=== PATIENT | female | born 1995 | race Two or more races ===

== ENCOUNTER 2024-04-16 03:16 | Emergency (ER) | payer OTHER, SELFPAY ==
[2024-04-16 03:20] VITALS: BP 138/87; PULSE 72; O2SAT 98; BMI 37.9
[2024-04-16 03:32] VITALS: TEMP 36.9
--- NOTE | 2024-04-16 03:42 | XR_ITS ---
The [address] [address] Patient Name: HARSHAD ALICEA MRN: [id number] date: 1995 Sex: F Assigned Patient Location: ER Current Patient Location: Accession/Order Number: [id number] Exam Date: 04/16/2024 03:52 Report Date: 04/16/2024 04:13 At the request of: STEWART MARKER Procedure: XR toe LT min 2V PROCEDURE: XR toe RT min 2V, XR toe LT min 2V HISTORY: great toe infection r/o OM COMPARISON: None. FINDINGS: BONES:No fracture, acute abnormality, or significant arthropathy. SOFT TISSUES:No visible soft tissue swelling. EFFUSION:None visible. OTHER: Negative. XR/XR toe LT min 2V IMPRESSION: 1. No acute bone abnormality, significant degenerative changes, or findings to suggest osteomyelitis. 2. No appreciable soft tissue abnormality. Electronically authenticated by: JUNE KURTZ Date: 04/16/2024 04:13
--- NOTE | 2024-04-16 03:42 | XR_ITS ---
The [address] [address] Patient Name: HARSHAD ALICEA MRN: [id number] date: 1995 Sex: F Assigned Patient Location: ER Current Patient Location: Accession/Order Number: [id number] Exam Date: 04/16/2024 03:52 Report Date: 04/16/2024 04:13 At the request of: STEWART MARKER Procedure: XR toe RT min 2V PROCEDURE: XR toe RT min 2V, XR toe LT min 2V HISTORY: great toe infection r/o OM COMPARISON: None. FINDINGS: BONES:No fracture, acute abnormality, or significant arthropathy. SOFT TISSUES:No visible soft tissue swelling. EFFUSION:None visible. OTHER: Negative. XR/XR toe RT min 2V IMPRESSION: 1. No acute bone abnormality, significant degenerative changes, or findings to suggest osteomyelitis. 2. No appreciable soft tissue abnormality. Electronically authenticated by: JUNE KURTZ Date: 04/16/2024 04:13
--- NOTE | 2024-04-16 03:46 | ED.LOWEXI1 ---
HPI HPI - Extremity Injury (Lower) General Chief Complaint: Extremity Injury, Lower Stated Complaint: FOOT PAIN Time Seen by Provider: 04/16/24 03:29 Source: patient Mode of arrival: walk-in Limitations: no limitations History of Present Illness HPI Narrative: This 28-year-old female presents for evaluation of bilateral great toe pain and toenail disorder. The patient states she recently moved here from [place] to live with her sister. 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 The first night she was wearing the steel toed boots they were too tight in her feet and both of her toenails on her great toes became injured. She states the nail started lifting up and she has pain in the toes. She changed the foot where she was wearing and was seen at [facility] emergency department where she was prescribed antibiotics. She has been soaking her feet in warm Epsom salt water and has a follow-up appointment with podiatry next week. She states that they gave her Augmentin to take but she is having increasing pain in the toes and drainage from the right great toe that is foul-smelling. She states she is concerned because she is prediabetic. She has not had a fever. There is no lymphangitic streaking. She denies the possibility of . She is also concerned because she states she feels like blisters are forming on the medial aspects of the great toes. She also does appear to have some degree of fungal infection between her toes. Related Data Home Medications ?Medication ?Instructions ?Recorded ?Confirmed levothyroxine 88 mcg tablet 88 mcg PO DAILY 04/16/24 04/16/24 (Euthyrox) metformin 500 mg tablet 500 mg PO BID 04/16/24 04/16/24 Allergies Allergy/AdvReac Type Severity Reaction Status Date / Time No Known Drug Allergies Allergy Verified 04/16/24 03:26 Opioid HPI Opioid Management Most Recent Pain and Opioid Data: No Data to Display Review of Systems ROS Status of ROS 10 or more systems reviewed and unremarkable except as noted in history and below Exam Narrative Exam Narrative: Vital signs and Nursing Notes reviewed: Patient is afebrile with a normal pulse, blood pressure is mildly elevated at 138/87, she is not hypoxic with pulse ox of 98% on room air General: Awake, alert, oriented, no acute distress, lying comfortably on the stretcher, tearful at times HEENT: Normocephalic atraumatic, mucous membranes are moist and pink, eyes are clear, normal conjunctiva, vision is grossly intact Neck: Supple, no meningeal signs, no anterior or posterior cervical lymphadenopathy Chest: Lungs are clear to auscultation with good air entry, there is no wheezing rhonchi or rales appreciated no accessory muscle use, patient is speaking in complete sentences-no chest wall tenderness to palpation CVS: Regular rate and rhythm S1-S2, no murmurs rubs or gallops, pulses are brisk and equal bilaterally ABD: Soft, nondistended, nontender, no rebound guarding or rigidity, bowel sounds are normal, no pulsatile masses appreciated Extremities: The toenails on both great toes are trimmed back but are mildly avulsed and not closely approximated to the nail, there is no drainage appreciated or foul smell appreciated. They are mildly tender to palpation. There is no lymphangitic streaking. There is some small white broken blistering area that appears to be a tinea infection. Skin: Normal in appearance without rash,pallor, petechiae or purpura Neuro: No focal deficits Constitutional Vital Signs, click to edit/add: Last Vital Signs Temp 98.5 F 04/16/24 03:32 Pulse 72 04/16/24 03:20 Resp 16 04/16/24 03:20 BP 138/87 04/16/24 03:20 Pulse Ox 98 04/16/24 03:20 O2 Del Method Room Air 04/16/24 03:20 Course Vital Signs Vital signs: Vital Signs Pulse Rate 72 04/16/24 03:20 Respiratory Rate 16 04/16/24 03:20 Blood Pressure 138/87 04/16/24 03:20 Pulse Oximetry 98 04/16/24 03:20 Oxygen Delivery Method Room Air 04/16/24 03:20 Temperature 98.5 F 04/16/24 03:32 Pulse Rate 72 04/16/24 03:20 Respiratory Rate 16 04/16/24 03:20 Blood Pressure 138/87 04/16/24 03:20 Pulse Oximetry 98 04/16/24 03:20 Oxygen Delivery Method Room Air 04/16/24 03:20 MDM - Extremity Injury (Lower) MDM Narrative Medical decision making narrative: This 28-year-old female who is prediabetic presents for evaluation of bilateral great toe pain and concern for infection. The patient's toenails are lifting up after they were injured while she was wearing steel toed boots after starting a new job recently. She was seen at [facility] and prescribed Augmentin which she has been taking. She has also been soaking her feet. She has a follow-up appointment with podiatry next week. She was concerned because she feels that she is developing blisters on the medial aspect of her great toes which I do not appreciate but there is some degree of tinea infection between the remaining toes. She states there is drainage coming out of the right great toe that is foul-smelling. She was unable to express any drainage while in the emergency department and I was unable to express any drainage as well. There is no lymphangitic streaks or other notable abnormality. Her Accu-Chek was 114. X-rays of both toes were ordered to rule out any soft tissue infection or osteomyelitis. X-rays are normal. She will be discharged home with a prescription for antifungal spray for her feet and ibuprofen for pain. Discharge Plan Discharge Stand Alone Forms: Portal Instructions Chief Complaint: Extremity Injury, Lower Clinical Impression: Infection of toenail, Tinea pedis Patient Disposition: Home, Self-Care Time of Disposition Decision: 04:06 Condition: Good Prescriptions / Home Meds: No Action levothyroxine [Euthyrox] 88 mcg tablet 88 mcg PO DAILY metformin 500 mg tablet 500 mg PO BID Print Language: Iranian Instructions: Skin Yeast Infection (ED), Nail Avulsion (ED) Additional Instructions: Continue taking her antibiotics and soaking her feet in Epsom salt. Return to the emergency department for fever, worsening redness, red streaks up your feet or legs or any concerns. Follow-up closely with the guest experience specialist you are scheduled to see next week. Referrals: Physician,Non-Staff, MD [Primary Care Provider] - 1 week
[2024-04-16 03:50] LABS: Glucometer 114 mg/dL (74-106)
[2024-04-16] MEDS: IBUPROFEN 600 MG TABLET PO (04:16)
[2024-04-16 04:20] VITALS: BP 130/84; PULSE 74; O2SAT 99
== END 2024-04-16 04:20 | disposition home or self-care (01) ==
PROVIDERS: Emergency Provider Emergency Medicine
DX: B35.3 Tinea pedis (principal); L03.032 Cellulitis of left toe; L03.031 Cellulitis of right toe
CPT/HCPCS: 36415; 73660; 99284

== ENCOUNTER 2024-05-30 17:37 | Emergency (ER) | payer SELFPAY ==
[2024-05-30 17:41] VITALS: BP 133/89; PULSE 87; TEMP 36.7; O2SAT 97; BMI 37.9
--- OUTSIDE RECORDS SUMMARY | 2024-05-30 17:44 | XMS_ITS | CCD ---
Author Organization [facility] Care Team Providers Care Audit Reviewer Name Role Phone NONE, XXXX Primary Care Physician Unavailab Jensen Rodriguez Attending Unavailable Kenia Galan Primary Care Physician Medications Current Medications Medication Drug Class(es) Dates Sig (Normalized) Sig (Original) cephalexin 500 mg oral capsule (1 source) Cephalosporin Antibacterial Start: 04-05-2024 End: 04-12-2024 take 1 capsule by mouth every six hours Keflex 500 mg Cap 500 mg = 1 cap(s), Oral, q6hr, X 7 day(s), # 28 cap(s), Refills(s) 0, Pharmacy: [id number], 164, cm, 04/05/24 19:17:00 EDT, Height/Length Dosing, 103, kg, 04/05/24 19:17:00 EDT, Weight Dosing Start Date: 04/05/24 Stop Date: 04/12/24 Status: Ordered doxycycline hyclate 100 mg oral capsule (1 source) Tetracycline-class Drug Start: 04-15-2024 take 1 capsule by mouth twice daily doxycycline hyclate 100 mg Cap 100 mg = 1 cap(s), Oral, BID, # 20 cap(s), Refills(s) 0, Pharmacy: [id number], 164, cm, 04/15/24 6:28:00 EDT, Height/Length Dosing, 103, kg, 04/15/24 6:28:00 EDT, Weight Dosing Start Date: 04/15/24 Status: Ordered levothyroxine (2 sources) l-Thyroxine Start: 04-05-2024 levothyroxine Daily, Refills(s) 0 Start Date: 04/05/24 Status: Ordered metFORMIN (2 sources) Biguanide Start: 04-05-2024 metformin Oral, Refills(s) 0 Start Date: 04/05/24 Status: Ordered Problems Problem Classification Problem Date Documented Da te Episodic/Chronic Diabetes mellitus without complication (2 sources) Diabetes mellitus 04-05-2024 Chronic Skin and subcutaneous tissue infections (2 sources) Cellulitis of toe; Translations: [Cellulitis of unspecified toe] Onset: 04-05-2024 Episodic Thyroid disorders (2 sources) Disorder of thyroid gland 04-05-2024 Episodic Results Test Name Value Interpretation Reference Range Facil ity ED Clinical Summaryon 2023 ED Clinical Summary ED Clinical Summary [place] [id number] ED Clinical Summary Person Information Name: HARSHAD ALICEA [facility] Age: 28 Years : 1995 Sex: Female Language: Citizen Of [place] PCP: NONE, XXXX Marital Status: Single Phone: Visit Id: Visit Reason: Toe pain-swelling; Toe injury - Minor; BOTH TOE POSS INFECTION Speciality: Acuity: 3 Enc Type: Emergency Med Service: Emergency Arrival: 04/05/2024 19:08:18 Discharge: 04/05/2024 19:40:12 LOS: 000 00:32 Checkin: 04/05/2024 19:08:18 Checkout: 04/05/2024 19:40:12 Dispo Type: Home (Routine DC) EVENTS: Event Name Event Status Request Date/Time Start Date/Time Complete Date/Time Arrive Complete 04/05/2024 19:08:18 04/05/2024 19:08:18 04/05/2024 19:08:18 Document Home Meds Request 04/05/2024 19:08:18 Triage Complete 04/05/2024 19:08:18 04/05/2024 19:17:43 04/05/2024 19:17:43 Registration Complete 04/05/2024 19:16:14 04/05/2024 19:16:14 04/05/2024 19:16:14 Reg Complete Request 04/05/2024 19:16:14 Reg Bed Request Complete 04/05/2024 19:16:14 04/05/2024 19:16:14 04/05/2024 19:16:14 Bed Assign Complete 04/05/2024 19:19:19 04/05/2024 19:19:19 04/05/2024 19:19:19 Dr Exam Complete 04/05/2024 19:19:19 04/05/2024 19:22:48 04/05/2024 19:22:48 RN Exam Complete 04/05/2024 19:19:19 04/05/2024 19:39:28 04/05/2024 19:39:28 Registration Start 04/05/2024 19:22:48 04/05/2024 19:29:30 Meds Admin Complete 04/05/2024 19:32:01 04/05/2024 19:37:19 Discharge Complete 04/05/2024 19:33:11 04/05/2024 19:43:13 04/05/2024 19:43:13 Transfer Complete 04/05/2024 19:43:13 04/05/2024 19:43:13 04/05/2024 19:43:13 ADDRESS: [address] [place] [address] [address] [place] [id number] PHYS DOC NOTES: MEDICAL INFORMATION: Prescriptions Given: New Medications [id number], [address] [facility] [place] [phone], [phone] cephalexin (Keflex 500 mg Cap) 1 Capsules By Mouth every 6 hours for 7 Days. Refills: 0. Medications to Continue with No Changes Other Medications levothyroxine every day. metformin By Mouth. PATIENT EDUCATION INFORMATION: Instructions: Cellulitis, Adult Follow up: With: Address: When: Kenia Gal[place] [address] Business (1) In 3 days 04/08/2024 DIAGNOSIS: Cellulitis of great toe Normal [facility] ED Note-Physicianon 04-05-20 ED Note-Physician ED Note-Physician Basic Information Time Seen: Jensen Lua DO 04/05/2024 19:22 Chief Complaint states has drainage from under both great toes. tender to touch. no fever. History of Present Illness HPI: Patient is a 28-year-old female who is previous healthy presents the ED for pain and swelling of bilateral big toes. Patient states that she wears steel toed boots at work and they have been a little tight and they have been rubbing and she has noticed redness and swelling as well as a small amount of drainage. She denies any fever or chills. She is otherwise feeling well. ROS: Pertinent review of systems conducted and is negative except as noted above. Physical exam: General: nontoxic appearing and in no distress HEENT: Mucous membranes moist Neuro: awake and alert Neck: supple, trachea midline Card: Heart regular rate and rhythm no murmur Resp: Lungs clear to auscultation no wheeze or rhonchi Lower extremities: There is soft tissue swelling and erythema with warmth of the left great toe and to a lesser extent the right great toe. No active drainage. Dorsalis pedis pulses 2+. Physical Exam Vitals & Measurements T: 36.7 ?C(Oral) HR: 78(Peripheral) RR: 16 BP: 130/77 SpO2: 98% HT: 164 cm WT: 103 kg BMI: 38.3 Medical Decision Making MEDICAL DECISION MAKING Number and Complexity of Problems Differential Diagnosis: [] [facility] Data External documents reviewed: N/A My EKG interpretation: Noted in chart if applicable My CT interpretation: N/A My X-ray interpretation: Noted in chart if applicable My Ultrasound interpretation: N/A Decision rules/scores evaluated: N/A Discussed with: N/A Treatment and Disposition ED Course: Patient is well-appearing in no distress. She is afebrile here in the ED. She has swelling and redness of bilateral toes left greater than right. She states that there was some drainage from the left 1 but not the right 1. I am concerned from early cellulitis from the rubbing of her toes against her boots. We discussed the plan of starting her on oral Keflex and she will try to wear looser fitting boots as well as thicker socks and will follow closely with her primary care physician on an outpatient basis. Shared decision making: As above Code status: N/A Assessment/Plan Cellulitis of great toe (L03.039: Cellulitis of unspecified toe) Orders: cephalexin, 500 mg = 1 cap(s), Cap, Oral, Once, Stop date 04/05/24 19:31:00 EDT, STAT, Start date 04/05/24 19:31:00 EDT, 04/05/24 19:31:00 EDT cephalexin, 500 mg = 1 cap(s), Oral, q6hr, X 7 day(s), # 28 cap(s), Refills(s) 0, Pharmacy: [id number], 164, cm, 04/05/24 19:17:00 EDT, Height/Length Dosing, 103, kg, 04/05/24 19:17:00 EDT, Weight Dosing Disposition Plan Discharge Prescription List Prescriptions Keflex 500 mg Cap, 500 mg= 1 cap(s), Oral, q6hr Follow-up With When Contact Information Kenia Galan In 3 days 04/08/2024 EDT [address] [facility] [place] [address]- Business (1) Additional Instructions: Patient Education Cellulitis, Adult Problem List/Past Medical History Ongoing No qualifying data Historical No qualifying data Medications Inpatient Keflex 500 mg Cap, 500 mg= 1 cap(s), Oral, Once Home Keflex 500 mg Cap, 500 mg= 1 cap(s), Oral, q6hr Allergies No Known Allergies Lab Results No qualifying data available. Diagnostic Results No qualifying data available. Normal [facility] Comment on above: Result Comment: Elec tronically Signed By: Jensen Lua DO\.br\Date and Time Signed: 04/05/24 19:34 EDT ED Patient Summaryon 024 ED Patient Summary ED Patient Summary [address] [address] Patient Discharge Instructions Person Information Name: HARSHAD ALICEA Age: 28 Years Arrival Date: 04/05/2024 19:08:18 Discharge Diagnosis: Cellulitis of great toe Primary Care Physician: NONE, XXXX Provider Information Primary Provider: Jensen Lua DO [employer] Weigher:None The exam and treatment you received in the Emergency Department were for an urgent problem and are not intended as complete care. It is important that you follow up with a doctor, nurse practitioner, or physician?s collections assistant for ongoing care. If your symptoms become worse or you do not improve as expected and you are unable to reach your usual health care provider, you should return to the Emergency Department. We are available 24 hours a day. HARSHAD ALICEA has been given the following list of patient education materials, prescriptions and follow-up instructions: Follow-up Instructions: With: Address: When: [place] [place] [address] [place] (1) In 3 days 04/08/2024 In the event that this physician does not participate in your insurance network, please consult with your insurance company to find a nearby participating provider. Patient Education Materials: Cellulitis, Adult A MESSAGE TO ALL PATIENTS REGARDING OPIOIDS PRESCRIPTION OPIOIDS: WHAT YOU NEED TO KNOW Prescription opioids can be used to help relieve xkrixtsv-hh-tlptaa pain and are often prescribed following a surgery or injury, or for certain health conditions. These medications can be an important part of the treatment but also come with serious risks. It is important to work with your healthcare provider to make sure you are getting the safest, most effective care. WHAT ARE THE RISKS AND SIDE EFFECTS OF OPIOID USE? Prescription opioids carry serious risks of addiction and overdose, especially with prolonged use. An opioid overdose, often marked by slowed breathing, can cause sudden . The use of prescription opioids can have a number of side effects as well, even when taken as directed: ? Tolerance?meaning you might need to take more of the medication for the same pain relief ? Physical dependence?meaning you have symptoms of withdrawal when a medication is stopped ? Increased sensitivity to pain ? Constipation ? Nausea, vomiting, and dry mouth ? Sleepiness and dizziness ? Confusion ? Depression ? Low levels of testosterone that can result in lower sex drive, energy, and strength ? Itching and sweating RISKS ARE GREATER WITH: ? History of drug misuse, substance use disorder, or overdose ? Mental health conditions (such as depression or anxiety) ? Sleep apnea ? Older age (65 years and older) ? Avoid alcohol while taking prescription opioids. Also, unless specifically advised by your health care provider, medications to avoid include: ? Benzodiazepines (such as Xanax or Valium) ? Muscle relaxants (such as Soma or Flexeril) ? Hypnotics (such as Ambien or Lunesta) ? Other prescription opioids KNOW YOUR OPTIONS Talk to your health care provider about ways to manage your pain that don?t involve prescription opioids. Some of these options may actually work better and have fewer risks and side effects. Options may include: ? Pain relievers such as acetaminophen, ibuprofen, and naproxen ? Some medication that are also used for depression or seizures ? Physical therapy and exercise ? Cognitive behavioral therapy, a psychological, goal-directed approach, in which patients learn how to modify physical, behavioral, and emotional triggers of pain and stress. IF YOU ARE PRESCRIBED OPIOIDS FOR PAIN: ? Never take opioids in greater amounts or more often than prescribed. ? Follow up with your primary health care provider. o Work together to create a plan on how to manage your pain. o Talk about ways to help manage your pain that don?t involve prescription opioids. o Talk about any and all concerns and side effects. ? Help prevent misuse and abuse o Never sell or share prescription opioids. o Never use another person?s prescription opioids. ? Store prescription opioids in a secure place and out of reach of others (this may include visitors, children, friends, and family). ? Safely dispose of unused prescription opioids: Find your community drug take-back program or your pharmacy mail-back program, or flush them down the toilet, following guidance from the Food and Drug Administration (www.fda.gov/Drugs/Res ourcesForYou). ? Visit www.cdc.gov/drugoverdo se to learn about the risks of opioids abuse and overdose. ? If you believe you may be struggling with addiction, tell your health care advocate and ask for guidance or call [facility]?S National Helpline at 6-286-624-CXYG. v Source: [place] Departme (more content not included)... Normal [facility] Vital Signs Date Time Vital Sign Value Performing Clinician Paula boyer 04-15-2024 06:26-0400 Body temperature 97.7 [degF] Ej Vizcarra [facility] 04-15-2024 06:26-0400 Diastolic blood pressure 80 mm[Hg] Ej Vizcarra [facility] 04-15-2024 06:26-0400 Heart rate 80 /min Ej Vizcarra [facility] 04-15-2024 06:26-0400 Respiratory rate 16 /min Ej Vizcarra [facility] 04-15-2024 06:26-0400 SaO2% (BldA) [Mass fraction] 99 % Ej Vizcarra [facility] 04-15-2024 06:26-0400 Systolic blood pressure 132 mm[Hg] Ej Vizcarra [facility] 04-05-2024 19:13-0400 Body temperature 98.06 [degF] Jensen Lua [facility] 04-05-2024 19:13-0400 Diastolic blood pressure 77 mm[Hg] Jensen Lua [facility] 04-05-2024 19:13-0400 Heart rate 78 /min Jensen Lua [facility] 04-05-2024 19:13-0400 Respiratory rate 16 /min Jensen Lua [facility] 04-05-2024 19:13-0400 SaO2% (BldA) [Mass fraction] 98 % Jensen Chanell [facility] 04-05-2024 19:13-0400 Systolic blood pressure 130 mm[Hg] Jensen Lua [facility] Encounters Encounter Date Encounter Type Care Provider Facility Start: 04-15-2024 End: 04-15-2024 Emergency department patient visit Ej Vizcarra [facility] Start: 04-05-2024 End: 04-05-2024 Emergency department patient visit Jensen Lua [facility] Payers Date Payer Category Payer Private Health Insurance [id number] 1995 Unknown [id number] Social History Date Type Detail Facility Tobacco smoking status No Smoking Status Entered [facility] Sex Assigned At Female [facility] Functional Status Date Assessment Result Facility 04-15-2024 Functional Status N/A [facility] 04-05-2024 Functional Status N/A [facility] Evaluation + Plan note 04-15-2024 Note Date & Type Note Facility 04-15-2024 Evaluation + Plan note Extrac sindy from: Title:ED Note Author:Benji Mcneil, Koko Stover te:04/15/24 1. Cellulitis of great toe, right (L03.031: Cellulitis of right toe) Orders: doxycycline, 100 mg = 1 cap(s), Oral, BID, # 20 cap(s), Refills(s) 0, Pharmacy: [id number], 164, cm, 04/15/24 6:28:00 EDT, Height/Length Dosing, 103, kg, 04/15/24 6:28:00 EDT, Weight Dosing [facility] Hospital Discharge instructions 04-15-2024 Note Date & Type Note Facility 04-15-2024 Hospital Discharg e instructions Patient Education 04/15/2024 06:52:47 Cellulitis, Adult Cellulitis, Adult Cellulitis is a skin infection. The infected area is usually warm, red, swollen, and tender. This condition occurs most often in the arms and lower legs. The infection can travel to the muscles, blood, and underlying tissue and become serious. It is very important to get treated for this condition. What are the causes? Cellulitis is caused by bacteria. The bacteria enter through a break in the skin, such as a cut, burn, insect bite, open sore, or crack. What increases the risk? This condition is more likely to occur in people who: Have a weak body defense system (immune system). Have open wounds on the skin, such as cuts, lee, bites, and scrapes. Bacteria can enter the body through these open wounds. Are older than 60 years of age. Have diabetes. Have a type of long-lasting (chronic) liver disease (cirrhosis) or kidney disease. Are obese. Have a skin condition such as: ?Itchy rash (eczema). ?Slow movement of blood in the veins (venous stasis). ?Fluid buildup below the skin (edema). Have had radiation therapy. Use IV drugs. What are the signs or symptoms? Symptoms of this condition include: Redness, streaking, or spotting on the skin. Swollen area of the skin. Tenderness or pain when an area of the skin is touched. Warm skin. A fever. Chills. Blisters. How is this diagnosed? This condition is diagnosed based on a medical history and physical exam. You may also have tests, including: Blood tests. Imaging tests. How is this treated? Treatment for this condition may include: Medicines, such as antibiotic medicines or medicines to treat allergies (antihistamines). Supportive care, such as rest and application of cold or warm cloths (compresses) to the skin. Hospital care, if the condition is severe. The infection usually starts to get better within 1 2 days of treatment. Follow these instructions at home: Medicines Take lyuo-dhq-dmehqeo and prescription medicines only as told by your health care provider. If you were prescribed an antibiotic medicine, take it as told by your health care provider. Do not stop taking the antibiotic even if you start to feel better. General instructions Drink enough fluid to keep your urine pale yellow. Do not touch or rub the infected area. Raise (elevate) the infected area above the level of your heart while you are sitting or lying down. Apply warm or cold compresses to the affected area as told by your health care provider. Keep all follow-up visits as told by your health care provider. This is important. These visits let your health care provider make sure a more serious infection is not developing. Contact a health care provider if: You have a fever. Your symptoms do not begin to improve within 1 2 days of starting treatment. Your bone or joint underneath the infected area becomes painful after the skin has healed. Your infection returns in the same area or another area. You notice a swollen bump in the infected area. You develop new symptoms. You have a general ill feeling (malaise) with muscle aches and pains. Get help right away if: Your symptoms get worse. You feel very sleepy. You develop vomiting or diarrhea that persists. You notice red streaks coming from the infected area. Your red area gets larger or turns dark in color. These symptoms may represent a serious problem that is an emergency. Do not wait to see if the symptoms will go away. Get medical help right away. Call your local emergency services (911 in the [place] Do not drive yourself to the hospital. Summary Cellulitis is a skin infection. This condition occurs most often in the arms and lower legs. Treatment for this condition may include medicines, such as antibiotic medicines or antihistamines. Take xtbi-gzt-wdcdakd and prescription medicines only as told by your health care provider. If you were prescribed an antibiotic medicine, do not stop taking the antibiotic even if you start to feel better. Contact a health care provider if your symptoms do not begin to improve within 1 2 days of starting treatment or your symptoms get worse. Keep all follow-up visits as told by your health care provider. This is important. These visits let your health care provider make sure that a more serious infection is not developing. This information is not intended to replace advice given to you by your health care provider. Make sure you discuss any questions you have with your health care provider. Document Revised: 06/19/2022 Document Reviewed: 06/20/2022 [employer] Patient Education 2022 [place]. Follow Up Care 04/15/2024 06:24:12 With:Tino Garcia Address: [facility] [address] [place] [address]- 0 Business (1) When:04/18/2024 06:46:37 Comments:Return to the emergency room if your pain/redness gets worse, red streaks going up your foot, fever or any new symptoms With:Kenia Galan Address: [place] [address]- Business (1) When:Within 3 Day(s) [facility] Discharge instructions 04-05-2024 Note Date & Type Note Facility 04-05-2024 Hospital Discharg e instructions Patient Education 04/05/2024 19:43:14 Cellulitis, Adult Cellulitis, Adult Cellulitis is a skin infection. The infected area is usually warm, red, swollen, and tender. This condition occurs most often in the arms and lower legs. The infection can travel to the muscles, blood, and underlying tissue and become serious. It is very important to get treated for this condition. What are the causes? Cellulitis is caused by bacteria. The bacteria enter through a break in the skin, such as a cut, burn, insect bite, open sore, or crack. What increases the risk? This condition is more likely to occur in people who: Have a weak body defense system (immune system). Have open wounds on the skin, such as cuts, lee, bites, and scrapes. Bacteria can enter the body through these open wounds. Are older than 60 years of age. Have diabetes. Have a type of long-lasting (chronic) liver disease (cirrhosis) or kidney disease. Are obese. Have a skin condition such as: ?Itchy rash (eczema). ?Slow movement of blood in the veins (venous stasis). ?Fluid buildup below the skin (edema). Have had radiation therapy. Use IV drugs. What are the signs or symptoms? Symptoms of this condition include: Redness, streaking, or spotting on the skin. Swollen area of the skin. Tenderness or pain when an area of the skin is touched. Warm skin. A fever. Chills. Blisters. How is this diagnosed? This condition is diagnosed based on a medical history and physical exam. You may also have tests, including: Blood tests. Imaging tests. How is this treated? Treatment for this condition may include: Medicines, such as antibiotic medicines or medicines to treat allergies (antihistamines). Supportive care, such as rest and application of cold or warm cloths (compresses) to the skin. Hospital care, if the condition is severe. The infection usually starts to get better within 1 2 days of treatment. Follow these instructions at home: Medicines Take qegi-txq-rrlvqwo and prescription medicines only as told by your health care provider. If you were prescribed an antibiotic medicine, take it as told by your health care provider. Do not stop taking the antibiotic even if you start to feel better. General instructions Drink enough fluid to keep your urine pale yellow. Do not touch or rub the infected area. Raise (elevate) the infected area above the level of your heart while you are sitting or lying down. Apply warm or cold compresses to the affected area as told by your health care provider. Keep all follow-up visits as told by your health care provider. This is important. These visits let your health care provider make sure a more serious infection is not developing. Contact a health care provider if: You have a fever. Your symptoms do not begin to improve within 1 2 days of starting treatment. Your bone or joint underneath the infected area becomes painful after the skin has healed. Your infection returns in the same area or another area. You notice a swollen bump in the infected area. You develop new symptoms. You have a general ill feeling (malaise) with muscle aches and pains. Get help right away if: Your symptoms get worse. You feel very sleepy. You develop vomiting or diarrhea that persists. You notice red streaks coming from the infected area. Your red area gets larger or turns dark in color. These symptoms may represent a serious problem that is an emergency. Do not wait to see if the symptoms will go away. Get medical help right away. Call your local emergency services (911 in the [place] Do not drive yourself to the hospital. Summary Cellulitis is a skin infection. This condition occurs most often in the arms and lower legs. Treatment for this condition may include medicines, such as antibiotic medicines or antihistamines. Take vfsc-owj-icinksf and prescription medicines only as told by your health care provider. If you were prescribed an antibiotic medicine, do not stop taking the antibiotic even if you start to feel better. Contact a health care provider if your symptoms do not begin to improve within 1 2 days of starting treatment or your symptoms get worse. Keep all follow-up visits as told by your health care provider. This is important. These visits let your health care provider make sure that a more serious infection is not developing. This information is not intended to replace advice given to you by your health care provider. Make sure you discuss any questions you have with your health care provider. Document Revised: 06/19/2022 Document Reviewed: 06/20/2022 [employer] Patient Education 2022 [employer]. Follow Up Care 04/05/2024 19:12:30 With:Kenia Galan Address: [address] [place] [address]- Business (1) When:04/08/2024 19:33:09 [facility] Clinical Note 04-05-2024 Note Date & Type Note Facility 04-05-2024 Note ED Patient Education Note Infectious Disease Cellulitis, Adult Cellulitis is a skin infection. The infected area is usually warm, red, swollen, and tender. This condition occurs most often in the arms and lower legs. The infection can travel to the muscles, blood, and underlying tissue and become serious. It is very important to get treated for this condition. What are the causes? Cellulitis is caused by bacteria. The bacteria enter through a break in the skin, such as a cut, burn, insect bite, open sore, or crack. What increases the risk? This condition is more likely to occur in people who: ? Have a weak body defense system (immune system). ? Have open wounds on the skin, such as cuts, lee, bites, and scrapes. Bacteria can enter the body through these open wounds. ? Are older than 60 years of age. ? Have diabetes. ? Have a type of long-lasting (chronic) liver disease (cirrhosis) or kidney disease. ? Are obese. ? Have a skin condition such as: ? Itchy rash (eczema). ? Slow movement of blood in the veins (venous stasis). ? Fluid buildup below the skin (edema). ? Have had radiation therapy. ? Use IV drugs. What are the signs or symptoms? Symptoms of this condition include: ? Redness, streaking, or spotting on the skin. ? Swollen area of the skin. ? Tenderness or pain when an area of the skin is touched. ? Warm skin. ? A fever. ? Chills. ? Blisters. How is this diagnosed? This condition is diagnosed based on a medical history and physical exam. You may also have tests, including: ? Blood tests. ? Imaging tests. How is this treated? Treatment for this condition may include: ? Medicines, such as antibiotic medicines or medicines to treat allergies (antihistamines). ? Supportive care, such as rest and application of cold or warm cloths (compresses) to the skin. ? Hospital care, if the condition is severe. The infection usually starts to get better within 1?2 days of treatment. Follow these instructions at home: Medicines ? Take [id number]-cfdyrim and prescription medicines only as told by your health care provider. ? If you were prescribed an antibiotic medicine, take it as told by your health care provider. Do not stop taking the antibiotic even if you start to feel better. General instructions ? Drink enough fluid to keep your urine pale yellow. ? Do not touch or rub the infected area. ? Raise (elevate) the infected area above the level of your heart while you are sitting or lying down. ? Apply warm or cold compresses to the affected area as told by your health care provider. ? Keep all follow-up visits as told by your health care provider. This is important. These visits let your health care provider make sure a more serious infection is not developing. Contact a health care provider if: ? You have a fever. ? Your symptoms do not begin to improve within 1?2 days of starting treatment. ? Your bone or joint underneath the infected area becomes painful after the skin has healed. ? Your infection returns in the same area or another area. ? You notice a swollen bump in the infected area. ? You develop new symptoms. ? You have a general ill feeling (malaise) with muscle aches and pains. Get help right away if: ? Your symptoms get worse. ? You feel very sleepy. ? You develop vomiting or diarrhea that persists. ? You notice red streaks coming from the infected area. ? Your red area gets larger or turns dark in color. These symptoms may represent a serious problem that is an emergency. Do not wait to see if the symptoms will go away. Get medical help right away. Call your local emergency services (911 in the [place] Do not drive yourself to the hospital. Summary ? Cellulitis is a skin infection. This condition occurs most often in the arms and lower legs. ? Treatment for this condition may include medicines, such as antibiotic medicines or antihistamines. ? Take zpis-xyf-cumxicc and prescription medicines only as told by your health care provider. If you were prescribed an antibiotic medicine, do not stop taking the antibiotic even if you start to feel better. ? Contact a health care provider if your symptoms do not begin to improve within 1?2 days of starting treatment or your symptoms get worse. ? Keep all follow-up visits as told by your health care provider. This is important. These visits let your health care provider make sure that a more serious infection is not developing. This information is not intended to replace advice given to you by your health care provider. Make sure you discuss any questions you have with your health care provider. Document Revised: 06/19/2022 Document Reviewed: 06/20/2022 Elsevier Patient Education ? 2022 [employer]. [facility] Evaluation + Plan note 04-05-2024 Note Date & Type Note Facility 04-05-2024 Evaluation + Plan note Extrac sindy from: Title:ED Note Author:Jensen Lua DO Date :04/05/24 Cellulitis of great toe (L03 .039: Cellulitis of unspecified toe) Orders: cephalexin, 500 mg = 1 cap(s), Cap, Oral, Once, Stop date 04/05/24 19:31:00 EDT, STAT, Start date 04/05/24 19:31:00 EDT, 04/05/24 19:31:00 EDT cephalexin, 500 mg = 1 cap(s), Oral, q6hr, X 7 day(s), # 28 cap(s), Refills(s) 0, Pharmacy: [facility]/pharmacy #[id number], 164, cm, 04/05/24 19:17:00 EDT, Height/Length Dosing, 103, kg, 04/05/24 19:17:00 EDT, Weight Dosing [facility] Hospital course Narrative Note Date & Type Note Facility Hospital course Narrative No data available for this section [facility] Progress note Note Date & Type Note Facility Progress note No data available for this section [facility] Summary Purpose Family History No Family History Records Found Advance Directives No Advanced Directives Records Found Additional Source Comments INFORMATION SOURCE (unrecogn ized section and content) DATE CREATED AUTHOR 04/09/2024 [facility] Patient Care team informatio n (unrecognized section and content) Personnel Name: Kenia Galan MD Address: Address: [address] [place], [place] [address] FOR RECORDS PERTAINING TO PATIENTS WHO ARE OR HAVE BEEN ENROLLED IN A CHEMICAL DEPENDENCY/SUBSTANCEABUSE PROGRAM, SOME INFORMATION MAY BE OMITTED. This clinical summary was aggregated from multiple sources. Caution should be exercised in using it in the provision of clinical care. This summary normalizes information from multiple sources, and as a consequence, information in this document may materially change the coding, format and clinical context of patient data. In addition, data may be omitted in some cases. CLINICAL DECISIONS SHOULD BE BASED ON THE PRIMARY CLINICAL RECORDS. [employer] provides no warranty or guarantee of the accuracy or completeness of information in this document.
--- NOTE | 2024-05-30 18:07 | ED.EXTPRO1 ---
HPI - Extremity Problem General Chief complaint: Extremity Problem, Nontraumatic Stated complaint: Upper Extremity Numbness x5 days Time Seen by Provider: 05/30/24 17:38 Source: patient Mode of arrival: walk-in Limitations: no limitations History of Present Illness HPI Narrative: Patient is a 28-year-old female presents to the ER for with concerns of numbness and tingling in her left hand. Patient notes symptoms on and off for the past few months worsening in the past 5 days involving her thumb index finger middle finger and half of her ring finger. She denies any injury, she is currently working new employment and transferred here from [place]. She denies any fall or trauma but has been doing repetition. Patient notes previously with that shaking her hand and doing different things it would go away but now symptoms are becoming more persistent. She denies any neck pain or fever. Patient takes metformin for diabetes borderline and levothyroxine. Patient does not believe she is but is sexually active. She appears in no distress but concerned about returning to work this evening. Patient is right-hand dominant MD Complaint: Reports extremity pain Location: Reports left Relieving factors: Reports nothing Exacerbating factors: Reports exertion and palpation Context: Denies recent travel Related Data Home Medications ?Medication ?Instructions ?Recorded ?Confirmed levothyroxine 88 mcg tablet 88 mcg PO DAILY 04/16/24 05/30/24 (Euthyrox) metformin 500 mg tablet 500 mg PO BID 04/16/24 05/30/24 Previous Rx's ?Medication ?Instructions ?Recorded prednisone 20 mg tablet 40 mg (2 x 20 mg) PO ONCE 5 days 05/30/24 #10 tabs Allergies Allergy/AdvReac Type Severity Reaction Status Date / Time No Known Drug Allergies Allergy Verified 05/30/24 17:41 Review of Systems ROS Constitutional Denies: fever or chills Eyes Denies: change in vision Ears, nose, mouth, and throat Denies: throat pain Cardiovascular Denies: chest pain or palpitations Respiratory Denies: shortness of breath or cough Gastrointestinal Denies: abdominal pain or nausea Genitourinary Denies: painful urination or urinary frequency Musculoskeletal Reports: extremity pain; Denies: back pain, neck pain or extremity swelling Integumentary/Breast Denies: rash, itching or redness Neurological Reports: numbness in extremities (left hand); Denies: headache Psychiatric Denies: anxiety Allergic/Immunologic Denies: hives or throat swelling PFSH PFSH Social History Little interest or pleasure in doing things: not at all Feeling down, depressed, or hopeless: not at all Exam Narrative Exam Narrative: Nurse's notes and vital signs reviewed. Patient is not hypoxic. General: The patient appears well and in no apparent distress. Patient is resting comfortably on cart. Skin: Warm, dry, no pallor noted. Head: Normocephalic, atraumatic Eye: Normal conjunctiva Respiratory: Patient is in no distress Musculoskeletal: The left wrist shows no obvious deformity. Matthew's test demonstrates radial and ulnar blood flow present. There was no swelling noted. Positive Tinel's, positive Phalen's. Negative Tinel's at the elbow. The patient had full range of motion despite pain The patient had tenderness noted to the volar wrist, sensitive to Tinel's. No pain to the dorsal wrist or hand. Numbness/tingling and burning sensation noted to fingertips. The patient had no tenderness in the anatomical snuff box. The patient had no pain with axial loading of the thumb. Pulses are intact at brachial and radial 2+. There was no deficit at the elbow or shoulder. The patient has normal capillary refill to all distal digits. The patient has no evidence of cyanosis or mottling. The patient is able to flex and extend all digits without difficulty. Neurological: A&O x4, normal sensory, normal motor, 2 point discrimination present to 5 mm but slightly blunted. Sensation difference between thumb and little finger. Right Hand is unremarkable Psychiatric: Cooperative Constitutional Vital Signs, click to edit/add: Last Vital Signs Temp 98.1 F 05/30/24 17:41 Pulse 87 05/30/24 17:41 Resp 18 05/30/24 17:41 BP 133/89 05/30/24 17:41 Pulse Ox 97 05/30/24 17:41 O2 Del Method Room Air 05/30/24 17:41 Course Vital Signs Vital signs: Vital Signs Temperature 98.1 F 05/30/24 17:41 Pulse Rate 87 05/30/24 17:41 Respiratory Rate 18 05/30/24 17:41 Blood Pressure 133/89 05/30/24 17:41 Pulse Oximetry 97 05/30/24 17:41 Oxygen Delivery Method Room Air 05/30/24 17:41 Temperature 98.1 F 05/30/24 17:41 Pulse Rate 87 05/30/24 17:41 Respiratory Rate 18 05/30/24 17:41 Blood Pressure 133/89 05/30/24 17:41 Pulse Oximetry 97 05/30/24 17:41 Oxygen Delivery Method Room Air 05/30/24 17:41 MDM - Extremity (Nontraumatic) MDM Narrative Medical decision making narrative: History and clinical exam strongly concerning for carpal tunnel syndrome. This was discussed at bedside given symptoms previously coming and going and now becoming more persistent. The test was checked and is negative. Patient still needs to establish PCP locally. She reports having metformin and still has some levothyroxine but is unsure if she is taking 100 mcg or 88 mcg for refill purposes and pharmacy is currently closed. Patient will be placed on a short course of prednisone in addition to night splinting with brace dispensed here. We discussed activity modifications, follow-up to PCP and possible orthopedics to discuss further testing. Patient thankful and had no further concerns or questions. The patient is to followup with primary care physician in next 2-3 days or to return to the emergency department should any of the signs or symptoms worsen or new symptoms develop. Patient had questions answered. The patient agrees with the following Diagnosis and Treatment plan and the patient will be discharged home. Lab Data Attestation: I reviewed the patient's lab results. Discharge Plan Discharge Chief Complaint: Extremity Problem, Nontraumatic Clinical Impression: Hand pain, left, Left hand paresthesia, Acute carpal tunnel syndrome of left wrist Patient Disposition: Home, Self-Care Time of Disposition Decision: 18:13 Condition: Good Prescriptions / Home Meds: New prednisone 20 mg tablet 40 mg PO ONCE 5 Days Qty: 10 0RF No Action levothyroxine [Euthyrox] 88 mcg tablet 88 mcg PO DAILY metformin 500 mg tablet 500 mg PO BID Print Language: Romanian Instructions: Carpal Tunnel Syndrome (DC) Additional Instructions: PCP and NEW PT referral paper work sent home Referrals: Physician,Non-Staff, [Primary Care Provider] - 1 week Kenan Gonzáles MD [Physician] - As soon as possible Procedures ED Procedure Instructions Procedures Procedures: Placed in a cock up wrist splint, neurovascular intact status post application. Patient verbalized plan that she will wear this for night splinting
[2024-05-30 18:10] LABS: HCG Qualitative Urine* NEGATIVE (NEGATIVE); Internal Control Within Normal Limits
[2024-05-30] MEDS: PREDNISONE 20 MG TABLET 40 MG PO (18:14)
[2024-05-30] MEDS: KETOROLAC TROMETHAMINE 60 MG/2 ML VIAL IM (18:14)
== END 2024-05-30 18:21 | disposition home or self-care (01) ==
PROVIDERS: Personal Emergency Response Attendant; Emergency Provider Emergency Medicine
DX: G56.02 Carpal tunnel syndrome, left upper limb (principal); M79.642 Pain in left hand; R20.2 Paresthesia of skin; R73.03 Prediabetes; Z79.84 Long term (current) use of oral hypoglycemic drugs; Z79.890 Hormone replacement therapy
CPT/HCPCS: 84703; 96372; 99284; J1885; J7512

== ENCOUNTER 2024-09-02 16:54 | Emergency (ER) | payer SELFPAY ==
[2024-09-02 16:58] VITALS: BP 138/93; PULSE 121; TEMP 36.7; O2SAT 97; BMI 37.4
--- OUTSIDE RECORDS SUMMARY | 2024-09-02 17:07 | XMS_ITS | CCD ---
Author Organization [facility] Care Team Providers Care Wood Crew Supervisor Name Role Phone NONE, XXXX Primary Care Physician Unavailab Jensen Rodriguez Attending Unavailable Kenia Galan Primary Care Physician Varun Disla Attending Unavailable Medications Current Medications Medication Drug Class(es) Dates Sig (Normalized) Sig (Original) brompheniramine maleate 0.4 mg/ml / dextromethorphan hydrobromide 2 mg/ml / pseudoephedrine hydrochloride 6 mg/ml oral solution (1 source) alpha-Adrenergic Agonist, Uncompetitive G-thabiv-W-asparta te Receptor Antagonist, Sigma-1 Agonist Start: 06-17-2024 take 5 mL by mouth four times daily Bromfed DM oral syrup 5 mL, Oral, QID for cold symptoms, 200 mL, Refill(s) 0, [id number], 164, cm, 06/17/24 5:51:00 EDT, Height/Length Dosing, 105.5, kg, 06/17/24 5:51:00 EDT, Weight Dosing Start Date: 06/17/24 Status: Ordered cephalexin 500 mg oral capsule (1 source) Cephalosporin Antibacterial Start: 04-05-2024 End: 04-12-2024 take 1 capsule by mouth every six hours Keflex 500 mg Cap 500 mg = 1 cap(s), Oral, q6hr, X 7 day(s), # 28 cap(s), Refills(s) 0, Pharmacy: [id number], 164, cm, 04/05/24 19:17:00 EDT, Height/Length Dosing, 103, kg, 04/05/24 19:17:00 EDT, Weight Dosing Start Date: 04/05/24 Stop Date: 04/12/24 Status: Ordered doxycycline hyclate 100 mg oral capsule (2 sources) Tetracycline-class Drug Start: 04-15-2024 take 1 capsule by mouth twice daily doxycycline hyclate 100 mg Cap 100 mg = 1 cap(s), Oral, BID, # 20 cap(s), Refills(s) 0, Pharmacy: [id number], 164, cm, 04/15/24 6:28:00 EDT, Height/Length Dosing, 103, kg, 04/15/24 6:28:00 EDT, Weight Dosing Start Date: 04/15/24 Status: Ordered levothyroxine (3 sources) l-Thyroxine Start: 04-05-2024 levothyroxine Daily, Refills(s) 0 Start Date: 04/05/24 Status: Ordered metFORMIN (3 sources) Biguanide Start: 04-05-2024 metformin Oral, Refills(s) 0 Start Date: 04/05/24 Status: Ordered Zofran ODT 4 mg Tab-Dis (1 source) Start: 06-17-2024 take 1 tablet by mouth every eight hours as needed for nausea Zofran ODT 4 mg Tab-Dis 4 mg = 1 tab(s), Oral, q8hr, PRN Nausea/Vomiting, # 12 tab(s), Refills(s) 0, [id number] 164, cm, 06/17/24 5:51:00 EDT, Height/Length Dosing, 105.5, kg, 06/17/24 5:51:00 EDT, Weight Dosing Start Date: 06/17/24 Status: Ordered Problems Active Problems Problem Classification Problem Date Documented Da te Episodic/Chronic Diabetes mellitus without complication (3 sources) Diabetes mellitus 04-05-2024 Chronic Other upper respiratory infections (1 source) Acute upper respiratory infection; Translations: [Acute upper respiratory infection, unspecified] Onset: 06-17-2024 Episodic Skin and subcutaneous tissue infections (2 sources) Cellulitis of toe; Translations: [Cellulitis of unspecified toe] Onset: 04-05-2024 Episodic Thyroid disorders (3 sources) Disorder of thyroid gland 04-05-2024 Episodic Past or Other Problems Problem Classification Problem Date Documented Da te Episodic/Chronic Viral infection (1 source) Disease caused by 2019-nCoV; Translations: [COVID-19] Onset: 06-17-2024 Results Test Name Value Interpretation Reference Range Facil ity ED Clinical Summaryon 2023 ED Clinical Summary ED Clinical Summary [address] [address] ED Clinical Summary Person Information Name: HARSHAD ALICEA [place] Age: 28 Years : 1995 Sex: Female Language: Argentine PCP: Kenia Galan MD Marital Status: Single Phone: Visit Id: Visit Reason: Chills; Body aches; Shortness of breath; SOB, FEVER, THROAT PAIN, CONGESTION Speciality: Acuity: 3 Enc Type: Emergency Med Service: Emergency Arrival: 06/17/2024 05:46:03 Discharge: 06/17/2024 07:29:16 LOS: 000 01:43 Checkin: 06/17/2024 05:46:03 Checkout: 06/17/2024 07:29:16 Dispo Type: Home (Routine DC) EVENTS: Event Name Event Status Request Date/Time Start Date/Time Complete Date/Time Arrive Complete 06/17/2024 05:46:03 06/17/2024 05:46:03 06/17/2024 05:46:03 Document Home Meds Request 06/17/2024 05:46:03 Triage Complete 06/17/2024 05:46:03 06/17/2024 05:51:58 06/17/2024 05:51:58 EKG Complete 06/17/2024 05:48:34 06/17/2024 05:53:07 Bed Assign Complete 06/17/2024 05:52:09 06/17/2024 05:52:09 06/17/2024 05:52:09 Dr Exam Complete 06/17/2024 05:52:09 06/17/2024 06:50:27 06/17/2024 06:50:27 RN Exam Complete 06/17/2024 05:52:09 06/17/2024 06:17:34 06/17/2024 06:17:34 Registration Complete 06/17/2024 05:54:26 06/17/2024 05:54:26 06/17/2024 05:54:26 Reg Complete Request 06/17/2024 05:54:26 Reg Bed Request Complete 06/17/2024 05:54:26 06/17/2024 05:54:26 06/17/2024 05:54:26 Meds Admin Complete 06/17/2024 06:05:23 06/17/2024 06:15:37 Pending Labs Complete 06/17/2024 06:05:42 06/17/2024 06:38:56 Lab Complete 06/17/2024 06:05:42 06/17/2024 06:38:56 Registration Request 06/17/2024 06:50:27 Discharge Complete 06/17/2024 07:04:39 06/17/2024 07:29:21 06/17/2024 07:29:21 Meds Admin Complete 06/17/2024 07:06:34 06/17/2024 07:17:54 Transfer Complete 06/17/2024 07:29:21 06/17/2024 07:29:21 06/17/2024 07:29:21 ADDRESS: [address] [place] [address] [address] [place] [phone] PHYS DOC NOTES: MEDICAL INFORMATION: Prescriptions Given: New Medications [id number], [address] [place] [phone], [phone] brompheniramine/dextro methorphan/PSE (Bromfed DM oral syrup) 5 Milliliter By Mouth 4 times a day as needed for cold symptoms. Refills: 0. ondansetron (Zofran ODT 4 mg Tab-Dis) 1 Tablets By Mouth every 8 hours as needed Nausea/Vomiting. Refills: 0. Medications to Continue with No Changes Other Medications doxycycline (doxycycline hyclate 100 mg Cap) 1 Capsules By Mouth 2 times a day. Refills: 0. levothyroxine every day. metformin By Mouth. PATIENT EDUCATION INFORMATION: Instructions: COVID-19; Upper Respiratory Infection, Adult Follow up: With: Address: When: Kenia Galan [place] [address] Business (1) In 3 days 06/20/2024 Comments: Call the office of your primary care doctor to arrange for follow-up within the above-stated timeframe. Follow-up with your primary care doctor about this ED visit. You should review your labs, imaging, and diagnoses from this ED visit with your primary care physician. There are occasionally non-emergent findings that require additional follow-up after your ED visit. If you were prescribed medications you should discuss possible side-effects and drug interactions with your pharmacist. Call 911 or go to the nearest Emergency Department if you develop any new or worsening symptoms. Seek immediate medical attention if you develop: worsening shortness of breath, difficulty breathing, chest pain, nausea, vomiting, weakness, numbness, tingling, excessive sweating, loss of motion in your arms or legs, or any new or worsening symptoms. DIAGNOSIS: Acute COVID-19; Acute upper respiratory infection [facility] ED Note-Physicianon 06-17-20 ED Note-Physician ED Note-Physician Basic Information Time Seen: Ej Vizcarra DO 06/17/2024 06:50 Chief Complaint pt arrives for covid exposure. states fever chills, sob body aches History of Present Illness 28-year-old female to the emergency department with chief complaint of upper respiratory infection. Patient reports she has had fever, chills, body aches, nasal congestion, cough that started yesterday. Patient reports everyone in her house has COVID. She was concerned she had COVID and needed a work note. Otherwise at baseline health. She denies any major medical issues. Review of Systems A 10 point review of systems is negative except as noted above. Medical and Surgical History: Reviewed and noted Social history: Lives at home Tobacco: Denies Physical Exam Vitals & Measurements T: 36.8 ?C(Oral) HR: 68(Peripheral) RR: 16 BP: 124/78 SpO2: 99% HT: 164 cm WT: 105.5 kg BMI: 39.23 VITALS: I have reviewed the triage vital signs. GENERAL: Well developed, well appearing adult in no acute distress. NEURO: Alert and oriented. Moves all extremities. Face is symmetric and expressive. EYES: PERRL. No scleral icterus or conjunctival injection. No discharge. HENT: Normocephalic, atraumatic. Hearing is grossly intact. Nasal congestion. Mucous membranes moist. NECK: No JVD. Patient moves neck without restriction. CARDIO: Rhythm regular. Normal rate. No murmur, rub, or gallop. Pulses equal bilaterally in the upper and lower extremity. No lower extremity edema. PULM: Lungs clear to auscultation in all tao. No wheezes, rales, or rhonchi. No conversational dyspnea. No splinting, stridor, or accessory muscle use. Dry cough on exam. GI/: Abdomen is soft and non-tender. Normoactive bowel sounds. EXTREMITIES: Symmetric muscle bulk. No joint swelling. No clubbing, cyanosis, or deformity. SKIN: Warm and dry. Normal turgor. No rash or lesions appreciated. PSYCH: Mood, affect, and interaction is appropriate to the setting. Medical Decision Making Well-appearing 28-year-old female to the emergency department chief complaint of cough, nasal congestion, malaise after COVID exposure this week. Vital stable, the patient is afebrile. Her COVID testing is negative however she is early in course of illness. EKG is unremarkable. She is well-appearing in no respiratory distress. Discussed expected clinical course of COVID. Possible false negative given early testing. She will isolate. Symptomatic medications. Return precautions were discussed. All questions were answered. Patient was discharged home. Assessment/Plan Acute COVID-19 (U07.1: COVID-19) Acute upper respiratory infection (J06.9: Acute upper respiratory infection, unspecified) Orders: brompheniramine/dextro methorphan/PSE, 5 mL, Oral, QID for cold symptoms, 200 mL, Refill(s) 0, [id number], 164, cm, 06/17/24 5:51:00 EDT, Height/Length Dosing, 105.5, kg, 06/17/24 5:51:00 EDT, Weight Dosing dexamethasone, 10 mg = 1 mL, Injection, Oral, Once, Stop date 06/17/24 7:06:00 EDT, STAT, Start date 06/17/24 7:06:00 EDT, [facility]- max dose 12 mg, 06/17/24 7:06:00 EDT ondansetron, 4 mg = 1 tab(s), Oral, q8hr, PRN Nausea/Vomiting, # 12 tab(s), Refills(s) 0, Pharmacy: [id number], 164, cm, 06/17/24 5:51:00 EDT, Height/Length Dosing, 105.5, kg, 06/17/24 5:51:00 EDT, Weight Dosing Medications Administered Given dexamethasone 10 mg/mL Inj 1 mL, 10 mg, Oral [id number] [F], 1000 mL, IV Zofran 4 mg/2 mL Injection, 4 mg, IV Push Disposition Plan Patient Discharge Condition Stable Home Discharge Prescription List Prescriptions Bromfed DM oral syrup, 5 mL, Oral, QID, PRN Zofran ODT 4 mg Tab-Dis, 4 mg= 1 tab(s), Oral, q8hr, PRN Follow-up With When Contact Information Kenia Galan In 3 days 06/20/2024 EDT [address] [facility] [place] [address]- Business (1) Additional Instructions: Call the office of your primary care doctor to arrange for follow-up within the above-stated timeframe. Follow-up with your primary care doctor about this ED visit. You should review your labs, imaging, and diagnoses from this ED visit with your primary care physician. There are occasionally non-emergent findings that require additional follow-up after your ED visit. If you were prescribed medications you should discuss possible side-effects and drug interactions with your pharmacist. Call 911 or go to the nearest Emergency Department if you develop any new or worsening symptoms. Seek immediate medical attention if you develop: worsening shortness of breath, difficulty breathing, chest pain, nausea, vomiting, weakness, numbness, tingling, excessive sweating, loss of motion in your arms or legs, or any new or worsening symptoms. Patient Education COVID-19 Upper Respiratory Infection, Adult Problem List/Past Medical History Ongoing No qualifying data Historical Diabetes mellitus Thyroid disease Medications Inpatient No active inpatient medications Home Bromfed DM oral (more content not included)... [facility] Comment on above: Result Comment: Elec tronically Signed By: Ej Vizcarra DO\.br\Date and Time Signed: 06/17/24 07:50 EDT ED Patient Summaryon 024 ED Patient Summary ED Patient Summary [address] [address] Patient Discharge Instructions Person Information Name: HARSHAD ALICEA Age: 28 Years Arrival Date: 06/17/2024 05:46:03 Discharge Diagnosis: Acute COVID-19; Acute upper respiratory infection Primary Care Physician: Kenia Galan MD Provider Information Primary Provider: Ej Vizcarra DO [employer] Internship:None The exam and treatment you received in the Emergency Department were for an urgent problem and are not intended as complete care. It is important that you follow up with a doctor, nurse practitioner, or physician?s speech pathologist assistant for ongoing care. If your symptoms become worse or you do not improve as expected and you are unable to reach your usual health care provider, you should return to the Emergency Department. We are available 24 hours a day. HARSHAD ALICEA Collin has been given the following list of patient education materials, prescriptions and follow-up instructions: Follow-up Instructions: With: Address: When: Kenia Galan [address] [place] [address] [facility] (1) In 3 days 06/20/2024 Comments: Call the office of your primary care doctor to arrange for follow-up within the above-stated timeframe. Follow-up with your primary care doctor about this ED visit. You should review your labs, imaging, and diagnoses from this ED visit with your primary care physician. There are occasionally non-emergent findings that require additional follow-up after your ED visit. If you were prescribed medications you should discuss possible side-effects and drug interactions with your pharmacist. Call 911 or go to the nearest Emergency Department if you develop any new or worsening symptoms. Seek immediate medical attention if you develop: worsening shortness of breath, difficulty breathing, chest pain, nausea, vomiting, weakness, numbness, tingling, excessive sweating, loss of motion in your arms or legs, or any new or worsening symptoms. In the event that this physician does not participate in your insurance network, please consult with your insurance company to find a nearby participating provider. Patient Education Materials: COVID-19; Upper Respiratory Infection, Adult A MESSAGE TO ALL PATIENTS REGARDING OPIOIDS PRESCRIPTION OPIOIDS: WHAT YOU NEED TO KNOW Prescription opioids can be used to help relieve vpohdjfb-qu-hewkov pain and are often prescribed following a [...] pain. o Talk about ways to help man (more content not included)... [facility] MICRO OTHER TESTSOrdered By: Xochilt Parish on 06-17-2024 Rapid COV Int NEG Ctl Pass (06/17/24 6:09 AM) Normal [facility] Man Sero Rapid COV Int POS Ctl Pass (06/17/24 6:09 AM) Normal [facility] Man Sero SARS-CoV+SARS-CoV-2 (COVID-19) Ag IA.rapid Ql (Resp) Not Detected 1 (06/17/24 6:09 AM) Normal Not Detected [facility] Man Sero Comment on above: Interpretive Data: Chandana li [employer] Veritor System for Rapid Detection of SARS-CoV-2 is a chromatographic digital immunoassay intended for the direct and qualitative detection of SARS-CoV-2 nucleocapsid antigens in nasal swabs from individuals who are suspected of COVID-19 by their healthcare provider within the first five days of the onset of symptoms. Negative results should be treated as presumptive, do not rule out SARS-CoV-2 infection and should not be used as the sole basis for treatment or patient management decisions, including infection control decisions. Negative results should be considered in the context of a patient s recent exposures, history and the presence of clinical signs and symptoms consistent with COVID-19, and confirmed with a molecular assay, if necessary, for patient management. For in vitro diagnostic use. In the [place], only for use under an Emergency Use Authorization. In the [place], this test has not been FDA cleared or approved; this test has been authorized by FDA under an EUA for use by authorized laboratories; use by laboratories certified under the CLIA, 42 U.S.C. 263a, that meet requirements to perform moderate, high, or waived complexity tests and at the Point of Care (POC), i.e., in patient care settings operating under a CLIA Certificate of Waiver, Certificate of Compliance, or Certificate of Accreditation. This test has been authorized only for the detection of proteins from SARS-CoV-2, not for any other viruses or pathogens; and, in the [place], this test is only authorized for the duration of the declaration that circumstances exist justifying the authorization of emergency use of in vitro diagnostics for detection and/or diagnosis of the virus that causes COVID-19 under Section 564(b)(1) of the Act, 21 U.S.C. 360bbb-3(b)(1), unless the authorization is terminated or revoked sooner. Rapid COVID Antigen ([facility])on 06-17-2024 Rapid COV Int NEG Ctl Pass [facility] Comment on above: Performed By: #### 2 [id number] #### [facility] [address] [place] [address] Rapid COV Int POS Ctl Pass [facility] Comment on above: Performed By: #### 2 [id number] #### [facility] [address] [place] [address] SARS-CoV+SARS-CoV-2 (COVID-19) Ag IA.rapid Ql (Resp) Not detected Normal Not Detected [facility] Comment on above: Result Comment: The [employer]? System for Rapid Detection of SARS-CoV-2 is a chromatographic digital immunoassay intended for the direct and qualitative detection of SARS-CoV-2 nucleocapsid antigens in nasal swabs from individuals who are suspected of COVID-19 by their healthcare provider within the first five days of the onset of symptoms. Negative results should be treated as presumptive, do not rule out SARS-CoV-2 infection and should not be used as the sole basis for treatment or patient management decisions, including infection control decisions. Negative results should be considered in the context of a patient?s recent exposures, history and the presence of clinical signs and symptoms consistent with COVID-19, and confirmed with a molecular assay, if necessary, for patient management. For in vitro diagnostic use. In the [place], only for use under an Emergency Use Authorization. In the [place], this test has not been FDA cleared or approved; this test has been authorized by FDA under an EUA for use by authorized laboratories; use by laboratories certified under the CLIA, 42 U.S.C. ?263a, that meet requirements to perform moderate, high, or waived complexity tests and at the Point of Care (POC), i.e., in patient care settings operating under a CLIA Certificate of Waiver, Certificate of Compliance, or Certificate of Accreditation. This test has been authorized only for the detection of proteins from SARS-CoV-2, not for any other viruses or pathogens; and, in the [place], this test is only authorized for the duration of the declaration that circumstances exist justifying the authorization of emergency use of in vitro diagnostics for detection and/or diagnosis of the virus that causes COVID-19 under Section 564(b)(1) of the Act, 21 U.S.C. ? 360bbb-3(b)(1), unless the authorization is terminated or revoked sooner. Performed By: #### 2 [id number] #### [facility] [address] [place] [id number] ED Clinical Summaryon 2023 ED Clinical Summary ED Clinical Summary [address] [address] ED Clinical Summary Person Information Name: HARSHAD ALICEA [place] Age: 28 Years : 1995 Sex: Female Language: Argentine PCP: NONE, XXXX Marital Status: Single Phone: [...] 04/05/2024 19:43:13 04/05/2024 19:43:13 04/05/2024 19:43:13 ADDRESS: [address] [place] [address] [address] [place] [phone] PHYS DOC NOTES: MEDICAL INFORMATION: Prescriptions Given: New Medications [id number], [address] [facility] [place] [id number], [phone] cephalexin (Keflex 500 mg Cap) 1 Capsules By Mouth every 6 hours for 7 Days. Refills: 0. Medications to Continue with No Changes Other Medications levothyroxine every day. metformin By Mouth. PATIENT EDUCATION INFORMATION: Instructions: Cellulitis, Adult Follow up: With: Address: When: Kenia Adama [address] [place] [address] Business (1) In 3 days 04/08/2024 DIAGNOSIS: Cellulitis of great toe [facility] ED Note-Physicianon 04-05-20 ED Note-Physician ED [...] and Complexity of Problems Differential Diagnosis: [] [facility] Data External documents reviewed: N/A My [...] day(s), # 28 cap(s), Refills(s) 0, Pharmacy: [id number], 164, cm, 04/05/24 19:17:00 EDT, Height/Length Dosing, 103, kg, 04/05/24 19:17:00 EDT, Weight Dosing Disposition Plan Discharge Prescription List Prescriptions Keflex 500 mg Cap, 500 mg= 1 cap(s), Oral, q6hr Follow-up With When Contact Information Kenia Galan In 3 days 04/08/[address] [place] [address]- Business (1) Additional Instructions: Patient Education Cellulitis, Adult Problem List/Past Medical History Ongoing No qualifying data Historical No qualifying data Medications Inpatient Keflex 500 mg Cap, 500 mg= 1 cap(s), Oral, Once Home Keflex 500 mg Cap, 500 mg= 1 cap(s), Oral, q6hr Allergies No Known Allergies Lab Results No qualifying data available. Diagnostic Results No qualifying data available. [facility] Comment on above: Result Comment: Elec tronically Signed By: Jensen Lua DO\.br\Date and Time Signed: 04/05/24 19:34 EDT ED Patient Summaryon 024 ED Patient Summary ED Patient Summary [address] [address] Patient Discharge Instructions Person Information Name: HARSHAD ALICEA Age: 28 Years Arrival Date: 04/05/2024 19:08:18 Discharge Diagnosis: Cellulitis of great toe Primary Care Physician: NONE, XXXX Provider Information Primary Provider: Jensen Lua DO [employer] Internship:None The exam and treatment you received in the Emergency Department were for an urgent problem and are not intended as complete care. It is important that you follow up with a doctor, nurse practitioner, or physician?s speech pathologist assistant for ongoing care. If your symptoms [...] Follow-up Instructions: With: Address: When: Kenia Galan [address] [place] [address] Business (1) In 3 days 04/08/2024 In the event that this physician does not participate in your insurance network, please consult with your insurance company to find a nearby participating provider. Patient Education Materials: Cellulitis, Adult A MESSAGE TO ALL PATIENTS REGARDING OPIOIDS PRESCRIPTION OPIOIDS: WHAT YOU NEED TO KNOW Prescription opioids can be used to help relieve hneqmxay-hr-ozgblg pain and are often prescribed following a [...] be struggling with addiction, tell your health healthcare science specialist and ask for guidance or call [facility] National Helpline at 8-268-567-ANDD. [employer] Source: [place] Departme (more content not included)... [facility] Vital Signs Date Time Vital Sign Value Performing Clinician Paula boyer 06-17-2024 07:00-0400 Diastolic blood pressure 78 mm[Hg] Varun Disla [facility] 06-17-2024 07:00-0400 Heart rate 68 /min Varun Disla [facility] 06-17-2024 07:00-0400 Mean blood pressure 93 mm[Hg] Varun Disla [facility] 06-17-2024 07:00-0400 Respiratory rate 16 /min Varun Disla [facility] 06-17-2024 07:00-0400 Systolic blood pressure 124 mm[Hg] Varun Disla [facility] 06-17-2024 05:50-0400 Body temperature 98.24 [degF] Varun Disla [facility] 06-17-2024 05:50-0400 Diastolic blood pressure 84 mm[Hg] Varun Disla [facility] 06-17-2024 05:50-0400 Heart rate 85 /min Varun Disla [facility] 06-17-2024 05:50-0400 Respiratory rate 17 /min Varun Disla [facility] 06-17-2024 05:50-0400 SaO2% (BldA) [Mass fraction] 99 % Varun Disla [facility] 06-17-2024 05:50-0400 Systolic blood pressure 139 mm[Hg] Varun Disla [facility] 04-15-2024 06:26-0400 Body temperature 97.7 [degF] Ej Zackery [facility] 04-15-2024 06:26-0400 Diastolic blood pressure 80 mm[Hg] Ej Zackery [facility] 04-15-2024 06:26-0400 Heart rate 80 /min Ej Zackery [facility] 04-15-2024 06:26-0400 Respiratory rate 16 /min Ej Vizcarra [facility] 04-15-2024 06:26-0400 SaO2% (BldA) [Mass fraction] 99 % Ej Zackery [facility] 04-15-2024 06:26-0400 Systolic blood pressure 132 mm[Hg] Ej Zackery [facility] 04-05-2024 19:13-0400 Body temperature 98.06 [degF] Jensen Chanell [facility] 04-05-2024 19:13-0400 Diastolic blood pressure 77 mm[Hg] Jensen Lua [facility] 04-05-2024 19:13-0400 Heart rate 78 /min Jensen Lua [facility] 04-05-2024 19:13-0400 Respiratory rate 16 /min Jensen Lua [facility] 04-05-2024 19:13-0400 SaO2% (BldA) [Mass fraction] 98 % Jensen Lua [facility] 04-05-2024 19:13-0400 Systolic blood pressure 130 mm[Hg] Jensen Lua [facility] Encounters Encounter Date Encounter Type Care Provider Facility Start: 06-17-2024 End: 06-17-2024 Emergency department patient visit Varun Disla [facility] Start: 04-15-2024 End: 04-15-2024 Emergency department patient visit Ej Vizcarra [facility] Start: 04-05-2024 End: 04-05-2024 Emergency department patient visit Jensen Lua [facility] Payers Date Payer Category Payer Self-pay 2024 Private Health Insurance [id number] 1996 Unknown [id number] 1996 Unknown [id number] Social History Date Type Detail Facility Tobacco smoking status No Smoking Status Entered [facility] Sex Assigned At Female [facility] Functional Status Date Assessment Result Facility 06-17-2024 Functional Status N/A [facility] 04-15-2024 Functional Status N/A [facility] 04-05-2024 Functional Status N/A [facility] Evaluation + Plan note 06-17-2024 Note Date & Type Note Facility 06-17-2024 Evaluation + Plan note Extrac sindy from: Title:ED Note Author:Ej Vizcarra DO Date: Acute COVID-19 (U07.1: COVID -19) Acute upper respiratory infection (J06.9: Acute upper respiratory infection, unspecified) Orders: brompheniramine/dextromethorphan/PSE, 5 mL, Oral, QID for cold symptoms, 200 mL, Refill(s) 0, [id number], 164, cm, 06/17/24 5:51:00 EDT, Height/Length Dosing, 105.5, kg, 06/17/24 5:51:00 EDT, Weight Dosing dexamethasone, 10 mg = 1 mL, Injection, Oral, Once, Stop date 06/17/24 7:06:00 EDT, STAT, Start date 06/17/24 7:06:00 EDT, [facility]- max dose 12 mg, 06/17/24 7:06:00 EDT ondansetron, 4 mg = 1 tab(s), Oral, q8hr, PRN Nausea/Vomiting, # 12 tab(s), Refills(s) 0, Pharmacy: [id number], 164, cm, 06/17/24 5:51:00 EDT, Height/Length Dosing, 105.5, kg, 06/17/24 5:51:00 EDT, Weight Dosing [facility] Hospital Discharge instructions 06-17-2024 Note Date & Type Note Facility 06-17-2024 Hospital Discharg e instructions Patient Education 06/17/2024 07:05:59 COVID-19 COVID-19 COVID-19 is an infection caused by a virus called SARS-CoV-2. This type of virus is called a coronavirus. People with COVID-19 may: Have little to no symptoms. Have mild to moderate symptoms that affect their lungs and breathing. Get very sick. What are the causes? COVID-19 is caused by a virus. This virus may be in the air as droplets or on surfaces. It can spread from an infected person when they cough, sneeze, speak, sing, or breathe. You may become infected if: You breathe in the infected droplets in the air. You touch an object that has the virus on it. What increases the risk? You are at risk of getting COVID-19 if you have been around someone with the infection. You may be more likely to get very sick if: You are 65 years old or older. You have certain medical conditions, such as: ?Heart disease. ?Diabetes. ?Chronic respiratory disease. ?Cancer. ?. You are immunocompromised. This means your body cannot fight infections easily. You have a disability or trouble moving, meaning you're immobile. What are the signs or symptoms? People may have different symptoms from COVID-19. The symptoms can also be mild to severe. They often show up in 5 6 days after being infected. But they can take up to 14 days to appear. Common symptoms are: Cough. Feeling tired. New loss of taste or smell. Fever. Less common symptoms are: Sore throat. Headache. Body or muscle aches. Diarrhea. A skin rash or odd-colored fingers or toes. Red or irritated eyes. Sometimes, COVID-19 does not cause symptoms. How is this diagnosed? COVID-19 can be diagnosed with tests done in the lab or at home. Fluid from your nose, mouth, or lungs will be used to check for the virus. How is this treated? Treatment for COVID-19 depends on how sick you are. Mild symptoms can be treated at home with rest, fluids, and qeex-ozu-bsaybik medicines. Severe symptoms may be treated in a hospital intensive care unit (ICU). If you have symptoms and are at risk of getting very sick, you may be given a medicine that fights viruses. This medicine is called an antiviral. How is this prevented? To protect yourself from COVID-19: 1.Know your risk factors. 2.Get vaccinated. 3.If your body cannot fight infections easily, talk to your provider about treatment to help prevent COVID-19. 4.Stay at least 1 meter away from others. 5.Wear a well-fitted mask when: You can't stay at a distance from people. You're in a place with poor air flow. 6.Try to be in open spaces with good air flow when in public. 7.Wash your hands often or use an alcohol-based hand automotive internet sales consultant. 8.Cover your nose and mouth when coughing and sneezing. If you think you have COVID-19 or have been around someone who has it, stay home and be by yourself for 5 10 days. Where to find more information Centers for Disease Control and Prevention (CDC): cdc.gov World Health Organization (WHO): who.int Get help right away if: You have trouble breathing or get short of breath. You have pain or pressure in your chest. You cannot speak or move any part of your body. You are confused. Your symptoms get worse. These symptoms may be an emergency. Get help right away. Call 911. Do not wait to see if the symptoms will go away. Do not drive yourself to the hospital. This information is not intended to replace advice given to you by your health care provider. Make sure you discuss any questions you have with your health care provider. Document Revised: 09/16/2023 Document Reviewed: 05/23/2023 [employer] Patient Education 2023 [employer]. 06/17/2024 07:05:59 Upper Respiratory Infection, Adult Upper Respiratory Infection, Adult An upper respiratory infection (URI) is a common viral infection of the nose, throat, and upper air passages that lead to the lungs. The most common type of URI is the common cold. URIs usually get better on their own, without medical treatment. What are the causes? A URI is caused by a virus. You may catch a virus by: Breathing in droplets from an infected person's cough or sneeze. Touching something that has been exposed to the virus (is contaminated) and then touching your mouth, nose, or eyes. What increases the risk? You are more likely to get a URI if: You are very young or very old. You have close contact with others, such as at work, school, or a health care facility. You smoke. You have long-term (chronic) heart or lung disease. You have a weakened disease-fighting system (immune system). You have nasal allergies or asthma. You are experiencing a lot of stress. You have poor nutrition. What are the signs or symptoms? A URI usually involves some of the following symptoms: Runny or stuffy (congested) nose. Cough. Sneezing. Sore throat. Headache. Fatigue. Fever. Loss of appetite. Pain in your forehead, behind your eyes, and over your cheekbones (sinus pain). Muscle aches. Redness or irritation of the eyes. Pressure in the ears or face. How is this diagnosed? This condition may be diagnosed based on your medical history and symptoms, and a physical exam. Your health care provider may use a swab to take a mucus sample from your nose (nasal swab). This sample can be tested to determine what virus is causing the illness. How is this treated? URIs usually get better on their own within 7 10 days. Medicines cannot cure URIs, but your health care provider may recommend certain medicines to help relieve symptoms, such as: Zpbr-ghg-oudxwza cold medicines. Cough suppressants. Coughing is a type of defense against infection that helps to clear the respiratory system, so take these medicines only as recommended by your health care provider. Fever-reducing medicines. Follow these instructions at home: Activity Rest as needed. If you have a fever, stay home from work or school until your fever is gone or until your health care provider says your URI cannot spread to other people (is no longer contagious). Your health care provider may have you wear a face mask to prevent your infection from spreading. Relieving symptoms Gargle with a mixture of salt and water 3 4 times a day or as needed. To make salt water, completely dissolve 1 tsp (3 6 g) of salt in 1 cup (237 mL) of warm water. Use a cool-mist humidifier to add moisture to the air. This can help you breathe more easily. Eating and drinking Drink enough fluid to keep your urine pale yellow. Eat soups and other clear broths. General instructions Take uamr-tsm-enbbpmr and prescription medicines only as told by your health care provider. These include cold medicines, fever reducers, and cough suppressants. Do not use any products that contain nicotine or tobacco. These products include cigarettes, chewing tobacco, and vaping devices, such as e-cigarettes. If you need help quitting, ask your health care provider. Stay away from secondhand smoke. Stay up to date on all immunizations, including the yearly (annual) flu vaccine. Keep all follow-up visits. This is important. How to prevent the spread of infection to others URIs can be contagious. To prevent the infection from spreading: Wash your hands with soap and water for at least 20 seconds. If soap and water are not available, use hand automotive internet sales consultant. Avoid touching your mouth, face, eyes, or nose. Cough or sneeze into a tissue or your sleeve or elbow instead of into your hand or into the air. Contact a health care provider if: You are getting worse instead of better. You have a fever or chills. Your mucus is brown or red. You have yellow or brown discharge coming from your nose. You have pain in your face, especially when you bend forward. You have swollen neck glands. You have pain while swallowing. You have white areas in the back of your throat. Get help right away if: You have shortness of breath that gets worse. You have severe or persistent: ?Headache. ?Ear pain. ?Sinus pain. ?Chest pain. You have chronic lung disease along with any of the following: ?Making high-pitched whistling sounds when you breathe, most often when you breathe out (wheezing). ?Prolonged cough (more than 14 days). ?Coughing up blood. ?A change in your usual mucus. You have a stiff neck. You have changes in your: ?Vision. ?Hearing. ?Thinking. ?Mood. These symptoms may be an emergency. Get help right away. Call 911. Do not wait to see if the symptoms will go away. Do not drive yourself to the hospital. Summary An upper respiratory infection (URI) is a common infection of the nose, throat, and upper air passages that lead to the lungs. A URI is caused by a virus. URIs usually get better on their own within 7 10 days. Medicines cannot cure URIs, but your health care provider may recommend certain medicines to help relieve symptoms. This information is not intended to replace advice given to you by your health care provider. Make sure you discuss any questions you have with your health care provider. Document Revised: 04/10/2022 Document Reviewed: 04/10/2022 [employer] Patient Education 2023 [email or web address]. Follow Up Care 06/17/2024 05:46:58 With:Kenia Galan Address: [address] [place] [address]- Business (1) When:06/20/2024 07:05:00 Comments:Call the office of your primary care doctor to arrange for follow-up within the above-stated timeframe. Follow-up with your primary care doctor about this ED visit. You should review your labs, imaging, and diagnoses from this ED visit with your primary care physician. There are occasionally non-emergent findings that require additional follow-up after your ED visit. If you were prescribed medications you should discuss possible side-effects and drug interactions with your pharmacist. Call 911 or go to the nearest Emergency Department if you develop any new or worsening symptoms. Seek immediate medical attention if you develop: worsening shortness of breath, difficulty breathing, chest pain, nausea, vomiting, weakness, numbness, tingling, excessive sweating, loss of motion in your arms or legs, or any new or worsening symptoms. [facility] Clinical Note 06-17-2024 Note Date & Type Note Facility 06-17-2024 Note ED Patient Education Note Infectious Disease COVID-19 COVID-19 is an infection caused by a virus called SARS-CoV-2. This type of virus is called a coronavirus. People with COVID-19 may: ? Have little to no symptoms. ? Have mild to moderate symptoms that affect their lungs and breathing. ? Get very sick. What are the causes? COVID-19 is caused by a virus. This virus may be in the air as droplets or on surfaces. It can spread from an infected person when they cough, sneeze, speak, sing, or breathe. You may become infected if: ? You breathe in the infected droplets in the air. ? You touch an object that has the virus on it. What increases the risk? You are at risk of getting COVID-19 if you have been around someone with the infection. You may be more likely to get very sick if: ? You are 65 years old or older. ? You have certain medical conditions, such as: ? Heart disease. ? Diabetes. ? Chronic respiratory disease. ? Cancer. ? . ? You are immunocompromised. This means your body cannot fight infections easily. ? You have a disability or trouble moving, meaning you're immobile. What are the signs or symptoms? People may have different symptoms from COVID-19. The symptoms can also be mild to severe. They often show up in 5?6 days after being infected. But they can take up to 14 days to appear. Common symptoms are: ? Cough. ? Feeling tired. ? New loss of taste or smell. ? Fever. Less common symptoms are: ? Sore throat. ? Headache. ? Body or muscle aches. ? Diarrhea. ? A skin rash or odd-colored fingers or toes. ? Red or irritated eyes. Sometimes, COVID-19 does not cause symptoms. How is this diagnosed? COVID-19 can be diagnosed with tests done in the lab or at home. Fluid from your nose, mouth, or lungs will be used to check for the virus. How is this treated? Treatment for COVID-19 depends on how sick you are. ? Mild symptoms can be treated at home with rest, fluids, and zjil-jle-xqrggab medicines. ? Severe symptoms may be treated in a hospital intensive care unit (ICU). If you have symptoms and are at risk of getting very sick, you may be given a medicine that fights viruses. This medicine is called an antiviral. How is this prevented? To protect yourself from COVID-19: 1. Know your risk factors. 2. Get vaccinated. 3. If your body cannot fight infections easily, talk to your provider about treatment to help prevent COVID-19. 4. Stay at least 1 meter away from others. 5. Wear a well-fitted mask when: ? You can't stay at a distance from people. ? You're in a place with poor air flow. 6. Try to be in open spaces with good air flow when in public. 7. Wash your hands often or use an alcohol-based hand automotive internet sales consultant. 8. Cover your nose and mouth when coughing and sneezing. If you think you have COVID-19 or have been around someone who has it, stay home and be by yourself for 5?10 days. Where to find more information ? Centers for Disease Control and Prevention (CDC): cdc.gov ? World Health Organization (WHO): who.int Get help right away if: ? You have trouble breathing or get short of breath. ? You have pain or pressure in your chest. ? You cannot speak or move any part of your body. ? You are confused. ? Your symptoms get worse. These symptoms may be an emergency. Get help right away. Call 911. ? Do not wait to see if the symptoms will go away. ? Do not drive yourself to the hospital. This information is not intended to replace advice given to you by your health care provider. Make sure you discuss any questions you have with your health care provider. Document Revised: 09/16/2023 Document Reviewed: 05/23/2023 [employer] Patient Education ? 2023 [employer]. Upper Respiratory Infection, Adult An upper respiratory infection (URI) is a common viral infection of the nose, throat, and upper air passages that lead to the lungs. The most common type of URI is the common cold. URIs usually get better on their own, without medical treatment. What are the causes? A URI is caused by a virus. You may catch a virus by: ? Breathing in droplets from an infected person's cough or sneeze. ? Touching something that has been exposed to the virus (is contaminated) and then touching your mouth, nose, or eyes. What increases the risk? You are more likely to get a URI if: ? You are very young or very old. ? You have close contact with others, such as at work, school, or a health care facility. ? You smoke. ? You have long-term (chronic) heart or lung disease. ? You have a weakened disease-fighting system (immune system). ? You have nasal allergies or asthma. ? You are experiencing a lot of stress. ? You have poor nutrition. What are the signs or symptoms? A URI usually involves some of the following symptoms: ? Runny or stuffy (congested) nose. ? Cough. ? Sneezing. ? Sore throat. ? Headache. ? Fatigue. ? Fever. (more content not included)... [facility] Evaluation + Plan note 04-15-2024 Note Date & Type Note Facility 04-15-2024 Evaluation + Plan note Extrac sindy from: Title:ED Note Author:Koko Leblanc M.D. te:04/15/24 1. Cellulitis of great toe, right (L03.031: Cellulitis of right toe) Orders: doxycycline, 100 mg = 1 cap(s), Oral, BID, # 20 cap(s), Refills(s) 0, [facility]: [id number], 164, cm, 04/15/24 6:28:00 EDT, Height/Length Dosing, 103, kg, 04/15/24 6:28:00 EDT, Weight Dosing [facility] Hospital Discharge instructions 04-15-2024 Note Date & [...] Follow these instructions at home: Medicines Take mvdy-jts-ujzlkuq and prescription medicines only as told by [...] such as antibiotic medicines or antihistamines. Take yavq-apc-uvdbsjg and prescription medicines only as told by [...] provider. Document Revised: 06/19/2022 Document Reviewed: 06/20/2022 [employer] Patient Education 2022 [email or web address]. Follow Up Care 04/15/2024 06:24:12 With:Tnio Garcia Address: [facility] [address] [place] [place] [address] 0 Business (1) When:04/18/2024 06:46:37 Comments:Return to the emergency room if your pain/redness gets worse, red streaks going up your foot, fever or any new symptoms With:Kenia Galan Address: [address] [place] [address]- Business (1) When:Within 3 Day(s) [facility] Hospital Discharge instructions 04-05-2024 Note Date & [...] Follow these instructions at home: Medicines Take amqh-jor-gfmujhe and prescription medicines only as told by [...] such as antibiotic medicines or antihistamines. Take gaba-eet-dgkxoch and prescription medicines only as told by [...] provider. Document Revised: 06/19/2022 Document Reviewed: 06/20/2022 [employer] Patient Education 2022 [employer] Follow Up Care 04/05/2024 19:12:30 With:Kenia Galan Address: [address] [place] [address]- Business (1) When:04/08/2024 19:33:09 [facility] Clinical Note 04-05-2024 Note Date & Type [...] these instructions at home: Medicines ? Take kvtj-fhe-ntlhqzn and prescription medicines only as told by [...] as antibiotic medicines or antihistamines. ? Take ijvu-kog-sufxsoe and prescription medicines only as told by [...] provider. Document Revised: 06/19/2022 Document Reviewed: 06/20/2022 [employer] Patient Education ? 2022 [email or web address]. [facility] Evaluation + Plan note 04-05-2024 Note [...] day(s), # 28 cap(s), Refills(s) 0, [facility]acy: [id number], 164, cm, 04/05/24 19:17:00 EDT, Height/Length Dosing, 103, kg, 04/05/24 19:17:00 EDT, Weight Dosing [facility] Hospital course Narrative Note Date & Type Note Facility Hospital course Narrative No data available for this section [facility] Progress note Note Date & Type Note Facility Progress note No data available for this section [facility] Summary Purpose Family History No Family History Records Found Advance Directives No Advanced Directives Records FoundNo Advanced Directives Records Found Additional Source Comments INFORMATION SOURCE (unrecogn ized section and content) DATE CREATED AUTHOR 04/09/2024 [facility] DATE CREATED AUTHOR AUTHOR'S ORGANIZ ATION 06/22/2024 [facility] Patient Care team informatio n (unrecognized section and content) Personnel Name: Adama MYERS, Kenia Polanco Address: Address: [address] [place] [address] [place], [place] [address] FOR RECORDS PERTAINING TO PATIENTS [...] BE BASED ON THE PRIMARY CLINICAL RECORDS. [facility]. provides no warranty or guarantee of the accuracy or completeness of information in this document.
[2024-09-02 17:08] LABS: Glucometer 158 mg/dL (74-106)
[2024-09-02 17:40] LABS: Basophils Absolute Auto 0.1 10^3/uL (0.0-0.1); Basophils Percent Auto 0.7 % (0.2-2.0); Eosinophils Absolute Auto 0.2 10^3/uL (0.0-0.7); Eosinophils Percent Auto 2.4 % (0.9-7.0); Hematocrit 40.9 % (36.0-48.0); Hemoglobin 13.3 g/dL (12.0-16.0); Immature Granulocytes Abs Auto 0.03 10^3/uL (0.00-0.03); Immature Granulocytes Pct Auto 0.3 % (0.0-0.5); Lymphocytes Absolute Auto 2.2 10^3/uL (1.2-3.8); Lymphocytes Percent Auto 24.6 % (20.5-60.0); Mean Corpuscular HGB Conc 32.5 g/dL (29.9-35.2); Mean Corpuscular Hemoglobin 27.9 pg (26.7-34.0); Mean Corpuscular Volume 85.7 fL (81.0-99.0); Mean Platelet Volume 12.1 fL (9.5-13.5); Monocytes Absolute Auto 0.6 10^3/uL (0.3-0.8); Neutrophils Absolute Auto 5.8 10^3/uL (1.4-6.5); Platelet Count 263 10^3/uL (150-450); Red Blood Count 4.77 10^6/uL (4.20-5.40); Red Cell Distribution Width 13.2 % (11.0-15.0); White Blood Count 8.9 10^3/uL (4.0-11.0)
--- NOTE | 2024-09-02 17:45 | ED.NAVMDI1 ---
HPI - Nausea/Vomiting/Diarrhea General Chief complaint: Nausea/Vomiting/Diarrhea Stated complaint: DIARRHEA, LIGHTEDHEADED Time Seen by Provider: 09/02/24 17:02 Source: patient Mode of arrival: walk-in Limitations: no limitations History of Present Illness HPI Narrative: 29-year-old female presents to the emergency department complaint of not feeling well over the past 2 days. Notes she started with diarrhea, multiple episodes, has progressed to nausea, vomiting, lower abdominal discomfort described as a cramping. States she has had headache, feeling weak, lightheaded over time course as well. Has had history of GI problems in the past. Denies any known fever, chills, exposures. Quality:?As above Severity:?Moderate Timing:?As above, constant Context: Normal setting and activity? Modifying factors:?None Associated symptoms: As above Related Data Home Medications ?Medication ?Instructions ?Recorded ?Confirmed metformin 500 mg tablet 500 mg PO BID 04/16/24 09/02/24 Previous Rx's ?Medication ?Instructions ?Recorded famotidine 20 mg tablet (Pepcid) 20 mg PO BID #20 tabs 09/02/24 hyoscyamine sulfate 0.125 mg 0.125 mg PO Q8H PRN spasms #10 tabs 09/02/24 tablet (Levsin) ondansetron 4 mg disintegrating 4 mg PO Q8H PRN nausea and 09/02/24 tablet vomiting #10 tabs Allergies Allergy/AdvReac Type Severity Reaction Status Date / Time No Known Drug Allergies Allergy Verified 09/02/24 17:02 Review of Systems ROS Narrative CONST: Denies any fever, chills RESP: Denies any shortness of breath CV: Denies any chest pain GI: +abd pain.? + nausea, vomiting, diarrhea. : Denies any flank pain, dysuria MS: Denies any back pain, myalgias SKIN: Denies any color change, rash NEURO: Denies numbness, weakness PSYCHIATRIC: Denies confusion, agitation PFSH PFSH Social History Little interest or pleasure in doing things: not at all Feeling down, depressed, or hopeless: not at all Exam Narrative Exam Narrative: Vital signs reviewed Nurses notes noted CONST: Nontoxic, well appearing, well nourished, in no distress.? No diaphoresis.?? HENT: normocephalic, atraumatic, moist mucous membrane, no abnormalities of the nose noted, hearing normal EYES: normal appearing conjunctiva, no apparent discharge bilat NECK: normal appearance CV: normal rate, regular rhythm, no murmur RESP: normal effort, speaking in complete sentences. Lung sounds clear and equal bilat.? No wheezes, rales, rhonchi GI: normal bowel sounds, soft, no distension, + diffuse tenderness without focal findings. No rebound or guarding. : no CVA tenderness MS: no edema, tenderness SKIN: no pallor NEURO: A&Ox 3, no focal findings PSYCH: normal mood, affect Constitutional Vital Signs, click to edit/add: Last Vital Signs Temp 98.1 F 09/02/24 16:58 Pulse 121 H 09/02/24 16:58 Resp 18 09/02/24 16:58 BP 138/93 H 09/02/24 16:58 Pulse Ox 97 09/02/24 16:58 O2 Del Method Room Air 09/02/24 16:58 Course Reevaluation(s) Reevaluation #1: On reevaluation, patient states she is feeling better. She tolerated p.o. liquids. She states she feels comfortable with going home. Discussed with patient results, plan, and disposition. She is agreeable with plan. Time: 20:12 Vital Signs Vital signs: Vital Signs Temperature 98.1 F 09/02/24 16:58 Pulse Rate 121 H 09/02/24 16:58 Respiratory Rate 18 09/02/24 16:58 Blood Pressure 138/93 H 09/02/24 16:58 Pulse Oximetry 97 09/02/24 16:58 Oxygen Delivery Method Room Air 09/02/24 16:58 Temperature 98.1 F 09/02/24 16:58 Pulse Rate 121 H 09/02/24 16:58 Respiratory Rate 18 09/02/24 16:58 Blood Pressure 138/93 H 09/02/24 16:58 Pulse Oximetry 97 09/02/24 16:58 Oxygen Delivery Method Room Air 09/02/24 16:58 MDM - Nausea/Vomiting/Diarrhea MDM Narrative Medical decision making narrative: This is a pleasant 29-year-old female presented to the emergency department with complaint of nausea, vomiting, and diarrhea over the past couple days. She has also had some lower abdominal discomfort, cramping. Denies any known fevers. On arrival she was a little tachycardic in the 121. Afebrile, vitals otherwise stable. On exam, nontoxic, well-appearing patient in no distress. Heart regular rate and rhythm. Lung sounds clear and equal bilaterally. Abdomen is soft with generalized abdominal tenderness without focal findings, rebound, or guarding. IV access established, blood work drawn. She was given 1 L normal saline, Pepcid, Levsin, and Zofran. Labs reveal no leukocytosis, anemia, thrombocytopenia, electrolyte imbalance, renal impairment. Glucose 160. Bicarb 28. test negative. LFTs were a little elevated with AST of 66 and ALT of 131. Nonspecific. Bilirubin 0.4, alk phosphatase 105. No appreciable right upper quadrant tenderness. Urinalysis unremarkable. Patient improved with treatment during ED course. Abdominal pain diminished. She tolerated p.o. fluids. Favor nonspecific nausea, vomiting, and diarrhea. Nonspecific generalized abdominal discomfort DKA less likely based on laboratory values Acute abdomen less likely based on history, physical exam. History and Record Review Additional records reviewed: No prior records Additional Tests and Interventions IV fluids: Hydration Diagnostic testing considered but not performed: CT abdomen pelvis. Abdominal pain resolved with conservative therapy. No leukocytosis. Other symptoms improved as well. No focal findings on abdominal exam See ED course above Disposition ? The patient was discharged. Prescriptions sent to pharmacy: Levsin, Pepcid, Zofran Plan: Patient will be discharged to home. Condition at time of disposition: stable ? Advised to follow up with referral provider, name and number placed on discharge paperwork. Advised to return for any worsening and/or development of new, concerning signs or symptoms PLEASE NOTE: Portions of the medical record may have been produced using electronic slot machine repairer and may contain errors with respect to translation of words which may not have been identified prior to finalization of the chart. Medical Records Attestation: I reviewed the patient's medical records. Lab Data Attestation: I reviewed the patient's lab results. Labs: Lab Results 09/02/24 09/02/24 09/02/24 Range/Units 17:02 17:05 19:00 WBC 8.9 (4.0-11.0) 10^3/uL RBC 4.77 (4.20-5.40) 10^6/uL Hgb 13.3 (12.0-16.0) g/dL Hct 40.9 (36.0-48.0) % MCV 85.7 (81.0-99.0) fL MCH 27.9 (26.7-34.0) pg MCHC 32.5 (29.9-35.2) g/dL RDW 13.2 (11.0-15.0) % Plt Count 263 (150-450) 10^3/uL MPV 12.1 (9.5-13.5) fL Neut % (Auto) 65.0 (43.0-75.0) % Lymph % (Auto) 24.6 (20.5-60.0) % Centre % (Auto) 7.0 (1.7-12.0) % Eos % (Auto) 2.4 (0.9-7.0) % Baso % (Auto) 0.7 (0.2-2.0) % Neut # (Auto) 5.8 (1.4-6.5) 10^3/uL Lymph # (Auto) 2.2 (1.2-3.8) 10^3/uL Centre # (Auto) 0.6 (0.3-0.8) 10^3/uL Eos # (Auto) 0.2 (0.0-0.7) 10^3/uL Baso # (Auto) 0.1 (0.0-0.1) 10^3/uL Abs Immat Gran (auto) 0.03 (0.00-0.03) 10^3/uL Imm/Tot Granulo (auto) 0.3 (0.0-0.5) % Sodium 144 (136-145) mmol/L Potassium 3.7 (3.5-5.1) mmol/L Chloride 103 (98-107) mmol/L Carbon Dioxide 28.3 (21.0-32.0) mmol/L Anion Gap 16.4 BUN 13.0 (7.0-18.0) mg/dL Creatinine 1.12 H (0.55-1.02) mg/dL Est GFR ( Amer) >60 (>=60 mL/min/1.73m^2) Est GFR (Non-Af Amer) 58 L (>=60 mL/min/1.73m^2) BUN/Creatinine Ratio 11.6 Glucose 160 H (74-106) mg/dL Calcium 9.7 (8.5-10.1) mg/dL Magnesium 2.0 (1.8-2.4) mg/dL Total Bilirubin 0.4 (0.2-1.0) mg/dL AST 66 H (15-37) U/L ALT 131 H (14-59) U/L Alkaline Phosphatase 105 (46-116) U/L Total Protein 8.2 (6.4-8.2) g/dL Albumin 4.2 (3.4-5.0) g/dL Globulin 4.0 g/dL Albumin/Globulin Ratio 1.0 Lipase 34.0 (16.0-77.0) U/L Serum HCG, Qual Negative (NEGATIVE) Urine Color Yellow (YELLOW) Urine Clarity Clear (CLEAR) Urine pH 7.0 (5.0-9.0) Ur Specific [place] 1.020 (1.005-1.025) Urine Protein Negative (NEG/TRACE) mg/dL Urine Glucose (UA) Negative (NEGATIVE) mg/dL Urine Ketones Negative (NEGATIVE) mg/dL Urine Occult Blood Negative (NEGATIVE) Urine Nitrite Negative (NEGATIVE) Urine Bilirubin Negative (NEGATIVE) Urine Urobilinogen 0.2 (0.2-1.0) EU/dL Ur Leukocyte Esterase Negative (NEGATIVE) Urine RBC 0-2 (0-2) #/HPF Urine WBC 0-2 A (NONE SEEN) #/HPF Ur Squamous Epith Cells Many A (NONE/RARE) #/LPF Urine Crystals None seen (None Seen) #/HPF Urine Bacteria Trace A (NONE SEEN) #/HPF Urine Casts None seen (NONE SEEN) #/LPF Urine Mucus Moderate A (NONE SEEN) POC Glucose 158 H (74-106) mg/dL Discharge Plan Discharge Stand Alone Forms: Work/School Release Chief Complaint: Nausea/Vomiting/Diarrhea Clinical Impression: Nausea vomiting and diarrhea, Generalized abdominal pain Patient Disposition: Home, Self-Care Time of Disposition Decision: 20:09 Condition: Good Mode of Transportation: Private Vehicle Prescriptions / Home Meds: New hyoscyamine sulfate [Levsin] 0.125 mg tablet 0.125 mg PO Q8H PRN (Reason: spasms) Qty: 10 0RF ondansetron 4 mg tablet,disintegrating 4 mg PO Q8H PRN (Reason: nausea and vomiting) Qty: 10 0RF famotidine [Pepcid] 20 mg tablet 20 mg PO BID Qty: 20 0RF No Action metformin 500 mg tablet 500 mg PO BID Print Language: Montenegrin Instructions: Dehydration (ED), Clear Liquid Diet (ED), Acute Nausea and Vomiting (ED), Acute Diarrhea (ED), Abdominal Pain (ED) Referrals: Cleve Mayer MD [Physician] - 1 week
[2024-09-02 17:52] LABS: HCG Qualitative NEGATIVE (NEGATIVE); Internal Control Within Normal Limits
[2024-09-02] MEDS: FAMOTIDINE/PF 20 MG/2 ML VIAL IV (17:54)
[2024-09-02] MEDS: HYOSCYAMINE SULFATE 0.125 MG TAB.SUBL SL (17:54)
[2024-09-02] MEDS: ONDANSETRON PF 4 MG/2 ML VIAL IV (17:54)
[2024-09-02] MEDS: 0.9 % SODIUM CHLORIDE 1,000 ML 999 ML IV (17:54)
[2024-09-02 18:03] LABS: Alanine Aminotransferase 131 U/L (14-59); Albumin Level 4.2 g/dL (3.4-5.0); Alkaline Phosphatase 105 U/L (46-116); Anion Gap 16.4; Aspartate Amino Transferase 66 U/L (15-37); BUN Creatinine Ratio 11.6; Bilirubin Total 0.4 mg/dL (0.2-1.0); Calcium 9.7 mg/dL (8.5-10.1); Carbon Dioxide 28.3 mmol/L (21.0-32.0); Chloride 103 mmol/L (98-107); Estimated GFR (African America >60 (>=60 mL/min/1.73m^2); Estimated GFR (Non-African Ame 58 (>=60 mL/min/1.73m^2); Glucose 160 mg/dL (74-106); Potassium 3.7 mmol/L (3.5-5.1); Sodium 144 mmol/L (136-145); Total Protein 8.2 g/dL (6.4-8.2)
[2024-09-02] MEDS: KETOROLAC TROMETHAMINE 30 MG/ML VIAL 15 MG IVP (18:52)
[2024-09-02 19:17] LABS: Bilirubin Urine NEGATIVE (NEGATIVE); Blood Urine NEGATIVE (NEGATIVE); Clarity Urine CLEAR (CLEAR); Glucose Urine UA NEGATIVE (NEGATIVE); Ketones Urine NEGATIVE (NEGATIVE); Leukocyte Esterase Urine NEGATIVE (NEGATIVE); Nitrite Urine NEGATIVE (NEGATIVE); Protein Urine NEGATIVE (NEG/TRACE); Urobilinogen Urine 0.2 EU/dL (0.2-1.0)
[2024-09-02 19:18] LABS: Color Urine YELLOW (YELLOW)
[2024-09-02 19:27] LABS: Bacteria Urine TRACE #/HPF (NONE SEEN); Mucus Urine MODERATE (NONE SEEN); RBC Urine 0-2 #/HPF (0-2); Squamous Epithelial Cell Urine MANY #/LPF (NONE/RARE); WBC Urine 0-2 #/HPF (NONE SEEN)
[2024-09-02 19:28] LABS: Cast Seen? NONE SEEN #/LPF (NONE SEEN); Crystals Seen? None Seen #/HPF (None Seen)
== END 2024-09-02 20:28 | disposition home or self-care (01) ==
PROVIDERS: Physician Assistant; Emergency Provider Emergency Medicine
DX: R19.7 Diarrhea, unspecified (principal); R11.2 Nausea with vomiting, unspecified; R10.84 Generalized abdominal pain
CPT/HCPCS: 36415; 80053; 81001; 83690; 83735; 84703; 85025; 96361; 96374; 96375; 99285; J1885; J2405

== ENCOUNTER 2024-10-26 12:02 | Emergency (ER) | payer BC, SELFPAY ==
[2024-10-26 12:24] VITALS: BP 134/101; PULSE 95; TEMP 37.6; O2SAT 100; BMI 39.1
--- OUTSIDE RECORDS SUMMARY | 2024-10-26 12:25 | XMS_ITS | CCD ---
Author Organization [facility] Care Team Providers Care Communications Specialist Name Role Phone NONE, XXXX Primary Care Physician Unavailab Jensen Rodriguez Attending Unavailable Kenia Galan Primary Care Physician Varun Disla Attending Unavailable Medications Current Medications Medication Drug Class(es) Dates Sig (Normalized) Sig (Original) brompheniramine maleate 0.4 mg/ml / dextromethorphan hydrobromide 2 mg/ml / pseudoephedrine hydrochloride 6 mg/ml oral solution (1 source) alpha-Adrenergic Agonist, Uncompetitive Z-xleorc-H-asparta te Receptor Antagonist, Sigma-1 Agonist Start: 06-17-2024 [...] day(s), # 28 cap(s), Refills(s) 0, Pharmacy: [facility]/pharmacy #[id number], 164, cm, 04/05/24 19:17:00 EDT, Height/Length Dosing, 103, kg, 04/05/24 19:17:00 EDT, Weight Dosing Start Date: 04/05/24 Stop Date: 04/12/24 Status: Ordered doxycycline hyclate 100 mg oral capsule (2 sources) Tetracycline-class Drug Start: 04-15-2024 take 1 capsule by mouth twice daily doxycycline hyclate 100 mg Cap 100 mg = 1 cap(s), Oral, BID, # 20 cap(s), Refills(s) 0, Pharmacy: [facility]/pharmacy #[id number], 164, cm, 04/15/24 6:28:00 EDT, Height/Length [...] Nausea/Vomiting, # 12 tab(s), Refills(s) 0, [id number], cm, 06/17/24 5:51:00 EDT, Height/Length [...] 2023 ED Clinical Summary ED Clinical Summary [address] [address] ED Clinical Summary Person Information Name: HARSHAD ALICEA [place] Age: 28 Years : 1995 Sex: Female Language: Finnish PCP: Kenia Galan MD Marital Status: Single [...] 06/17/2024 07:29:21 06/17/2024 07:29:21 06/17/2024 07:29:21 ADDRESS: [address] [place] [address] [address] [place] [phone] PHYS DOC NOTES: MEDICAL INFORMATION: Prescriptions Given: New Medications [id number], [address] [place] [place] [id number], [phone] brompheniramine/dextro methorphan/PSE (Bromfed DM oral syrup) 5 [...] With: Address: When: Kenia Gal[place] [address] Business (1) In 3 days 06/20/2024 Comments: [...] Acute COVID-19; Acute upper respiratory infection Normal [facility] ED Note-Physicianon 06-17-20 ED Note-Physician ED Note-Physician [...] for cold symptoms, 200 mL, Refill(s) 0, [facility]/pharmacy #[id number], 164, cm, 06/17/24 5:51:00 EDT, Height/Length Dosing, 105.5, kg, 06/17/24 5:51:00 EDT, Weight Dosing dexamethasone, 10 mg = 1 mL, Injection, Oral, Once, Stop date 06/17/24 7:06:00 EDT, STAT, Start date 06/17/24 7:06:00 EDT, [facility]- max dose 12 mg, 06/17/24 7:06:00 EDT ondansetron, 4 mg = 1 tab(s), Oral, q8hr, PRN Nausea/Vomiting, # 12 tab(s), Refills(s) 0, Pharmacy: [facility]/pharmacy #[id number], 164, cm, 06/17/24 5:51:00 EDT, Height/Length Dosing, 105.5, kg, 06/17/24 5:51:00 EDT, Weight Dosing Medications Administered Given dexamethasone 10 mg/mL Inj 1 mL, 10 mg, Oral [id number] [F], 1000 mL, IV Zofran 4 mg/2 mL Injection, 4 mg, IV Push Disposition Plan Patient Discharge Condition Stable Home Discharge Prescription List Prescriptions Bromfed DM oral syrup, 5 mL, Oral, QID, PRN Zofran ODT 4 mg Tab-Dis, 4 mg= 1 tab(s), Oral, q8hr, PRN Follow-up With When Contact Information Kenia Galan In 3 days 06/20/2024 EDT [address] [facility] [place] [address] Business (1) Additional Instructions: Call the office [...] DM oral (more content not included)... Normal [facility] Comment on above: Result Comment: Elec tronically Signed By: Ej Vizcarra DO\.br\Date and Time Signed: 06/17/24 07:50 EDT ED Patient Summaryon 024 ED Patient Summary ED Patient Summary [address] [address] Patient Discharge Instructions Person Information Name: HARSHAD ALICEA Age: 28 Years Arrival Date: 06/17/2024 05:46:03 Discharge Diagnosis: Acute COVID-19; Acute upper respiratory infection Primary Care Physician: Kenia Galan MD Provider Information Primary Provider: jE Vizcarra DO Advanced Tracing Lathe Set Up Operator:None The exam and treatment you received in the Emergency Department were for an urgent problem and are not intended as complete care. It is important that you follow up with a doctor, nurse practitioner, or physician?s assistant credit manager for ongoing care. If your symptoms become [...] With: Address: When: Kenia Gal[place] [address] [facility] (1) In 3 days 06/20/2024 Comments: [...] opioids can be used to help relieve mdyccsea-uu-tlgvbr pain and are often prescribed following a [...] help man (more content not included)... Normal [facility] MICRO OTHER TESTSOrdered By: Xochilt Parish on 06-17-2024 Rapid COV Int NEG Ctl Pass (06/17/24 6:09 AM) Normal [facility] Man Sero Rapid COV Int POS Ctl Pass (06/17/24 6:09 AM) Normal [facility] Man Sero SARS-CoV+SARS-CoV-2 (COVID-19) Ag IA.rapid Ql (Resp) Not Detected 1 (06/17/24 6:09 AM) Normal Not Detected [facility] Man Sero Comment on above: Interpretive Data: Chandana li [employer] System for Rapid Detection of SARS-CoV-2 [...] terminated or revoked sooner. Rapid COVID Antigen ([facility])on 06-17-2024 Rapid COV Int NEG Ctl Pass Normal [facility] Comment on above: Performed By: #### 2 [id number] #### [facility] [address] [place] [address] Rapid COV Int POS Ctl Pass Normal [facility] Comment on above: Performed By: #### 2 [id number] #### [facility] [address] [place] [address] SARS-CoV+SARS-CoV-2 (COVID-19) Ag IA.rapid Ql (Resp) Not detected Normal Not Detected [facility] Comment on above: Result Comment: [employer] System for Rapid Detection of SARS-CoV-2 is [...] or revoked sooner. Performed By: #### 2 [id number] #### [facility] [address] [place] [id number] ED Clinical Summaryon 2023 ED Clinical Summary ED Clinical Summary [address] [address] ED Clinical Summary Person Information Name: HARSHAD ALICEA [place] Age: 28 Years : 1995 Sex: Female Language: Finnish PCP: NONE, XXXX Marital Status: Single Phone: [...] 04/05/2024 19:43:13 04/05/2024 19:43:13 04/05/2024 19:43:13 ADDRESS: [address] [place] [address] [address] [place] [phone] PHYS DOC NOTES: MEDICAL INFORMATION: Prescriptions Given: New Medications [id number], [address] [facility] [place] [id number], [phone] cephalexin (Keflex 500 mg Cap) 1 Capsules By Mouth every 6 hours for 7 Days. Refills: 0. Medications to Continue with No Changes Other Medications levothyroxine every day. metformin By Mouth. PATIENT EDUCATION INFORMATION: Instructions: Cellulitis, Adult Follow up: With: Address: When: Kenia Ad[place] [address] Business (1) In 3 days 04/08/2024 DIAGNOSIS: Cellulitis of great toe Normal [facility] ED Note-Physicianon 04-05-20 ED Note-Physician ED Note-Physician [...] Complexity of Problems Differential Diagnosis: [] [facility] Data External documents reviewed: N/A My [...] day(s), # 28 cap(s), Refills(s) 0, Pharmacy: [facility]/pharmacy #[id number], 164, cm, 04/05/24 19:17:00 EDT, Height/Length Dosing, 103, kg, 04/05/24 19:17:00 EDT, Weight Dosing Disposition Plan Discharge Prescription List Prescriptions Keflex 500 mg Cap, 500 mg= 1 cap(s), Oral, q6hr Follow-up With When Contact Information Kenia Galan In 3 days 04/08/[address] [place] [address]- Business (1) Additional Instructions: Patient Education Cellulitis, Adult Problem List/Past Medical History Ongoing No qualifying data Historical No qualifying data Medications Inpatient Keflex 500 mg Cap, 500 mg= 1 cap(s), Oral, Once Home Keflex 500 mg Cap, 500 mg= 1 cap(s), Oral, q6hr Allergies No Known Allergies Lab Results No qualifying data available. Diagnostic Results No qualifying data available. Normal [facility] Comment on above: Result Comment: Elec tronically Signed By: Jensen Lua DO\.br\Date and Time Signed: 04/05/24 19:34 EDT ED Patient Summaryon 024 ED Patient Summary ED Patient Summary [address] [address] Patient Discharge Instructions Person Information Name: HARSHAD ALICEA Age: 28 Years Arrival Date: 04/05/2024 19:08:18 Discharge Diagnosis: Cellulitis of great toe Primary Care Physician: NONE, XXXX Provider Information Primary Provider: Jensen Lua DO Advanced Tracing Lathe Set Up Operator:None The exam and treatment you received in the Emergency Department were for an urgent problem and are not intended as complete care. It is important that you follow up with a doctor, nurse practitioner, or physician?s assistant credit manager for ongoing care. If your symptoms become [...] Address: When: Kenia Galan [address] [place] [address] Business (1) In 3 days 04/08/2024 In the event that this physician does not participate in your insurance network, please consult with your insurance company to find a nearby participating provider. Patient Education Materials: Cellulitis, Adult A MESSAGE TO ALL PATIENTS REGARDING OPIOIDS PRESCRIPTION OPIOIDS: WHAT YOU NEED TO KNOW Prescription opioids can be used to help relieve pkvaeugi-zc-vpcwax pain and are often prescribed following a [...] be struggling with addiction, tell your health pet care technician and ask for guidance or call [facility] National Helpline at 7-598-234-JGSV. [employer] Source: [place] Departme (more content not included)... Normal [facility] Vital Signs Date Time Vital Sign Value Performing Clinician Paula boyer 06-17-2024 07:00-0400 Diastolic blood pressure 78 mm[Hg] Varun Disla [facility] 06-17-2024 07:00-0400 Heart rate 68 /min Varun Disla [facility] 06-17-2024 07:00-0400 Mean blood pressure 93 mm[Hg] Varun Disla [facility] 06-17-2024 07:00-0400 Respiratory rate 16 /min Varun Disla [facility] 06-17-2024 07:00-0400 Systolic blood pressure 124 mm[Hg] Varun Disla [facility] 06-17-2024 05:50-0400 Body temperature 98.24 [degF] Varun Disla [facility] 06-17-2024 05:50-0400 Diastolic blood pressure 84 mm[Hg] Varun Disla [facility] 06-17-2024 05:50-0400 Heart rate 85 /min Varun Disla [facility] 06-17-2024 05:50-0400 Respiratory rate 17 /min Varun Disla [facility] 06-17-2024 05:50-0400 SaO2% (BldA) [Mass fraction] 99 % Varun Disla [facility] 06-17-2024 05:50-0400 Systolic blood pressure 139 mm[Hg] Varun Disla [facility] 04-15-2024 06:26-0400 Body temperature 97.7 [degF] Ej Zackery [facility] 04-15-2024 06:26-0400 Diastolic blood pressure 80 mm[Hg] Ej Zackery [facility] 04-15-2024 06:26-0400 Heart rate 80 /min Ej Zackery [facility] 04-15-2024 06:26-0400 Respiratory rate 16 /min Ej Vizcarra [facility] 04-15-2024 06:26-0400 SaO2% (BldA) [Mass fraction] 99 % Ej Zackery [facility] 04-15-2024 06:26-0400 Systolic blood pressure 132 mm[Hg] Ej Zackery [facility] 04-05-2024 19:13-0400 Body temperature 98.06 [degF] Jensen Chanell [facility] 04-05-2024 19:13-0400 Diastolic blood pressure 77 mm[Hg] Jensen Lua [facility] 04-05-2024 19:13-0400 Heart rate 78 /min Jensen Lua [facility] 04-05-2024 19:13-0400 Respiratory rate 16 /min Jensen Lua [facility] 04-05-2024 19:13-0400 SaO2% (BldA) [Mass fraction] 98 % Jensen Lua [facility] 04-05-2024 19:13-0400 Systolic blood pressure 130 mm[Hg] Jensen Lua [facility] Encounters Encounter Date Encounter Type Care Provider Facility Start: 06-17-2024 End: 06-17-2024 Emergency department patient visit Varun Disla [facility] Start: 04-15-2024 End: 04-15-2024 Emergency department patient visit Ej Vizcarra [facility] Start: 04-05-2024 End: 04-05-2024 Emergency department patient visit Jensen Lua [facility] Payers Date Payer Category Payer Self-pay 2024 Private Health Insurance [id number] 1995 Unknown [id number] 1995 Unknown [id number] Social History Date Type Detail Facility Tobacco smoking status No Smoking Status Entered [facility] Sex Assigned At Female [facility] Functional Status Date Assessment Result Facility 06-17-2024 Functional Status N/A [facility] 04-15-2024 Functional Status N/A [facility] 04-05-2024 Functional Status N/A [facility] Evaluation + Plan note 06-17-2024 Note Date [...] EDT, STAT, Start date 06/17/24 7:06:00 EDT, [facility]- max dose 12 mg, 06/17/24 7:06:00 EDT ondansetron, 4 mg = 1 tab(s), Oral, q8hr, PRN Nausea/Vomiting, # 12 tab(s), Refills(s) 0, Pharmacy: [facility]/pharmacy #[id number], 164, cm, 06/17/24 5:51:00 EDT, Height/Length Dosing, 105.5, kg, 06/17/24 5:51:00 EDT, Weight Dosing [facility] Hospital Discharge instructions 06-17-2024 Note Date [...] treated at home with rest, fluids, and fhtp-oxf-pkbkuta medicines. Severe symptoms may be treated in [...] hands often or use an alcohol-based hand bulbs farmworker. 8.Cover your nose and mouth when coughing [...] provider. Document Revised: 09/16/2023 Document Reviewed: 05/23/2023 [employer] Patient Education 2023 [employer]. 06/17/2024 07:05:59 Upper Respiratory Infection, Adult Upper [...] medicines to help relieve symptoms, such as: Tbvp-ewo-hmwdiql cold medicines. Cough suppressants. Coughing is a [...] and other clear broths. General instructions Take eqbl-hba-acmzwwv and prescription medicines only as told by [...] and water are not available, use hand bulbs farmworker. Avoid touching your mouth, face, eyes, or [...] provider. Document Revised: 04/10/2022 Document Reviewed: 04/10/2022 [employer] Patient Education 2023 [employer]. Follow Up Care 06/17/2024 05:46:58 With:Kenia Galan Address: [address] [place] [address]- Business (1) When:06/20/2024 07:05:00 Comments:Call the office [...] legs, or any new or worsening symptoms. [facility] Clinical Note 06-17-2024 Note Date & [...] treated at home with rest, fluids, and gdqg-cbx-dfcfycm medicines. ? Severe symptoms may be treated [...] hands often or use an alcohol-based hand bulbs farmworker. 8. Cover your nose and mouth when [...] provider. Document Revised: 09/16/2023 Document Reviewed: 05/23/2023 [employer] Patient Education ? 2023 [employer]. Upper Respiratory Infection, Adult An upper respiratory [...] Fatigue. ? Fever. (more content not included)... [facility] Evaluation + Plan note 04-15-2024 Note Date [...] 103, kg, 04/15/24 6:28:00 EDT, Weight Dosing [facility] Hospital Discharge instructions 04-15-2024 Note Date [...] Follow these instructions at home: Medicines Take rcwp-rwg-giarzvd and prescription medicines only as told by [...] such as antibiotic medicines or antihistamines. Take nemv-jfw-cuxosgl and prescription medicines only as told by [...] provider. Document Revised: 06/19/2022 Document Reviewed: 06/20/2022 [employer] Patient Education 2022 [employer]. Follow Up Care 04/15/2024 06:24:12 With:Tino Garcia Address: [facility] Facility [address] [place] [address] Business (1) When:04/18/2024 06:46:37 Comments:Return to the emergency room if your pain/redness gets worse, red streaks going up your foot, fever or any new symptoms With:Kenia Galan Address: [place] [address]- Business (1) When:Within 3 Day(s) [facility] Hospital Discharge instructions 04-05-2024 Note Date [...] Follow these instructions at home: Medicines Take bpko-bmp-xbnqxlf and prescription medicines only as told by [...] such as antibiotic medicines or antihistamines. Take rjll-bbt-rxqxtfh and prescription medicines only as told by [...] provider. Document Revised: 06/19/2022 Document Reviewed: 06/20/2022 [employer] Patient Education 2022 Pets are family too Follow Up Care 04/05/2024 19:12:30 With:Kenia Galan Address: [address] [place] [address]- Business (1) When:04/08/2024 19:33:09 [facility] Clinical Note 04-05-2024 Note Date & [...] these instructions at home: Medicines ? Take txyd-sdw-gybgjuq and prescription medicines only as told by [...] as antibiotic medicines or antihistamines. ? Take mxvr-hrt-qmguzsm and prescription medicines only as told by [...] provider. Document Revised: 06/19/2022 Document Reviewed: 06/20/2022 [employer] Patient Education ? 2022 [employer]. [facility] Evaluation + Plan note 04-05-2024 Note Date [...] 103, kg, 04/05/24 19:17:00 EDT, Weight Dosing [facility] Hospital course Narrative Note Date & Type Note Facility Hospital course Narrative No data available for this section [facility] Progress note Note Date & Type Note Facility Progress note No data available for this section [facility] Summary Purpose Family History No Family History Records Found Advance Directives No Advanced Directives Records FoundNo Advanced Directives Records Found Additional Source Comments INFORMATION SOURCE (unrecogn ized section and content) DATE CREATED AUTHOR 04/09/2024 [facility] DATE CREATED AUTHOR AUTHOR'S ORGANIZ ATION 06/22/2024 [facility] Patient Care team informatio n (unrecognized section and content) Personnel Name: Adama MYERS, Kenia Polanco Address: Address: [address] [place] [address] [place], [place] [address] FOR RECORDS PERTAINING TO PATIENTS WHO [...] BE BASED ON THE PRIMARY CLINICAL RECORDS. [facility]. provides no warranty or guarantee of the accuracy or completeness of information in this document.
[2024-10-26 12:54] LABS: Influenza Virus A Antigen Negative; Influenza Virus B Antigen Negative; Internal Control Within Normal Limits; SARS-CoV-2 Ag NEGATIVE (NEGATIVE)
--- NOTE | 2024-10-26 13:16 | ED_ITS ---
HPI HPI - General Adult General Chief complaint: Upper Respiratory Infection Stated complaint: FEVER, ARM PAIN Time Seen by Provider: 10/26/24 13:12 Source: patient Mode of arrival: walk-in History of Present Illness HPI narrative: 29-year-old female presents for nausea and vomiting and she has been sick for few days. She has also had bodyaches and a slight cough. No hemoptysis. Related Data Home Medications ?Medication ?Instructions ?Recorded ?Confirmed metformin 500 mg tablet 500 mg PO BID 04/16/24 10/26/24 Previous Rx's ?Medication ?Instructions ?Recorded ondansetron 4 mg disintegrating 4 mg PO Q6H PRN nausea and 10/26/24 tablet vomiting #20 tabs Allergies Allergy/AdvReac Type Severity Reaction Status Date / Time No Known Drug Allergies Allergy Verified 09/02/24 17:02 Opioid HPI Opioid Management Most Recent Opioid Data: Last Pain Scale 8 05/30/24 18:14 05/30/24 Review of Systems ROS0 Narrative A ten point review of systems is negative except as noted above. PFSH PFSH Social History Little interest or pleasure in doing things: not at all Feeling down, depressed, or hopeless: not at all Exam Narrative Exam Narrative: Nurses note and vital signs reviewed and patient is not hypoxic. General: The patient appears well and in no apparent distress. Patient is resting comfortably on cart. Skin: Warm, dry, no pallor noted. There is no rash noted. Head: Normocephalic, atraumatic Eye: Normal conjunctiva, no drainage Ears, Nose, Mouth, and Throat: oral mucosa is moist. Nares patent. Cardiovascular: Regular Rate and Rhythm Respiratory: Patient is in no distress, no accessory muscle use, lungs are clear to auscultation, no wheezing, rales or rhonchi Back: non-tender GI: Soft and nontender Musculoskeletal: The patient has no evidence of calf tenderness, no pitting edema, symmetrical pulses noted bilaterally Neurological: A&O, normal speech Psychiatric: Cooperative Constitutional Vital Signs, click to edit/add: Last Vital Signs Temp 99.6 F 10/26/24 12:24 Pulse 95 H 10/26/24 12:24 Resp 18 10/26/24 12:24 BP 134/101 H 10/26/24 12:24 Pulse Ox 100 10/26/24 12:24 O2 Del Method Room Air 10/26/24 12:24 Course Vital Signs Vital signs: Vital Signs Temperature 99.6 F 10/26/24 12:24 Pulse Rate 95 H 10/26/24 12:24 Respiratory Rate 18 10/26/24 12:24 Blood Pressure 134/101 H 10/26/24 12:24 Pulse Oximetry 100 10/26/24 12:24 Oxygen Delivery Method Room Air 10/26/24 12:24 Temperature 99.6 F 10/26/24 12:24 Pulse Rate 95 H 10/26/24 12:24 Respiratory Rate 18 10/26/24 12:24 Blood Pressure 134/101 H 10/26/24 12:24 Pulse Oximetry 100 10/26/24 12:24 Oxygen Delivery Method Room Air 10/26/24 12:24 Medical Decision Making MDM Narrative Medical decision making narrative: COVID and flu swabs are negative and my clinical impression is that she has viral gastroenteritis. She is prescribed Zofran and was given a work note. Treatment diagnosis and follow-up were discussed with the patient. Lab Data Lab results reviewed: Yes I reviewed the patient's lab results Labs: Lab Results 10/26/24 Range/Units 12:29 Influenza Type A Ag Negative Influenza Type B Ag Negative SARS-CoV-2 Ag (CV2AG) Negative (NEGATIVE) Discharge Plan Discharge Chief Complaint: Upper Respiratory Infection Clinical Impression: Viral gastroenteritis Patient Disposition: Home, Self-Care Time of Disposition Decision: 13:16 Condition: Good Mode of Transportation: Private Vehicle Prescriptions / Home Meds: New ondansetron 4 mg tablet,disintegrating 4 mg PO Q6H PRN (Reason: nausea and vomiting) Qty: 20 0RF No Action metformin 500 mg tablet 500 mg PO BID Print Language: Tajik Instructions: Acute Nausea and Vomiting (ED) Referrals: Physician,Non-Staff, MD [Primary Care Provider] - 1 week
== END 2024-10-26 13:23 | disposition home or self-care (01) ==
PROVIDERS: Emergency Provider Emergency Medicine
DX: A08.4 Viral intestinal infection, unspecified (principal)
CPT/HCPCS: 87804; 87811; 99283

== ENCOUNTER 2025-05-08 07:03 | Emergency (ER) | payer BC, SELFPAY ==
[2025-05-08 07:08] VITALS: BP 114/82; PULSE 82; TEMP 36.8; O2SAT 97; BMI 36.1
--- OUTSIDE RECORDS SUMMARY | 2025-05-08 07:11 | XMS_ITS | CCD ---
Author Organization [facility] Care Team Providers Care Exhibitor Sales Name Role Phone NONE, XXXX Primary Care Physician Unavailab Jensen Rodriguez Attending Unavailable Kenia Galan Primary Care Physician Maco Aaron Attending Unavailable DO Kenzie Han Attending Unavailable Varun Disla Attending Unavailable Unavailable Primary Care Provider UnavailSnehal Pitt MD Primary Care Provider BUSHRA AMEZCUA Primary Care Physician TESSA AMEZCUA Admitting Unavailable TESSA AMEZCUA Attending Unavailable DO Kenzie Han Attending Unavailable BUSHRA AMEZCUA Attending Unavailable BUSHRA AMEZCUA Admitting Unavailable KEVYN GAYTAN Attending Unavailable KEVYN GAYTAN Attending Unavailable BUSHRA AMEZCUA Attending Unavailable BUSHRA AMEZCUA Attending Unavailable VIOLETTA RICE Attending Unavailable BUSHRA AMEZCUA Referring Unavailable BUSHRA AMEZCUA Attending Unavailable Allergies Allergy Classification Reported Allergen(s) Allergy Type Date of Onset Reaction(s) Facility (17 sources) Latex Propensity to adverse reactions 5 Rash [facility] Medications Current Medications Medication Drug Class(es) Dates Sig (Normalized) Sig (Original) Blood Glucose Monitoring Suppl (FreeStyle InsuLinx System) w/Device kit (9 sources) Start: 03-17-2025 Blood Glucose Monitoring Suppl (FreeStyle InsuLinx System) w/Device kit Indications: Type 2 diabetes mellitus without complication, without long-term current use of insulin (HCC) Test daily before all meals/snacks and once before bedtime. 1 kit 03/17/2025 Active brompheniramine maleate 0.4 mg/ml / dextromethorphan hydrobromide 2 mg/ml / pseudoephedrine hydrochloride 6 mg/ml oral solution (7 sources) alpha-Adrenergic Agonist, Uncompetitive A-pnggqe-S-aspartat e Receptor Antagonist, Sigma-1 Agonist Start: 06-17-2024 take 5 mL by mouth four times daily for cough and congestion Bromfed DM oral syrup 5 mL, Oral, QID for cough and congestion, 200 mL, Refill(s) 0, [facility]/pharmacy #[id number], 164, cm, 10/27/24 22:22:00 EST, Height/Length Dosing, 103.5, kg, 10/27/24 22:22:00 EST, Weight Dosing Start Date: 10/28/24 Status: Ordered Quantity: 200.0 Unit: mL Repeat number: 1 cephalexin 500 mg oral capsule (1 source) Cephalosporin Antibacterial Start: 04-05-2024 End: 04-12-2024 take 1 capsule by mouth every six hours Keflex 500 mg Cap 500 mg = 1 cap(s), Oral, q6hr, X 7 day(s), # 28 cap(s), Refills(s) 0, [id number], cm, 04/05/24 19:17:00 EDT, Height/Length Dosing, 103, kg, 04/05/24 19:17:00 EDT, Weight Dosing Start Date: 04/05/24 Stop Date: 04/12/24 Status: Ordered clotrimazole 10 mg/ml topical cream (14 sources) Azole Antifungal Start: 03-16-2025 End: 04-15-2025 clotrimazole (Lotrimin) 1 % cream Indications: Tinea pedis of both feet Apply topically in the morning and before bedtime. 85 g 1 03/16/2025 04/15/2025 Active doxycycline hyclate 100 mg oral capsule (5 sources) Tetracycline-class Drug Start: 04-15-2024 take 1 capsule by mouth twice daily doxycycline hyclate 100 mg Cap 100 mg = 1 cap(s), Oral, BID, # 20 cap(s), Refills(s) 0, Pharmacy: [facility]/pharmacy #[id number], 164, cm, 04/15/24 6:28:00 EDT, Height/Length Dosing, 103, kg, 04/15/24 6:28:00 EDT, Weight Dosing Start Date: 04/15/24 Status: Ordered Quantity: 20.0 Unit: cap(s) Repeat number: 1 fluocinonide 0.5 mg/ml topical solution (6 sources) Corticosteroid Start: 03-29-2025 fluocinonide (Lidex) 0.05 % external solution Indications: Other seborrheic dermatitis Apply topically to scalp every day as needed for scaling/itching 20 mL 11 03/29/2025 Active hydrocortisone 25 mg/ml topical cream (6 sources) Corticosteroid Start: 03-29-2025 hydrocortisone 2.5 % cream Indications: Other seborrheic dermatitis , Rash and other nonspecific skin eruption Apply thin layer to affected areas forehead, ears, and right thigh bid prn for flares 30 g 11 03/29/2025 Active isopropyl alcohol 0.7 ml/ml medicated pad (9 sources) Start: 03-17-2025 Alcohol Sheets (Alcoh-Wipe) sheet Indications: Type 2 diabetes mellitus without complication, without long-term current use of insulin (HCC) Test daily before all meals/snacks and once before bedtime. 1 each 03/17/2025 Active ketoconazole 20 mg/ml medicated shampoo (6 sources) Azole Antifungal Start: 03-29-2025 ketoconazole (NIZOral) 2 % shampoo Indications: Other seborrheic dermatitis Lather on scalp, leave on 5 min before rinsing, 2-3 times a week, 30 day supply 120 mL 11 03/29/2025 Active levothyroxine sodium 0.05 mg oral tablet (18 sources) l-Thyroxine Start: 03-16-2025 End: 04-15-2026 take 1 tablet by mouth once daily levothyroxine (Synthroid, Levoxyl) 50 MCG tablet Indications: Hypothyroidism, unspecified type Take 1 tablet (50 mcg) by mouth Daily 90 tablet 3 04/15/2025 04/15/2026 Active Start: 04-05-2024 levothyroxine Daily, Refills(s) 0 Start Date: 04/05/24 Status: Ordered Repeat number: 1 Start: 04-05-2024 levothyroxine Daily, Refills(s) 0 Start Date: 04/05/24 Status: Ordered medroxyPROGESTERone acetate 10 mg oral tablet (17 sources) Progestin Start: 01-26-2025 End: 03-18-2025 take 1 tablet by mouth once daily, then take 1 tablet by mouth once daily medroxyPROGESTERone (Provera) 10 MG tablet Indications: Abnormal uterine bleeding (AUB) Take 1 tablet (10 mg) by mouth Daily for 10 days Take 1 tablet by mouth daily for 10 days- have withdrawal bleed. 10 tablet 03/08/2025 Active metFORMIN (6 sources) Biguanide Start: 04-05-2024 metformin Oral, Refills(s) 0 Start Date: 04/05/24 Status: Ordered Repeat number: 1 Start: 04-05-2024 metformin Oral , Refills(s) 0 Start Date: 04/05/24 Status: Ordered naproxen 500 mg oral tablet (3 sources) Nonsteroidal Anti-inflammatory Drug Start: 10-28-2024 take 1 tablet by mouth twice daily as needed for pain Naprosyn 500 mg Tab 500 mg = 1 tab(s), Oral, BID, PRN for pain, # 20 tab(s), Refills(s) 0, Pharmacy: [facility]/pharmacy #[id number], 164, cm, 10/27/24 22:22:00 EST, Height/Length Dosing, 103.5, kg, 10/27/24 22:22:00 EST, Weight Dosing Start Date: 10/28/24 Status: Ordered Quantity: 20.0 Unit: tab(s) Repeat number: 1 nystatin 100 unt/mg topical powder (14 sources) Polyene Antifungal Start: 03-16-2025 End: 04-15-2025 nystatin (Mycostatin) [id number] UNIT/GM powder Indications: Yeast infection of the skin Apply topically in the morning and before bedtime. 60 g 1 03/16/2025 04/15/2025 Active 0.25 mg, 0.5 mg dose 1.5 ml semaglutide 1.34 mg/ml pen injector (11 sources) Start: 04-14-2025 End: 05-12-2025 inject 0.5 mg by subcutaneous injection every week semaglutide (Ozempic, 0.25 or 0.5 MG/DOSE,) 2 MG/1.5ML solution pen-injector Indications: Type 2 diabetes mellitus without complication, without long-term current use of insulin (HCC) Inject 0.5 mg under the skin 1 (one) time per week for 28 days 1.5 mL 04/14/2025 05/12/2025 Active Start: 03-17-2025 End: 04-14-2025 inject 0.25 mg by subcutaneous injection every week semaglutide (Ozempic, 0.25 or 0.5 MG/DOSE,) 2 MG/1.5ML solution pen-injector Indications: Type 2 diabetes mellitus without complication, without long-term current use of insulin (HCC) Inject 0.25 mg under the skin 1 (one) time per week for 28 days 1.5 mL 03/17/2025 04/14/2025 Discontinued (Reorder) sertraline 25 mg oral tablet (3 sources) Serotonin Reuptake Inhibitor Start: 04-14-2025 End: 05-14-2025 take 1 tablet by mouth once daily sertraline (Zoloft) 25 MG tablet Indications: Anxiety , Mild episode of recurrent major depressive disorder Take 1 tablet (25 mg) by mouth Daily 30 tablet 04/14/2025 05/14/2025 Active Zofran ODT 4 mg Tab-Dis (4 sources) Start: 06-17-2024 take 1 tablet by mouth every eight hours as needed for nausea Zofran ODT 4 mg Tab-Dis 4 mg = 1 tab(s), Oral, q8hr, PRN Nausea/Vomiting, # 12 tab(s), Refills(s) 0, Pharmacy: [facility]/pharmacy #[id number], 164, cm, 06/17/24 5:51:00 EDT, Height/Length Dosing, 105.5, kg, 06/17/24 5:51:00 EDT, Weight Dosing Start Date: 06/17/24 Status: Ordered Quantity: 12.0 Unit: tab(s) Repeat number: 1 Start: 06-17-2024 take 1 tablet by celia th every eight hours as needed for nausea Zofran ODT 4 mg Tab-Dis 4 mg = 1 tab(s), Oral, q8hr, PRN Nausea/Vomiting, # 12 tab(s), Refills(s) 0, Pharmacy: [facility]/pharmacy #[id number], 164, cm, 06/17/24 5:51:00 EDT, Height/Length Dosing, 105.5, kg, 06/17/24 5:51:00 EDT, Weight Dosing Start Date: 9/26/24 Status: Ordered Completed/Discontinued Medications Medication Drug Class(es) Dates Sig (Normalized) Sig (Original) Ozempic, 0.25 or 0.5 MG/DOSE, 2 MG/3ML solution pen-injector (5 sources) Start: 03-17-2025 End: 04-14-2025 inject 0.25 mg by subcutaneous injection every week Ozempic, 0.25 or 0.5 MG/DOSE, 2 MG/3ML solution pen-injector INJECT 0.25 MG UNDER THE SKIN 1 (ONE) TIME PER WEEK FOR 28 DAYS 03/17/2025 04/14/2025 Discontinued Start: 03-17-2025 inject 0.25 mg by [place] bcutaneous injection every week Ozempic, 0.25 or 0.5 MG/DOSE, 2 MG/3ML solution pen-injector INJECT 0.25 MG UNDER THE SKIN 1 (ONE) TIME PER WEEK FOR 28 DAYS 03/17/2025 Active Problems Active Problems Problem Classification Problem Date Documented Date Episodic/Chronic Administrative/social admission (2 sources) First encounter by subject; Translations: [Persons encountering health services in other specified circumstances] 03-16-2025 Episodic Anxiety disorders (2 sources) Anxiety; Translations: [Anxiety disorder, unspecified] 04-14-2025 Chronic Diabetes mellitus without complication (10 sources) Diabetes mellitus; Translations: [Type 2 diabetes mellitus] 04-05-2024 Chronic Diabetes mellitus without complication (2 sources) Increased glucose level; Translations: [Other abnormal glucose] 03-17-2025 Episodic Immunizations and screening for infectious disease (6 sources) Patient encounter status; Translations: [Encounter for screening for infections with a predominantly sexual mode of transmission] 01-26-2025 Episodic Influenza (1 source) Influenza; Translations: [Influenza due to other identified influenza virus with other respiratory manifestations] Onset: 10-28-2024 Episodic Miscellaneous mental health disorders (2 sources) Crying; Translations: [Other symptoms and signs involving emotional state] 04-14-2025 Episodic Mood disorders (2 sources) Recurrent major depressive episodes, mild ; Translations: [Major depressive disorder, recurrent, mild] 04-14-2025 Chronic Mycoses (4 sources) Candidiasis of skin; Translations: [Candidiasis of skin and nail] 03-16-2025 Episodic Other female genital disorders (2 sources) Abnormal uterine bleeding; Translations: [Abnormal uterine and vaginal bleeding, unspecified] 01-26-2025 Chronic Other inflammatory condition of skin (2 sources) 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 Chronic Other inflammatory condition of skin (2 sources) Pityriasis simplex; Translations: [Seborrhea capitis] 03-16-2025 Episodic Other inflammatory condition of skin (2 sources) Seborrheic dermatitis; Translations: [Other seborrheic dermatitis] 03-29-2025 Episodic Other skin disorders (2 sources) Eruption; Translations: [Rash and other nonspecific skin eruption] 03-29-2025 Episodic Other skin disorders (2 sources) Skin tag; Translations: [Other hypertrophic disorders of the skin] 03-29-2025 Episodic Other upper respiratory infections (1 source) Acute upper respiratory infection; Translations: [Acute upper respiratory infection, unspecified] Onset: 06-17-2024 Episodic Residual codes; unclassified (1 source) Unprotected sexual intercourse; Translations: [High risk heterosexual behavior] 01-26-2025 Episodic Residual codes; unclassified (2 sources) H/O: endocrine disorder; Translations: [Personal history of other specified conditions] 03-16-2025 Episodic Residual codes; unclassified (2 sources) Family history of diabetes mellitus in first degree relative; Translations: [Family history of diabetes mellitus] 03-17-2025 Episodic Residual codes; unclassified (2 sources) Other specified personal risk factors, not elsewhere classified; Translations: [Other specified personal history presenting hazards to health] 04-14-2025 Episodic Skin and subcutaneous tissue infections (2 sources) Cellulitis of toe; Translations: [Cellulitis of unspecified toe] Onset: 04-05-2024 Episodic Thyroid disorders (8 sources) Hypothyroidism; Translations: [Hypothyroidism, unspecified] 03-16-2025 Chronic Thyroid disorders (6 sources) Disorder of thyroid gland 04-05-2024 Episodic Past or Other Problems Problem Classification Problem Date Documented Da te Episodic/Chronic Mood disorders (3 sources) Mood disorders Onset: 04-14-2025 04-14-2025 Viral infection (1 source) Disease caused by 2019-nCoV; Translations: [COVID-19] Onset: 06-17-2024 Results Test Name Value Interpretation Reference Range Facility CHEMISTRYOrdered By: SYSTEM SYSTEM on 03-16-2025 Albumin [Mass/Vol] 4.5 g/dL Normal 3.3 - 5.0 gm/dL [facility] Albumin/Globulin [Mass ratio] 1.6 {ratio} Normal 1.1 - 2.2 [facility] ALP [Catalytic activity/Vol] 87 [iU]/d Normal 21 - 98 Int._Unit/L [facility] ALT No additional P-5'-P [Catalytic activity/Vol] 57 [iU]/d High 6 - 46 Int._Unit/L [facility] Anion gap [Moles/Vol] 9 mmol/L Normal 6 - 16 mEq/L R [facility] AST [Catalytic activity/Vol] 24 [iU]/d Normal 5 - 43 Int._Unit/L [facility] Bilirubin [Mass/Vol] 0.5 mg/dL Normal 0.0 - 1 .1 mg/dL [facility] Calcium [Mass/Vol] 9.3 mg/dL Normal 8.9 - 11. 1 mg/dL [facility] Chloride [Moles/Vol] 104 mmol/L Normal 101 - 1 11 mmol/L [facility] Cholesterol [Mass/Vol] 174 mg/dL Normal 120 - 200 mg/dL [facility] Cholesterol in HDL [Mass/Vol] 44 mg/dL Invalid Interpretation Code [facility] Comment on above: Result Comment: '>= 60 LOW RISK' '<= 40 HIGH RISK' Cholesterol in LDL [Mass/Vol] 119 mg/dL Normal <=129mg/dL [facility] Cholesterol in VLDL [Mass/Vol] 20 mg/dL Normal 7 - 40 mg/dL [facility] CO2 [Moles/Vol] 28 mmol/L Normal 21 - 31 mmol/L [facility] Creatinine [Mass/Vol] 0.7 mg/dL Normal 0.5 - 1.3 mg/dL [facility] Free T4 [Mass/Vol] 0.71 ng/dL Normal 0.58 - 1. 64 ng/dL [facility] GFR/1.73 sq M.predicted MDRD (S/P/Bld) [Vol rate/Area] 120 mL/min/1.73 m2 Normal >=59mL/min/1. 73 m2 [facility] Globulin (S) [Mass/Vol] 2.9 g/dL Normal 1.4 - 4.0 gm/dL [facility] Glucose [Mass/Vol] 181 mg/dL Normal 55 - 199 mg/dL [facility] Potassium [Moles/Vol] 4.2 mmol/L Normal 3.5 - 5.3 mmol/L [facility] Protein [Mass/Vol] 7.4 g/dL Normal 6.0 - 7.8 gm/dL [facility] Sodium [Moles/Vol] 137 mmol/L Normal 135 - 145 mmol/L [facility] Triglyceride [Mass/Vol] 101 mg/dL Normal <=149mg/dL [facility] TSH Qn 8.49 m[IU]/L High 0.34 - 5.60 mcIU/mL [facility] Urea nitrogen [Mass/Vol] 16 mg/dL Normal 5 - 21 mg/dL [facility] Urea nitrogen/Creatinine [Mass ratio] 23 mg/mg High 10 - 20 [facility] CMPon 03-16-2025 Albumin [Mass/Vol] 4.5 g/dL Normal 3.3-5.0 [facility] Comment on above: Performed By: #### 2 [id number] #### [facility] [address] [place] [address] Albumin/Globulin [Mass ratio] 1.6 {ratio} Normal 1.1-2.2 [facility] Comment on above: Performed By: #### 2 [id number] #### [facility] [address] [place] [address] Alk Phos 87 Int._Unit/L Normal 21-98 [facility] Comment on above: Performed By: #### 2 [id number] #### [facility] [address] [place] [address] ALT 57 Int._Unit/L High 6-46 [facility] Comment on above: Performed By: #### 2 [id number] #### [facility] [address] [place] [address] Anion gap [Moles/Vol] 9 mmol/L Normal 6-16 [facility] Comment on above: Performed By: #### 2 [id number] #### [facility] [address] [place] [address] AST 24 Int._Unit/L Normal 5-43 [facility] Comment on above: Performed By: #### 2 [id number] #### [facility] [address] [place] [address] Bili Total 0.5 mg/dL Normal 0.0-1.1 [facility] Comment on above: Performed By: #### 2 [id number] #### [facility] [address] [place] [address] BUN/Creat Ratio 23 No Units High 10-20 [facility] Comment on above: Performed By: #### 2 [id number] #### [facility] [address] [place] [address] Calcium [Mass/Vol] 9.3 mg/dL Normal 8.9-11.1 [facility] Comment on above: Performed By: #### 2 [id number] #### [facility] [address] [place] [address] Chloride [Moles/Vol] 104 mmol/L Normal 101-111 [facility] Comment on above: Performed By: #### 2 [id number] #### [facility] [address] [place] [address] CO2 [Moles/Vol] 28 mmol/L Normal 21-31 [facility] Comment on above: Performed By: #### 2 [id number] #### [facility] [address] [place] [address] Creatinine [Mass/Vol] 0.7 mg/dL Normal 0.5-1.3 [facility] Comment on above: Performed By: #### 2 [id number] #### [facility] [address] [place] [address] Globulin (S) [Mass/Vol] 2.9 g/dL Normal 1.4-4.0 [facility] Comment on above: Performed By: #### 2 [id number] #### [facility] [address] [place] [address] Glucose [Mass/Vol] 181 mg/dL Normal 55-199 [facility] Comment on above: Performed By: #### 2 [id number] #### [facility] [address] [place] [address] Potassium [Moles/Vol] 4.2 mmol/L Normal 3.5-5.3 [facility] Comment on above: Performed By: #### 2 [id number] #### [facility] [address] [place] [address] Protein [Mass/Vol] 7.4 g/dL Normal 6.0-7.8 [facility] Comment on above: Performed By: #### 2 [id number] #### [facility] [address] [place] [address] Sodium [Moles/Vol] 137 mmol/L Normal 135-145 [facility] Comment on above: Performed By: #### 2 [id number] #### [facility] [address] [place] [address] Urea nitrogen [Mass/Vol] 16 mg/dL Normal 5-21 [facility] Comment on above: Performed By: #### 2 [id number] #### [facility] [address] [place] [address] [facility] CMPon 03-16-2025 [facility] A/G RATIO 1.6 1.1 - 2.2 [facility] AGAP 9 [facility] ALBUMIN LVL 4.5 [facility] ALK PHOS 87 [facility] ALT 57 High [facility] AST 24 [facility] BILI TOTAL 0.5 mg/dL 0.0 - 1.1 mg/dL [facility] BUN/CREAT RATIO 23 High [facility] GLOBULIN 2.9 [facility] TOTAL PROTEIN 7.4 [facility] Interpretation and review of laboratory results Abnormal [facility] EGFRon 03-16-2025 GFR/1.73 sq M.predicted CKD-EPI (S/P/Bld) [Vol rate/Area] 120 - PINF [facility] LIPID PANELon [facility] TRIG 101 mg/dL NINF - 149 mg/dL [facility] VLDL 20 mg/dL 7 - 40 mg/dL [facility] Free T4on 03-16-2025 Free T4 [Mass/Vol] 0.71 ng/dL Normal 0.58-1.64 [facility] Comment on above: Performed By: #### 2 [id number] #### [facility] [address] [place] [address] Lipid Panelon 03-16-2025 Cholesterol [Mass/Vol] 174 mg/dL Normal 120-200 [facility] Comment on above: Performed By: #### 2 [id number] #### [facility] [address] [place] [address] Cholesterol in HDL [Mass/Vol] 44 mg/dL Invalid Interpretation Code [facility] Comment on above: '>= 60 LOW RISK' '<= 40 HIGH RISK' Result Comment: '>= 60 LOW RISK' '<= 40 HIGH RISK' Performed By: #### 2 [id number] #### [facility] [address] [place] [address] Cholesterol in LDL [Mass/Vol] 119 mg/dL Normal <=129 [facility] Comment on above: Performed By: #### 2 [id number] #### [facility] [address] [place] [address] Cholesterol in VLDL [Mass/Vol] 20 mg/dL Normal 7-40 [facility] Comment on above: Performed By: #### 2 [id number] #### [facility] [address] [place] [address] Triglyceride [Mass/Vol] 101 mg/dL Normal <=149 [facility] Comment on above: Performed By: #### 2 [id number] #### [facility] [address] [place] [address] No Panel Informationon 03-16 Original Ordering Provider: [facility] With T4fr Reflexon 03-16 TSH Qn 8.49 m[IU]/L High 0.34-5.60 [facility] Comment on above: Performed By: #### 1 [id number] #### [facility] [address] [place] [address] eGFRon 03-16-2025 eGFR 120 mL/min/1.73 m2 Normal >=59 [facility] Comment on above: Performed By: #### 1 [id number] #### [facility] [address] [place] [address] ED Clinical Summaryon 2024 ED Clinical Summary ED Clinical Summary [address] [address] ED Clinical Summary Person Information Name: LELIA SHAY [place] Age: 29 Years : 1995 Sex: Female Language: Armenian PCP: NONE, XXXX Marital Status: Single Visit Id: Visit Reason: Fever; Sinus Pain/Congestion; Body aches; HIGH FEVER Speciality: Acuity: 3 Enc Type: Emergency Med Service: Emergency Arrival: 10/27/2024 22:13:37 Discharge: 10/28/2024 01:23:36 LOS: 000 03:10 Checkin: 10/27/2024 22:13:37 Checkout: 10/28/2024 01:23:36 Dispo Type: Home (Routine DC) EVENTS: Event Name Event Status Request Date/Time Start Date/Time Complete Date/Time Arrive Complete 10/27/2024 22:13:37 10/27/2024 22:13:37 10/27/2024 22:13:37 Document Home Meds Request 10/27/2024 22:13:37 Triage Complete 10/27/2024 22:13:37 10/27/2024 22:22:56 10/27/2024 22:22:56 Pending Labs Complete 10/27/2024 22:23:20 10/27/2024 22:23:20 10/27/2024 23:09:00 Swab Complete 10/27/2024 22:23:20 10/27/2024 22:23:20 10/27/2024 23:09:00 Bed Assign Complete 10/27/2024 22:40:50 10/27/2024 22:40:50 10/27/2024 22:40:50 Dr Exam Complete 10/27/2024 22:40:50 10/27/2024 22:41:41 10/27/2024 22:41:41 RN Exam Complete 10/27/2024 22:40:50 10/28/2024 00:03:47 10/28/2024 00:03:47 Registration Complete 10/27/2024 22:41:41 10/27/2024 22:43:51 10/27/2024 22:43:51 Reg Complete Request 10/27/2024 22:43:51 Reg Bed Request Complete 10/27/2024 22:43:51 10/27/2024 22:43:51 10/27/2024 22:43:51 Meds Admin Complete 10/27/2024 23:15:55 10/28/2024 00:22:14 Discharge Complete 10/28/2024 00:32:39 10/28/2024 01:23:43 10/28/2024 01:23:43 Transfer Complete 10/28/2024 01:23:43 10/28/2024 01:23:43 10/28/2024 01:23:43 ADDRESS: [address] [place] [address] [address] [facility] [phone] PHYS DOC NOTES: MEDICAL INFORMATION: Prescriptions Given: New Medications [facility]/pharmacy #[id number], [address] [place], [place] [id number], [phone] naproxen (Naprosyn 500 mg Tab) 1 Tablets By Mouth 2 times a day as needed for pain. Refills: 0. Medications to Continue Taking That Have Changed [facility]/pharmacy #[id number], [address] [place], [place] [id number], [phone] START: brompheniramine/dex tromethorphan/PSE (Bromfed DM oral syrup) 5 Milliliter By Mouth 4 times a day as needed for cough and congestion. Refills: 0. Other Medications START: brompheniramine/dex tromethorphan/PSE (Bromfed DM oral syrup) 5 Milliliter By Mouth 4 times a day as needed for cold symptoms. Refills: 0. Medications to Continue with No Changes Other Medications doxycycline (doxycycline hyclate 100 mg Cap) 1 Capsules By Mouth 2 times a day. Refills: 0. levothyroxine every day. metformin By Mouth. ondansetron (Zofran ODT 4 mg Tab-Dis) 1 Tablets By Mouth every 8 hours as needed Nausea/Vomiting. Refills: 0. PATIENT EDUCATION INFORMATION: Instructions: Influenza, Adult, Dbfi-ri-Pofl Follow up: With: Address: When: [employer] [facility] [place] [address] Business (1) In 3 days 10/31/2024 Comments: You can use the naproxen every 12 hours as needed for fever use of Bromfed every 6 hours as needed for cough and congestion. Please follow-up with your primary care doctor for further evaluation management. Please return the ED for any new or worsening symptoms. With: Address: When: [facility]X [facility] , [place] In 3 days DIAGNOSIS: Influenza A Normal [facility] ED Note-Physicianon 10-28-19 ED Note-Physician ED Note-Physician Basic Information Time Seen: Kenzie Han DO 10/27/2024 22:41 Chief Complaint fever for the last three days. cough. runny nose. body aches. taking tylenol and motrin. History of Present Illness Patient is a 29-year-old female with past medical history of hypothyroidism, diet-controlled diabetes presenting to the ED for evaluation of cough, congestion, body aches in addition to headache. Patient states symptoms started 2 to 3 days ago has been having intermittent fevers. Has been taking ibuprofen, Tylenol at home for her symptoms. Patient states her headache is progressively worsening, described as diffuse in addition to diffuse body aches. No other sick contacts that she is aware of. [place] any shortness of breath, chest pain, dizziness or lightheadedness. Review of Systems A 10 point review of systems is negative except as noted above. Medical and Surgical History: Reviewed and noted Social history: Lives at home Tobacco: Denies Physical Exam Vitals & Measurements T: 38.5 ???C(Oral) HR: 128(Peripheral) RR: 20 BP: 121/84 SpO2: 97% HT: 164 cm WT: 103.5 kg BMI: 38.48 General: Well developed, non toxic appearing, no acute distress HEENT: Head atraumatic, Mucosa moist, hearing grossly normal no effusion behind the TMs bilaterally, mild pharyngeal erythema Neck: No JVD, tracheal deviation Cardiac: Tachycardic, regular rhythm, no murmurs, or gallops, 2+ radial pulses Respiratory: Lungs clear to auscultation B/L, normal respiratory effort Abdomen: Soft non tender, no rebound or guarding, no peritoneal signs Extremities: No edema noted in the LE B/L, no tenderness to palpation Neurologic: Alert and oriented, speech clear Skin: No rashes or lesions Psych: Appropriate mood and behavior Medical Decision Making MEDICAL DECISION MAKING Number and Complexity of Problems Differential Diagnosis: [] [facility] Data External documents reviewed: [] My EKG interpretation: [] My CT interpretation: [] My X-ray interpretation: [] My Ultrasound interpretation: [] Decision rules/scores evaluated: [] Discussed with: [] Treatment and Disposition ED Course: Patient is a 29-year-old female presenting to the ED for evaluation of cough, congestion, body aches, headache. Patient nontoxic in arrival, no acute distress. Is febrile on initial examination. Due to her complaints flu swab is obtained and is positive for influenza A. Patient is given Toradol, Tylenol in addition to Bromfed in the ED for treatment of her symptoms. Patient's vitals improved. Patient discharged home with prescription for naproxen, Bromfed. She is to follow-up with her primary care doctor for further evaluation management. She is to return to the ED for any new or worsening symptoms. Shared decision making: [] Code status: [] Assessment/Plan Influenza A (J10.1: Influenza due to other identified influenza virus with other respiratory manifestations) Orders: acetaminophen, 975 mg = 3 tab(s), Tab, Oral, Once PRN Pain, STAT, Start date 10/27/24 23:15:00 EST, 10/27/24 23:15:00 EST brompheniramine/dex tromethorphan/PSE, 5 mL, Syrup, Oral, Once, Stop date 10/27/24 23:15:00 EST, STAT, Start date 10/27/24 23:15:00 EST brompheniramine/dex tromethorphan/PSE, 5 mL, Oral, QID for cough and congestion, 200 mL, Refill(s) 0, [facility]/pharm[facility] #[id number], 164, cm, 10/27/24 22:22:00 EST, Height/Length Dosing, 103.5, kg, 10/27/24 22:22:00 EST, Weight Dosing ketorolac, 30 mg = 1 mL, Injection, IntraMuscular, Once, Stop date 10/27/24 23:15:00 EST, STAT, Start date 10/27/24 23:15:00 EST, 10/27/24 23:15:00 EST naproxen, 500 mg = 1 tab(s), Oral, BID, PRN for pain, # 20 tab(s), Refills(s) 0, Pharmacy: [facility]/pharmacy #[id number], 164, cm, 10/27/24 22:22:00 EST, Height/Length Dosing, 103.5, kg, 10/27/24 22:22:00 EST, Weight Dosing Influenza A&B Ag Medications Administered Given acetaminophen 325 mg Tab, 975 mg, Oral Bromfed DM oral syrup, 5 mL, Oral ketorolac 30 mg/mL Inj 1 mL, 30 mg, IntraMuscular Disposition Plan Discharge Prescription List Prescriptions Bromfed DM oral syrup, 5 mL, Oral, QID, PRN Naprosyn 500 mg Tab, 500 mg= 1 tab(s), Oral, BID, PRN Follow-up With When Contact Information [facility] In 3 days 10/31/[address] [place] [address] [place] [address]- [facility] (1) Additional Instructions: You can use the naproxen every 12 hours as needed for fever use of Bromfed every 6 hours as needed for cough and congestion. Please follow-up with your primary care doctor for further evaluation management. Please return the ED for any new or worsening symptoms. XXXX NONE In 3 days [place] Additional Instructions: Patient Education Influenza, Adult, Hseo-nc-Uxla Problem List/Past Medical History Ongoing No qualifying data Historical Diabetes mellitus Thyroid disease Medications Inpatient acetaminophen 325 mg Tab, 975 mg= 3 tab(s), Oral, Once, PRN Bromfed DM oral syrup, 5 mL, Oral, On (more content not included)... Normal [facility] Comment on above: Result Comment: Elec tronically Signed By: Kenzie Han DO\.óscar\Date and Time Signed: 10/28/24 00:51 EST ED Patient Summaryon 025 ED Patient Summary ED Patient Summary [address] [address] Patient Discharge Instructions Person Information Name: LELIA SHAY Age: 29 Years Arrival Date: 10/27/2024 22:13:37 Discharge Diagnosis: Influenza A Primary Care Physician: NONE, XXXX Provider Information Primary Provider: Kenzie Han DO Advanced Dry Room Operator:Alex The exam and treatment you received in the Emergency Department were for an urgent problem and are not intended as complete care. It is important that you follow up with a doctor, nurse practitioner, or physician???s client services assistant for ongoing care. If your symptoms become worse or you do not improve as expected and you are unable to reach your usual health care provider, you should return to the Emergency Department. We are available 24 hours a day. LELIA SHAY has been given the following list of patient education materials, prescriptions and follow-up instructions: Follow-up Instructions: With: Address: When: [facility] [address] [place] [address] [id number] Business (1) In 3 days 10/31/2024 Comments: You can use the naproxen every 12 hours as needed for fever use of Bromfed every 6 hours as needed for cough and congestion. Please follow-up with your primary care doctor for further evaluation management. Please return the ED for any new or worsening symptoms. With: Address: When: [facility]X [facility] , [place] In 3 days In the event that this physician does not participate in your insurance network, please consult with your insurance company to find a nearby participating provider. Patient Education Materials: Influenza, Adult, Ieyb-dx-Digq A MESSAGE TO ALL PATIENTS REGARDING OPIOIDS PRESCRIPTION OPIOIDS: WHAT YOU NEED TO KNOW Prescription opioids can be used to help relieve qxmxctwa-kn-tsrqus pain and are often prescribed following a [...] as well, even when taken as directed: ??? Tolerance???meaning you might need to take more of the medication for the same pain relief ??? Physical dependence???meanin g you have symptoms of withdrawal when a medication is stopped ??? Increased sensitivity to pain ??? Constipation ??? Nausea, vomiting, and dry mouth ??? Sleepiness and dizziness ??? Confusion ??? Depression ??? Low levels of testosterone that can result in lower sex drive, energy, and strength ??? Itching and sweating RISKS ARE GREATER WITH: ??? History of drug misuse, substance use disorder, or overdose ??? Mental health conditions (such as depression or anxiety) ??? Sleep apnea ??? Older age (65 years and older) ??? Avoid alcohol while taking prescription opioids. Also, unless specifically advised by your health care provider, medications to avoid include: ??? Benzodiazepines (such as Xanax or Valium) ??? Muscle relaxants (such as Soma or Flexeril) ??? Hypnotics (such as Ambien or Lunesta) ??? Other prescription opioids KNOW YOUR OPTIONS Talk to your health care provider about ways to manage your pain that don???t involve prescription opioids. Some of these options may actually work better and have fewer risks and side effects. Options may include: ??? Pain relievers such as acetaminophen, ibuprofen, and naproxen ??? Some medication that are also used for depression or seizures ??? Physical therapy and exercise ??? Cognitive behavioral therapy, a psychological, goal-directed approach, in which patients learn how to modify physical, behavioral, and emotional triggers of pain and stress. IF YOU ARE PRESCRIBED OPIOIDS FOR PAIN: ??? Never take opioids in greater amounts or more often than prescribed. ??? Follow up with your primary health care provider. o Work together to create a plan on how to manage your pain. o Talk about ways to help manage your pain that don???t involve prescription opioids. o Talk about any and all concerns and side effects. ??? Help prevent misuse and abuse o Never sell or share prescription opioids. o Never use another person???s prescription opioids. ??? Store prescription opioids in a secure place and out of reach of others (this may include visitors, children, friends, and family). ??? Safely dispose of unused prescription opioids: Find your community drug take-back program or your pharmacy mail-back program, or (more content not included)... Normal [facility] Influenza A&B Agon Influenzae A Ag Positive Abnormal Negative [facility] Comment on above: Performed By: #### 1 [id number] #### [facility] [address] [place] [address] Influenzae B Ag Negative Normal Negative [facility] Comment on above: Result Comment: Test sensitivity and specificity vary for age group, specimen type, antigen types, and prevalence of disease. Test results must be evaluated in conjunction with other clinical data available to the physician. Individuals who received nasally administered Influenza A vaccine may have positive test results up to 3 days after vaccination. Performed By: #### 1 [id number] #### [facility] [address] [place] [address] MICRO OTHER TESTSOrdered By: Vito Albarado on 10-27-2024 Influenzae A Ag Positive *ABN* (10/27/24 10:23 PM) Invalid Interpretation Code Negative [facility] Influenzae B Ag Negative 1 (10/27/24 10:23 PM) Normal Negative [facility] Comment on above: Interpretive Data: T est sensitivity and specificity vary for age group, specimen type, antigen types, and prevalence of disease. Test results must be evaluated in conjunction with other clinical data available to the physician. Individuals who received nasally administered Influenza A vaccine may have positive test results up to 3 days after vaccination. ED Clinical Summaryon 2023 ED Clinical Summary ED Clinical Summary [address] [address] ED Clinical Summary Person Information Name: LELIA SHAY [facility] Age: 28 Years : 1995 Sex: Female Language: Armenian PCP: Kenia Galan MD Marital Status: Single [...] 06/17/2024 07:29:21 06/17/2024 07:29:21 06/17/2024 07:29:21 ADDRESS: [address] [place] [address] [address] [place] [id number] PHYS DOC NOTES: MEDICAL INFORMATION: Prescriptions Given: New Medications [id number], [address] [facility] [place] [id number], [phone] brompheniramine/dex tromethorphan/PSE (Bromfed DM oral syrup) 5 Milliliter By [...] With: Address: When: Kenia [place] [address] Business (1) In 3 days 06/20/2024 Comments: [...] Acute COVID-19; Acute upper respiratory infection Normal [facility] ED Note-Physicianon 06-17-20 ED Note-Physician ED Note-Physician Basic Information Time Seen: Ej Vizcarra DOAnkita 06/17/2024 06:50 Chief Complaint pt arrives for [...] (J06.9: Acute upper respiratory infection, unspecified) Orders: brompheniramine/dex tromethorphan/PSE, 5 mL, Oral, QID for cold symptoms, 200 mL, Refill(s) 0, [facility]/pharmacy #[id number], 164, cm, 06/17/24 5:51:00 EDT, Height/Length Dosing, 105.5, kg, 06/17/24 5:51:00 EDT, Weight Dosing dexamethasone, 10 mg = 1 mL, Injection, Oral, Once, Stop date 06/17/24 7:06:00 EDT, STAT, Start date 06/17/24 7:06:00 EDT, [facility]- max dose 12 mg, 06/17/24 7:06:00 EDT ondansetron, 4 mg = 1 tab(s), Oral, q8hr, PRN Nausea/Vomiting, # 12 tab(s), Refills(s) 0, Pharmacy: [facility]/pharmacy #[id number], 164, cm, 06/17/24 5:51:00 EDT, Height/Length Dosing, 105.5, kg, 06/17/24 5:51:00 EDT, Weight Dosing Medications Administered Given dexamethasone 10 mg/mL Inj 1 mL, 10 mg, Oral [id number] [F], 1000 mL, IV Zofran 4 mg/2 mL Injection, 4 mg, IV Push Disposition Plan Patient Discharge Condition Stable Home Discharge Prescription List Prescriptions Bromfed DM oral syrup, 5 mL, Oral, QID, PRN Zofran ODT 4 mg Tab-Dis, 4 mg= 1 tab(s), Oral, q8hr, PRN Follow-up With When Contact Information Kenia Galan In 3 days 06/20/2024 EDT [address] [place] [address]- Business (1) Additional Instructions: Call the office [...] DM oral (more content not included)... Normal [facility] Comment on above: Result Comment: Elec tronically Signed By: Ej Vizcarra DO\.br\Date and Time Signed: 06/17/24 07:50 EDT ED Patient Summaryon 024 ED Patient Summary ED Patient Summary [address] [address] Patient Discharge Instructions Person Information Name: LELIA SHAY Age: 28 Years Arrival Date: 06/17/2024 05:46:03 Discharge Diagnosis: Acute COVID-19; Acute upper respiratory infection Primary Care Physician: Kenia Galan MD Provider Information Primary Provider: Ej Vizcarra DO Advanced Dry Room Operator:None The exam and treatment you received in the Emergency Department were for an urgent problem and are not intended as complete care. It is important that you follow up with a doctor, nurse practitioner, or physician?s client services assistant for ongoing care. If your symptoms become worse or you do not improve as expected and you are unable to reach your usual health care provider, you should return to the Emergency Department. We are available 24 hours a day. LELIA SHAY has been given the following list of patient education materials, prescriptions and follow-up instructions: Follow-up Instructions: With: Address: When: [place] [place] [address] [employer] ([place] In 3 days 06/20/2024 Comments: Call the [...] opioids can be used to help relieve mcvlakro-eg-yohdol pain and are often prescribed following a [...] help man (more content not included)... Normal [facility] MICRO OTHER TESTSOrdered By: Xochilt Parish on 06-17-2024 Rapid COV Int NEG Ctl Pass (06/17/24 6:09 AM) Normal [facility] Man Sero Rapid COV Int POS Ctl Pass (06/17/24 6:09 AM) Normal [facility] SARS-CoV+SARS-CoV-2 (COVID-19) Ag IA.rapid Ql (Resp) Not Detected 1 (06/17/24 6:09 AM) Normal Not Detected [facility] Comment on above: Interpretive Data: Chandana jefferson [employer] System for Rapid Detection of SARS-CoV-2 [...] other viruses or pathogens; and, in the [facility], this test is only authorized for the duration of the declaration that circumstances exist justifying the authorization of emergency use of in vitro diagnostics for detection and/or diagnosis of the virus that causes COVID-19 under Section 564(b)(1) of the Act, 21 U.S.C. 360bbb-3(b)(1), unless the authorization is terminated or revoked sooner. Rapid COVID Antigen ([facility])on 06-17-2024 Rapid COV Int NEG Ctl Pass Normal [facility] Comment on above: Performed By: #### 2 [id number] #### [facility] [address] [place] [address] Rapid COV Int POS Ctl Pass Normal [facility] Comment on above: Performed By: #### 2 [id number] #### [facility] [address] [place] [address] SARS-CoV+SARS-CoV-2 (COVID-19) Ag IA.rapid Ql (Resp) Not detected Normal Not Detected [facility] Comment on above: Result Comment: The [employer] System for Rapid Detection of SARS-CoV-2 is [...] or revoked sooner. Performed By: #### 2 [id number] #### [facility] [address] [place] [id number] ED Clinical Summaryon 2023 ED Clinical Summary ED Clinical Summary [address] [address] ED Clinical Summary Person Information Name: LELIA SHAY [place] Age: 28 Years : 1995 Sex: Female Language: Armenian PCP: NONE, XXXX Marital Status: Single Phone: [...] 04/05/2024 19:43:13 04/05/2024 19:43:13 04/05/2024 19:43:13 ADDRESS: [address] [place] [address] [address] [place] [id number] PHYS DOC NOTES: MEDICAL INFORMATION: Prescriptions Given: New Medications [id number], [address] [id number], [phone] cephalexin (Keflex 500 mg Cap) 1 Capsules By Mouth every 6 hours for 7 Days. Refills: 0. Medications to Continue with No Changes Other Medications levothyroxine every day. metformin By Mouth. PATIENT EDUCATION INFORMATION: Instructions: Cellulitis, Adult Follow up: With: Address: When: [place] [address] Business (1) In 3 days 04/08/2024 DIAGNOSIS: Cellulitis of great toe Normal [facility] ED Note-Physicianon 04-05-20 ED Note-Physician ED [...] and Complexity of Problems Differential Diagnosis: [] MDM Data External documents reviewed: N/A My EKG [...] day(s), # 28 cap(s), Refills(s) 0, Pharmacy: [facility]/pharmacy #[id number], 164, cm, 04/05/24 19:17:00 EDT, Height/Length Dosing, 103, kg, 04/05/24 19:17:00 EDT, Weight Dosing Disposition Plan Discharge Prescription List Prescriptions Keflex 500 mg Cap, 500 mg= 1 cap(s), Oral, q6hr Follow-up With When Contact Information Kenia Galan In 3 days 04/08/[address] [place] [address]- Business (1) Additional Instructions: Patient Education Cellulitis, Adult Problem List/Past Medical History Ongoing No qualifying data Historical No qualifying data Medications Inpatient Keflex 500 mg Cap, 500 mg= 1 cap(s), Oral, Once Home Keflex 500 mg Cap, 500 mg= 1 cap(s), Oral, q6hr Allergies No Known Allergies Lab Results No qualifying data available. Diagnostic Results No qualifying data available. Normal [facility] Comment on above: Result Comment: Elec tronically Signed By: Jensen Lua DO\.br\Date and Time Signed: 04/05/24 19:34 EDT ED Patient Summaryon 024 ED Patient Summary ED Patient Summary [address] [address] Patient Discharge Instructions Person Information Name: LELIA SHAY Age: 28 Years Arrival Date: 04/05/2024 19:08:18 Discharge Diagnosis: Cellulitis of great toe Primary Care Physician: NONE, XXXX Provider Information Primary Provider: Jensen Lua DO Advanced Dry Room Operator:None The exam and treatment you received in the Emergency Department were for an urgent problem and are not intended as complete care. It is important that you follow up with a doctor, nurse practitioner, or physician?s client services assistant for ongoing care. If your symptoms become worse or you do not improve as expected and you are unable to reach your usual health care provider, you should return to the Emergency Department. We are available 24 hours a day. LELIA SHAY has been given the following list of patient education materials, prescriptions and follow-up instructions: Follow-up Instructions: With: Address: When: Kenia [place] [address] [facility] (1) In 3 days 04/08/2024 In the event that this physician does not participate in your insurance network, please consult with your insurance company to find a nearby participating provider. Patient Education Materials: Cellulitis, Adult A MESSAGE TO ALL PATIENTS REGARDING OPIOIDS PRESCRIPTION OPIOIDS: WHAT YOU NEED TO KNOW Prescription opioids can be used to help relieve lmvtbhsv-hq-zqkdoj pain and are often prescribed following a [...] guidance from the Food and Drug Administration (www.fda.gov/Drugs/ ResourcesForYou). ? Visit www.cdc.gov/drugove rdose to learn about the risks of opioids abuse and overdose. ? If you believe you may be struggling with addiction, tell your health home health care social worker and ask for guidance or call [facility]?S National Helpline at 0-056-311-GWFM. h Source: [place] Departme (more content not included)... Normal [facility] Vital Signs Date Time Vital Sign Value Performing Clinician Facility 04-14-2025 15:37-0400 Body height 165.1 cm Bushra Aemzcua HEAD [employer]ER Work Phone: [facility] 04-14-2025 15:37-0400 Body mass index (BMI) [Ratio] 36.94 kg/m2 Bushra Amezcua [employer] Work Phone: [facility] 04-14-2025 15:37-0400 Body temperature 98.2 [degF] Bushra Amezcua [employer] Work Phone: [facility] 04-14-2025 15:37-0400 Body weight 100.7 kg Bushra Amezcua [employer] Work Phone: [facility] 04-14-2025 15:37-0400 Diastolic blood pressure 82 mm[Hg] Bushra Amezcua HEAD [employer]ER Work Phone: [facility] 04-14-2025 15:37-0400 Heart rate 100 /min Bushra Amezcua [employer]ER Work Phone: [facility] 04-14-2025 15:37-0400 SaO2% (BldA) [Mass fraction] 95 % Bushra Amezcua [employer] Work Phone: [facility] 04-14-2025 15:37-0400 Systolic blood pressure 132 mm[Hg] Bushra Amezcua HEAD [employer]ER Work Phone: [facility] 03-17-2025 08:44-0400 Body height 166.4 cm Bushra Amezcua HEAD [employer]ER Work Phone: [facility] 03-17-2025 08:44-0400 Body mass index (BMI) [Ratio] 37.27 kg/m2 Bushra Amezcua HEAD [employer]ER Work Phone: [facility] 03-17-2025 08:44-0400 Body temperature 98.6 [degF] Bushra Amezcua HEAD [employer]ER Work Phone: [facility] 03-17-2025 08:44-0400 Body weight 103.15 kg Bushra Amezcua HEAD [employer]ER Work Phone: [facility] 03-17-2025 08:44-0400 Diastolic blood pressure 76 mm[Hg] Bushra Amezcua HEAD [employer]ER Work Phone: [facility] 03-17-2025 08:44-0400 Heart rate 70 /min Bushra Amezcua HEAD [employer]ER Work Phone: [facility] 03-17-2025 08:44-0400 SaO2% (BldA) [Mass fraction] 98 % Bushra Amezcua HEAD [employer]ER Work Phone: [facility] 03-17-2025 08:44-0400 Systolic blood pressure 118 mm[Hg] Bushra Amezcua HEAD [employer]ER Work Phone: [facility] 03-16-2025 08:54-0400 Body height 166.4 cm Bushra Amezcua HEAD [employer]ER Work Phone: [facility] 03-16-2025 08:54-0400 Body mass index (BMI) [Ratio] 37.36 kg/m2 Bushra Amezcua HEAD [employer]ER Work Phone: [facility] 03-16-2025 08:54-0400 Body temperature 98.1 [degF] Bushra Amezcua HEAD [employer]ER Work Phone: [facility] 03-16-2025 08:54-0400 Body weight 103.42 kg Bushra Amezcua HEAD [employer]ER Work Phone: [facility] 03-16-2025 08:54-0400 Diastolic blood pressure 80 mm[Hg] Bushra Amezcua HEAD [employer]ER Work Phone: [facility] 03-16-2025 08:54-0400 Heart rate 75 /min Bushra Amezcua HEAD [employer]ER Work Phone: [facility] 03-16-2025 08:54-0400 SaO2% (BldA) [Mass fraction] 99 % Bushra Amezcua HEAD [employer] Work Phone: [facility] 03-16-2025 08:54-0400 Systolic blood pressure 122 mm[Hg] Bushra Amezcua HEAD [employer]ER Work Phone: [facility] 03-08-2025 09:01-0400 Body mass index (BMI) [Ratio] 37.77 kg/m2 Kevyn Gaytan DO Work Phone: [facility] 03-08-2025 09:01-0400 Body weight 102.97 kg Kevyn Gaytan DO Work Phone: [facility] 03-08-2025 09:01-0400 Diastolic blood pressure 84 mm[Hg] Kevyn Gaytan DO Work Phone: [facility] 03-08-2025 09:01-0400 Systolic blood pressure 128 mm[Hg] Kevyn Gaytan DO Work Phone: [facility] 01-26-2025 15:21-0400 Body height 165.1 cm Kevyn Gaytan DO Work Phone: [facility] 01-26-2025 15:21-0400 Body mass index (BMI) [Ratio] 37.11 kg/m2 Kevyn Gaytan DO Work Phone: [facility] 01-26-2025 15:21-0400 Body weight 101.15 kg Kevyn Gaytan DO Work Phone: [facility] 01-26-2025 15:21-0400 Diastolic blood pressure 82 mm[Hg] Kevyn Waldener DO Work Phone: [facility] 01-26-2025 15:21-0400 Systolic blood pressure 126 mm[Hg] Kevyn Gaytan DO Work Phone: [facility] 10-28-2024 01:16-0500 Blood Pressure Location Kenzie Han [facility] 10-28-2024 01:16-0500 Body temperature 101.12 [degF] Kaylinn Dokken [facility] 10-28-2024 01:16-0500 Diastolic blood pressure 62 mm[Hg] Kaylinn Dokken [facility] 10-28-2024 01:16-0500 Heart rate 91 /min Kaylinn Dokken [facility] 10-28-2024 01:16-0500 Mean blood pressure 81 mm[Hg] Kaylinn Dokken [facility] 10-28-2024 01:16-0500 Respiratory rate 16 /min Kaylinn Dokken [facility] 10-28-2024 01:16-0500 SaO2% (BldA) [Mass fraction] 96 % Kaylinn Dokken [facility] 10-28-2024 01:16-0500 Systolic blood pressure 119 mm[Hg] Kaylinn Dokken [facility] 10-28-2024 00:20-0500 Blood Pressure Location Kaylinn Dokken [facility] 10-28-2024 00:20-0500 Diastolic blood pressure 79 mm[Hg] Kaylinn Dokken [facility] 10-28-2024 00:20-0500 Heart rate 101 /min Kaylinn Dokken [facility] 10-28-2024 00:20-0500 Mean blood pressure 95 mm[Hg] Kaylinn Dokken [facility] 10-28-2024 00:20-0500 Respiratory rate 20 /min Kaylinn Dokken [facility] 10-28-2024 00:20-0500 SaO2% (BldA) [Mass fraction] 99 % Kaylinn Dokken [facility] 10-28-2024 00:20-0500 Systolic blood pressure 126 mm[Hg] Kaylinn Dokken [facility] 10-27-2024 22:19-0500 Body temperature 101.3 [degF] Kaylinn Dokken [facility] 10-27-2024 22:19-0500 Diastolic blood pressure 84 mm[Hg] Kaylinn Dokken [facility] 10-27-2024 22:19-0500 Heart rate 128 /min Kaylinn Dokken [facility] 10-27-2024 22:19-0500 Respiratory rate 20 /min Kaylinn Dokken [facility] 10-27-2024 22:19-0500 SaO2% (BldA) [Mass fraction] 97 % Kaylinn Dokken [facility] 10-27-2024 22:19-0500 Systolic blood pressure 121 mm[Hg] Kaylinn Dokken [facility] 06-17-2024 07:00-0400 Diastolic blood pressure 78 mm[Hg] Varun Naif [facility] 06-17-2024 07:00-0400 Heart rate 68 /min Varun Naif [facility] 06-17-2024 07:00-0400 Mean blood pressure 93 mm[Hg] Varun Naif [facility] 06-17-2024 07:00-0400 Respiratory rate 16 /min Varun Naif [facility] 06-17-2024 07:00-0400 Systolic blood pressure 124 mm[Hg] Varun Disla [facility] 06-17-2024 05:50-0400 Body temperature 98.24 [degF] Varun Naif [facility] 06-17-2024 05:50-0400 Diastolic blood pressure 84 mm[Hg] Varun Naif [facility] 06-17-2024 05:50-0400 Heart rate 85 /min Varun Disla [facility] 06-17-2024 05:50-0400 Respiratory rate 17 /min Varun Disla [facility] 06-17-2024 05:50-0400 SaO2% (BldA) [Mass fraction] 99 % Varun Disla [facility] 06-17-2024 05:50-0400 Systolic blood pressure 139 mm[Hg] Varun Disla [facility] 04-15-2024 06:26-0400 Body temperature 97.7 [degF] Ej Vizcarra [facility] 04-15-2024 06:26-0400 Diastolic blood pressure 80 mm[Hg] Ej Vizcarra [facility] 04-15-2024 06:26-0400 Heart rate 80 /min Ej Vizcarra [facility] 04-15-2024 06:26-0400 Respiratory rate 16 /min Ej Vizcarra [facility] 04-15-2024 06:26-0400 SaO2% (BldA) [Mass fraction] 99 % Ej Vizcarra [facility] 04-15-2024 06:26-0400 Systolic blood pressure 132 mm[Hg] Ej Vizcarra [facility] 04-05-2024 19:13-0400 Body temperature 98.06 [degF] Jensen Lua [facility] 04-05-2024 19:13-0400 Diastolic blood pressure 77 mm[Hg] Jensen Lua [facility] 04-05-2024 19:13-0400 Heart rate 78 /min Jensen Lua [facility] 04-05-2024 19:13-0400 Respiratory rate 16 /min Jensen Chanell [facility] 04-05-2024 19:13-0400 SaO2% (BldA) [Mass fraction] 98 % Jensen Lua [facility] 04-05-2024 19:13-0400 Systolic blood pressure 130 mm[Hg] Jensen Lua [facility] Encounters Encounter Date Encounter Type Care Provider Facility Start: 04-15-2025 End: 04-15-2025 Follow-up encounter Bushra Amezcua HEAD BAKER Work Phone: [facility] Comment on above: Hypothyroidism, unsp ecified type (Primary Dx) Start: 04-14-2025 End: 04-14-2025 ambulatory BUSHRA AMEZCUA Not Available Start: 04-14-2025 End: 04-14-2025 Office outpatient visit 25 minutes Bushra Amezcua HEAD BAKER Work Phone: [facility] Comment on above: Type 2 diabetes devorah itus without complication, without long- term current use of insulin (HCC) (Primary Dx); History of sexual behavior with high risk of exposure to communicable disease; Anxiety; Tearfulness; Mild episode of recurrent major depressive disorder ; Hypothyroidism, unspecified type Start: 04-14-2025 End: 04-14-2025 Bamboo flowsheet Bushra Amezcua HEAD BAKER Work Phone: [facility] Start: 04-14-2025 End: 04-14-2025 Bamboo flowsheet Bushra Amezcua HEAD BAKER Work Phone: [facility] Start: 03-29-2025 End: 03-29-2025 Bamboo flowsheet Violetta Cruz Felter ATOMIC FUEL ASSEMBLER-OFFICE AUDITOR Work Phone: [facility] Start: 03-29-2025 End: 03-29-2025 Bamboo flowsheet Violetta A Felter ATOMIC FUEL ASSEMBLER-OFFICE AUDITOR Work Phone: [facility] Start: 03-29-2025 End: 03-29-2025 Office outpatient new 30 minutes Violetta A Felter ATOMIC FUEL ASSEMBLER-OFFICE AUDITOR Work Phone: [facility] Comment on above: Other seborrheic simon matitis (Primary Dx); Rash and other nonspecific skin eruption; Skin tag Start: 03-29-2025 End: 03-29-2025 ambulatory VIOLETTA A FELTER Not Available Start: 03-17-2025 End: 03-17-2025 Bamboo flowsheet Bushra Amezcua HEAD BAKER Work Phone: [facility] Start: 03-17-2025 End: 03-17-2025 Bamboo flowsheet Bushra Amezcua HEAD BAKER Work Phone: [facility] Start: 03-17-2025 End: 03-17-2025 Office outpatient visit 25 minutes Bushra Amezcua HEAD BAKER Work Phone: [facility] Comment on above: Type 2 diabetes devorah itus without complication, without long- term current use of insulin (HCC) (Primary Dx); Hypothyroidism, unspecified type ; Elevated glucose; Family history of diabetes mellitus in father Start: 03-17-2025 End: 03-17-2025 ambulatory BUSHRA AMEZCUA Not Available Start: 03-16-2025 End: 03-16-2025 Bamboo flowsheet Bushra Amezcua HEAD BAKER Work Phone: [facility] Start: 03-16-2025 End: 03-16-2025 Bamboo flowsheet Bushra Amezcua HEAD BAKER Work Phone: [facility] Start: 03-16-2025 End: 03-16-2025 Clinisync Result Encounter Bushra Amezcua HEAD BAKER Work Phone: [facility] External Department Unsolicited Start: 03-16-2025 End: 03-16-2025 Follow-up encounter Bushra Amezcua HEAD BAKER Work Phone: [facility] Comment on above: Hypothyroidism, unsp ecified type (Primary Dx) Start: 03-16-2025 End: 03-16-2025 ambulatory OFFICE AUDITOR BUSHRA AMEZCUA Facility:[facility] Start: 03-16-2025 End: 03-16-2025 Patient encounter procedure BUSHRA AMEZCUA [facility] Start: 03-16-2025 End: 03-16-2025 Office outpatient new 45 minutes Bushra Amezcua HEAD BAKER Work Phone: [facility] Comment on above: Encounter to [facility] (Primary Dx); Hypothyroidism, unspecified type ; History of prediabetes; Screening for lipid disorders; Screening for heart disease; Yeast infection of the skin; Dandruff; Tinea pedis of both feet Start: 03-16-2025 End: 03-16-2025 ambulatory BUSHRA AMEZCUA Not Available Start: 03-08-2025 End: 03-08-2025 Office outpatient visit 15 minutes Kevyn Gaytan DO Work Phone: [facility] Comment on above: Abnormal uterine ble eding (AUB) (Primary Dx) Start: 03-08-2025 End: 03-08-2025 ambulatory KEVYN GAYTAN Not Available Start: 01-26-2025 End: 01-26-2025 Initial preventive medicine new pt age 18-39yrs Kevyn Gaytan DO Work Phone: [facility] Comment on above: Encounter for gyneco logical examination without abnormal finding (Primary Dx); Encounter for Papanicolaou smear of cervix; Screening for STDs (sexually transmitted diseases); Unprotected sex; Abnormal uterine bleeding (AUB) Start: 01-26-2025 End: 01-26-2025 Patient encounter status Kevyn Gaytan DO Work Phone: [facility] Healthcare Start: 01-26-2025 End: 01-26-2025 ambulatory KEVYN GAYTAN Not Available Start: 10-28-2024 End: 10-28-2024 ambulatory Maco Aaron Facility:[facility] Start: 10-28-2024 End: 10-28-2024 Patient encounter procedure Maco Falcon Galen SURFACE SUPPLY BREATHING APPARATUS-C [facility] Start: 10-27-2024 End: 10-28-2024 Emergency department patient visit Kenzie Cruz Eliaalan [facility] Start: 10-26-2024 ambulatory Maco Aaron Facility :[facility] Start: 06-17-2024 End: 06-17-2024 Emergency department patient visit Varun Naif [facility] Start: 04-15-2024 End: 04-15-2024 Emergency department patient visit Ej Vizcarra [facility] Start: 04-05-2024 End: 04-05-2024 Emergency department patient visit Jensen AudeliaAnkita Lua [facility] Procedures Date Procedure Procedure Detail Performing Clinician Start: 03-16-2025 [facility] CMP Bushra Amezcua HEAD BAKER Work Phone: Start: 03-16-2025 [facility] EGFR Bushra Amezcua HEAD BAKER Work Phone: Start: 03-16-2025 [facility] LIPID PANEL Sergei Gómez HEAD BAKER Work Phone: Plan of Treatment Date Care Activity Detail Author Start: 06-16-2025 Hemoglobin A1c measurement Diabetes: Hemoglobin A1C [facility] Start: 06-06-2025 End: 06-06-2025 Patient encounter procedure 06/06/2025 9:30 AM EDT Office Visit [facility] [address] [place] [phone] Kevyn Gaytan, DO [address] [place] [address] [facility] Start: 06-06-2025 End: 06-06-2025 Professional / ancillary services management 06/06/2025 8:30 AM EDT Ancillary Procedure [facility] [address] [place] [phone] [facility] Start: 05-23-2025 Influenza vaccination [facility] Start: 05-12-2025 End: 05-12-2025 Patient encounter procedure 05/12/2025 3:40 PM EDT Office Visit [facility] [address] [place] [address] Bushra Amezcua, HEAD BAKER [address] [place] [address] [facility] Start: 05-10-2025 End: 05-10-2025 Patient encounter procedure 05/10/2025 3:05 PM EDT Office Visit [facility] [address] [place] [phone] Violetta Rice, ATOMIC FUEL ASSEMBLER-OFFICE AUDITOR [address] [place] [address] [facility] Start: 04-14-2025 End: 04-14-2026 NuSwab Vaginitis Plus (VG+) NuSwab Vaginitis Plus (VG+) Microbiology Routine History of sexual behavior with high risk of exposure to communicable disease Expected: 04/14/2025 (Approximate), Expires: 04/14/2026 [facility] Work Phone: Comment on above: Expected: 04/14/2025 (Approximate), Expires: 04/14/2026 Start: 04-14-2025 End: 04-14-2025 Patient encounter procedure 04/14/2025 9:00 AM EDT Office Visit [facility] [address] [place] [address] Bushra Amezcua NP [address] [place] [address] [facility] Start: 03-29-2025 End: 03-29-2025 Patient encounter procedure [facility] Comment on above: Leda Start: 03-17-2025 End: 03-17-2025 Patient encounter procedure 03/17/2025 9:00 AM EDT Office Visit [facility] [address] [place] [address] Bushra Amezcua NP [address] [place] [address] Arrived [facility] Comment on above: Arrived Start: 03-16-2025 End: 03-16-2026 Comprehensive metabolic 2000 panel - Serum or Plasma Comprehensive metabolic panel Lab Routine Hypothyroidism, unspecified type History of prediabetes Encounter to establish care Screening for lipid disorders Screening for heart disease Expected: 03/16/2025 (Approximate), Expires: 03/16/2026 [facility] Comment on above: Expected: 03/16/2025 (Approximate), Expires: 03/16/2026 Start: 03-16-2025 End: 03-16-2026 Lipid 1996 panel - Serum or Plasma Lipid panel Lab Routine Hypothyroidism, unspecified type History of prediabetes Encounter to establish care Screening for lipid disorders Screening for heart disease Expected: 03/16/2025 (Approximate), Expires: [facility]16/[facility] Comment on above: Expected: 03/16/2025 (Approximate), Expires: 03/16/2026 Start: 03-16-2025 End: 03-16-2026 TSH REFLEX TO T4F TSH REFLEX TO T4F Lab Routine Hypothyroidism, unspecified type History of prediabetes Encounter to establish care Screening for lipid disorders Screening for heart disease Expected: 03/16/2025 (Approximate), Expires: 03/16/2026 [facility] Work Phone: Comment on above: Expected: 03/16/2025 (Approximate), Expires: 03/16/2026 Start: 03-16-2025 End: 03-16-2025 Patient encounter procedure 03/16/2025 9:00 AM EDT Office Visit [facility] [address] [place] [address] Bushra Amezcua, HEAD BAKER [address] [place] [address] Arrived [facility] Comment on above: Arrived Start: 03-08-2025 End: 03-08-2025 Patient encounter procedure 03/08/2025 9:30 AM EDT Office Visit [facility] [address] [place] [phone] Kevyn Gaytan, DO [address] [place] [address] [facility] Start: 2015 Urine screening for protein Diabetes: Urine Protein Screening [facility] Start: 2006 Glaucoma screening Diabetes: R etinopathy Screening [facility] IGP,CTNG,RFXAPTHPVAL L,, IGP,CTNG,RFXAPTHPVALL,1 03/09, Lab Routine Encounter for Papanicolaou smear of cervix Screening for STDs (sexually transmitted diseases) Ordered: 01/26/2025 [facility] Work Phone: Comment on above: Ordered: 01/26/2025 TSH REFLEX TO T4F TSH REFLEX TO T4F Lab Routine Hypothyroidism, unspecified type Ordered: 04/14/2025 [facility] Comment on above: Ordered: 04/14/2025 VAGINITIS (HTRX) VAGINITIS (HTRX ) Lab Routine Screening for STDs (sexually transmitted diseases) Unprotected sex Ordered: 01/26/2025 [facility] Comment on above: Ordered: 01/26/2025 Payers Date Payer Category Payer Private Health Insurance [id number] [address] [facility] Shield BCBS [id number] 2024 Unknown [id number] 2024 Self-pay 2024 Private Health Insurance [id number] 1996 Unknown [id number] 1996 Unknown [id number] 1996 Unknown [id number] [id number] 1996 Unknown [id number] [id number] 1996 Unknown [id number] [id number] 1996 Unknown [id number] [id number] 1996 Unknown [id number] [id number] 1996 Unknown [id number] [id number] 1996 Unknown [id number] [id number] 1996 Unknown [id number] [id number] 1996 Unknown [id number] [id number] 1996 Unknown [id number] Social History Date Type Detail Facility Tobacco smoking status [facility] Start: 01-26-2025 End: 04-14-2025 Sex Assigned At Female [facility] Start: 10-28-2024 Tobacco smoking status Never s moked tobacco (finding) [facility] Start: 01-26-2025 Tobacco smoking stat [facility] Occasional tobacco smoker [facility] History of tobacco use Cigarette Smoker [facility] Start: 01-26-2025 End: 03-29-2025 Tobacco use and exposure Smokeless tobacco non-user [facility] Start: 01-26-2025 End: 04-14-2025 Alcoholic beverage intake Ex-drinker (finding) [facility] Start: 01-26-2025 End: 04-14-2025 History of Social function [facility] How often to you hav e a drink containing alcohol? Monthly or less [facility] How many standard drinks containing alcohol do you have on a typical day? 1 or 2 [facility] How often do you hav e 6 or more drinks on 1 occasion? Never [facility] Start: 1996 Sex assigned at Not on file [facility] Start: 04-05-2024 Sex Female (finding) [facility] Start: 03-29-2025 Tobacco smoking stat [facility] Ex-smoker [facility] History of tobacco use Current smoker [facility] Medical Equipment Procedure Code Equipment Code Equipment Origin al Text Equipment Identifier Dates 1 each by In Vit ro route Daily as needed (blood sugar) [id number] Start: 03-17-2025 1 each Daily as needed (blood sugar) [id number] Start: 03-17-2025 Functional Status Date Assessment Result Facility 04-14-2025 Patient Health Quest ionnaire 2 item (PHQ-2) [Reported] [facility] 04-14-2025 PHQ-9 quick depressi on assessment panel [Reported.PHQ] [facility] 01-26-2025 Total score [AUDIT-C] 1 01/27/20 25 3:30 PM EDT Deepali Vizcarra MA [facility] 01-26-2025 Patient Health Quest ionnaire 2 item (PHQ-2) [Reported] [facility] 10-27-2024 Functional Status N/A [facility] 06-17-2024 Functional Status N/A [facility] 04-15-2024 Functional Status N/A [facility] 04-05-2024 Functional Status N/A [facility] Clinical Notes 04-05-2024 to 04-15-2025 Result Encounter Note - Bushra Amezcua NP - 04/15/2025 8:47 AM EDTResult Encounter Note - Bushra Amezcua NP - 04/15/2025 8:47 AM EDTDamatthew Amezcua NP - 04/14/2025 3:00 PM EDT Note Date & Type Note Facility 04-15-2025 Progress note Formatting of t his note might be different from the original. Thyroid is where it needs to be now. I will send in a refill of thyroid meds. [facility] 04-15-2025 Miscellaneous Notes Thyroid is where it needs to be now. I will send in a refill of thyroid meds. documented in this encounter [facility] 04-14-2025 History of Presen t illness Narrative Images from the original note were not included. Lelia Shay is a 29 y.o. female presents with chief complaint of Med Refill and Diabetes (Unable to provider specimen for microalbumin) HPI: History of Present Illness The patient presents for evaluation of anxiety, depression, and diabetes management. She has been able to obtain her Ozempic medication and has experienced a weight loss of 5 pounds. This is her first time using Ozempic, and she is currently transitioning to a higher dose after completing 4 weeks of the initial dose. She reports experiencing severe anxiety, which she believes is exacerbated by her tendency to overthink. She does not report any current suicidal ideation. She recalls an incident 4 years ago in [place] where her anxiety was so severe that she lost all feeling from the waist down for about an hour. Her anxiety has caused significant distress at work, leading to a hospital visit due to high anxiety levels. She has been employed at an [employer] for nearly a year. She also reports feelings of depression, often feeling down once a week. She struggles with falling asleep and, once asleep, finds it difficult to wake up. She feels tired and lacks energy daily. Her appetite fluctuates with the severity of her symptoms, sometimes overeating or not eating at all. In the past 2 weeks, she has not felt much hunger. She frequently feels bad about herself and perceives herself as a failure. She does not have trouble concentrating but admits to being very fidgety. She has not had recent thoughts of self-harm or suicide. She is requesting a vaginal swab to check for sexually transmitted diseases, even though she has no symptoms. She had chlamydia a couple of years ago. She is requesting a doctor's note for her latex allergy because she works around it and they try to force her to work around it. Occupations: Works at an [employer] Sleep: Trouble falling asleep and difficulty waking up MEDICATIONS: Current Outpatient Medications Medication Instructions Alcohol Sheets (Alcoh-Wipe) sheet Test daily before all meals/snacks and once before bedtime. Blood Glucose Monitoring Suppl (FreeStyle InsuLinx System) w/Device kit Test daily before all meals/snacks and once before bedtime. clotrimazole (Lotrimin) 1 % cream Topical, 2 times daily fluocinonide (Lidex) 0.05 % external solution Apply topically to scalp every day as needed for scaling/itching Glucose Blood (Blood Glucose Test Strips 333) strip 1 each, In Vitro, Daily PRN hydrocortisone 2.5 % cream Apply thin layer to affected areas forehead, ears, and right thigh bid prn for flares ketoconazole (NIZOral) 2 % shampoo Lather on scalp, leave on 5 min before rinsing, 2-3 times a week, 30 day supply Lancets misc 1 each, Does not apply, Daily PRN levothyroxine (SYNTHROID, LEVOXYL) 50 mcg, Oral, Daily medroxyPROGESTERone (PROVERA) 10 mg, Oral, Daily, Take 1 tablet by mouth daily for 10 days- have withdrawal bleed. nystatin (Mycostatin) [id number] UNIT/GM powder Topical, 2 times daily Ozempic (0.25 or 0.5 MG/DOSE) 0.25 mg, Subcutaneous, Weekly Ozempic, 0.25 or 0.5 MG/DOSE, 2 MG/3ML solution pen-injector INJECT 0.25 MG UNDER THE SKIN 1 (ONE) TIME PER WEEK FOR 28 DAYS ALLERGIES: Allergies Allergen Reactions Latex Rash Review of Systems Medical, Surgical, Family, and Social History reviewed. General: Denies fever, chills, fatigue, HINES or weight loss/gain CV: Denies CP, palpitations or swelling in legs Resp: denies cough, SOB or wheezing GI: Denies abd pain/n/v/c/d Skin: Denies rash Neuro: Denies LH or dizziness OBJECTIVE: Visit Vitals BP 132/82 (BP Location: Left arm, Patient Position: Sitting, BP Cuff Size: Large adult) Pulse 100 Temp 98.2 F (Temporal) Ht 5' 5 Wt 222 lb SpO2 95% BMI 36.94 kg/m OB Status Having periods Smoking Status Former BSA 2.15 m BP Readings from Last 3 Encounters: 04/14/25 132/82 03/17/25 118/76 03/16/25 122/80 Wt Readings from Last 3 Encounters: 04/14/25 222 lb 03/17/25 227 lb 6.4 oz 03/16/25 228 lb Physical Exam Physical Exam Respiratory: Clear to auscultation, no wheezing, rales or rhonchi Cardiovascular: Regular rate and rhythm, no murmurs, rubs, or gallops General: alert & oriented, NAD Head: NC/AT Oral Cavity: MMM Skin: warm, dry Heart: RRR, No m/r/g, S1S2 nml Lungs: CTA b/l Musculoskeletal: normal gait Extremities: no clubbing, cyanosis or edema Neurological: nonfocal Psych: mood/affect full range Results ASSESSMENT AND PLAN: Assessment & Plan 1. Diabetes Mellitus. - Weight loss of 5 pounds noted. - Ozempic dosage will be increased to 0.5 mg after completing the initial 4-week course of 0.25 mg. - Prescription for Ozempic will be sent to the pharmacy. - Follow-up scheduled in 4 weeks to monitor response to the new dosage. 2. Anxiety. - Reports severe anxiety, which sometimes leads to paralysis from the waist down. - Physical exam findings include normal heart rate and rhythm. - Initiation of Zoloft at a low dose discussed, with plans to titrate up as needed. - Advised to discontinue medication and seek immediate medical attention at the ER if suicidal ideations occur. 3. Depression. - Reports feeling down and having little interest or pleasure in doing things, with symptoms occurring weekly. - Zoloft prescribed to address depressive symptoms. - Potential side effects, including suicidal thoughts, discussed. - Advised to discontinue medication and seek immediate medical attention at the ER if suicidal ideations occur. 4. Health Maintenance. - Vaginal swab will be conducted to screen for trichomoniasis, gonorrhea, chlamydia, bacterial vaginosis, and yeast infections. - No current symptoms reported. Follow-up: The patient will follow up in 4 weeks. Assessment/Plan Diagnoses and all orders for this visit: Type 2 diabetes mellitus without complication, without long-term current use of insulin (HCC) - semaglutide (Ozempic, 0.25 or 0.5 MG/DOSE,) 2 MG/1.5ML solution pen-injector; Inject 0.5 mg under the skin 1 (one) time per week for 28 days History of sexual behavior with high risk of exposure to communicable disease - NuSwab Vaginitis Plus (VG+); Future Anxiety - sertraline (Zoloft) 25 MG tablet; Take 1 tablet (25 mg) by mouth Daily Tearfulness Mild episode of recurrent major depressive disorder - sertraline (Zoloft) 25 MG tablet; Take 1 tablet (25 mg) by mouth Daily Hypothyroidism, unspecified type - TSH REFLEX TO T4F Health Maintenance Due Topic Date Due Diabetes: Retinopathy Screening Never done Diabetes: Urine Protein Screening Never done Influenza Vaccine (1) 05/23/2025 documented in this encounter [facility] 03-29-2025 History of Presen t illness Narrative Images from the original note were not included. Dry Skin Location: frontal and mid scalp, sometimes to ears and forehead Duration: years Severity: mild, severe Associated Factors: itchy, scaly Frequency of showering: daily shampoo currently using: dove dandruff New patient, referred by Rhoda Amezcua NP Rash Location: right thigh Duration: 2 weeks Quality: itchy Modifying Factors: worst hot and better shower Associated symptoms: bumpy, comes and goes Current treatments: none Lesions: Location: both underarms Duration: 2-3 years Quality: denies pain, denies itch, denies bleeding Modifying factors: none Associated symptoms: skin colored growths Treatments: freeze off, some improvement All pertinent medical history, medications, and allergies were reviewed. General Exam: alert, oriented to person, place, and time, normal affect, well appearing Unaccompanied A focused exam completed based on patient reported problems, see below: Skin Exam 1. OTHER SEBORRHEIC DERMATITIS Mid Frontal Scalp, Right Ear Erythema and scale. Flaring today Discussed that seborrheic dermatitis is a chronic condition that can be controlled but not cured. Start Flucinonide apply to scalp topically every day and Ketoconazole shampoo apply topically to scalp leaving on for 5 minutes, then rinse, use 2-3 times a week. Notify office if flaring despite treatment. Follow up in 4-6 weeks. Related Medications fluocinonide (Lidex) 0.05 % external solution Apply topically to scalp every day as needed for scaling/itching hydrocortisone 2.5 % cream Apply thin layer to affected areas forehead, ears, and right thigh bid prn for flares ketoconazole (NIZOral) 2 % shampoo Lather on scalp, leave on 5 min before rinsing, 2-3 times a week, 30 day supply 2. RASH AND OTHER NONSPECIFIC SKIN ERUPTION Right Medial Thigh Subtle Lindrith patch Unknown rash due to resolving. Start Hydrocortisone cream 2.5 % apply topically to right thigh bid as needed. Notify any worsening. Related Medications hydrocortisone 2.5 % cream Apply thin layer to affected areas forehead, ears, and right thigh bid prn for flares 3. SKIN TAG (2) Left Axilla, Right Axilla Fleshy, skin-colored sessile and pedunculated papules. The patient was informed that skin tags are benign growths usually found around the neck or in the axillae. Skin tags can be removed with sterile clippers, hold pressure until bleeding has stopped or OT wart remover freeze off. Next Visit: 4-6 weeks rash and Terell dermatitits documented in this encounter [facility] 03-17-2025 History of Presen t illness Narrative Lelia Shay is a 29 y.o. female presents with chief complaint of new onset diabetes. HPI: History of Present Illness The patient is a 29-year-old female who presents today for follow-up on her hemoglobin A1c, which was 8.4. She has recently established care and also received her thyroid test results, which were abnormal at 8.49. She was prescribed a starting dose of levothyroxine 50 mcg, which she plans to bead picker today. She has confirmed that her insurance covers Ozempic. She is being established as a type II diabetic without long-term use of insulin but with complications. She has expressed interest in understanding the potential impact of Ozempic on her fertility, as she plans to conceive through IVF due to previous difficulties. She has a family history of diabetes, with both her father and grandfather being affected. She has previously experienced diarrhea while on metformin. FAMILY HISTORY Her father and grandfather have diabetes. Some members on her mother's side also have diabetes. MEDICATIONS: Current Outpatient Medications Medication Instructions clotrimazole (Lotrimin) 1 % cream Topical, 2 times daily levothyroxine (SYNTHROID, LEVOXYL) 50 mcg, Oral, Daily medroxyPROGESTERone (PROVERA) 10 mg, Oral, Daily, Take 1 tablet by mouth daily for 10 days- have withdrawal bleed. nystatin (Mycostatin) 213176 UNIT/GM powder Topical, 2 times daily ALLERGIES: Allergies Allergen Reactions Latex Rash Review of Systems Medical, Surgical, Family, and Social History reviewed. General: Denies fever, chills, fatigue, HINES or weight loss/gain CV: Denies CP, palpitations or swelling in legs Resp: denies cough, SOB or wheezing GI: Denies abd pain/n/v/c/d Skin: Denies rash Neuro: Denies LH or dizziness OBJECTIVE: Visit Vitals BP 118/76 (BP Location: Left arm, Patient Position: Sitting, BP Cuff Size: Adult) Pulse 70 Temp 98.6 F (Temporal) Ht 5' 5.5 Wt 227 lb 6.4 oz LMP 03/05/2025 SpO2 98% BMI 37.27 kg/m OB Status Having periods Smoking Status Some Days BSA 2.18 m BP Readings from Last 3 Encounters: 03/17/25 118/76 03/16/25 122/80 03/08/25 128/84 Wt Readings from Last 3 Encounters: 03/17/25 227 lb 6.4 oz 03/16/25 228 lb 03/08/25 227 lb Physical Exam Physical Exam Respiratory: Clear to auscultation, no wheezing, rales or rhonchi Cardiovascular: Regular rate and rhythm, no murmurs, rubs, or gallops General: alert & oriented, NAD Head: NC/AT Oral Cavity: MMM Skin: warm, dry Heart: RRR, No m/r/g, S1S2 nml Lungs: CTA b/l Musculoskeletal: normal gait Extremities: no clubbing, cyanosis or edema Neurological: nonfocal Psych: mood/affect full range Results Labs - Hemoglobin A1c: 8.4 - Thyroid level: 8.49 ASSESSMENT AND PLAN: Assessment & Plan 1. Type 2 Diabetes Mellitus. - Hemoglobin A1c is 8.4. - Initiated on Ozempic, starting with a loading dose of 0.25 mg for the first month, followed by an increase to 0.5 mg in the subsequent month. Medication to be administered once weekly, with injection sites rotated between the abdomen and thighs. - Advised to maintain adequate hydration and consume a balanced diet rich in fiber, vegetables, and fruits, while avoiding short-acting carbohydrates. A glucometer, test strips, and lancets will be provided for daily blood glucose monitoring before meals, preferably in the morning. Advised to keep mints or crackers on hand to manage potential hypoglycemic episodes. - If experiencing constipation for more than 4 to 5 days, she should inform the office immediately. All prescriptions will be sent to the pharmacy. 2. Hypothyroidism. - Thyroid level was abnormal at 8.49. - Prescribed levothyroxine 50 mcg daily, which she will start today. - Advised to take this medication regularly. Follow-up - Follow up in 3 to 4 weeks. Assessment/Plan Diagnoses and all orders for this visit: Type 2 diabetes mellitus without complication, without long-term current use of insulin (HCC) - Blood Glucose Monitoring Suppl (BouncefootballStyle InsuLinx System) w/Device kit; Test daily before all meals/snacks and once before bedtime. - Alcohol Sheets (Alcoh-Wipe) sheet; Test daily before all meals/snacks and once before bedtime. - Glucose Blood (Blood Glucose Test Strips 333) strip; 1 each by In Vitro route Daily as needed (blood sugar) - Lancets misc; 1 each Daily as needed (blood sugar) - semaglutide (Ozempic, 0.25 or 0.5 MG/DOSE,) 2 MG/1.5ML solution pen-injector; Inject 0.25 mg under the skin 1 (one) time per week for 28 days Hypothyroidism, unspecified type Elevated glucose Family history of diabetes mellitus in father Health Maintenance Due Topic Date Due Influenza Vaccine (Season Ended) 2025 documented in this encounter [facility] 03-16-2025 History of Presen t illness Narrative Images from the original note were not included. Lelia Shay is a 29 y.o. female presents with chief complaint of [facility]. HPI: History of Present Illness The patient is a 29-year-old female who comes in today to [facility]. She has a history of hypothyroidism, with her last evaluation conducted approximately a year ago. She was previously on levothyroxine 100 mcg but discontinued it due to lack of follow-up with a physician since her relocation here. She reports weight fluctuations, ranging from 225 to 229 pounds, and sleep disturbances. She was diagnosed with prediabetes at the end of 2023. She was previously on metformin but does not recall the dosage. She is currently under the care of Dr. Kevyn Gaytan, a instructional leader in [place], for amenorrhea, which has persisted for over a year. She is on Provera, which she reports as beneficial for her hormonal balance. She also reports pruritus and irritation on the left side of her vagina, particularly during hot weather. She speculates that this may be due to accidental contamination. She has been experiencing severe dandruff for an extended period, which occasionally exacerbates. She has tried various anti-dandruff shampoos, including Selsun Blue and Head and Shoulders, but these have worsened her condition. She is currently using Dove shampoo. She also suffers from athlete's foot, which sometimes worsens, leading to cracking and itching. However, she notes that the condition has not been severe recently. The infection is located between all her toes on both feet. She has been applying antibacterial cream as a treatment. SOCIAL HISTORY She lives in [place] and works at [employer] in [place]. FAMILY HISTORY Her sister has anemia. MEDICATIONS: Current Outpatient Medications Medication Instructions medroxyPROGESTERone (PROVERA) 10 mg, Oral, Daily, Take 1 tablet by mouth daily for 10 days- have withdrawal bleed. ALLERGIES: Allergies Allergen Reactions Latex Rash Review of Systems Medical, Surgical, Family, and Social History reviewed. General: Denies fever, chills, fatigue, HINES or weight loss/gain CV: Denies CP, palpitations or swelling in legs Resp: denies cough, SOB or wheezing GI: Denies abd pain/n/v/c/d Skin: Denies rash Neuro: Denies LH or dizziness OBJECTIVE: Visit Vitals BP 122/80 (BP Location: Left arm, Patient Position: Sitting, BP Cuff Size: Adult) Pulse 75 Temp 98.1 F (Temporal) Ht 5' 5.5 Wt 228 lb LMP 03/05/2025 SpO2 99% BMI 37.36 kg/m OB Status Having periods Smoking Status Some Days BSA 2.18 m BP Readings from Last 3 Encounters: 03/16/25 122/80 03/08/25 128/84 01/26/25 126/82 Wt Readings from Last 3 Encounters: 03/16/25 228 lb 03/08/25 227 lb 01/26/25 223 lb Physical Exam Physical Exam Ears: Bilateral ear canals are clear. Respiratory: Clear to auscultation, no wheezing, rales or rhonchi Cardiovascular: Regular rate and rhythm, no murmurs, rubs, or gallops Gastrointestinal: Soft, no tenderness, no distention, no masses Extremities: Athlete's foot present bilaterally in between all toes General: alert & oriented, NAD Head: NC/AT Oral Cavity: MMM Skin: warm, dry Heart: RRR, No m/r/g, S1S2 nml Lungs: CTA b/l Abdomen: soft, ND/NT, BS wnl Musculoskeletal: normal gait Extremities: no clubbing, cyanosis or edema Neurological: nonfocal Psych: mood/affect full range Results ASSESSMENT AND PLAN: Assessment & Plan 1. Hypothyroidism. - She has not been on levothyroxine for over a year. - A thyroid panel will be ordered to assess her current thyroid function. - If the results indicate hypothyroidism, levothyroxine will be reinitiated. - Reports weight gain and sleep disturbances likely related to untreated hypothyroidism. 2. Prediabetes. - Diagnosed with prediabetes last year and was previously on metformin. - A comprehensive metabolic panel (CMP) will be ordered to evaluate her glucose levels. - If the results indicate elevated glucose levels, metformin will be reinitiated. - No current medication for prediabetes. 3. Amenorrhea. - Has not had her period for over a year. - Currently seeing a instructional leader who prescribed Provera, which is helping with her hormones. - No additional treatment changes at this time. - Follow-up with instructional leader as needed. 4. Suspected yeast infection. - Symptoms include itching and irritation on the left side near the vagina, likely due to yeast infection. - A powder will be prescribed for application once or twice daily to alleviate the symptoms. - Advised to apply the powder in the morning and at bedtime. - Monitor for symptom improvement and follow up if needed. 5. Dandruff. - Dandruff could be attributed to excessive dryness from shampoo use or a potential fungal infection. - Advised to use Selsun Blue shampoo or any other brand containing selenium sulfide prior to her dermatology appointment. - Reports that other dandruff shampoos have worsened the condition. - Referral to pattern filer if symptoms persist. 6. Athlete's foot. - Symptoms include itching and cracking between toes, affecting both feet. - Lotrimin will be prescribed for application twice daily for a duration of 30 days. - Advised to continue the application for an additional 7 to 14 days post-resolution of symptoms as a preventative measure. - Monitor for symptom improvement and follow up if needed. 7. Health maintenance. - A lipid panel will be ordered as she is fasting today. - A comprehensive metabolic panel (CMP) will be ordered to evaluate glucose, liver, and kidney function. - Labs will be drawn today and results will be reviewed promptly. - Follow-up call to discuss lab results and any necessary treatment adjustments. Assessment/Plan Diagnoses and all orders for this visit: Encounter to establish care - TSH REFLEX TO T4F; Future - Comprehensive metabolic panel; Future - Lipid panel; Future Hypothyroidism, unspecified type - TSH REFLEX TO T4F; Future - Comprehensive metabolic panel; Future - Lipid panel; Future History of prediabetes - TSH REFLEX TO T4F; Future - Comprehensive metabolic panel; Future - Lipid panel; Future Screening for lipid disorders - TSH REFLEX TO T4F; Future - Comprehensive metabolic panel; Future - Lipid panel; Future Screening for heart disease - TSH REFLEX TO T4F; Future - Comprehensive metabolic panel; Future - Lipid panel; Future Yeast infection of the skin - nystatin (Mycostatin) [id number] UNIT/GM powder; Apply topically in the morning and before bedtime. Dandruff - Ambulatory referral to Dermatology; Future Tinea pedis of both feet - clotrimazole (Lotrimin) 1 % cream; Apply topically in the morning and before bedtime. There are no preventive care reminders to display for this patient. documented in this encounter [facility] 03-08-2025 History of Presen t illness Narrative Images from the original note were not included. Kevyn Gaytan, Obstetrics and Gynecology Lelia Shay 1995 03/08/25 [id number] Exam Chief Complaint Patient presents with Follow-up 1m follow up. Has been spotting since 03/05. Visit Vitals BP 128/84 Wt 227 lb LMP 03/05/2025 BMI 37.77 kg/m OB Status Having periods Smoking Status Some Days BSA 2.17 m OB History Para Term AB Living 0 0 0 0 0 0 SAB IAB Ectopic Multiple Live Births 0 0 0 0 0 Current Outpatient Medications Medication Sig Dispense Refill medroxyPROGESTERone (Provera) 10 MG tablet Take 1 tablet (10 mg) by mouth Daily for 10 days Take 1 tablet by mouth daily for 10 days- have withdrawal bleed. 10 tablet 0 No current facility-administered medications for this visit. Allergies Allergen Reactions Latex Rash Past Surgical History: Procedure Laterality Date MOUTH SURGERY implant Past Medical History: Diagnosis Date Hypothyroidism Pre-diabetes ROS See HPI EXAM GENERAL EXAMINATION alert oriented well developed, well nourished. HEAD: normocephalic atraumatic.palpable , only small external hemorrhoids. EXTREMITIES no edema. NEUROLOGIC: alert and oriented. PSYCH: cooperative with exam. ICD-10-CM 1. Abnormal uterine bleeding (AUB) N93.9 Discussed lack of periods. Just light spotting. Does desire in the future. Went to [place] for a few weeks. Did not take Provera from last visit when she returned. She voiced pharmacy did not have. Educated to bead picker medication from pharmacy. Have withdraw bleed. Keep diary. She did bring records from [place] today- to be scanned in. 1 month follow up with pelvic ultrasound and OV. After will determine if lab is needed. She is going to establish with PCP to follow up on thyroid. Entered by Cici Glover MA acting as scribe for Dr. Kevyn Gaytan. Signature Cici Glover MA Date 03/08/25 . Time 9:09 AM . The documentation recorded by the scribe accurately reflects the service(s) I personally performed and the decisions I made. Signature Alan Gaytan D.O. Date 03/08/25 Time 5:00PM. documented in this encounter [facility] 01-26-2025 History of Presen t illness Narrative Images from the original note were not included. Kevyn Gaytan, DO Obstetrics and Gynecology Lelia Laurita 1995 01/26/25 [id number] New Patient Exam Chief Complaint Patient presents with Gynecologic Exam New patient- recently moved to [place]. LMP: 02/2024, normal flow, lasted 5 days BC: None- Not sexually active at this time. Last pap 12/2023- neg. Denies abnormal paps. Denies urinary or bowel concerns. Menstrual Problem Would like to discuss amenorrhea. Lifestyle changes would be she moved to new area and has been off thyroid medications. Feels ovulation every month- took tests. Also reports cramps, cravings, and hormonal acne each month. Breast Problem C/o recurring sharp LT breast pain. Denies nipple discharge, no dimpling. Has not felt abnormal lumps. STI Screening Requests STD check. Previous partner in 2023 was positive for genital herpes, but was on medication. Visit Vitals BP 126/82 Ht 5' 5 Wt 223 lb BMI 37.11 kg/m OB Status Having periods Smoking Status Some Days BSA 2.15 m OB History Para Term AB Living 0 0 0 0 0 0 SAB IAB Ectopic Multiple Live Births 0 0 0 0 0 Current Outpatient Medications Medication Sig Dispense Refill medroxyPROGESTERone (Provera) 10 MG tablet Take 1 tablet (10 mg) by mouth Daily for 10 days Take 1 tablet by mouth daily for 10 days- have withdrawal bleed. 10 tablet 0 No current facility-administered medications for this visit. Allergies Allergen Reactions Latex Rash Past Surgical History: Procedure Laterality Date MOUTH SURGERY implant Past Medical History: Diagnosis Date Hypothyroidism (CMS/HCC) Pre-diabetes ROS See HPI EXAM GENERAL EXAMINATION alert oriented well developed, well nourished. HEAD: normocephalic atraumatic. EYES: sclera anicteric. EARS: no obvious hearing deficit. NECK/THYROID: neck supple no cervical lymphadenopathy no thyromegaly. LYMPH NODES: no axillary, supraclavicular or inguinal adenopathy. SKIN: warm and dry. HEART: regular rate and rhythm. LUNGS: clear to auscultation bilaterally. CHEST:axillary nodes grossly normal. BREASTS:no masses palpable bilaterally, normal nipples bilaterally - everted -finely cystic more in UOQ - dense - well supported- axilla negative. ABDOMEN: soft, nontender, nondistended, no masses palpable. BACK: no costovertebral angle tenderness, no obvious scoliosis/kyphosis. FEMALE GENITOURINARY:cable braider in room -normal vaginal mucosa- increased leukarrhea, nulip cervix without lesion, normal AV uterus small nl, adnexa negative - cul-de-sac negative. RECTAL:normal tone , no masses palpable , only small external hemorrhoids. EXTREMITIES no edema. NEUROLOGIC: alert and oriented. PSYCH: cooperative with exam. ICD-10-CM 1. Encounter for gynecological examination without abnormal finding Z01.419 Pelvic and breast exam completed. Findings of today's exam discussed with the patient. Continue MSBE. Ca/Vit D recommendations reviewed with the patient. The patient is to contact the office with any changes to her gynecological condition or any changes with breast or bleeding. 2. Encounter for Papanicolaou smear of cervix Z12.4 IGP,CTNG,RFXAPTHPVALL,,45 Thinprep collected. Will notify patient if results are abnormal. 3. Screening for STDs (sexually transmitted diseases) Z11.3 IGP,CTNG,RFXAPTHPVALL,16/18,45 Increase leukarrhea VAGINITIS (HTRX) 4. Unprotected sex Z72.51 VAGINITIS (HTRX) With unprotected encounter culture obtained. Will call with results. 5. Abnormal uterine bleeding (AUB) N93.9 Voiced had labs/ testing (salpingogram) in [place] for PCOS. Educated could do progesterone for 10 days and have withdrawal bleed.She is going to email documents. Discussed thyroid- was on medication. Was taking medication for Miramonte 100 mg levothyroxine. Biggest symptoms was weight gain, fatigue. She does not have PCP. Recommend [facility] in [place]. Moved from [place] to help her sister with her 2 children- boys. Would like to try for child bearing next year. Follow up in office in 1 month. Entered by Cici Glover MA acting as scribe for Dr. Kevyn Gaytan. Signature Cici Glover MA Date 01/26/25 . Time 3:42 PM . The documentation recorded by the scribe accurately reflects the service(s) I personally performed and the decisions I made. Signature Alan Gaytan D.O. Date 01/26/25 Time 5:00PM. documented in this encounter [facility] 10-28-2024 Hospital Discharg e instructions Patient Education 10/28/2024 01:23:43 Influenza, Adult, [id number] Influenza, Adult Influenza is also called the flu. It is an infection in the lungs, nose, and throat (respiratory tract). It spreads easily from person to person (is contagious). The flu causes symptoms that are like a cold, along with high fever and body aches. What are the causes? This condition is caused by the influenza virus. You can get the virus by: Breathing in droplets that are in the air after a person infected with the flu coughed or sneezed. Touching something that has the virus on it and then touching your mouth, nose, or eyes. What increases the risk? Certain things may make you more likely to get the flu. These include: Not washing your hands often. Having close contact with many people during cold and flu season. Touching your mouth, eyes, or nose without first washing your hands. Not getting a flu shot every year. You may have a higher risk for the flu, and serious problems, such as a lung infection (pneumonia), if you: Are older than 65. Are . Have a weakened disease-fighting system (immune system) because of a disease or because you are taking certain medicines. Have a long-term (chronic) condition, such as: ?Heart, kidney, or lung disease. ?Diabetes. ?Asthma. Have a liver disorder. Are very overweight (morbidly obese). Have anemia. What are the signs or symptoms? Symptoms usually begin suddenly and last 4 14 days. They may include: Fever and chills. Headaches, body aches, or muscle aches. Sore throat. Cough. Runny or stuffy (congested) nose. Feeling discomfort in your chest. Not wanting to eat as much as normal. Feeling weak or tired. Feeling dizzy. Feeling sick to your stomach or throwing up. How is this treated? If the flu is found early, you can be treated with antiviral medicine. This can help to reduce how bad the illness is and how long it lasts. This may be given by mouth or through an IV tube. Taking care of yourself at home can help your symptoms get better. Your doctor may want you to: Take ckoo-dvq-lborkbx medicines. Drink plenty of fluids. The flu often goes away on its own. If you have very bad symptoms or other problems, you may be treated in a hospital. Follow these instructions at home: Activity Rest as needed. Get plenty of sleep. Stay home from work or school as told by your doctor. ?Do not leave home until you do not have a fever for 24 hours without taking medicine. ?Leave home only to go to your doctor. Eating and drinking Take an ORS (oral rehydration solution). This is a drink that is sold at pharmacies and stores. Drink enough fluid to keep your pee pale yellow. Drink clear fluids in small amounts as you are able. Clear fluids include: ?Water. ?Ice chips. ?Fruit juice mixed with water. ?Low-calorie sports drinks. Eat bland foods that are easy to digest. Eat small amounts as you are able. These foods include: ?Bananas. ?Applesauce. ?Rice. ?Lean meats. ?Roberts. ?Crackers. Do not eat or drink: ?Fluids that have a lot of sugar or caffeine. ?Alcohol. ?Spicy or fatty foods. General instructions Take dbpt-iul-iaqgfnh and prescription medicines only as told by your doctor. Use a cool mist humidifier to add moisture to the air in your home. This can make it easier for you to breathe. ?When using a cool mist humidifier, clean it daily. Empty water and replace with clean water. Cover your mouth and nose when you cough or sneeze. Wash your hands with soap and water often and for at least 20 seconds. This is also important after you cough or sneeze. If you cannot use soap and water, use alcohol-based hand solid waste facility operator. Keep all follow-up visits. How is this prevented? Get a flu shot every year. You may get the flu shot in late summer, fall, or winter. Ask your doctor when you should get your flu shot. Avoid contact with people who are sick during fall and winter. This is cold and flu season. Contact a doctor if: You get new symptoms. You have: ?Chest pain. ?Watery poop (diarrhea). ?A fever. Your cough gets worse. You start to have more mucus. You feel sick to your stomach. You throw up. Get help right away if you: Have shortness of breath. Have trouble breathing. Have skin or nails that turn a bluish color. Have very bad pain or stiffness in your neck. Get a sudden headache. Get sudden pain in your face or ear. Cannot eat or drink without throwing up. These symptoms may represent a serious problem that is an emergency. Get medical help right away. Call your local emergency services (911 in the [place] Do not wait to see if the symptoms will go away. Do not drive yourself to the hospital. Summary Influenza is also called the flu. It is an infection in the lungs, nose, and throat. It spreads easily from person to person. Take pmro-bfv-lkvmsfc and prescription medicines only as told by your doctor. Getting a flu shot every year is the best way to not get the flu. This information is not intended to replace advice given to you by your health care provider. Make sure you discuss any questions you have with your health care provider. Document Revised: 04/25/2021 Document Reviewed: 04/27/2021 [employer] Patient Education 2023 [employer]. Follow Up Care 10/27/2024 22:15:13 With:[employer] Address: [address] [place] [address]- Business (1) When:10/31/2024 Comments:You can use the naproxen every 12 hours as needed for fever use of Bromfed every 6 hours as needed for cough and congestion. Please follow-up with your primary care doctor for further evaluation management. Please return the ED for any new or worsening symptoms. With:XXXX NONE Address: [place] When:Within 3 Day(s) [facility] 10-28-2024 Note ED Patient Education Note Infectious Disease Influenza, Adult Influenza is also called the flu. It is an infection in the lungs, nose, and throat (respiratory tract). It spreads easily from person to person (is contagious). The flu causes symptoms that are like a cold, along with high fever and body aches. What are the causes? This condition is caused by the influenza virus. You can get the virus by: ??? Breathing in droplets that are in the air after a person infected with the flu coughed or sneezed. ??? Touching something that has the virus on it and then touching your mouth, nose, or eyes. What increases the risk? Certain things may make you more likely to get the flu. These include: ??? Not washing your hands often. ??? Having close contact with many people during cold and flu season. ??? Touching your mouth, eyes, or nose without first washing your hands. ??? Not getting a flu shot every year. You may have a higher risk for the flu, and serious problems, such as a lung infection (pneumonia), if you: ??? Are older than 65. ??? Are . ??? Have a weakened disease-fighting system (immune system) because of a disease or because you are taking certain medicines. ??? Have a long-term (chronic) condition, such as: ? Heart, kidney, or lung disease. ? Diabetes. ? Asthma. ??? Have a liver disorder. ??? Are very overweight (morbidly obese). ??? Have anemia. What are the signs or symptoms? Symptoms usually begin suddenly and last 4?14 days. They may include: ??? Fever and chills. ??? Headaches, body aches, or muscle aches. ??? Sore throat. ??? Cough. ??? Runny or stuffy (congested) nose. ??? Feeling discomfort in your chest. ??? Not wanting to eat as much as normal. ??? Feeling weak or tired. ??? Feeling dizzy. ??? Feeling sick to your stomach or throwing up. How is this treated? If the flu is found early, you can be treated with antiviral medicine. This can help to reduce how bad the illness is and how long it lasts. This may be given by mouth or through an IV tube. Taking care of yourself at home can help your symptoms get better. Your doctor may want you to: ??? Take lcsa-ady-ufdvjvl medicines. ??? Drink plenty of fluids. The flu often goes away on its own. If you have very bad symptoms or other problems, you may be treated in a hospital. Follow these instructions at home: Activity ??? Rest as needed. Get plenty of sleep. ??? Stay home from work or school as told by your doctor. ? Do not leave home until you do not have a fever for 24 hours without taking medicine. ? Leave home only to go to your doctor. Eating and drinking ??? Take an ORS (oral rehydration solution). This is a drink that is sold at pharmacies and stores. ??? Drink enough fluid to keep your pee pale yellow. ??? Drink clear fluids in small amounts as you are able. Clear fluids include: ? Water. ? Ice chips. ? Fruit juice mixed with water. ? Low-calorie sports drinks. ??? Eat bland foods that are easy to digest. Eat small amounts as you are able. These foods include: ? Bananas. ? Applesauce. ? Rice. ? Lean meats. ? Roberts. ? Crackers. ??? Do not eat or drink: ? Fluids that have a lot of sugar or caffeine. ? Alcohol. ? Spicy or fatty foods. General instructions ??? Take bcxa-rxo-iuiizgh and prescription medicines only as told by your doctor. ??? Use a cool mist humidifier to add moisture to the air in your home. This can make it easier for you to breathe. ? When using a cool mist humidifier, clean it daily. Empty water and replace with clean water. ??? Cover your mouth and nose when you cough or sneeze. ??? Wash your hands with soap and water often and for at least 20 seconds. This is also important after you cough or sneeze. If you cannot use soap and water, use alcohol-based hand solid waste facility operator. ??? Keep all follow-up visits. How is this prevented? Get a flu shot every year. You may get the flu shot in late summer, fall, or winter. Ask your doctor when you should get your flu shot. ??? Avoid contact with people who are sick during fall and winter. This is cold and flu season. Contact a doctor if: ??? You get new symptoms. ??? You have: ? Chest pain. ? Watery poop (diarrhea). ? A fever. ??? Your cough gets worse. ??? You start to have more mucus. ??? You feel sick to your stomach. ??? You throw up. Get help right away if you: ??? Have shortness of breath. ??? Have trouble breathing. ??? Have skin or nails that turn a bluish color. ??? Have very bad pain or stiffness in your neck. ??? Get a sudden headache. ??? Get sudden pain in your face or ear. ??? Cannot eat or drink without throwing up. These symptoms may represent a serious problem that is an emergency. Get medical help right away. Call your local emergency services (911 in the [place] (more content not included)... [facility] 10-27-2024 Evaluation + Plan note Extrac sindy from: Title:ED Note Author:Kenzie Han DO Date :10/27/24 Influenza A (J10.1: Influenz a due to other identified influenza virus with other respiratory manifestations) Orders: acetaminophen, 975 mg = 3 tab(s), Tab, Oral, Once PRN Pain, STAT, Start date 10/27/24 23:15:00 EST, 10/27/24 23:15:00 EST brompheniramine/dextromethorphan/PSE, 5 mL, Syrup, Oral, Once, Stop date 10/27/24 23:15:00 EST, STAT, Start date 10/27/24 23:15:00 EST brompheniramine/dextromethorphan/PSE, 5 mL, Oral, QID for cough and congestion, 200 mL, Refill(s) 0, [id number], 164, cm, 10/27/24 22:22:00 EST, Height/Length Dosing, 103.5, kg, 10/27/24 22:22:00 EST, Weight Dosing ketorolac, 30 mg = 1 mL, Injection, IntraMuscular, Once, Stop date 10/27/24 23:15:00 EST, STAT, Start date 10/27/24 23:15:00 EST, 10/27/24 23:15:00 EST naproxen, 500 mg = 1 tab(s), Oral, BID, PRN for pain, # 20 tab(s), Refills(s) 0, Pharmacy: [id number], 164, cm, 10/27/24 22:22:00 EST, Height/Length Dosing, 103.5, kg, 10/27/24 22:22:00 EST, Weight Dosing Influenza A&B Ag [facility] 09-26-2024 Evaluation + Plan noteExtracted from: Title:ED Note Author:Ej Vizcarra DO Date: [...] EDT, STAT, Start date 06/17/24 7:06:00 EDT, [facility]- max dose 12 mg, 06/17/24 7:06:00 EDT ondansetron, 4 mg = 1 tab(s), Oral, q8hr, PRN Nausea/Vomiting, # 12 tab(s), Refills(s) 0, Pharmacy: [id number], 164, cm, 06/17/24 5:51:00 EDT, Height/Length Dosing, 105.5, kg, 06/17/24 5:51:00 EDT, Weight Dosing [facility] 09-26-2024 Hospital Discharge instructions Patient Education 06/17/2024 07:05:59 COVID-19 COVID-19 [...] speak, sing, or breathe. You may become infectedif: You breathe in the infected droplets in [...] treated at home with rest, fluids, and fgle-fur-epmdkdb medicines. Severe symptoms may be treated in [...] hands often or use an alcohol-based hand solid waste facility operator. 8.Cover your nose and mouth when coughing and sneezing. If you think you have COVID-19 or have been around someone who has it, stay home and be by yourselffor 5 10 days. Where to find more [...] provider. Document Revised: 09/16/2023 Document Reviewed: 05/23/2023 [employer] Patient Education 2023 [employer]. 06/17/2024 07:05:59 Upper Respiratory Infection, Adult Upper Respiratory Infection, Adult An upper respiratory infection (URI) is a common viral infection of the nose, throat, and upper airpassages that lead to the lungs. The most [...] medicines to help relieve symptoms, such as: Eboh-lnt-jmpgpkx cold medicines. Cough suppressants. Coughing is a [...] and other clear broths. General instructions Take ldrd-yis-hvouccn and prescription medicines only as told by your health care provider. These include cold medicines, fever reducers, and cough suppressants. Do not use any products that contain nicotine or tobacco. These products include cigarettes, chewing tobacco, and vaping devices, such as e-cigarettes. If you need help quitting, ask your health careprovider. Stay away from secondhand smoke. Stay up [...] and water are not available, use hand solid waste facility operator. Avoid touching your mouth, face, eyes, or [...] provider. Document Revised: 04/10/2022 Document Reviewed: 04/10/2022 [employer] Patient Education 2023 [employer]. Follow Up Care 06/17/2024 05:46:58 With:Kenia Galan Address: [place] [address]- Business (1) When:06/20/2024 07:05:00 Comments:Call the office [...] sweating, loss of motion in your arms orlegs, or any new or worsening symptoms. [facility] 09-26-2024 NoteED Patient Education Note Infectious Disease COVID-19 COVID-19 [...] speak, sing, or breathe. You may become infectedif: ? You breathe in the infected droplets [...] treated at home with rest, fluids, and wvei-nnn-xitkqoz medicines. ? Severe symptoms may be treated [...] hands often or use an alcohol-based hand solid waste facility operator. 8. Cover your nose and mouth when coughing and sneezing. If you think you have COVID-19 or have been around someone who has it, stay home and be by yourselffor 5?10 days. Where to find more information [...] provider. Document Revised: 09/16/2023 Document Reviewed: 05/23/2023 [employer] Patient Education ? 2023 [employer] Upper Respiratory Infection, Adult An upper respiratory infection (URI) is a common viral infection of the nose, throat, and upper airpassages that lead to the lungs. The most [...] ? Fatigue. ? Fever. (more content not included)...[facility]07-25-20[facility] Evaluation + Plan noteExtracted from: Title:ED Note Author:Koko Leblanc M.D. te:04/15/24 1. Cellulitis of great toe, right (L03.031: Cellulitis of right toe) Orders: doxycycline, 100 mg = 1 cap(s), Oral, BID, # 20 cap(s), Refills(s) 0, Pharmacy: [id number], 164, cm, 04/15/24 6:28:00 EDT, Height/Length Dosing, 103, kg, 04/15/24 6:28:00 EDT, Weight Dosing [facility] 07-25-2024 Hospital Discharge instructions Patient Education 04/15/2024 06:52:47 Cellulitis, Adult [...] Follow these instructions at home: Medicines Take wkms-frj-bfvzinb and prescription medicines only as told by your health care provider. If you were prescribed an antibiotic medicine, take it as told by your health care provider. Do notstop taking the antibiotic even if you start [...] care provider. This is important. These visits letyour health care provider make sure a more [...] such as antibiotic medicines or antihistamines. Take suzt-wtx-ltbrunn and prescription medicines only as told by your health care provider. If you were prescribed an antibiotic medicine, do not stop taking the antibiotic even if you start to feel better. Contact a health care provider if your symptoms do not begin to improve within 1 2 days of startingtreatment or your symptoms get worse. Keep all follow-up visits as told by your health care provider. This is important. These visits letyour health care provider make sure that a more serious infection is not developing. This information is not intended to replace advice given to you by your health care provider. Make sure you discuss any questions you have with your health care provider. Document Revised: 06/19/2022 Document Reviewed: 06/20/2022 [employer] Patient Education 2022 [employer]. Follow Up Care 04/15/2024 06:24:12 With:Tino Garcia Address: [facility] [place] [address] [place] [address]- 0 Business (1) When:04/18/2024 06:46:37 Comments:Return to the emergency room if your pain/redness gets worse, red streaks going up your foot, feveror any new symptoms With:Kenia Galan Address: [place] [address]- Business (1) When:Within 3 Day(s) [facility] 07-15-2024 Hospital Discharge instructions Patient Education 04/05/2024 19:43:14 Cellulitis, Adult [...] Follow these instructions at home: Medicines Take gcbc-qds-qtllzze and prescription medicines only as told by your health care provider. If you were prescribed an antibiotic medicine, take it as told by your health care provider. Do notstop taking the antibiotic even if you start [...] care provider. This is important. These visits letyour health care provider make sure a more [...] such as antibiotic medicines or antihistamines. Take gxuv-kri-fkjvhpk and prescription medicines only as told by your health care provider. If you were prescribed an antibiotic medicine, do not stop taking the antibiotic even if you start to feel better. Contact a health care provider if your symptoms do not begin to improve within 1 2 days of startingtreatment or your symptoms get worse. Keep all follow-up visits as told by your health care provider. This is important. These visits letyour health care provider make sure that a more serious infection is not developing. This information is not intended to replace advice given to you by your health care provider. Make sure you discuss any questions you have with your health care provider. Document Revised: 06/19/2022 Document Reviewed: 06/20/2022 [employer] Patient Education 2022 [employer]. Follow Up Care 04/05/2024 19:12:30 With:Kenia Galan Address: [place] [place] [address]- [facility] (1) When:04/08/2024 19:33:09 [facility]07-15-2024 NoteED Patient Education Note Infectious Disease Cellulitis, Adult [...] these instructions at home: Medicines ? Take lqjf-sku-rshplck and prescription medicines only as told by [...] as antibiotic medicines or antihistamines. ? Take tewy-eaw-hypleby and prescription medicines only as told by [...] provider. Document Revised: 06/19/2022 Document Reviewed: 06/20/2022 [employer] Patient Education ? 2022 [employer].[facility] 04-05-2024 Evaluation + Plan noteExtracted from: Title:ED Note Author:Chanell Jensen WinAnkita Date :04/05/24 Cellulitis of great toe (L03 .039: Cellulitis of unspecified toe) Orders: cephalexin, 500 mg = 1 cap(s), Cap, Oral, Once, Stop date 04/05/24 19:31:00 EDT, STAT, Start date 04/05/24 19:31:00 EDT, 04/05/24 19:31:00 EDT cephalexin, 500 mg = 1 cap(s), Oral, q6hr, X 7 day(s), # 28 cap(s), Refills(s) 0, Pharmacy: [facility] #[id number], 164, cm, 04/05/24 19:17:00 EDT, Height/Length Dosing, 103, kg, 04/05/24 19:17:00 EDT, Weight Dosing [facility] Encounter for gynecological examination without abnormal finding- Primary Encounter for Papanicolaou smear of cervix Screening for STDs (sexually transmitted diseases) Screening examination for venereal disease Unprotected sex Problems related to high-risk sexual behavior Abnormal uterine bleeding (AUB) [facility] Diagnosis Abnormal uterine bleeding (AUB)- Primary [facility] Diagnosis Encounter to establish care- Primary Hypothyroidism, unspecified type History of prediabetes Screening for lipid disorders Screening for heart disease Screening for other and unspecified cardiovascular conditions Yeast infection of the skin Candidiasis of skin and nails Dandruff Other seborrheic dermatitis Tinea pedis of both feet [facility]* Diagnosis Hypothyroidism, unspecified type- Primary [facility]* Diagnosis Type 2 diabetes mellitus without complication, without long-term current use of insulin (HCC)- Primary Hypothyroidism, unspecified type Elevated glucose Other abnormal glucose Family history of diabetes mellitus in father [facility] Diagnosis Other seborrheic dermatitis- Primary Rash and other nonspecific skin eruption Skin tag Unspecified hypertrophic and atrophic condition of skin [facility]* Diagnosis Type 2 diabetes mellitus without complication, without long-term current use of insulin (HCC)- Primary History of sexual behavior with high risk of exposure to communicable disease Anxiety Anxiety state, unspecified Tearfulness Mild episode of recurrent major depressive disorder Hypothyroidism, unspecified type [facility]* Diagnosis Hypothyroidism, unspecified type- Primary [facility] Narrative No data available for this section [facility] No data available for this section [facility] Primary Care Progress note No data available for this section [facility] Summary Purpose Family History No Family History Records Found Advance Directives No Advanced Directives Records FoundNo Advanced Directives Records FoundNo Advanced Directives Records FoundNo Advanced Directives Records FoundNo Advanced Directives Records FoundNo Advanced Directives Records FoundNo Advanced Directives Records FoundNo Advanced Directives Records FoundNo Advanced Directives Records Found Additional Source Comments INFORMATION SOURCE (unrecogn ized section and content) DATE CREATED AUTHOR 04/09/2024 [facility] DATE CREATED AUTHOR AUTHOR'S ORGANIZ ATION 10/31/2024 [place] [facility] DATE CREATED AUTHOR AUTHOR'S ORGANIZ ATION 03/17/2025 [place] [facility] DATE CREATED AUTHOR AUTHOR'S ORGANIZ ATION 03/25/2025 [place] [facility] DATE CREATED AUTHOR AUTHOR'S ORGANIZ ATION 04/16/2025 [facility] EPIC Patient Care team informatio n (unrecognized section and content) Personnel Name: BUSHRA AMEZCUA CNP Address: [address] [place] [address] Telecom: Exhibitor Sales Relationship Specialty Start Date End Date Senhal Tan MD [address] [place] [address] PCP - General Family Medicine 03/16/25 Personnel Name: Kenia Galan MD Address: Address: [address] [place] [address] Reason for Visit (unrecogniz ed section and content) Reason Comments Gynecologic Exam New patient- recentl y moved to [place] from [place].LMP: 02/2024, normal flow, lasted 5 daysBC: None- Not sexually active at this time.Last pap 12/2023- neg. Denies abnormal paps.Denies urinary or bowel concerns. Menstrual Problem Would like to discus s amenorrhea. Lifestyle changes would be she moved to new area and has been off thyroid medications. Feels ovulation every month- took tests. Also reports cramps, cravings, and hormonal acne each month. Breast Problem C/o recurring sharp LT breast pain. Denies nipple discharge, no dimpling. Has not felt abnormal lumps. STI Screening Requests STD check. Previous partner in 2023 was positive for genital herpes, but was on medication. Reason Comments Follow-up 1m follow up. Has be en spotting since 03/05. Reason Comments Hair/Scalp Problem Suspicious Skin Lesion Rash Specialty Diagnoses / Procedures Referred By Natan t Referred To Contact Dermatology Diagnoses Dandruff Procedures ND OFFICE/OUTPATIENT NEW HIGH MDM 60 MINUTES Bushra Amezcua NP [address] [place] [address] Phone: tel: fax: Violetta Rice, ATOMIC FUEL ASSEMBLER-OFFICE AUDITOR [address] [place] [address] Phone: tel: fax: Referral ID Status Reason Start Date Expiration Date V isits Requested Visits Authorized [id number] Closed Specialty Services Required 03/16/2025 09/12/2025 1 1 Reason Comments Med Refill Diabetes Unable to provider s pecimen for microalbumin FOR RECORDS PERTAINING TO PATIENTS WHO ARE [...] BE BASED ON THE PRIMARY CLINICAL RECORDS. [employer] provides no warranty or guarantee of the accuracy or completeness of information in this document.
--- NOTE | 2025-05-08 07:23 | ED.GENADUL1 ---
HPI HPI - General Adult General Chief complaint: Abdominal Pain Stated complaint: abdominal pain, fever Time Seen by Provider: 05/08/25 07:07 Source: patient Mode of arrival: walk-in History of Present Illness HPI narrative: 29-year-old female presented to the emergency department for abdominal pain. It is in her left lower abdomen and it started yesterday afternoon and it has been continuous. No injury. She states she had a fever at home and it was 101 or 102 degrees but she is not sure which one it was. She states she took her temperature. No dysuria or hematuria. Her left lower back is hurting as well. Related Data Home Medications ?Medication ?Instructions ?Recorded ?Confirmed levothyroxine 50 mcg tablet 50 mcg PO DAILY 05/08/25 05/08/25 semaglutide 0.25 mg or 0.5 mg (2 0.25 mg subcut QWEEK 05/08/25 05/08/25 mg/3 mL) subcutaneous pen injector (Ozempic) Previous Rx's ?Medication ?Instructions ?Recorded acetaminophen 300 mg-codeine 30 mg 1 tab PO Q6H PRN pain 5 days #20 05/08/25 tablet tabs ciprofloxacin HCl 500 mg tablet 500 mg PO Q12H #20 tabs 05/08/25 (Cipro) metronidazole 500 mg tablet 500 mg PO TID #30 tabs 05/08/25 ondansetron 4 mg disintegrating 4 mg PO Q6H PRN nausea and 05/08/25 tablet vomiting #20 tabs Allergies Allergy/AdvReac Type Severity Reaction Status Date / Time No Known Drug Allergies Allergy Verified 05/08/25 07:06 Opioid HPI Opioid Management Most Recent Opioid Data: Last Pain Scale 8 Today, 07:14 Review of Systems ROS Narrative A ten point review of systems is negative except as noted above. PFSH PFSH Social History Little interest or pleasure in doing things: not at all Feeling down, depressed, or hopeless: not at all Exam Narrative Exam Narrative: Nurses note and vital signs reviewed and patient is not hypoxic. General: The patient appears in no apparent distress. Skin: Warm, dry, no pallor noted. There is no rash noted. Head: Normocephalic, atraumatic Eye: Normal conjunctiva, no drainage Ears, Nose, Mouth, and Throat: oral mucosa is moist. Nares patent. Cardiovascular: Regular Rate and Rhythm Respiratory: Patient is in no distress, no accessory muscle use, lungs are clear to auscultation, no wheezing, rales or rhonchi Back: non-tender, no CVA tenderness bilaterally to percussion. GI: Soft and nondistended. Tenderness present in the left lower quadrant without rash or mass or erythema Musculoskeletal: The patient has no evidence of calf tenderness, no pitting edema, symmetrical pulses noted bilaterally Neurological: A&O, normal speech Psychiatric: Cooperative Constitutional Vital Signs, click to edit/add: Last Vital Signs Temp 98.2 F 05/08/25 07:08 Pulse 82 05/08/25 07:08 Resp 16 05/08/25 07:08 BP 114/82 05/08/25 07:08 Pulse Ox 97 05/08/25 07:08 O2 Del Method Room Air 05/08/25 07:08 Course Vital Signs Vital signs: Vital Signs Temperature 98.2 F 05/08/25 07:08 Pulse Rate 82 05/08/25 07:08 Respiratory Rate 16 05/08/25 07:08 Blood Pressure 114/82 05/08/25 07:08 Pulse Oximetry 97 05/08/25 07:08 Oxygen Delivery Method Room Air 05/08/25 07:08 Temperature 98.2 F 05/08/25 07:08 Pulse Rate 82 05/08/25 07:08 Respiratory Rate 16 05/08/25 07:08 Blood Pressure 114/82 05/08/25 07:08 Pulse Oximetry 97 05/08/25 07:08 Oxygen Delivery Method Room Air 05/08/25 07:08 Medical Decision Making [facility] Narrative Medical decision making narrative: Colitis is identified on her CAT scan and she was prescribed Cipro and Flagyl as well as Tylenol 3 and Zofran. Treatment diagnosis and follow-up were discussed with the patient. Differential Diagnosis Differential Diagnosis: Colitis, constipation, diverticulitis, UTI Lab Data Lab results reviewed: Yes I reviewed the patient's lab results Labs: Lab Results 05/08/25 05/08/25 Range/Units 07:15 07:32 WBC 7.2 (4.0-11.0) 10^3/uL RBC 4.52 (4.20-5.40) 10^6/uL Hgb 13.1 (12.0-16.0) g/dL Hct 39.5 (36.0-48.0) % MCV 87.4 (81.0-99.0) fL MCH 29.0 (26.7-34.0) pg MCHC 33.2 (29.9-35.2) g/dL RDW 12.9 (11.0-15.0) % Plt Count 240 (150-450) 10^3/uL MPV 11.7 (9.5-13.5) fL Neut % (Auto) 65.1 (43.0-75.0) % Lymph % (Auto) 24.4 (20.5-60.0) % Davis % (Auto) 7.5 (1.7-12.0) % Eos % (Auto) 2.1 (0.9-7.0) % Baso % (Auto) 0.8 (0.2-2.0) % Neut # (Auto) 4.7 (1.4-6.5) 10^3/uL Lymph # (Auto) 1.8 (1.2-3.8) 10^3/uL Davis # (Auto) 0.5 (0.3-0.8) 10^3/uL Eos # (Auto) 0.2 (0.0-0.7) 10^3/uL Baso # (Auto) 0.1 (0.0-0.1) 10^3/uL Abs Immat Gran (auto) 0.01 (0.00-0.03) 10^3/uL Imm/Tot Granulo (auto) 0.1 (0.0-0.5) % Sodium 140 (136-145) mmol/L Potassium 3.9 (3.5-5.1) mmol/L Chloride 103 (98-107) mmol/L Carbon Dioxide 26.9 (21.0-32.0) mmol/L Anion Gap 14.0 BUN 12.0 (7.0-18.0) mg/dL Creatinine 0.68 (0.55-1.02) mg/dL Est GFR ( Amer) >60 (>=60 mL/min/1.73m^2) Est GFR (Non-Af Amer) >60 (>=60 mL/min/1.73m^2) BUN/Creatinine Ratio 17.6 Glucose 118 H (74-106) mg/dL Calcium 9.0 (8.5-10.1) mg/dL Serum HCG, Qual Negative (NEGATIVE) Urine Color Yellow (YELLOW) Urine Clarity Clear (CLEAR) Urine pH 6.0 (5.0-9.0) Ur Specific Ruffin 1.025 (1.005-1.025) Urine Protein Trace (NEG/TRACE) mg/dL Urine Glucose (UA) Negative (NEGATIVE) mg/dL Urine Ketones Trace A (NEGATIVE) mg/dL Urine Occult Blood Negative (NEGATIVE) Urine Nitrite Negative (NEGATIVE) Urine Bilirubin Negative (NEGATIVE) Urine Urobilinogen 0.2 (0.2-1.0) EU/dL Ur Leukocyte Esterase Negative (NEGATIVE) Urine RBC 0-2 (0-2) #/HPF Urine WBC 0-2 A (NONE SEEN) #/HPF Ur Squamous Epith Cells Moderate A (NONE/RARE) #/LPF Urine Crystals None seen (None Seen) #/HPF Urine Bacteria Trace A (NONE SEEN) #/HPF Urine Casts None seen (NONE SEEN) #/LPF Urine Mucus Trace A (NONE SEEN) Ur Culture Indicated? No Imaging Data CT scan - abdomen: Radiologist's impression: ITS Impressions Abdomen/Pelvis CT 05/08/25 07:29 IMPRESSION: Mild wall thickening involving the sigmoid colon suspicious for underlying colitis. No obstruction is seen. Impression dictated by: Quentin Washington Jr., D.O. 05/08/2025 8:48 AM Dictation Location: [place] [address] Electronically authenticated by: [id number] Y Date: 05/08/2025 08:48 Discharge Plan Discharge Chief Complaint: Abdominal Pain Clinical Impression: Colitis Patient Disposition: Home, Self-Care Time of Disposition Decision: 08:52 Condition: Good Mode of Transportation: Private Vehicle Prescriptions / Home Meds: New metronidazole 500 mg tablet 500 mg PO TID Qty: 30 0RF acetaminophen-codeine 300-30 mg tablet 1 tab PO Q6H PRN (Reason: pain) 5 Days Qty: 20 0RF ciprofloxacin HCl [Cipro] 500 mg tablet 500 mg PO Q12H Qty: 20 0RF ondansetron 4 mg tablet,disintegrating 4 mg PO Q6H PRN (Reason: nausea and vomiting) Qty: 20 0RF No Action levothyroxine 50 mcg tablet 50 mcg PO DAILY Ozempic 0.25 mg or 0.5 mg (2 mg/3 mL) pen injector 0.25 mg subcut QWEEK Rx Instructions: for 4 weeks Print Language: Belgian Instructions: Colitis (ED) Referrals: Bushra Degroot NP [Primary Care Provider] - 1 week
--- NOTE | 2025-05-08 07:29 | CT_ITS ---
[facility] [place] [id number] Patient Name: HARSHAD ALICEA MRN: [id number] date: 1995 Sex: F Assigned Patient Location: ER Current Patient Location: ER Accession/Order Number: [id number] Exam Date: 05/08/2025 08:46 Report Date: 05/08/2025 08:48 At the request of: KT WATERS MD Procedure: CT abdomen pelvis w con CT ABDOMEN AND PELVIS WITH INTRAVENOUS CONTRAST: CLINICAL HISTORY: Left lower quadrant pain COMPARISON: None TECHNIQUE: Spiral images were obtained through the abdomen and pelvis following the administration of intravenous contrast. This CT exam was performed using one or more following dose reduction techniques: Automated exposure control, adjustment of the mA and/or kV according to patient size, or use of iterative reconstruction technique. FINDINGS: Lung Bases: [No acute findings.] Organs:Liver gallbladder portal vein pancreas spleen adrenal glands kidneys and aorta all appear unremarkable.[ GI: Stomach is grossly unremarkable. Small bowel appears nondilated. Appendix is normal. There is mild wall thickening involving the sigmoid colon suspicious for colitis without obstruction.[ Pelvis:[Urinary bladder and uterus appear unremarkable. No adnexal mass.] Peritoneum/Retroperitoneum:No free air or free fluid or lymphadenopathy.[ Abd wall/Bones:Abdominal wall demonstrates no acute findings. Osseous structures demonstrate no acute process. CT/CT abdomen pelvis w con IMPRESSION: Mild wall thickening involving the sigmoid colon suspicious for underlying colitis. No obstruction is seen. Impression dictated by: Quentin Washington Jr., D.O. 05/08/2025 8:48 AM Dictation Location: [place] Electronically authenticated by: [id number] Y Date: 05/08/2025 08:48
[2025-05-08 07:39] LABS: Hematocrit 39.5 % (36.0-48.0); Hemoglobin 13.1 g/dL (12.0-16.0); Immature Granulocytes Abs Auto 0.01 10^3/uL (0.00-0.03); Immature Granulocytes Pct Auto 0.1 % (0.0-0.5); Lymphocytes Absolute Auto 1.8 10^3/uL (1.2-3.8); Mean Corpuscular HGB Conc 33.2 g/dL (29.9-35.2); Mean Corpuscular Hemoglobin 29.0 pg (26.7-34.0); Mean Corpuscular Volume 87.4 fL (81.0-99.0); Platelet Count 240 10^3/uL (150-450); Red Blood Count 4.52 10^6/uL (4.20-5.40); White Blood Count 7.2 10^3/uL (4.0-11.0)
[2025-05-08 07:39] LABS: Glucose Urine UA NEGATIVE (NEGATIVE)
[2025-05-08] MEDS: 0.9 % SODIUM CHLORIDE 1,000 ML 1000 ML IV (07:39)
[2025-05-08 07:45] LABS: Cast Seen? NONE SEEN #/LPF (NONE SEEN); Crystals Seen? None Seen #/HPF (None Seen); Urine Culture Indicated NO
[2025-05-08 07:46] LABS: Anion Gap 14.0; Blood Urea Nitrogen 12.0 mg/dL (7.0-18.0); Calcium 9.0 mg/dL (8.5-10.1); Carbon Dioxide 26.9 mmol/L (21.0-32.0); Chloride 103 mmol/L (98-107); Estimated GFR (African America >60 (>=60 mL/min/1.73m^2); Estimated GFR (Non-African Ame >60 (>=60 mL/min/1.73m^2); Glucose 118 mg/dL (74-106); Potassium 3.9 mmol/L (3.5-5.1); Sodium 140 mmol/L (136-145)
== END 2025-05-08 09:03 | disposition home or self-care (01) ==
PROVIDERS: Emergency Provider Emergency Medicine; PCP Nurse Practitioner Family
DX: K52.9 Noninfective gastroenteritis and colitis, unspecified (principal); R10.32 Left lower quadrant pain
CPT/HCPCS: 36415; 74177; 80048; 81001; 84703; 85025; 96361; 96374; 99284; J2405; Q9967

== ENCOUNTER 2025-06-14 08:32 | Emergency (ER) | payer OTHER, BC, SELFPAY ==
--- OUTSIDE RECORDS SUMMARY | 2025-06-06 08:30 | XMS_ITS | Encounter Summary ---
Author Organization [facility] Address [address] [place] [address] Care Team Providers Care Pack Puller Name Role Phone Snehal Tan MD Primary Care Provider [phone] Bushra Degroot SYSTEM DESIGNER Unavailable [phone] Encounter Details Date Type Department Care Team (Latest Contact Info) Description 06/06/2025 8:30 AM EDT Ancillary Procedure [facility] [address] [place] [address] Abnormal uterine bleeding; Oligomenorrhea, unspecified type Social History Tobacco Use Types Packs/Day Years Used Date Smoking Tobacco: Former Cigarettes Smokeless Tobacco: Never Alcohol Use Standard Drinks/Week Comments Not Currently 0 (1 standard drink = 0.6 oz pur e alcohol) AUDIT-C Answer Date Recorded Q1: How often do you have a drink containing alc ohol? Monthly or less 01/26/2025 Q2: How many drinks containi ng alcohol do you have on a typical day when you are drinking? 1 or 2 01/26/2025 Q3: How often do you have si x or more drinks on one occasion? Never 01/26/2025 PHQ-2 Answer Date Recorded Patient Health Questionnaire-2 Score 3 04/14/2025 Comments No Sex and Gender Information Value Date Recorded Sex Assigned at Not on file Legal Sex Female 1:12 PM EDT Gender Identity Not on file Sexual Orientation Not on file documented as of this encounter Plan of Treatment Upcoming Encounters Date Type Department Care Team ( st Contact Info) Description 06/21/2025 3:20 PM EDT Office Visit [facility] [address] [place] [address] Violetta Rice, BLINTZE ROLLER-TESSA [address] [place] [address] 06/23/2025 3:40 PM EDT Office Visit [facility] [place] [facility] [address] [place] [address] Bushra Degroot NP [address] [place] [address] 01/30/2026 3:00 PM EDT Office Visit [facility] [place] [facility] [address] [place] [address] Asher Peter DO [address] [place] [address] Pending Results Name Type Priority Associated Diagnoses Date /Time US pelvis transvaginal Imaging Routine Abnormal uterine bleeding Oligomenorrhea, unspecified type 06/06/2025 8:35 AM EDT documented as of this encounter Visit Diagnoses Diagnosis Abnormal uterine bleeding Unspecified disorder of menstruation and other abnormal bleeding from female genital tract Oligomenorrhea, unspecified type documented in this encounter Additional Health Concerns Assessment Noted Time PHQ-9 Depression Total Score: 16 04/14/ 025 3:47 PM EDT documented as of this encounter Care Teams Pack Puller Relationship Specialty Start Date End Date Snehal Tan MD [address] [place] [address] PCP - General Family Medicine 03/16/25 Bushra Degroot SYSTEM DESIGNER [address] [place] [address] PCP - [employer] [employer] 04/22/25 documented as of this encounter
--- OUTSIDE RECORDS SUMMARY | 2025-06-06 09:30 | XMS_ITS | Encounter Summary ---
Author Organization [facility] Address [address] [place] [address] Care Team Providers Care Repairer Resistance Welding Machines Name Role Phone Snehal Tan MD Primary Care Provider [phone] Bushra Degroot LICENSED OCCUPATIONAL THERAPY ASSISTANT Unavailable [phone] Reason for Visit * Reason Comments Follow-up Pt presents after in house pelvic US for AUB. Encounter Details Date Type Department Care Team (Late st Contact Info) Description 06/06/2025 9:30 AM EDT Office Visit [facility] [place] [facility] [address] [place] [address] Asher Peter, [address] [facility] [address] [place] [address] Abnormal uterine bleeding (AUB) (Primary Dx) Social History Tobacco Use Types Packs/Day Years [...] on file documented as of this encounter Progress Notes * Cicidanya Glover MA - 06/06/2025 9:30 AM EDT Images from the original note were not included. Asher Peter, Obstetrics and Gynecology Lelia Shay 1995 06/06/25 [id number] Exam Chief Complaint Patient presents with Follow-up Pt presents after in house pelvic US for AUB. Visit Vitals LMP 04/20/2025 OB Status Having periods Smoking Status Former OB History Para Term AB Living 0 0 0 0 0 0 SAB IAB Ectopic Multiple Live Births 0 0 0 0 0 Current Outpatient Medications Medication Sig Dispense Refill Ozempic, 1 MG/DOSE, 4 MG/3ML solution pen-injector Alcohol Sheets (Alcoh-Wipe) sheet Test daily before all meals/snacks and once before bedtime. 1 each 0 Blood Glucose Monitoring Suppl (FreeStyle InsuLinx System) w/Device kit Test daily before all meals/snacks and once before bedtime. 1 kit 0 fluocinonide (Lidex) 0.05 % external solution Apply topically to scalp every day as needed for scaling/itching 20 mL 11 Glucose Blood (Blood Glucose Test Strips 333) strip 1 each by In Vitro route Daily as needed (bloodsugar) 100 strip 3 hydrocortisone 2.5 % cream Apply thin layer to affected areas forehead, ears, and right thigh bid prn for flares 30 g 11 ketoconazole (NIZOral) 2 % shampoo Lather on scalp, leave on 5 min before rinsing, 2-3 times a week, 30 day supply 120 mL 11 Lancets misc 1 each Daily as needed (blood sugar) 100 each 3 levothyroxine (Synthroid, Levoxyl) 75 MCG tablet Take 1 tablet (75 mcg) by mouth Daily 45 tablet 0 No current facility-administered medications for this visit. Allergies Allergen Reactions Latex Rash Past Surgical History: Procedure Laterality Date MOUTH SURGERY implant Past Medical History: Diagnosis Date Hypothyroidism Pre-diabetes Type 2 diabetes mellitus (HCC) See HPI EXAM GENERAL EXAMINATION alert oriented well developed, well nourished. HEAD: normocephalic atraumatic. EYES: sclera anicteric. EXTREMITIES no edema. NEUROLOGIC: alert and oriented. PSYCH: cooperative with exam. ICD-10-CM 1. Abnormal uterine bleeding (AUB) N93.9 She has kept a diary of her cycle. Frequency has increased of cycle wit provera. Reviewed pelvic ultrasound done in office today. Multiple cyst in ovary- not polycystic. No abnormal fluid. Otherwise normal size uterus. Call office if does not start period. Now being managed for diabetes and thyroid by PCP. She will call with update. Entered by Cici Glover MA acting as scribe for Dr. Asher Peter. Signature Cici Glover MA Date 06/06/25 . Time 10:28 AM . The documentation recorded by the scribe accurately reflectsthe service(s) I personally performed and the decisions I made. Signature Alan Peter D.O. Date 06/06/25 Time 5:00PM. documented in this encounter Plan of Treatment Upcoming Encounters Date Type Department Care Team (Late st Contact Info) Description 06/21/2025 3:20 PM EDT Office Visit [facility] [address] [place] [address] Violetta Rice, EXPANSION JOINT BUILDER-DERRICK ENGINEER [address] [place] [address] 06/23/2025 3:40 PM EDT Office Visit [facility] [place] [facility] [address] [place] [id number] Bushra Degroot, LICENSED OCCUPATIONAL THERAPY ASSISTANT [address] [place] [address] 01/30/2026 3:00 PM EDT Office Visit [facility] [address] [place] [address] Asher Peter DO [address] [place] [address] documented as of this encounter Visit Diagnoses Diagnosis Abnormal uterine bleeding (AUB)- Primary documented in this encounter Additional Health Concerns Assessment Noted Time PHQ-9 Depression Total Score: 16 025 3:47 PM EDT documented as of this encounter Care Teams Repairer Resistance Welding Machines Relationship Specialty Start Date End Date Snehal Tan MD [address] [place] [address] PCP - General Family Medicine 03/16/25 Bushra Degroot NP [address] [place] [address] PCP - Kishan Lozano 04/22/25 documented as of this encounter
--- OUTSIDE RECORDS SUMMARY | 2025-06-14 08:59 | XMS_ITS | Encounter Summary ---
Author Organization [facility] Address [address] [facility] [place] [address] Care Team Providers Care Filling Hand Name Role Phone Snehal Tan MD Primary Care Provider [phone] Bushra Degroot NP Unavailable [phone] Encounter Details Date Type Department Care Team (Late Contact Info) Description 06/10/2025 Orders Only [facility] [address] [place] [address] Bushra Degroot NP [address] [place] [address] Type 2 diabetes mellitus without complication, without long-term current use of insulin (HCC) Social History Tobacco Use Types Packs/Day Years [...] Encounters Date Type Department Care Team (Late Contact Info) Description 06/21/2025 3:20 PM EDT Office Visit [facility] [place] [facility] [address] [place] [phone] Violetta Rice APRN-PHYSICIAN PRACTICE MARKET MANAGER [address] [place] [address] 06/23/2025 3:40 PM EDT Office Visit [facility] [place] [facility] [address] [place] [phone] Bushra Degroot NP [address] [place] [address] 01/30/2026 3:00 PM EDT Office Visit [facility] [place] [facility] [address] [place] [phone] Asher Peter DO [address] [place] [address] documented as of this encounter Visit Diagnoses Diagnosis Type 2 diabetes mellitus without complication, without long-term current use of insulin (HCC) documented in this encounter Additional Health Concerns Assessment Noted Time PHQ-9 Depression Total Score: 16 025 3:47 PM EDT documented as of this encounter Care Teams Filling Hand Relationship Specialty Start Date End Date Snehal Tan MD [address] [place] [address] PCP - General Family Medicine 03/16/25 Bushra Degroot NP [address] [place] [address] PCP - [place] [employer] 04/22/25 documented as of this encounter
--- OUTSIDE RECORDS SUMMARY | 2025-06-14 08:59 | XMS_ITS | Clinical Summary ---
Author Organization [facility] Address [address] [place] [address] Care Team Providers Care Photo Lab Manager Name Role Phone Snehal Tan MD Primary Care Provider [phone] Bushra Degroot MACHINE SET UP Unavailable [phone] Allergies Active Allergy Reactions Criticality Noted Date Comments Latex Rash Low 01/26/2025 Medications Blood Glucose Monitoring Suppl (FreeStyle InsuLinx System) w/Device kitIndications:Ty pe 2 diabetes mellitus without complication, without long-term current use of insulin (HCC) Test daily before all meals/snacks and once before bedtime. 1 kit 025 Active Alcohol Sheets (Alcoh-Wipe) sheetIndications: Type 2 diabetes mellitus without complication, without long-term current use of insulin (HCC) Test daily before all meals/snacks and once before bedtime. 1 each 025 Active Glucose Blood (Blood Glucose Test Strips 333) stripIndications: Type 2 diabetes mellitus without complication, without long-term current use of insulin ([facility]) 1 each by In Vitro route Daily as needed (blood sugar) 100 strip 3 025 Active Lancets miscIndications:T ype 2 diabetes mellitus without complication, without long-term current use of insulin ([facility]) 1 each Daily as needed (blood sugar) 100 each 3 025 Active fluocinonide (Lidex) 0.05 % external solutionIndicatio ns:Other seborrheic dermatitis Apply topically to scalp every day as needed for scaling/itchi ng 20 mL 11 025 Active hydrocortisone 2.5 % creamIndications: Other seborrheic dermatitis,Rash and other nonspecific skin eruption Apply thin layer to affected areas forehead, ears, and right thigh bid prn for flares 30 g 11 Active ketoconazole (NIZOral) 2 % shampooIndication s:Other seborrheic dermatitis Lather on scalp, leave on 5 min before rinsing, 2-3 times a week, 30 day supply 120 mL 11 Active levothyroxine (Synthroid, Levoxyl) 75 MCG tabletIndications :Hypothyroidism, unspecified type Take 1 tablet (75 mcg) by mouth Daily 45 tablet 025 2024 Active semaglutide (Ozempic) 2 MG/1.5ML solution pen-injectorIndic ations:Type 2 diabetes mellitus without complication, without long-term current use of insulin (HCC) Inject 1 mg under the skin 1 (one) time per week for 28 days 2 each 2024 Active medroxyPROGESTERo ne (Provera) 10 MG tabletIndications :Abnormal uterine bleeding (AUB) Take 1 tablet (10 mg) by mouth Daily for 10 days Take 1 tablet by mouth daily for 10 days- have withdrawal bleed. 10 tablet 025 2024 Discontinued semaglutide (Ozempic, 0.25 or 0.5 MG/DOSE,) 2 MG/1.5ML solution pen-injectorIndic ations:Type 2 diabetes mellitus without complication, without long-term current use of insulin (HCC) Inject 0.5 mg under the skin 1 (one) time per week for 28 days 1.5 mL 025 2024 Discontinued sertraline (Zoloft) 25 MG tabletIndications :Anxiety,Mild episode of recurrent major depressive disorder Take 1 tablet (25 mg) by mouth Daily 30 tablet 025 2024 Discontinued levothyroxine (Synthroid, Levoxyl) 50 MCG tabletIndications :Hypothyroidism, unspecified type Take 1 tablet (50 mcg) by mouth Daily 90 tablet 3 025 2024 Discontinued(I neffective) ondansetron ODT (Zofran-ODT) 4 MG disintegrating tablet Take 4 mg by mouth every 8 (eight) hours if needed 025 2024 Discontinued metroNIDAZOLE (Flagyl) 500 MG tablet Take 500 mg by mouth in the morning and 500 mg in the evening and 500 mg before bedtime. 025 2024 Discontinued ciprofloxacin (Cipro) 500 MG tablet Take 500 mg by mouth in the morning and 500 mg before bedtime. 025 2024 Discontinued acetaminophen-cod eine (Tylenol w/ Codeine #3) 300-30 MG tablet Take 1 tablet by mouth every 6 (six) hours if needed 2024 Discontinued semaglutide (Ozempic) 2 MG/1.5ML solution pen-injectorIndic ations:Type 2 diabetes mellitus without complication, without long-term current use of insulin ([facility]) Inject 1 mg under the skin 1 (one) time per week for 28 days 2 each 2024 Discontinued Ozempic, 1 MG/DOSE, 4 MG/3ML solution pen-injector 2024 Discontinued Active Problems No known active problems Encounters Date Type Department Care Team Description 06/10/2025 Orders Only [facility] [address] [place] [address] Bushra Degroot NP Type 2 diabetes mellitus without complication, without long-term current use of insulin ([facility]) 06/09/2025 Refill [facility] [address] [place] [address] Lee Ann Albarado MA 06/06/2025 9:30 AM EDT Office Visit [facility] [address] [place] [phone] Asher Peter DO Abnormal uterine bleeding (AUB) (Primary Dx) 06/06/2025 8:30 AM EDT Ancillary Procedure [facility] [address] [place] [phone] Abnormal uterine bleeding; Oligomenorrhea, unspecified type 06/06/2025 Travel 05/26/2025 3:40 PM EDT [place] [address] [place] [address] Bushra Degroot NP Hypothyroidism, unspecified type (Primary Dx); Colitis; Other fatigue; Lumbar herniated disc; Type 2 diabetes mellitus without complication, without long-term current use of insulin (HCC); Anxiety; Need for vaccination 05/26/2025 Bamboo flowsheet [place] [address] [place] [address] Bushra Degroot NP 05/26/2025 Travel 05/17/2025 Results Follow-Up [place] [address] [place] [address] Bushra Degroot NP Vitamin B12, Magnesium, TSH RFX ON ABNORMAL TO FREE T4, Additional followed-up results: 5 05/12/2025 3:40 PM EDT Office Visit [place] [address] [place] [address] Bushra Degroot NP Colitis (Primary Dx); Other fatigue; Hypothyroidism, unspecified type ; Type 2 diabetes mellitus without complication, without long-term current use of insulin (HCC); Lower abdominal pain 05/12/2025 [place] [address] [place] [address] Bushra Degroot NP 05/12/2025 Travel 04/15/2025 Results Follow-Up [place] [address] [place] [address] Bushra Degroot NP TSH REFLEX TO T4F, NuSwab Vaginitis Plus (VG+) 04/14/2025 3:00 PM EDT Office Visit [place] [address] [place] [phone] Bushra Degroot NP Type 2 diabetes mellitus without complication, without long-term current use of insulin (HCC) (Primary Dx); History of sexual behavior with high risk of exposure to communicable disease; Anxiety; Tearfulness; Mild episode of recurrent major depressive disorder ; Hypothyroidism, unspecified type 04/14/2025 Bamboo flowsheet [place] [address] [place] [address] Bushra Degroot NP 04/14/2025 Travel 03/29/2025 9:20 AM EDT Office Visit [facility] [address] [place] [address] Violetta Rice, ROLL CLEANER-CLINICAL PSYCHOLOGY PROFESSOR Other seborrheic dermatitis (Primary Dx); Rash and other nonspecific skin eruption; Skin tag 03/29/2025 Bamboo flowsheet [facility] [address] [place] [address] Violetta Rice, ROLL CLEANER-CLINICAL PSYCHOLOGY PROFESSOR 03/29/2025 Travel 03/17/2025 9:00 AM EDT Office Visit [place] [address] [place] [address] Bushra Degroot NP Type 2 diabetes mellitus without complication, without long-term current use of insulin (HCC) (Primary Dx); Hypothyroidism, unspecified type ; Elevated glucose; Family history of diabetes mellitus in father 03/17/2025 [employer]et[employer] [place] [address] [place] [address] Bushra Degroot NP 03/17/2025 Travel 03/16/2025 9:00 AM EDT Office Visit [place] [address] [place] [address] Bushra Degroot NP Encounter to establish care (Primary Dx); Hypothyroidism, unspecified type ; History of prediabetes; Screening for lipid disorders; Screening for heart disease; Yeast infection of the skin; Dandruff; Tinea pedis of both feet 03/16/2025 Results Follow-Up [place] [address] [place] [phone] Bushra Degroot NP [facility] [place], [facility] LIPID PANEL, [facility] EGFR, [facility] TSH WITH T4FR REFLEX 03/16/2025 Clinisync Result Encounter [facility] External Department Unsolicited Bushra Degroot NP 03/16/2025 [employer] flowsheet [facility] [address] [place] [address] Bushra Degroot NP 03/16/2025 Travel from Last 3 Months Immunizations Immunization Administration Dates Next Due Influenza, injectable, quadrivalent 05/26/2025 Family History Medical History Relation Name Comments Diabetes Father BRCA negative Mother BRCA positive Mother's Sister x3 sisters Breast cancer Mother's Sister older siste r-stage 4 Ovarian cancer Mother's Sister Melanoma Neg Hx Relation Name Status Comments Father Alive Mother Alive Mother's Sister Social History Tobacco Use Types Packs/Day Years Used Date Smoking Tobacco: Former Cigarettes Smokeless Tobacco: Never Tobacco Cessation:Counseling Given: Not Answered Alcohol Use Standard Drinks/Week Comments Not Currently [...] on file Sexual Orientation Not on file Last Filed Vital Signs Vital Sign Reading Time Taken Comments Blood Pressure 124/76 05/26/2025 3:31 PM EDT Pulse 83 05/26/2025 3:31 PM EDT Temperature 36.7 C (98 F) 05/26/2025 3:31 PM EDT Respiratory Rate - - Oxygen Saturation 97% 05/26/2025 3:31 PM EDT Inhaled Oxygen Concentration - - Weight 99.7 kg (219 lb 12.8 oz) 05/26/2025 3:31 PM EDT Height 165.1 cm (5' 5 ) 05/26/2025 3:31 PM EDT Body Mass Index 36.58 05/26/2025 3:31 PM EDT Plan of Treatment Upcoming Encounters Date Type Department Care Team (Late st Contact Info) Description 06/21/2025 3:20 PM EDT Office Visit [facility] [address] [place] [phone] Violetta Rice APRN-CLINICAL PSYCHOLOGY PROFESSOR [address] [place] [address] 06/23/2025 3:40 PM EDT Office Visit [facility] [place] [facility] [address] [place] [address] Bushra Degroot NP [address] [place] [address] 01/30/2026 3:00 PM EDT Office Visit [facility] [address] [place] [phone] Asher Peter DO [address] [place] [address] Health Maintenance Due Date Last Done Comments Diabetes: Retinopathy Screening 2006 Diabetes: Urine Protein Screening 2015 Diabetes: Hemoglobin A1C 06/16/2025 03/16/2025 Influenza Vaccine Completed 05/26/2025 Procedures Procedure Name Priority Date/Time Associated Diagnosis Comments T4F Routine 05/12/2025 4:07 PM EDT HANSA BY IFA, REFLEX TO TITER AND PATTERN Routine 05/12/2025 4:07 PM EDT Colitis Other fatigue Hypothyroidism, unspecified type Type 2 diabetes mellitus without complication, without long-term current use of insulin (HCC) CBC (INCLUDES DIFF/PLT) Routine 05/12/2025 4:07 PM EDT Colitis Other fatigue Hypothyroidism, unspecified type Type 2 diabetes mellitus without complication, without long-term current use of insulin (HCC) VITAMIN D 25 HYDROXY TOTAL Routine 05/12/2025 4:07 PM EDT Colitis Other fatigue Hypothyroidism, unspecified type Type 2 diabetes mellitus without complication, without long-term current use of insulin (HCC) COMPREHENSIVE METABOLIC PANEL Routine 05/12/2025 4:07 PM EDT Colitis Other fatigue Hypothyroidism, unspecified type Type 2 diabetes mellitus without complication, without long-term current use of insulin (HCC) TSH RFX ON ABNORMAL TO FREE T4 Routine 05/12/2025 4:07 PM EDT Colitis Other fatigue Hypothyroidism, unspecified type Type 2 diabetes mellitus without complication, without long-term current use of insulin (HCC) MAGNESIUM Routine 05/12/2025 4:07 PM EDT Colitis Other fatigue Hypothyroidism, unspecified type Type 2 diabetes mellitus without complication, without long-term current use of insulin (HCC) VITAMIN B12 Routine 05/12/2025 4:07 PM EDT Colitis Other fatigue Hypothyroidism, unspecified type Type 2 diabetes mellitus without complication, without long-term current use of insulin (HCC) TSH REFLEX TO T4F Routine 04/14/2025 4:1 4 PM EDT Hypothyroidism, unspecified type NUSWAB VAGINITIS PLUS (VG+) Routine 04/14/2025 4:00 PM EDT History of sexual behavior with high risk of exposure to communicable disease POCT GLYCATED HEMOGLOBIN, TOTAL Routine 03/16/2025 1:19 PM EDT Elevated glucose [facility] FREE T4 Routine 03/16/2025 9:51 AM EDT [facility] TSH WITH T4FR REFLEX Routine 03/16/2025 9:51 AM EDT [facility] EGFR Routine 03/16/2025 9:51 AM EDT [facility] LIPID PANEL Routine 03/16/2025 9:51 AM EDT [facility] CMP Routine 03/16/2025 9:51 AM EDT from Last 3 Months Results * T4F (05/12/2025 4:07 PM EDT) T4,FREE (DIRECT) 1.22 0.82 - 1.77 ng/dL [facility] 05/12/2025 4:07 PM EDT 05/12/2025 Narrative [facility] - 05/17/2025 2:07 PM EDT Performed at: [address] [place] [id number] Cooker Sulfate: Santos Rolon PhD, Phone: [phone] Bushra Degroot NP LAB BLOOD ORDERABLES Final Re sult Performing Organization Address [facility] Co de Phone Number [facility] * (ABNORMAL) TSH RFX ON ABNORMAL TO FREE T4 (05/12/2025 4:07 PM EDT) TSH W/REFLEX TO FT4 6.380(H) 0.450 - 4.500 uIU/mL [facility] 05/12/2025 4:07 PM EDT 05/12/2025 Narrative [facility] - 05/17/2025 2:07 PM EDT Performed at: [address] [place] [id number] [employer]: Santos Rolon PhD, Phone: [phone] Bushra Degroot NP LAB BLOOD ORDERABLES Final Re sult Performing Organization Address City/[facility]/ZIP Co de Phone Number [facility] * HANSA by IFA, Reflex to Titer and Pattern (05/12/2025 4:07 PM EDT) HANSA BY IFA RFX TITER/PATTERN Negative [facility] Comment: Negative <1:80 Borderline 1:80 Positive >1:80 ICAP nomenclature: AC-0 For more information about Hep-2 cell patterns use ANApatterns.org, the official website for the International Consensus on Antinuclear Antibody (HANSA) Patterns (ICAP). Blood Venous blood specimen / Unknown 05/12/2025 4:07 PM EDT 05/12/2025 Narrative [facility] - 05/17/2025 2:07 PM EDT Performed at: - [facility] [address] [id number] [employer] Sulfate: Santos Rolon PhD, Phone: [phone] Bushra Degroot MACHINE SET UP LAB BLOOD ORDERABLES Final Re sult Performing Organization Address City/[facility] Co de Phone Number [facility] * (ABNORMAL) Vitamin D 25 hydroxy Total (05/12/2025 4:07 PM EDT) Vitamin D, 25-Hydroxy 16.1(L) 30.0 - 100.0 ng/mL [facility] Comment: Vitamin D deficiency has been defined by the [place] of [employer] and an Endocrine Society practice guideline as a level of serum 25-OH vitamin D less than 20 ng/mL (1,2). The Endocrine Society went on to further define vitamin D insufficiency as a level between 21 and 29 ng/mL (2). 1. IOM ([place] of [employer]). 2010. Dietary reference intakes for calcium and D. [place]: The National Academies Press. 2. Victor Manuel MF, [place], Christal HINES, et al. Evaluation, treatment, and prevention of vitamin D deficiency: an Endocrine Society clinical practice guideline. JCEM. 2010; 96(7):1911-30. Blood Venous blood specimen / Unknown 05/12/2025 4:07 PM EDT 05/12/2025 Narrative [facility] - 05/17/2025 2:07 PM EDT Performed at: - [facility] [address] [id number] [employer] Sulfate: Santos Rolon PhD, Phone: [phone] Bushra Degroot MACHINE SET UP LAB BLOOD ORDERABLES Final Re sult Performing Organization Address City/[facility]/ZIP Co de Phone Number [facility] * (ABNORMAL) CBC and differential (05/12/2025 4:07 PM EDT) WBC 8.2 3.4 - 10.8 x10E3/uL [facility] RBC 4.61 3.77 - 5.28 x10E6/uL [facility] Hgb 13.0 11.1 - 15.9 g/dL [facility] Hct 41.8 34.0 - 46.6 % [facility] MCV 91 79 - 97 fL [facility] MCH 28.2 26.6 - 33.0 pg [facility] MCHC 31.1(L) 31.5 - 35.7 g/dL [facility] RDW 12.9 11.7 - 15.4 % [facility] Platelets 244 150 - 450 x10E3/uL [facility] Neutrophils 67 Not Estab. % [facility] Lymphs 25 Not Estab. % [facility] Monocytes 7 Not Estab. % [facility] Eos 1 Not Estab. % [facility] Basos 0 Not Estab. % [facility] Neutrophils Abs 5.4 1.4 - 7.0 x10E3/uL [facility] Lymphs Abs 2.1 0.7 - 3.1 x10E3/uL [facility] MonocytesAbs 0.6 0.1 - 0.9 x10E3/uL [facility] Eos Abs 0.1 0.0 - 0.4 x10E3/uL [facility] Baso Abs 0.0 0.0 - 0.2 x10E3/uL [facility] Immature Granulocytes 0 Not Estab. % [facility] Immature Grans Abs 0.0 0.0 - 0.1 x10E3/uL [facility] Blood Venous blood specimen / Unknown 05/12/2025 4:07 PM EDT 05/12/2025 Narrative [facility] - 05/17/2025 2:07 PM EDT Performed at: 01 - [facility] [id number] [employer]ulf[employer]: Santos Rolon PhD, Phone: [phone] us Bushra Degroot NP LAB BLOOD ORDERABLES Final Re sult [facility] * Magnesium (05/12/2025 4:07 PM EDT) [facility] Magnesium 2.0 1.6 - 2.3 mg/dL [facility] Blood Venous blood specimen / Unknown 05/12/2025 4:07 PM EDT 05/12/2025 Narrative [facility] - 05/17/2025 2:07 PM EDT Performed at: [address] [place] [id number] [employer] Sulfate: Santos Rolon PhD, Phone: [phone] Bushra Degroot NP LAB BLOOD ORDERABLES Final Re sult Performing Organization Address [facility] de Phone Number [facility] * Vitamin B12 (05/12/2025 4:07 PM EDT) [facility] Vitamin B12 535 232 - 1,245 pg/mL [facility] Blood Venous blood specimen / Unknown 05/12/2025 4:07 PM EDT 05/12/2025 Narrative [facility] - 05/17/2025 2:07 PM EDT Performed at: [address] [place] [id number] [employer]er Sulfate: Santos Rolon PhD, Phone: [phone] Bushra Degroot NP LAB BLOOD ORDERABLES Final Re sult Performing Organization Address [facility] de Phone Number [facility] * (ABNORMAL) Comprehensive metabolic panel (05/12/2025 4:07 PM EDT) [facility] Glucose 75 70 - 99 mg/dL [facility] BUN 14 6 - 20 mg/dL [facility] Creat 0.78 0.57 - 1.00 mg/dL [facility] EGFR 106 >59 mL/min/1.7 3 [facility] BUN/Creat Ratio 18 9 - 23 [facility] Sodium 139 134 - 144 mmol/L [facility] Potassium 4.3 3.5 - 5.2 mmol/L [facility] Chloride 100 96 - 106 mmol/L [facility] Carbon Dioxide 23 20 - 29 mmol/L [facility] Calcium 9.6 8.7 - 10.2 mg/dL [facility] Protein Total 7.5 6.0 - 8.5 g/dL [facility] Albumin 4.7 4.0 - 5.0 g/dL [facility] Globulin Total 2.8 1.5 - 4.5 g/dL [facility] Bili Total 0.3 0.0 - 1.2 mg/dL [facility] Alk Phosphatase 91 44 - 121 IU/L [facility] AST 26 0 - 40 IU/L [facility] ALT 40(H) 0 - 32 IU/L [facility] Blood Venous blood specimen / Unknown 05/12/2025 4:07 PM EDT 05/12/2025 Narrative [facility] - 05/17/2025 2:07 PM EDT Performed at: - [facility] [id number] [employer] Sulfate: Santos Rolon PhD, Phone: [phone] Bushra Degroot NP LAB BLOOD ORDERABLES Final Re sult Performing Organization Address [facility] Co de Phone Number [facility] * TSH REFLEX TO T4F (04/14/2025 4:14 PM EDT) TSH W/REFLEX TO FT4 2.770 0.450 - 4.500 uIU/mL [facility] 04/14/2025 4:14 PM EDT 04/14/2025 Narrative [facility] - 04/15/2025 8:35 AM EDT Performed at: [facility] [id number] [employer] Sulfate: Santos Rolon PhD, Phone: [phone] Bushra Degroot NP LAB BLOOD ORDERABLES Final Re sult Performing Organization Address City/[facility]/ZIP Co de Phone Number [facility] * NuSwab Vaginitis Plus (VG+) (04/14/2025 4:00 PM EDT) Atopobium Vaginae Moderate - 1 Score [facility] BVAB 2 Low - 0 Score [facility] Megasphaera 1 Low - 0 Score [facility] Comment: Calculate total score by adding the 3 individual bacterial vaginosis (BV) marker scores together. Total score is interpreted as follows: Total score 0-1: Indicates the absence of BV. Total score 2: Indeterminate for BV. Additional clinical data should be evaluated to establish a diagnosis. Total score 3-6: Indicates the presence of BV. Zaria Albicans, ALY Negative Negative [facility] Zaria Glabrata, ALY Negative Negative [facility] Trich Vag By ALY Negative Negative [facility] Chlamydia Trachomatis, ALY Negative Negative [facility] Neisseria Gonorrhoeae, ALY Negative Negative [facility] Swab Vaginal structure / Unknown 04/14/2025 4:00 PM EDT 04/14/2025 Comment:[place] Narrative [facility] - 04/16/2025 11:07 AM EDT Test(s) 424786- Atopobium vaginae; 514351- BVAB 2; 353750- Megasphaera 1 was developed and its performance characteristics determined by [facility]. It has not been cleared or approved by the Food and Drug Administration. Test(s) 024290-Yxodrqc albicans, ALY; 705109-Zplagqa glabrata, ALY was developed and its performance characteristics determined by [facility]. It has not been cleared or approved by the Food and Drug Administration. Performed at: - [facility] [id number] [employer]: Arti Galindo MD, Phone: [phone] Bushra Degroot NP LAB MICROBIOLOGY - GENERAL OR DERABLES Final Result [facility] * POCT Glycated hemoglobin, total (03/16/2025 1:19 PM EDT) Hemoglobin A1C 8.4 Blood 03/16/2025 1:19 PM EDT us Bushra Degroot NP POINT OF CARE TEST ENTER/EDIT ORDERABLES Final Result * (ABNORMAL) FT TSH WITH T4FR REFLEX (03/16/2025 9:51 AM EDT) [facility] TSH 8.49(H) 0.34 - 5.60 mcIU/mL FT Blood 03/16/2025 9:51 AM EDT 03/16/2025 10:10 AM EDT Narrative [facility] - 03/16/2025 10:54 AM EDT Original Ordering Provider: TESSA DEGROOT Bushra Degroot MACHINE SET UP [facility] Final Result Performing Organization Address [facility]/ZIP Co de Phone Number [facility] * [facility] LIPID PANEL (03/16/2025 9:51 AM EDT) [facility] CHOL 174 120 - 200 mg/dL [facility] FT HDL 44 mg/dL [facility] Comment: '>= 60 LOW RISK' '<= 40 HIGH RISK' FT LDL DIRECT 119 <=129 mg/dL FT FT TRIG 101 <=149 mg/dL FT FT VLDL 20 7 - 40 mg/dL [facility] Blood 03/16/2025 9:51 AM EDT 03/16/2025 10:10 AM EDT Narrative [facility] - 03/16/2025 10:39 AM EDT Original Ordering Provider: TESSA DEGROOT us Bushra Degroot MACHINE SET UP [facility] Final Result Performing Organization Address [facility]/ZIP Co de Phone Number [facility] * [facility] FREE T4 (03/16/2025 9:51 AM EDT) [facility] T4 FREE 0.71 0.58 - 1.64 ng/dL [facility] Blood 03/16/2025 9:51 AM EDT 03/16/2025 10:10 AM EDT Narrative [facility] - 03/16/2025 11:33 AM EDT Original Ordering Provider: TESSA DEGROOT us Bushra Degroot MACHINE SET UP [facility] Final Result Performing Organization Address City/[facility]/ZIP Co de Phone Number [facility] * [facility] EGFR (03/16/2025 9:51 AM EDT) [facility] EGFR 120 >=59 mL/min/1.73 m2 [facility] Blood 03/16/2025 9:51 AM EDT 03/16/2025 10:10 AM EDT Narrative [facility] - 03/16/2025 10:39 AM EDT Original Ordering Provider: TESSA DEGROOT Bushra Degroot MACHINE SET UP [facility] Final Result [facility] * (ABNORMAL) [facility] CMP (03/16/2025 9:51 AM EDT) [facility] GLUCOSE LVL 181 55 - 199 mg/dL FT FT BUN 16 5 - 21 mg/dL FT FT CREATININE 0.7 0.5 - 1.3 mg/dL FT FT CALCIUM LVL 9.3 8.9 - 11.1 mg/dL FT FT SODIUM LVL 137 135 - 145 mmol/L FT FT POTASSIUM 4.2 3.5 - 5.3 mmol/L FT FT CHLORIDE 104 101 - 111 mmol/L [facility] CO2 28 21 - 31 mmol/L FT FT ALK PHOS 87 21 - 98 Int._Unit/ L FT FT BILI TOTAL 0.5 0.0 - 1.1 mg/dL FT FT ALBUMIN LVL 4.5 3.3 - 5.0 gm/dL FT FT TOTAL PROTEIN 7.4 6.0 - 7.8 gm/dL FT FT ALT 57(H) 6 - 46 Int._Unit/ L [facility] AST 24 5 - 43 Int._Unit/ L [facility] BUN/CREAT RATIO 23(H) 10 - 20 No Units FT [facility] AGAP 9 6 - 16 mEq/L FT FT GLOBULIN 2.9 1.4 - 4.0 gm/dL FT FT A/G RATIO 1.6 1.1 - 2.2 FT Blood 03/16/2025 9:51 AM EDT 03/16/2025 10:10 AM EDT Narrative [facility] - 03/16/2025 10:39 AM EDT Original Ordering Provider: TESSA DEGROOT Bushra Degroot MACHINE SET UP [facility] Final Result [facility] [place] 3 Months Insurance BS Care Teams Photo Lab Manager Relationship Specialty Start Date End Date Snehal aTn MD [address] [place] [address] PCP - General Family Medicine 03/16/25 Bushra Degroot NP [address] [place] [address] [facility]
--- OUTSIDE RECORDS SUMMARY | 2025-06-14 08:59 | XMS_ITS | Encounter Summary ---
Author Organization [facility] Address [address] [facility] [place] [address] Care Team Providers Care Maintenance Mechanic Engine Name Role Phone Snehal Tan MD Primary Care Provider [phone] Bushra Degroot HEAD OF HUMAN RESOURCES Unavailable [phone] Encounter Details Date Type Department Care Team (Latest Contact Info) Description 06/06/2025 Travel Social History Tobacco Use Types Packs/Day Years [...] Office Visit [facility] [address] [place] [address] Violetta Rice, FLORIST-MICROWAVE OVEN ASSEMBLER [address] [facility] [address] [place] [address] 06/23/2025 3:40 PM EDT Office [facility] [place] [facility] [address] [place] [address] Bushra Degroot NP [address] [place] [address] 01/30/2026 3:00 PM EDT Office Visit [facility] [address] [place] [address] Asher Peter DO [address] [place] [address] documented as of this encounter Visit Diagnoses Not on filedocumented in this encounter Additional Health Concerns Assessment Noted Time PHQ-9 Depression Total Score: 16 025 3:47 PM EDT documented as of this encounter Care Teams Maintenance Mechanic Engine Relationship Specialty Start Date End Date Snehal Tan MD [address] [place] [address] PCP - General Family Medicine 03/16/25 Bushra Degroot NP [address] [place] [address] PCP - [facility] [employer] 04/22/25 documented as of this encounter
--- OUTSIDE RECORDS SUMMARY | 2025-06-14 08:59 | XMS_ITS | Patient Health Record ---
Author Organization [facility] / FAX Address [address] [place] [address] Care Team Providers Care Staff Mechanical Engineer Name Role Phone VISH[facility] CHARLTON Primary Care Provider [phone] Reason For Referral No Information Plan Of Treatment No Information Insurance Providers Payer Name Payer Address Payer Phone Subscriber Number Group Number Insured Name Patient Relationship to Insured Coverage Start Date Coverage End Date [facility] [address] [address] [place] [phone] [id number] BA HARSHAD ALICEA Self - patient is the insured
--- OUTSIDE RECORDS SUMMARY | 2025-06-14 08:59 | XMS_ITS | Encounter Summary ---
Author Organization [facility] Address [address] [place] [address] Care Team Providers Care Supervisor Seaming Name Role Phone Snehal Tan MD Primary Care Provider [phone] Bushra Degroot NP Unavailable [phone] Reason for Visit * Reason Onset Date Comments Med Refill 06/09/2025 Encounter Details Date Type Department Care Team (Late st Contact Info) Description 06/09/2025 Refill [facility] [address] [place] [phone] Lee Ann Albarado MA Social History Tobacco Use Types Packs/Day Years [...] on file documented as of this encounter Miscellaneous Notes * Telephone Encounter - Bushra Degroot NP - 06/10/2025 11:20 AM EDT sent * Telephone Encounter - Todd Munoz - 06/10/2025 11:17 AM EDT On 05/26/2025 the RX was Discontinued by Dr. Knott office and re- entered in. Could this be resent to the pharmacy please * Telephone Encounter - Bushra Degroot NP - 06/10/2025 8:01 AM EDT To early and will be titrating up documented in this encounter Plan of Treatment Upcoming Encounters Date Type Department Care Team (Late st Contact Info) Description 06/21/2025 3:20 PM EDT Office Visit [facility] [address] [place] [phone] Violetta Rice APRN-CHEF KITCHEN MANAGER [address] [place] [address] 06/23/2025 3:40 PM EDT Office Visit [facility] [place] [facility] [address] [place] [phone] Bushra Degroot NP [address] [place] [address] 01/30/2026 3:00 PM EDT Office Visit [facility] [address] [place] [phone] Asher Peter DO [address] [place] [address] documented as of this encounter Visit Diagnoses Not on filedocumented in this encounter Additional Health Concerns Assessment Noted Time PHQ-9 Depression Total Score: 16 07/2 025 3:47 PM EDT documented as of this encounter Care Teams Supervisor Seaming Relationship Specialty Start Date End Date Snehal Tan MD [address] [place] [address] PCP - General Family Medicine 03/16/25 Bushra Degroot NP [address] [place] [address] PCP - [place] [employer] 04/22/25 documented as of this encounter
--- OUTSIDE RECORDS SUMMARY | 2025-06-14 08:59 | XMS_ITS | Encounter Summary ---
Author Organization [facility] Address [address] [facility] [place] [address] Care Team Providers Care Edge Stainer Machine Name Role Phone Snehal Tan MD Primary Care Provider [phone] Bushra Degroot TRACK PATROL Unavailable [phone] Encounter Details Date Type Department Care Team (Late Contact Info) Description 01/28/2025 Results Follow-Up [facility] [address] [place] [phone] Cici Glover MA VAGINITIS (HTRX), IGP,CTNG,RFXAPTHPVAL L,,45 Social History Tobacco Use Types Packs/Day Years Used Date Smoking Tobacco: Some Days Cigarettes Smokeless Tobacco: Never Alcohol Use Standard [...] Answer Date Recorded Patient Health Questionnaire-2 Score 0 01/26/2025 Comments No Sex and Gender Information Value Date Recorded Sex Assigned at Not on file Legal Sex Female 1:12 PM EDT Gender Identity Not on file Sexual Orientation Not on file documented as of this encounter Plan of Treatment Upcoming Encounters Date Type Department Care Team (Late st Contact Info) Description 06/21/2025 3:20 PM EDT Office Visit [facility] [place] [facility] [address] [place] [address] Violetta Rice APRN-PARKING WORKER [address] [place] [address] 06/23/2025 3:40 PM EDT Office Visit [facility] [address] [place] [address] Bushra Degroot NP [address] [place] [address] 01/30/2026 3:00 PM EDT Office Visit [facility] [address] [place] [phone] Asher Peter DO [address] [place] [address] documented as of this encounter Visit Diagnoses Not on filedocumented in this encounter Care Teams Edge Stainer Machine Relationship Specialty Start Date End Date Snheal Tan MD [address] [place] [address] PCP - General Family Medicine 03/16/25 Bushra Degroot NP [address] [place] [address] PCP - [place] [employer] 04/22/25 documented as of this encounter
--- OUTSIDE RECORDS SUMMARY | 2025-06-14 09:00 | XMS_ITS | CCD ---
Author Organization [facility] Care Team Providers Care Title Insurance Examiner Name Role Phone NONE, XXXX Primary Care Physician Unavailab Jensen Rodriguez Attending Unavailable Kenia aGlan Primary Care Physician Maco Aaron Attending Unavailable DO Kenzie Han Attending Unavailable Varun Disla Attending Unavailable Unavailable Primary Care Provider Snehal Quiñones MD Primary Care Provider BUSHRA AMEZCUA Primary Care Physician TESSA AMEZCUA Admitting Unavailable TESSA AMEZCUA Attending Unavailable DO Kenzie Han Attending Unavailable BUSHRA AMEZCUA Attending Unavailable BUSHRA AMEZCUA Admitting Unavailable Bushra Amezcua NP Unavailable KEVYN GAYTAN Attending Unavailable KEVYN GAYTAN Attending Unavailable BUSHRA AMEZCUA Attending Unavailable BUSHRA AMEZCUA Attending Unavailable VIOLETTA RICE Attending Unavailable BUSHRA AMEZCUA Referring Unavailable BUSHRA AMEZCUA Attending Unavailable BUSHRA AMEZCUA Attending Unavailable BUSHRA AMEZCUA Attending Unavailable KEVYN GAYTAN Attending Unavailable Allergies Allergy Classification Reported Allergen(s) Allergy Type Date of Onset Reaction(s) Facility (20 sources) Latex Propensity to adverse reactions 5 Rash [facility] Medications Current Medications Medication Drug Class(es) Dates Sig (Normalized) Sig (Original) Blood Glucose Monitoring Suppl (FreeStyle InsuLinx System) w/Device kit (18 sources) Start: 03-17-2025 Blood Glucose Monitoring Suppl (FreeStyle InsuLinx System) w/Device kit Indications: Type 2 diabetes mellitus without complication, without long-term current use of insulin (HCC) Test daily before all meals/snacks and once before bedtime. 1 kit 03/17/2025 Active brompheniramine maleate 0.4 mg/ml / dextromethorphan hydrobromide 2 mg/ml / pseudoephedrine hydrochloride 6 mg/ml oral solution (7 sources) alpha-Adrenergic Agonist, Uncompetitive E-lzbtgs-H-aspartat e Receptor Antagonist, Sigma-1 Agonist Start: 06-17-2024 take 5 mL by mouth four times daily for cough and congestion Bromfed DM oral syrup 5 mL, Oral, QID for cough and congestion, 200 mL, Refill(s) 0, [facility]/pharmacy #[id number], 164, cm, 10/27/24 22:22:00 EST, Height/Length [...] day(s), # 28 cap(s), Refills(s) 0, Pharmacy: [facility]/pharmacy #[id number], 164, cm, 04/05/24 19:17:00 EDT, [...] BID, # 20 cap(s), Refills(s) 0, Pharmacy: [facility]/pharmacy #[id number], 164, cm, 04/15/24 6:28:00 EDT, Height/Length Dosing, 103, kg, 04/15/24 6:28:00 EDT, Weight Dosing Start Date: 04/15/24 Status: Ordered Quantity: 20.0 Unit: cap(s) Repeat number: 1 fluocinonide 0.5 mg/ml topical solution (15 sources) Corticosteroid Start: 03-29-2025 fluocinonide (Lidex) 0.05 % external solution Indications: Other seborrheic dermatitis Apply topically to scalp every day as needed for scaling/itching 20 mL 11 03/29/2025 Active hydrocortisone 25 mg/ml topical cream (15 sources) Corticosteroid Start: 03-29-2025 hydrocortisone 2.5 % cream Indications: Other seborrheic dermatitis , Rash and other nonspecific skin eruption Apply thin layer to affected areas forehead, ears, and right thigh bid prn for flares 30 g 11 03/29/2025 Active isopropyl alcohol 0.7 ml/ml medicated pad (18 sources) Start: 03-17-2025 Alcohol Sheets (Alcoh-Wipe) sheet Indications: Type 2 diabetes mellitus without complication, without long-term current use of insulin (HCC) Test daily before all meals/snacks and once before bedtime. 1 each 03/17/2025 Active ketoconazole 20 mg/ml medicated shampoo (15 sources) Azole Antifungal Start: 03-29-2025 ketoconazole (NIZOral) 2 % shampoo Indications: Other seborrheic dermatitis Lather on scalp, leave on 5 min before rinsing, 2-3 times a week, 30 day supply 120 mL 11 03/29/2025 Active levothyroxine sodium 0.075 mg oral tablet (20 sources) l-Thyroxine Start: 05-17-2025 End: 07-01-2025 take 1 tablet by mouth once daily levothyroxine (Synthroid, Levoxyl) 75 MCG tablet Indications: Hypothyroidism, unspecified type Take 1 tablet (75 mcg) by mouth Daily 45 tablet 05/17/2025 07/01/2025 Active Start: 03-16-2025 End: 04-15-2026 take 1 tablet by mouth once daily levothyroxine (Synthroid, Levoxyl) 50 MCG tablet Indications: Hypothyroidism, unspecified type Take 1 tablet (50 mcg) by mouth Daily 90 tablet 3 04/15/2025 05/17/2025 Discontinued (Ineffective) Start: 04-05-2024 levothyroxine Daily, Refills(s) 0 Start Date: 04/05/24 Status: Ordered Repeat number: 1 Start: 04-05-2024 levothyroxine Daily, Refills(s) 0 Start Date: 04/05/24 Status: Ordered metFORMIN (6 sources) Biguanide Start: 04-05-2024 metformin Oral , Refills(s) 0 [...] pain, # 20 tab(s), Refills(s) 0, Pharmacy: [facility]/pharmacy #[id number], 164, cm, 10/27/24 22:22:00 EST, Height/Length Dosing, 103.5, kg, 10/27/24 22:22:00 EST, Weight Dosing Start Date: 10/28/24 Status: Ordered Quantity: 20.0 Unit: tab(s) Repeat number: 1 nystatin 100 unt/mg topical powder (14 sources) Polyene Antifungal Start: 03-16-2025 End: 04-15-2025 nystatin (Mycostatin) [id number] UNIT/GM powder Indications: Yeast infection of the skin Apply topically in the morning and before bedtime. 60 g 1 03/16/2025 04/15/2025 Active Ozempic, 1 MG/DOSE, 4 MG/3ML solution pen-injector (2 sources) Start: 05-26-2025 End: 06-10-2025 Ozempic, 1 MG/DOSE, 4 MG/3ML solution pen-injector 05/26/2025 06/10/2025 Discontinued Start: 05-26-2025 Ozempic, 1 MG/ DOSE, 4 MG/3ML solution pen-injector 05/26/2025 Active 1 mg dose 1.5 ml semaglutide 1.34 mg/ml pen injector (20 sources) Start: 05-26-2025 End: 07-08-2025 inject 1 mg by subcutaneous injection every week semaglutide (Ozempic) 2 MG/1.5ML solution pen-injector Indications: Type 2 diabetes mellitus without complication, without long-term current use of insulin (HCC) Inject 1 mg under the skin 1 (one) time per week for 28 days 2 each 06/10/2025 07/08/2025 Active Start: 04-14-2025 End: 05-26-2025 inject 0.5 mg by subcutaneous injection every week semaglutide (Ozempic, 0.25 or 0.5 MG/DOSE,) 2 MG/1.5ML solution pen-injector Indications: Type 2 diabetes mellitus without complication, without long-term current use of insulin (HCC) Inject 0.5 mg under the skin 1 (one) time per week for 28 days 1.5 mL 04/14/2025 05/26/2025 Discontinued Start: 03-17-2025 End: 04-14-2025 inject 0.25 mg by subcutaneous injection every week semaglutide (Ozempic, 0.25 or 0.5 MG/DOSE,) 2 MG/1.5ML solution pen-injector Indications: Type 2 diabetes mellitus without complication, without long-term current use of insulin (HCC) Inject 0.25 mg under the skin 1 (one) time per week for 28 days 1.5 mL 03/17/2025 04/14/2025 Discontinued (Reorder) Zofran ODT 4 mg Tab-Dis (4 sources) Start: 06-17-2024 take 1 tablet by mouth every eight hours as needed for nausea Zofran ODT 4 mg Tab-Dis 4 mg = 1 tab(s), Oral, q8hr, PRN Nausea/Vomiting, # 12 tab(s), Refills(s) 0, Pharmacy: [facility]/pharmacy #[id number], 164, cm, 06/17/24 5:51:00 EDT, Height/Length Dosing, 105.5, kg, 06/17/24 5:51:00 EDT, Weight Dosing Start Date: 06/17/24 Status: Ordered Quantity: 12.0 Unit: tab(s) Repeat number: 1 Start: 06-17-2024 take 1 tablet by celia th every eight hours as needed for nausea Zofran ODT 4 mg Tab-Dis 4 mg = 1 tab(s), Oral, q8hr, PRN Nausea/Vomiting, # 12 tab(s), Refills(s) 0, Pharmacy: [facility]/pharmacy #[id number], 164, cm, 06/17/24 5:51:00 EDT, Height/Length Dosing, 105.5, kg, 06/17/24 5:51:00 EDT, Weight Dosing Start Date: 06/17/24 Status: Ordered Completed/Discontinued Medications Medication Drug Class(es) Dates Sig (Normalized) Sig (Original) acetaminophen 300 mg / codeine phosphate 30 mg oral tablet (6 sources) Opioid Agonist Start: 05-08-20 End: 05-26-20 take 1 tablet by mouth every six hours as needed acetaminophen-codeine (Tylenol w/ Codeine #3) 300-30 MG tablet Take 1 tablet by mouth every 6 (six) hours if needed 05/08/2025 05/26/2025 Discontinued ciprofloxacin 500 mg oral tablet (6 sources) Quinolone Antimicrobial Start: 05-08-20 End: 05-26-20 take 1 tablet by mouth in the morning ciprofloxacin (Cipro) 500 MG tablet Take 500 mg by mouth in the morning and 500 mg before bedtime. 05/08/2025 05/26/2025 Discontinued medroxyPROGESTERone acetate 10 mg oral tablet (20 sources) Progestin Start: 01-27-20 End: 05-26-20 take 1 tablet by mouth once daily, then take 1 tablet by mouth once daily medroxyPROGESTERone (Provera) 10 MG tablet Indications: Abnormal uterine bleeding (AUB) Take 1 tablet (10 mg) by mouth Daily for 10 days Take 1 tablet by mouth daily for 10 days- have withdrawal bleed. 10 tablet 03/08/2025 05/26/2025 Discontinued metroNIDAZOLE 500 mg oral tablet (6 sources) Nitroimidazole Antimicrobial Start: 05-08-20 End: 05-26-20 take 1 tablet by mouth in the morning, then take 1 tablet by mouth in the evening, then take 1 tablet by mouth at bedtime metroNIDAZOLE (Flagyl) 500 MG tablet Take 500 mg by mouth in the morning and 500 mg in the evening and 500 mg before bedtime. 05/08/2025 05/26/2025 Discontinued ondansetron 4 mg disintegrating oral tablet (6 sources) Serotonin-3 Receptor Antagonist Start: 05-08-20 End: 05-26-20 take 1 tablet by mouth every eight hours as needed ondansetron ODT (Zofran-ODT) 4 MG disintegrating tablet Take 4 mg by mouth every 8 (eight) hours if needed 05/08/2025 05/26/2025 Discontinued Ozempic, 0.25 or 0.5 MG/DOSE, 2 MG/3ML solution pen-injector (5 sources) Start: 03-17-20 End: 04-14-20 inject 0.25 mg by subcutaneous injection every [...] PER WEEK FOR 28 DAYS 03/17/2025 Active sertraline 25 mg oral tablet (10 sources) Serotonin Reuptake Inhibitor Start: 04-14-2025 End: 05-26-2025 take 1 tablet by mouth once daily sertraline (Zoloft) 25 MG tablet Indications: Anxiety , Mild episode of recurrent major depressive disorder Take 1 tablet (25 mg) by mouth Daily 30 tablet 04/14/2025 05/26/2025 Discontinued Problems Active Problems Problem Classification Problem Date Documented Date Episodic/Chronic Abdominal pain (2 sources) Lower abdominal pain; Translations: [Lower abdominal pain, unspecified] 05-13-2025 Episodic Administrative/social admission (2 sources) First encounter by subject; Translations: [Persons encountering health services in other specified circumstances] 03-16-2025 Episodic Anxiety disorders (4 sources) Anxiety; Translations: [Anxiety disorder, unspecified] 04-14-2025 Chronic Diabetes mellitus without complication (15 sources) Diabetes mellitus; Translations: [Type 2 diabetes mellitus] 04-05-2024 Chronic Diabetes mellitus without complication (2 sources) Increased glucose level; Translations: [Other abnormal glucose] 03-17-2025 Episodic Immunizations and screening for infectious disease (8 sources) Patient encounter status; Translations: [Encounter for screening for infections with a predominantly sexual mode of transmission] 01-26-2025 Episodic Influenza (1 source) Influenza; Translations: [Influenza due to other identified influenza virus with other respiratory manifestations] Onset: 10-28-2024 Episodic Malaise and fatigue (4 sources) Fatigue; Translations: [Other fatigue] 05-12-2025 Episodic Miscellaneous mental health disorders (2 sources) Crying; Translations: [Other symptoms and signs involving emotional state] 04-14-2025 Episodic Mood disorders (2 sources) Recurrent major depressive episodes, mild ; Translations: [Major depressive disorder, recurrent, mild] 04-14-2025 Chronic Mycoses (4 sources) Candidiasis of skin; Translations: [Candidiasis of skin and nail] 03-16-2025 Episodic Noninfectious gastroenteritis (4 sources) Colitis; Translations: [Noninfective gastroenteritis and colitis, unspecified] 05-12-2025 Episodic Other female genital disorders (3 sources) Abnormal uterine bleeding; Translations: [Abnormal uterine [...] [Cellulitis of unspecified toe] Onset: 04-05-2024 Episodic Spondylosis; intervertebral disc disorders; other back problems (2 sources) Prolapsed lumbar intervertebral disc; Translations: [Other intervertebral disc displacement, lumbar region] 05-26-2025 Chronic Thyroid disorders (13 sources) Hypothyroidism; Translations: [Hypothyroidism, unspecified] 03-16-2025 Chronic Thyroid disorders (6 sources) Disorder of thyroid gland 04-05-2024 Episodic Past or Other Problems Problem Classification Problem Date Documented Da te Episodic/Chronic Mood disorders (12 sources) Mood disorders Onset: 04-14-2025 04-14-2025 Viral [...] 03-16-2025 Albumin [Mass/Vol] 4.5 g/dL Normal 3.3-5.0 [facility] Comment on above: Performed By: #### 2 [id number] #### [facility] [address] [place] [address] Albumin/Globulin [Mass ratio] 1.6 {ratio} Normal 1.1-2.2 [facility] Comment on above: Performed By: #### 2 [id number] #### [facility] [address] [place] [address] Alk Phos 87 Int._Unit/L Normal 21-98 [facility] Comment on above: Performed By: #### 2 [id number] #### [facility] [address] [place] [address] ALT 57 Int._Unit/L High 6-46 [facility] Comment on above: Performed By: #### 2 [id number] #### [facility] [address] [place] [address] Anion gap [Moles/Vol] 9 mmol/L Normal 6-16 [facility] Comment on above: Performed By: #### 2 [id number] #### [facility] [address] [place] [address] AST 24 Int._Unit/L Normal 5-43 [facility] Comment on above: Performed By: #### 2 [id number] #### [facility] [address] [place] [address] Bili Total 0.5 mg/dL Normal 0.0-1.1 [facility] Comment on above: Performed By: #### 2 [id number] #### [facility] [address] [place] [address] BUN/Creat Ratio 23 No Units High 10-20 [facility] Comment on above: Performed By: #### 2 [id number] #### [facility] [address] [place] [address] Calcium [Mass/Vol] 9.3 mg/dL Normal 8.9-11.1 [facility] Comment on above: Performed By: #### 2 [id number] #### [facility] [address] [place] [address] Chloride [Moles/Vol] 104 mmol/L Normal 101-111 [facility] Comment on above: Performed By: #### 2 [id number] #### [facility] [address] [place] [address] CO2 [Moles/Vol] 28 mmol/L Normal 21-31 [facility] Comment on above: Performed By: #### 2 [id number] #### [facility] [address] [place] [address] Creatinine [Mass/Vol] 0.7 mg/dL Normal 0.5-1.3 [facility] Comment on above: Performed By: #### 2 [id number] #### [facility] [address] [place] [address] Globulin (S) [Mass/Vol] 2.9 g/dL Normal 1.4-4.0 [facility] Comment on above: Performed By: #### 2 [id number] #### [facility] [address] [place] [address] Glucose [Mass/Vol] 181 mg/dL Normal 55-199 [facility] Comment on above: Performed By: #### 2 [id number] #### [facility] [address] [place] [address] Potassium [Moles/Vol] 4.2 mmol/L Normal 3.5-5.3 [facility] Comment on above: Performed By: #### 2 [id number] #### [facility] [address] [place] [address] Protein [Mass/Vol] 7.4 g/dL Normal 6.0-7.8 [facility] Comment on above: Performed By: #### 2 [id number] #### [facility] [address] [place] [address] Sodium [Moles/Vol] 137 mmol/L Normal 135-145 [facility] Comment on above: Performed By: #### 2 [id number] #### [facility] [address] [place] [address] Urea nitrogen [Mass/Vol] 16 mg/dL Normal 5-21 [facility] Comment on above: Performed By: #### 2 [id number] #### [facility] [address] [place] [address] [facility] CMPon 03-16-2025 [facility] A/G RATIO 1.6 1.1 - 2.2 [facility] AGAP 9 [facility] ALBUMIN LVL 4.5 [facility] ALK PHOS 87 [facility] ALT 57 High [facility] AST 24 [facility] BILI TOTAL 0.5 mg/dL 0.0 - 1.1 mg/dL [facility] BUN/CREAT RATIO 23 High [facility] GLOBULIN 2.9 [facility] TOTAL PROTEIN 7.4 [facility] Interpretation and review of laboratory results Abnormal [facility] EGFRon 03-16-2025 GFR/1.73 sq M.predicted CKD-EPI (S/P/Bld) [Vol rate/Area] 120 - PINF [facility] LIPID PANELon [facility] TRIG 101 mg/dL NINF - 149 mg/dL [facility] VLDL 20 mg/dL 7 - 40 mg/dL [facility] Free T4on 03-16-2025 Free T4 [Mass/Vol] 0.71 ng/dL Normal 0.58-1.64 [facility] Comment on above: Performed By: #### 2 [id number] #### [facility] [address] [place] [address] Lipid Panelon 03-16-2025 Cholesterol [Mass/Vol] 174 mg/dL Normal 120-200 [facility] Comment on above: Performed By: #### 2 [id number] #### [facility] [address] [place] [address] Cholesterol in HDL [Mass/Vol] 44 mg/dL Invalid Interpretation Code [facility] Comment on above: '>= 60 LOW RISK' '<= 40 HIGH RISK' Result Comment: '>= 60 LOW RISK' '<= 40 HIGH RISK' Performed By: #### 2 [id number] #### [facility] [address] [place] [address] Cholesterol in LDL [Mass/Vol] 119 mg/dL Normal <=129 [facility] Comment on above: Performed By: #### 2 [id number] #### [facility] [address] [place] [address] Cholesterol in VLDL [Mass/Vol] 20 mg/dL Normal 7-40 [facility] Comment on above: Performed By: #### 2 [id number] #### [facility] [address] [place] [address] Triglyceride [Mass/Vol] 101 mg/dL Normal <=149 [facility] Comment on above: Performed By: #### 2 [id number] #### [facility] [address] [place] [address] No Panel Informationon 03-16 Original Ordering Provider[facility] With T4fr Reflexon 03-16 TSH Qn 8.49 m[IU]/L High 0.34-5.60 [facility] Comment on above: Performed By: #### 1 [id number] #### [facility] [address] [place] [address] eGFRon 03-16-2025 eGFR 120 mL/min/1.73 m2 Normal >=59 [facility] Comment on above: Performed By: #### 1 [id number] #### [facility] [address] [place] [address] ED Clinical Summaryon 2024 ED Clinical Summary ED Clinical Summary [address] [address] ED Clinical Summary Person Information Name: LELIA SHAY [facility] Age: 29 Years : 1995 Sex: Female Language: Ivorian PCP: NONE, XXXX Marital Status: Single Visit [...] 10/28/2024 01:23:43 10/28/2024 01:23:43 10/28/2024 01:23:43 ADDRESS: [address] [place] [address] [address] [place] [id number] PHYS DOC NOTES: MEDICAL INFORMATION: Prescriptions Given: New Medications [id number], [address] [place] [id number], [phone] naproxen (Naprosyn 500 mg Tab) 1 Tablets By Mouth 2 times a day as needed for pain. Refills: 0. Medications to Continue Taking That Have Changed [id number], [address] [place] [id number], [phone] START: brompheniramine/dex tromethorphan/PSE (Bromfed DM oral syrup) [...] 0. PATIENT EDUCATION INFORMATION: Instructions: Influenza, Adult, Ysfe-gs-Ecaf Follow up: With: Address: When: [facility] [employer] [address] [place], [place] [id number] Business (1) In 3 days 10/31/2024 Comments: You can use the naproxen every 12 hours as needed for fever use of Bromfed every 6 hours as needed for cough and congestion. Please follow-up with your primary care doctor for further evaluation management. Please return the ED for any new or worsening symptoms. With: Address: When: XXXX NONE , [place] In 3 days DIAGNOSIS: Influenza A Normal [facility] ED Note-Physicianon 10-28-19 25 ED Note-Physician ED Note-Physician Basic Information Time [...] and Complexity of Problems Differential Diagnosis: [] [facility] Data External documents reviewed: [] My EKG [...] cough and congestion, 200 mL, Refill(s) 0, [facility]/pharmacy #[id number], 164, cm, 10/27/24 22:22:00 EST, Height/Length Dosing, 103.5, kg, 10/27/24 22:22:00 EST, Weight Dosing ketorolac, 30 mg = 1 mL, Injection, IntraMuscular, Once, Stop date 10/27/24 23:15:00 EST, STAT, Start date 10/27/24 23:15:00 EST, 10/27/24 23:15:00 EST naproxen, 500 mg = 1 tab(s), Oral, BID, PRN for pain, # 20 tab(s), Refills(s) 0, Pharmacy: [facility]/pharmacy #[id number], 164, cm, 10/27/24 22:22:00 EST, Height/Length [...] BID, PRN Follow-up With When Contact Information [employer] [facility] In 3 days 10/31/[address] [place] [address] [place] [address]- Business (1) Additional Instructions: You can use the naproxen every 12 hours as needed for fever use of Bromfed every 6 hours as needed for cough and congestion. Please follow-up with your primary care doctor for further evaluation management. Please return the ED for any new or worsening symptoms. XXXX NONE In 3 days [place] Additional Instructions: Patient Education Influenza, Adult, Gsju-bz-Orvo Problem List/Past Medical History Ongoing No qualifying data Historical Diabetes mellitus Thyroid disease Medications Inpatient acetaminophen 325 mg Tab, 975 mg= 3 tab(s), Oral, Once, PRN Bromfed DM oral syrup, 5 mL, Oral, On (more content not included)... Normal [facility] Comment on above: Result Comment: Elec tronically Signed By: Kenzie Han DO\.br\Date and Time Signed: 10/28/24 00:51 EST ED Patient Summaryon 025 ED Patient Summary ED Patient Summary [address] [address] Patient Discharge Instructions Person Information Name: LELIA SHAY Age: 29 Years Arrival Date: 10/27/2024 22:13:37 Discharge Diagnosis: Influenza A Primary Care Physician: NONE, XXXX Provider Information Primary Provider: Kenzie Han DO Advanced Help Desk Support Specialist:None The exam and treatment you received in the Emergency Department were for an urgent problem and are not intended as complete care. It is important that you follow up with a doctor, nurse practitioner, or physician???s sourcing assistant for ongoing care. If your symptoms become worse or you do not improve as expected and you are unable to reach your usual health care provider, you should return to the Emergency Department. We are available 24 hours a day. DEANNE, LELIA Collin has been given the following list of patient education materials, prescriptions and follow-up instructions: Follow-up Instructions: With: Address: When: [employer] [address] [place] [id number] Business (1) In 3 days 10/31/2024 Comments: You can use the naproxen every 12 hours as needed for fever use of Bromfed every 6 hours as needed for cough and congestion. Please follow-up with your primary care doctor for further evaluation management. Please return the ED for any new or worsening symptoms. With: Address: When: XXXX [facility] , [place] In 3 days In the event that this physician does not participate in your insurance network, please consult with your insurance company to find a nearby participating provider. Patient Education Materials: Influenza, Adult, [address] A MESSAGE TO ALL PATIENTS REGARDING OPIOIDS PRESCRIPTION OPIOIDS: WHAT YOU NEED TO KNOW Prescription opioids can be used to help relieve tdwdlwfw-dc-nempjc pain and are often prescribed following a [...] program, or (more content not included)... Normal [facility] Influenza A&B Agon 5 Influenzae A Ag Positive Abnormal Negative [facility] Comment on above: Performed By: #### 1 [id number] #### [facility] [address] [place] [address] Influenzae B Ag Negative Normal Negative [facility] Comment on above: Result Comment: Test sensitivity and specificity vary for age group, specimen type, antigen types, and prevalence of disease. Test results must be evaluated in conjunction with other clinical data available to the physician. Individuals who received nasally administered Influenza A vaccine may have positive test results up to 3 days after vaccination. Performed By: #### 1 [id number] #### [facility] [address] [place] [id number] MICRO OTHER TESTSOrdered By: Vito Albarado on 10-27-2024 Influenzae A Ag Positive *ABN* (10/27/24 10:23 PM) Invalid Interpretation Code Negative [facility] Sero Influenzae B Ag Negative 1 (10/27/24 10:23 PM) Normal Negative [facility] Comment on above: Interpretive Data: [...] 2023 ED Clinical Summary ED Clinical Summary [address] [address] ED Clinical Summary Person Information Name: LELIA SHAY [facility] Age: 28 Years : 1995 Sex: Female Language: Ivorian PCP: Kenia Galan MD Marital Status: Single [...] 06/17/2024 07:29:21 06/17/2024 07:29:21 06/17/2024 07:29:21 ADDRESS: [address] [place] [address] [address] [facility] [id number] PHYS DOC NOTES: MEDICAL INFORMATION: Prescriptions Given: New Medications [id number], [address] [place] [id number], [phone] brompheniramine/dex tromethorphan/PSE (Bromfed DM oral syrup) 5 [...] Address: When: [place] [address] Fanaticall (1Sarbari In 3 days 06/20/2024 Comments: Call the [...] Acute COVID-19; Acute upper respiratory infection Normal [facility] ED Note-Physicianon 06-17-20 24 ED Note-Physician ED Note-Physician Basic Information Time [...] EDT, STAT, Start date 06/17/24 7:06:00 EDT, [facility]- max dose 12 mg, 06/17/24 7:06:00 EDT ondansetron, 4 mg = 1 tab(s), Oral, q8hr, PRN Nausea/Vomiting, # 12 tab(s), Refills(s) 0, Pharmacy: [facility]/pharmacy #[id number], 164, cm, 06/17/24 5:51:00 EDT, Height/Length Dosing, 105.5, kg, 06/17/24 5:51:00 EDT, Weight Dosing Medications Administered Given dexamethasone 10 mg/mL Inj 1 mL, 10 mg, Oral [id number] [F], 1000 mL, IV Zofran 4 mg/2 mL Injection, 4 mg, IV Push Disposition Plan Patient Discharge Condition Stable Home Discharge Prescription List Prescriptions Bromfed DM oral syrup, 5 mL, Oral, QID, PRN Zofran ODT 4 mg Tab-Dis, 4 mg= 1 tab(s), Oral, q8hr, PRN Follow-up With When Contact Information Kenia Galan In 3 days 06/20/[address] [place] [address]- Business (1) Additional Instructions: Call the office [...] DM oral (more content not included)... Normal [facility] Comment on above: Result Comment: Elec tronically Signed By: Ej Vizcarra DO\.br\Date and Time Signed: 06/17/24 07:50 EDT ED Patient Summaryon 024 ED Patient Summary ED Patient Summary [address] [id number] Patient Discharge Instructions Person Information Name: LELIA SHAY Age: 28 Years Arrival Date: 06/17/2024 05:46:03 Discharge Diagnosis: Acute COVID-19; Acute upper respiratory infection Primary Care Physician: Kenia Galan MD Provider Information Primary Provider: Ej Vizcarra DO Advanced Help Desk Support Specialist:None The exam and treatment you received in the Emergency Department were for an urgent problem and are not intended as complete care. It is important that you follow up with a doctor, nurse practitioner, or physician?s sourcing assistant for ongoing care. If your symptoms [...] Instructions: With: Address: When: Kenia Galan [facility] [facility] [place] [address] Business (1) In 3 days 06/20/2024 Comments: [...] opioids can be used to help relieve zqrllojf-jc-xsotjy pain and are often prescribed following a [...] help man (more content not included)... Normal [facility] MICRO OTHER TESTSOrdered By: Xochilt Parish on 06-17-2024 Rapid COV Int NEG Ctl Pass (06/17/24 6:09 AM) Normal [facility] Rapid COV Int POS Ctl Pass (06/17/24 6:09 AM) Normal [facility] Sero SARS-CoV+SARS-CoV-2 (COVID-19) Ag IA.rapid Ql (Resp) Not Detected 1 (06/17/24 6:09 AM) Normal Not Detected [facility] Sero Comment on above: Interpretive Data: Chandana jefferson [employer]entumitor System for Rapid Detection of SARS-CoV-2 is [...] COV Int NEG Ctl Pass Normal [facility] Comment on above: Performed By: #### 2 [id number] #### [facility] [address] [place] [address] Rapid COV Int POS Ctl Pass Normal [facility] Comment on above: Performed By: #### 2 [id number] #### [facility] [address] [place] [address] SARS-CoV+SARS-CoV-2 (COVID-19) Ag IA.rapid Ql (Resp) Not detected Normal Not Detected [facility] Comment on above: Result Comment: The ClearMomentumitor? System for Rapid Detection of SARS-CoV-2 is [...] or revoked sooner. Performed By: #### 2 [id number] #### [facility] [address] [place], [place] [id number] ED Clinical Summaryon 2023 ED Clinical Summary ED Clinical Summary [address] [address] ED Clinical Summary Person Information Name: LELIA SHAY [facility] Age: 28 Years : 1995 Sex: Female Language: Ivorian PCP: NONE, XXXX Marital Status: Single Phone: [...] 04/05/2024 19:43:13 04/05/2024 19:43:13 04/05/2024 19:43:13 ADDRESS: [address] [place] [address] [address] [place] [id number] PHYS DOC NOTES: MEDICAL INFORMATION: Prescriptions Given: New Medications [facility]/pharmacy #[id number], [address] [facility] [place] [id number], [phone] cephalexin (Keflex 500 mg Cap) 1 Capsules By Mouth every 6 hours for 7 Days. Refills: 0. Medications to Continue with No Changes Other Medications levothyroxine every day. metformin By Mouth. PATIENT EDUCATION INFORMATION: Instructions: Cellulitis, Adult Follow up: With: Address: When: Kenia Galan [place] [address] Business (1) In 3 days 04/08/2024 DIAGNOSIS: Cellulitis of great toe Normal [facility] ED Note-Physicianon 04-05-20 ED Note-Physician ED Note-Physician [...] and Complexity of Problems Differential Diagnosis: [] [facility] Data External documents reviewed: N/A My EKG [...] day(s), # 28 cap(s), Refills(s) 0, Pharmacy: [facility]/pharmacy #[id number], 164, cm, 04/05/24 19:17:00 EDT, Height/Length Dosing, 103, kg, 04/05/24 19:17:00 EDT, Weight Dosing Disposition Plan Discharge Prescription List Prescriptions Keflex 500 mg Cap, 500 mg= 1 cap(s), Oral, q6hr Follow-up With When Contact Information Kenia Adama In 3 days 04/08/2024 EDT [address] [facility] [place] [address] Business (1) Additional Instructions: Patient Education Cellulitis, Adult Problem List/Past Medical History Ongoing No qualifying data Historical No qualifying data Medications Inpatient Keflex 500 mg Cap, 500 mg= 1 cap(s), Oral, Once Home Keflex 500 mg Cap, 500 mg= 1 cap(s), Oral, q6hr Allergies No Known Allergies Lab Results No qualifying data available. Diagnostic Results No qualifying data available. Normal [facility] Comment on above: Result Comment: Elec tronically Signed By: Jensen Lua DO\.br\Date and Time Signed: 04/05/24 19:34 EDT ED Patient Summaryon 024 ED Patient Summary ED Patient Summary [address] [address] Patient Discharge Instructions Person Information Name: LELIA SHAY Age: 28 Years Arrival Date: 04/05/2024 19:08:18 Discharge Diagnosis: Cellulitis of great toe Primary Care Physician: NONE, XXXX Provider Information Primary Provider: Jensen Lua DO Advanced Help Desk Support Specialist:None The exam and treatment you received in the Emergency Department were for an urgent problem and are not intended as complete care. It is important that you follow up with a doctor, nurse practitioner, or physician?s sourcing assistant for ongoing care. If your symptoms [...] Address: When: [place] [address] Business (1) In 3 days 04/08/2024 In the event that this physician does not participate in your insurance network, please consult with your insurance company to find a nearby participating provider. Patient Education Materials: Cellulitis, Adult A MESSAGE TO ALL PATIENTS REGARDING OPIOIDS PRESCRIPTION OPIOIDS: WHAT YOU NEED TO KNOW Prescription opioids can be used to help relieve bfgoegzj-zp-asvjhv pain and are often prescribed following a [...] be struggling with addiction, tell your health childcare center director and ask for guidance or call SAM[employer]?S National Helpline at 1-275-423-HELP. v Source: [place] Departme (more content not included)... Normal [facility] Vital Signs Date Time Vital Sign Value Performing Clinician Facility 05-26-2025 15:31-0400 Body height 165.1 cm Bushra Amezcua NP Work Phone: [facility] 05-26-2025 15:31-0400 Body mass index (BMI) [Ratio] 36.58 kg/m2 Bushra Amezcua NP Work Phone: [facility] 05-26-2025 15:31-0400 Body temperature 98.01 [degF] Bushra 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 Phone: [facility] 05-26-2025 15:31-0400 Body weight 99.7 kg Bushra 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 Phone: [facility] 05-26-2025 15:31-0400 Diastolic blood pressure 76 mm[Hg] Bushra 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 Phone: [facility] 05-26-2025 15:31-0400 Heart rate 83 /min Bushra 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 Phone: [facility] 05-26-2025 15:31-0400 SaO2% (BldA) [Mass fraction] 97 % Bushra 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 Phone: [facility] 05-26-2025 15:31-0400 Systolic blood pressure 124 mm[Hg] Bushra 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 Phone: [facility] 05-12-2025 15:28-0400 Body height 165.1 cm Bushraguru 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 Phone: [facility] 05-12-2025 15:28-0400 Body mass index (BMI) [Ratio] 36.14 kg/m2 Bushra 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 Phone: [facility] 05-12-2025 15:28-0400 Body temperature 98.4 [degF] Bushra 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 Phone: [facility] 05-12-2025 15:28-0400 Body weight 98.52 kg Bushra 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 Phone: [facility] 05-12-2025 15:28-0400 Diastolic blood pressure 76 mm[Hg] Bushra Amezcau TRANSIT VEHICLE INSPECTOR Work Phone: [facility] 05-12-2025 15:28-0400 Heart rate 82 /min Bushra 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 Phone: [facility] 05-12-2025 15:28-0400 SaO2% (BldA) [Mass fraction] 99 % Bushra 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 Phone: [facility] 05-12-2025 15:28-0400 Systolic blood pressure 124 mm[Hg] Bushra 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 Phone: [facility] 04-14-2025 15:37-0400 Body height 165.1 cm Bushra 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 Phone: [facility] 04-14-2025 15:37-0400 Body mass index (BMI) [Ratio] 36.94 kg/m2 Bushra 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 Phone: [facility] 04-14-2025 15:37-0400 Body temperature 98.2 [degF] Bushra 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 Phone: [facility] 04-14-2025 15:37-0400 Body weight 100.7 kg Bushra 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 Phone: [facility] 04-14-2025 15:37-0400 Diastolic blood pressure 82 mm[Hg] Bushra 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 Phone: [facility] 04-14-2025 15:37-0400 Heart rate 100 /min Bushra 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 Phone: [facility] 04-14-2025 15:37-0400 SaO2% (BldA) [Mass fraction] 95 % Bushra 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 Phone: [facility] 04-14-2025 15:37-0400 Systolic blood pressure 132 mm[Hg] Bushraguru 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 Phone: [facility] 03-17-2025 08:44-0400 Body height 166.4 cm Bushra 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 Phone: [facility] 03-17-2025 08:44-0400 Body mass index (BMI) [Ratio] 37.27 kg/m2 Bushra 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 Phone: [facility] 03-17-2025 08:44-0400 Body temperature 98.6 [degF] Bushra 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 Phone: [facility] 03-17-2025 08:44-0400 Body weight 103.15 kg Bushra 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 Phone: [facility] 03-17-2025 08:44-0400 Diastolic blood pressure 76 mm[Hg] Bushra 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 Phone: [facility] 03-17-2025 08:44-0400 Heart rate 70 /min Bushra 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 Phone: [facility] 03-17-2025 08:44-0400 SaO2% (BldA) [Mass fraction] 98 % Bushra 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 Phone: [facility] 03-17-2025 08:44-0400 Systolic blood pressure 118 mm[Hg] Bushra 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 Phone: [facility] 03-16-2025 08:54-0400 Body height 166.4 cm Bushra 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 Phone: [facility] 03-16-2025 08:54-0400 Body mass index (BMI) [Ratio] 37.36 kg/m2 Bushra 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 Phone: [facility] 03-16-2025 08:54-0400 Body temperature 98.1 [degF] Bushra 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 Phone: [facility] 03-16-2025 08:54-0400 Body weight 103.42 kg Bushra 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 Phone: [facility] 03-16-2025 08:54-0400 Diastolic blood pressure 80 mm[Hg] Bushra 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 Phone: [facility] 03-16-2025 08:54-0400 Heart rate 75 /min Bushra 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 Phone: [facility] 03-16-2025 08:54-0400 SaO2% (BldA) [Mass fraction] 99 % Bushra 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 Phone: [facility] 03-16-2025 08:54-0400 Systolic blood pressure 122 mm[Hg] Bushra 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 Phone: [facility] 03-08-2025 09:01-0400 Body mass index (BMI) [Ratio] 37.77 kg/m2 Kevyn Gaytan DO Work Phone: [facility] 03-08-2025 09:01-0400 Body weight 102.97 kg Kevyn Gaytan DO Work Phone: [facility] 03-08-2025 09:01-0400 Diastolic blood pressure 84 mm[Hg] Kevyn Gaytan DO Work Phone: [facility] 03-08-2025 09:01-0400 Systolic blood pressure 128 mm[Hg] Kevyn Gaytan DO Work Phone: [facility] 01-26-2025 15:21-0400 Body height 165.1 cm Kevyn Gaytan DO Work Phone: [facility] 01-26-2025 15:21-0400 Body mass index (BMI) [Ratio] 37.11 kg/m2 Kevyn Gaytan DO Work Phone: [facility] 01-26-2025 15:21-0400 Body weight 101.15 kg Kevyn Gaytan DO Work Phone: [facility] 01-26-2025 15:21-0400 Diastolic blood pressure 82 mm[Hg] Kevyn Gaytan DO Work Phone: [facility] 01-26-2025 15:21-0400 Systolic blood pressure 126 mm[Hg] Kevyn Gaytan DO Work Phone: [facility] 10-28-2024 01:16-0500 Blood Pressure Location Kenzie Han [facility] 10-28-2024 01:16-0500 Body temperature 101.12 [degF] Elizabethn Eliaen [facility] 10-28-2024 01:16-0500 Diastolic blood pressure 62 mm[Hg] Elizabethn kken [facility] 10-28-2024 01:16-0500 Heart rate 91 /min Kaylinn Dokken [facility] 10-28-2024 01:16-0500 Mean blood pressure 81 mm[Hg] Kaylinn Dokken [facility] 10-28-2024 01:16-0500 Respiratory rate 16 /min Kaylinn Dokken [facility] 10-28-2024 01:16-0500 SaO2% (BldA) [Mass fraction] 96 % Kaylinn Dokken [facility] 10-28-2024 01:16-0500 Systolic blood pressure 119 mm[Hg] Kaylinn Dokken [facility] 10-28-2024 00:20-0500 Blood Pressure Location Kaylinn Dokken [facility] 10-28-2024 00:20-0500 Diastolic blood pressure 79 mm[Hg] Kaylinn Dokken [facility] 10-28-2024 00:20-0500 Heart rate 101 /min Kaylinn Dokken [facility] 10-28-2024 00:20-0500 Mean blood pressure 95 mm[Hg] Kaylinn Dokken [facility] 10-28-2024 00:20-0500 Respiratory rate 20 /min Kaylinn Dokken [facility] 10-28-2024 00:20-0500 SaO2% (BldA) [Mass fraction] 99 % Kaylinn Dokken [facility] 10-28-2024 00:20-0500 Systolic blood pressure 126 mm[Hg] Kaylinn Dokken [facility] 10-27-2024 22:19-0500 Body temperature 101.3 [degF] Ignacioinn Dokken [facility] 10-27-2024 22:19-0500 Diastolic blood pressure 84 mm[Hg] Calebylinn Dokken [facility] 10-27-2024 22:19-0500 Heart rate 128 /min Elizabethn Dokken [facility] 10-27-2024 22:19-0500 Respiratory rate 20 /min Elizabethn Dokken [facility] 10-27-2024 22:19-0500 SaO2% (BldA) [Mass fraction] 97 % Ignacioinn Dokken [facility] 10-27-2024 22:19-0500 Systolic blood pressure 121 mm[Hg] Elizabethn Dokken [facility] 06-17-2024 07:00-0400 Diastolic blood pressure 78 mm[Hg] Varun Naif [facility] 06-17-2024 07:00-0400 Heart rate 68 /min Varun Naif [facility] 06-17-2024 07:00-0400 Mean blood pressure 93 mm[Hg] Varun Naif [facility] 06-17-2024 07:00-0400 Respiratory rate 16 /min Varun Naif [facility] 06-17-2024 07:00-0400 Systolic blood pressure 124 mm[Hg] Varun Naif [facility] 06-17-2024 05:50-0400 Body temperature 98.24 [degF] Varun Naif [facility] 06-17-2024 05:50-0400 Diastolic blood pressure 84 mm[Hg] Varun Disla [facility] 06-17-2024 05:50-0400 Heart rate 85 /min Varun Disla [facility] 06-17-2024 05:50-0400 Respiratory rate 17 /min Varun Disla [facility] 06-17-2024 05:50-0400 SaO2% (BldA) [Mass fraction] 99 % Varun Disla [facility] 06-17-2024 05:50-0400 Systolic blood pressure 139 mm[Hg] Varun Disla [facility] 04-15-2024 06:26-0400 Body temperature 97.7 [degF] Ej Zackery [facility] 04-15-2024 06:26-0400 Diastolic blood pressure 80 mm[Hg] Ej Vizcarra [facility] 04-15-2024 06:26-0400 Heart rate 80 /min Ej Zackery [facility] 04-15-2024 06:26-0400 Respiratory rate 16 /min Ej Zackery [facility] 04-15-2024 06:26-0400 SaO2% (BldA) [Mass fraction] 99 % Ej Vizcarra [facility] 04-15-2024 06:26-0400 Systolic blood pressure 132 mm[Hg] Ej Zackery [facility] 04-05-2024 19:13-0400 Body temperature 98.06 [degF] Jensen Chanell [facility] 04-05-2024 19:13-0400 Diastolic blood pressure 77 mm[Hg] Jensen Chanell [facility] 04-05-2024 19:13-0400 Heart rate 78 /min Jensen Lua [facility] 04-05-2024 19:13-0400 Respiratory rate 16 /min Jensen Chanell [facility] 04-05-2024 19:13-0400 SaO2% (BldA) [Mass fraction] 98 % Jensen Chanell [facility] 04-05-2024 19:13-0400 Systolic blood pressure 130 mm[Hg] [facility] Chanell [facility] Encounters Encounter Date Encounter Type Care Provider Facility Start: 06-10-2025 End: 06-10-2025 Orders Only Bushra 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 Phone: [facility] Comment on above: Type 2 diabetes devorah itus without complication, without long- term current use of insulin (HCC) Start: 06-06-2025 End: 06-06-2025 Office outpatient visit 15 minutes Kevyn Gaytan DO Work Phone: [facility] Comment on above: Abnormal uterine ble eding (AUB) (Primary Dx) Start: 06-06-2025 End: 06-06-2025 ambulatory KEVYN GAYTAN Not Available Start: 05-26-2025 End: 05-26-2025 Office outpatient visit 25 minutes Bushra 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 Phone: [facility] Comment on above: Hypothyroidism, unsp ecified type (Primary Dx); Colitis; Other fatigue; Lumbar herniated disc; Type 2 diabetes mellitus without complication, without long-term current use of insulin (HCC); Anxiety; Need for vaccination Start: 05-26-2025 End: 05-26-2025 ambulatory BUSHRA AMEZCUA Not Available Start: 05-26-2025 End: 05-26-2025 Bamboo flowsheet Bushra 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 Phone: [facility] Start: 05-26-2025 End: 05-26-2025 Bamboo flowsheet Bushra 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 Phone: [facility] Start: 05-17-2025 End: 05-17-2025 Follow-up encounter Bushra 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 Phone: [facility] Comment on above: Vitamin B12, Magnesi um, TSH RFX ON ABNORMAL TO FREE T4, Additional followed-up results: 5 Start: 05-12-2025 End: 05-12-2025 Office outpatient visit 25 minutes Bushra 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 Phone: [facility] Comment on above: Colitis (Primary Dx) ; Other fatigue; Hypothyroidism, unspecified type ; Type 2 diabetes mellitus without complication, without long-term current use of insulin (HCC); Lower abdominal pain Start: 05-12-2025 End: 05-12-2025 ambulatory BUSHRA AMEZCUA Not Available Start: 05-12-2025 End: 05-12-2025 Bamboo flowsheet Bushra 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 Phone: [facility] Start: 05-12-2025 End: 05-12-2025 Bamboo flowsheet Bushra 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 Phone: [facility] Start: 04-15-2025 End: 04-15-2025 Follow-up encounter Bushra 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 Phone: [facility] Comment on above: Hypothyroidism, unsp ecified type (Primary Dx) Start: 04-14-2025 End: 04-14-2025 ambulatory BUSHRA AMEZCUA Not Available Start: 04-14-2025 End: 04-14-2025 Office outpatient visit 25 minutes Bushra 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 Phone: [facility] Comment on above: Type 2 diabetes devorah itus without complication, without long- term current use of insulin (HCC) (Primary Dx); History of sexual behavior with high risk of exposure to communicable disease; Anxiety; Tearfulness; Mild episode of recurrent major depressive disorder ; Hypothyroidism, unspecified type Start: 04-14-2025 End: 04-14-2025 Bamboo flowsheet Bushra 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 Phone: [facility] Start: 04-14-2025 End: 04-14-2025 Bamboo flowsheet Bushra 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 Phone: [facility] Start: 03-29-2025 End: 03-29-2025 Bamboo flowsheet Violetta A Felter MEDICATION RECONCILIATION TECHNICIAN-HIGH PRESSURE BOILER OPERATOR Work Phone: [facility] Start: 03-29-2025 End: 03-29-2025 Bamboo flowsheet Violetta A Felter MEDICATION RECONCILIATION TECHNICIAN-HIGH PRESSURE BOILER OPERATOR Work Phone: [facility] Start: 03-29-2025 End: 03-29-2025 Office outpatient new 30 minutes Ivoletta A Felter MEDICATION RECONCILIATION TECHNICIAN-HIGH PRESSURE BOILER OPERATOR Work Phone: [facility] Comment on above: Other seborrheic simon matitis (Primary Dx); Rash and other nonspecific skin eruption; Skin tag Start: 03-29-2025 End: 03-29-2025 ambulatory VIOLETTA A FELTER Not Available Start: 03-17-2025 End: 03-17-2025 Bamboo flowsheet Bushra 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 Phone: [facility] Start: 03-17-2025 End: 03-17-2025 Bamboo flowsheet Bushra 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 Phone: [facility] Start: 03-17-2025 End: 03-17-2025 Office outpatient visit 25 minutes Bushra 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 Phone: [facility] Comment on above: Type 2 diabetes devorah itus without complication, without long- term current use of insulin (HCC) (Primary Dx); Hypothyroidism, unspecified type ; Elevated glucose; Family history of diabetes mellitus in father Start: 03-17-2025 End: 03-17-2025 ambulatory BUSHRA AMEZCUA Not Available Start: 03-16-2025 End: 03-16-2025 Bamboo flowsheet Bushra 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 Phone: [facility] Start: 03-16-2025 End: 03-16-2025 Bamboo flowsheet Bushra 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 Phone: [facility] Start: 03-16-2025 End: 03-16-2025 Clinisync Result Encounter Bushra 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 Phone: [facility] Unsolicited Start: 03-16-2025 End: 03-16-2025 Follow-up encounter Bushra 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 Phone: [facility] Comment on above: Hypothyroidism, unsp ecified type (Primary Dx) Start: 03-16-2025 End: 03-16-2025 ambulatory HIGH PRESSURE BOILER OPERATOR BUSHRA AMEZCUA Facility[facility] Start: 03-16-2025 End: 03-16-2025 Patient encounter procedure BUSHRA AMEZCUA [facility] Start: 03-16-2025 End: 03-16-2025 Office outpatient new 45 minutes Bushra 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 Phone: [facility] Comment on above: Encounter to [facility] (Primary Dx); Hypothyroidism, unspecified type ; History of prediabetes; Screening for lipid disorders; Screening for heart disease; Yeast infection of the skin; Dandruff; Tinea pedis of both feet Start: 03-16-2025 End: 03-16-2025 ambulatory BUSHRA AMEZCUA Not Available Start: 03-08-2025 End: 03-08-2025 Office outpatient visit 15 minutes Kevyn Gaytan DO Work Phone: [facility] Comment on above: Abnormal uterine ble eding (AUB) (Primary Dx) Start: 03-08-2025 End: 03-08-2025 ambulatory KEVYN GAYTAN Not Available Start: 01-26-2025 End: 01-26-2025 Initial preventive medicine new pt age 18-39yrs Kevyn Gaytan DO Work Phone: [facility] Comment on above: Encounter for gyneco logical examination without abnormal finding (Primary Dx); Encounter for Papanicolaou smear of cervix; Screening for STDs (sexually transmitted diseases); Unprotected sex; Abnormal uterine bleeding (AUB) Start: 01-26-2025 End: 01-26-2025 Patient encounter status Kevyn Gaytan DO Work Phone: [facility] Start: 01-26-2025 End: 01-26-2025 ambulatory KEVYN GAYTAN Not Available Start: 10-28-2024 End: 10-28-2024 ambulatory Maco Aaron Facility:[facility] Start: 10-28-2024 End: 10-28-2024 Patient encounter procedure Maco Aaron CLIENT REPRESENTATIVE-C [facility] Start: 10-27-2024 End: 10-28-2024 Emergency department patient visit Kenzie Han [facility] Start: 10-26-2024 ambulatory Maco Aaron Facility :[facility] Start: 06-17-2024 End: 06-17-2024 Emergency department patient visit Varun Naif [facility] Start: 04-15-2024 End: 04-15-2024 Emergency department patient visit Ej Vizcarra [facility] Start: 04-05-2024 End: 04-05-2024 Emergency department patient visit Jensen Lua [facility] Procedures Date Procedure Procedure Detail Performing Clinician Start: 03-16-2025 [facility] Bushra Amezcua NP Work Phone: Start: 03-16-2025 [facility] EGFR Bushra 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 Phone: Start: 03-16-2025 [facility] LIPID PANEL Sergei Gómez NP Work Phone: Plan of Treatment Date Care Activity Detail Author Start: 01-30-2026 End: 01-30-2026 Patient encounter procedure 01/30/2026 3:00 PM EDT Office Visit [facility] [address] [place] [id number] Kevyn Gaytan DO [address] [place] [address] [facility] Start: 06-23-2025 End: 06-23-2025 Patient encounter procedure 06/23/2025 3:40 PM EDT Office Visit [facility] [place] [facility] [address] [place] [id number] Bushra Amezcua NP [address] [place] [address] [facility] Start: 06-21-2025 End: 06-21-2025 Patient encounter procedure 06/21/2025 3:20 PM EDT Office Visit [facility] [address] [place] [address] Violetta Rice APRN-TESSA [address] [place] [address] [facility] Start: 06-16-2025 Hemoglobin A1c measurement Diabetes: Hemoglobin A1C [facility] Start: 06-06-2025 End: 06-06-2025 Patient encounter procedure [facility] Start: 06-06-2025 End: 06-06-2025 Professional / ancillary services management [facility] Start: 05-26-2025 End: 05-26-2025 Patient encounter procedure [facility] Comment on above: Arrived Start: 05-23-2025 Influenza vaccination [facility] Start: 05-12-2025 End: 05-12-2025 Patient encounter procedure [facility] Comment on above: Arrived Start: 05-10-2025 End: 05-10-2025 Patient encounter procedure 05/10/2025 3:05 PM EDT Office Visit [facility] [address] [place] [address] Violteta Rice APRN-HIGH PRESSURE BOILER OPERATOR [address] [place] [address] [facility] Start: 04-14-2025 End: 04-14-2026 NuSwab Vaginitis Plus (VG+) NuSwab Vaginitis Plus (VG+) Microbiology Routine History of sexual behavior with high risk of exposure to communicable disease Expected: 04/14/2025 (Approximate), Expires: 04/14/2026 [facility] Work Phone: Comment on above: Expected: 04/14/2025 (Approximate), Expires: 04/14/2026 Start: 04-14-2025 End: 04-14-2025 Patient encounter procedure 04/14/2025 9:00 AM EDT Office Visit [facility] [address] [place] [address] Bushra Amezcua NP [address] [place] [address] [facility] Start: 03-29-2025 End: 03-29-2025 [facility] Comment on above: [facility] Start: 03-17-2025 End: 03-17-2025 Patient encounter procedure 03/17/2025 9:00 AM EDT Office Visit [facility] [address] [place] [address] Bushra Amezcua NP [address] [place] [address] Arrived [facility] Comment on above: Arrived Start: 03-16-2025 End: 03-16-2026 Comprehensive metabolic 2000 panel - Serum or Plasma Comprehensive metabolic panel Lab Routine Hypothyroidism, unspecified type History of prediabetes Encounter to establish care Screening for lipid disorders Screening for heart disease Expected: 03/16/2025 (Approximate), Expires: 03/16/2026 [facility] Comment on above: Expected: 03/16/2025 (Approximate), Expires: 03/16/2026 Start: 03-16-2025 End: 03-16-2026 Lipid 1996 panel - Serum or Plasma Lipid panel Lab Routine Hypothyroidism, unspecified type History of prediabetes Encounter to establish care Screening for lipid disorders Screening for heart disease Expected: 03/16/2025 (Approximate), Expires: 03/16/2026 [facility] Comment on above: Expected: 03/16/2025 (Approximate), Expires: 03/16/2026 Start: 03-16-2025 End: 03-16-2026 TSH REFLEX TO T4F TSH REFLEX TO T4F Lab Routine Hypothyroidism, unspecified type History of prediabetes Encounter to establish care Screening for lipid disorders Screening for heart disease Expected: 03/16/2025 (Approximate), Expires: 03/16/2026 [facility] Work Phone: Comment on above: Expected: 03/16/2025 (Approximate), Expires: 03/16/2026 Start: 03-16-2025 End: 03-16-2025 Patient encounter procedure 03/16/2025 9:00 AM EDT Office Visit [facility] [address] [place] [address] Bushra Amezcua NP [address] [place] [address] Arrived [facility] Comment on above: Arrived Start: 03-08-2025 End: 03-08-2025 Patient encounter procedure 03/08/2025 9:30 AM EDT Office Visit [facility] [address] [place] [address] Kevyn Gaytan DO [address] [place] [address] [facility] Start: 2015 Urine screening for protein Diabetes: Urine Protein Screening [facility] Start: 2006 Glaucoma screening Diabetes: R etinopathy Screening [facility] 25-hydroxyvitamin D3 [Mass/volume] in Serum or Plasma Vitamin D 25 hydroxy Total Lab Routine Colitis Other fatigue Hypothyroidism, unspecified type Type 2 diabetes mellitus without complication, without long-term current use of insulin (HCC) Ordered: 05/12/2025 [facility] Comment on above: Ordered: 05/12/2025 HANSA by IFA, Reflex t o Titer and Pattern HANSA by IFA, Reflex to Titer and Pattern Lab Routine Colitis Other fatigue Hypothyroidism, unspecified type Type 2 diabetes mellitus without complication, without long-term current use of insulin (HCC) Ordered: 05/12/2025 [facility] Comment on above: Ordered: 05/12/2025 CBC W Auto Different ial panel - Blood CBC and differential Lab Routine Colitis Other fatigue Hypothyroidism, unspecified type Type 2 diabetes mellitus without complication, without long-term current use of insulin (HCC) Ordered: 05/12/2025 [facility] Comment on above: Ordered: 05/12/2025 Cobalamin (Vitamin B 12) [Mass/volume] in Serum or Plasma Vitamin B12 Lab Routine Colitis Other fatigue Hypothyroidism, unspecified type Type 2 diabetes mellitus without complication, without long-term current use of insulin (HCC) Ordered: 05/12/2025 [facility] Work Phone: Comment on above: Ordered: 05/12/2025 Comprehensive metabo lic 2000 panel - Serum or Plasma Comprehensive metabolic panel Lab Routine Colitis Other fatigue Hypothyroidism, unspecified type Type 2 diabetes mellitus without complication, without long-term current use of insulin (HCC) Ordered: 05/12/2025 [facility] Comment on above: Ordered: 05/12/2025 IGP,CTNG,RFXAPTHPVAL L,1 IGP,CTNG,RFXAPTHPVALL,1 Lab Routine Encounter for Papanicolaou smear of cervix Screening for STDs (sexually transmitted diseases) Ordered: 01/26/2025 [facility] Work Phone: Comment on above: Ordered: 01/26/2025 Magnesium [Mass/volu me] in Serum or Plasma Magnesium Lab Routine Colitis Other fatigue Hypothyroidism, unspecified type Type 2 diabetes mellitus without complication, without long-term current use of insulin (HCC) Ordered: 05/12/2025 [facility] Comment on above: Ordered: 05/12/2025 TSH REFLEX TO T4F TSH REFLEX TO T4F Lab Routine Hypothyroidism, unspecified type Ordered: 04/14/2025 [facility] Comment on above: Ordered: 04/14/2025 TSH RFX ON ABNORMAL TO FREE T4 TSH RFX ON ABNORMAL TO FREE T4 Lab Routine Colitis Other fatigue Hypothyroidism, unspecified type Type 2 diabetes mellitus without complication, without long-term current use of insulin (HCC) Ordered: 05/12/2025 [facility] Comment on above: Ordered: 05/12/2025 TSH RFX ON ABNORMAL TO FREE T4 TSH RFX ON ABNORMAL TO FREE T4 Lab Routine Hypothyroidism, unspecified type Ordered: 05/17/2025 [facility] Work Phone: Comment on above: Ordered: 05/17/2025 VAGINITIS (HTRX) VAGINITIS (HTRX ) Lab Routine Screening for STDs (sexually transmitted diseases) Unprotected sex Ordered: 01/26/2025 [facility] Comment on above: Ordered: 01/26/2025 Immunizations Immunization Date Immunization Notes [facility] influenza, injectabl e, quadrivalent, contains preservative Bushra 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 Phone: [facility] Payers Date Payer Category Payer Private Health Insurance [id number] 2024 [facility] [id number] 2024 Unknown [id number] 2024 Self-pay 2024 Private Health Insurance [id number] 1996 Unknown [id number] [id number] 1996 Unknown [id number] [id number] 79.2.727 1996 Unknown [id number] [id number] 79.2.727 1996 Unknown [id number] [id number] 79.2.727 1996 Unknown [id number] [id number] 79.2.727 1996 Unknown [id number] [id number] 79.2.727 1996 Unknown [id number] [id number] 79.2.1259 1996 Unknown [id number] [id number] 79.2.1259 1996 Unknown [id number] [id number] 79.2.1259 1996 Unknown [id number] 2.16.840.1.576632.3.5 79.2.1259 1996 Unknown [id number] [id number] 79.2.1259 1996 Unknown [id number] 2.16.840.1.491239.3.5 79.2.1259 1996 Unknown [id number] [id number] 79.2.1259 1996 Unknown [id number] [id number] 79.2.1259 1996 Unknown [id number] [id number] 79.2.1259 1996 Unknown [id number] 79.2.1259 Social History Date Type Detail Facility Tobacco smoking status [facility] Start: 01-26-2025 End: 04-14-2025 Sex Assigned At Female [facility] Start: 10-28-2024 Tobacco smoking status Never s moked tobacco (finding) [facility] Start: 01-26-2025 Tobacco smoking stat [facility] Occasional tobacco smoker [facility] History of tobacco use Cigarette Smoker [facility] Start: 01-26-2025 End: 03-29-2025 Tobacco use and exposure Smokeless tobacco non-user [facility] Start: 01-26-2025 End: 06-06-2025 Alcoholic beverage intake Ex-drinker (finding) [facility] Start: 01-26-2025 End: 04-14-2025 History of Social function [facility] How often to you hav e a drink containing alcohol? Monthly or less [facility] How many standard drinks containing alcohol do you have on a typical day? 1 or 2 [facility] How often do you hav e 6 or more drinks on 1 occasion? Never [facility] Start: 1996 Sex assigned at Not on file N [facility] Start: 04-05-2024 Sex Female (finding) [facility] Start: 03-29-2025 Tobacco smoking stat [facility] Ex-smoker [facility] History of tobacco use Current smoker [facility] Medical Equipment Procedure Code Equipment Code Equipment Origin al Text Equipment Identifier Dates 1 each by In Vit ro route Daily as needed (blood sugar) [id number] Start: 03-17-2025 1 each Daily as needed (blood sugar) [id number] Start: 03-17-2025 Functional Status Date Assessment Result Facility 04-14-2025 Patient Health Quest ionnaire 2 item (PHQ-2) [Reported] [facility] 04-14-2025 PHQ-9 quick depressi on assessment panel [Reported.PHQ] [facility] 01-26-2025 Total score [AUDIT-C] 1 01/27/20 25 3:30 PM Deepali Brady MA [facility] 01-26-2025 Patient Health Quest ionnaire 2 item (PHQ-2) [Reported] [facility] 10-27-2024 Functional Status N/A [facility] 06-17-2024 Functional Status N/A [facility] 04-15-2024 Functional Status N/A [facility] 04-05-2024 Functional Status N/A [facility] Clinical Notes 04-05-2024 to 06-06-2025 Cici Glover MA - 06/06/2025 9:30 AM EDTDamatthew Amezcua NP - 05/26/2025 3:40 PM EDTResult Encounter Note - Bushra Amezcua NP - 05/17/2025 3:32 PM EDT Note Date & Type Note Facility 06-06-2025 History of Presen t illness Narrative Images from the original note were not included. Kevyn Gaytan, Obstetrics and Gynecology Lelia Shay 1995 06/06/25 [id number] Exam Chief Complaint Patient presents with Follow-up [...] as needed (blood sugar) 100 strip 3 hydrocortisone 2.5 % cream [...] Kevyn Gaytan. Signature Cici Glover MA Date 06/06/25 . Time 10:28 AM . The documentation recorded by the scribe accurately reflects the service(s) I personally performed and the decisions I made. Signature Alan Gaytan D.O. Date 06/06/25 Time 5:00PM. documented in this encounter [facility] 05-26-2025 History of Presen t illness Narrative Images from the original note were not included. Lelia Shay is a 29 y.o. female presents with chief complaint of follow up. Immunizations (Receive today) HPI: History of Present Illness The patient is a 29-year-old female who presents for a follow-up visit. She reports that her bowel movements have returned to normal, although they are less frequent than before. She experiences abdominal discomfort, which she attributes to her back pain. The pain is localized to her back and sides, particularly when she is working and standing for prolonged periods. She mentions a history of a herniated disc in her lumbar spine from 2 years ago, which was managed with therapy and did not require surgery. She has been on her current thyroid medication for approximately 2 to 3 weeks and has a sufficient supply for another 2 to 3 weeks. Recent lab results indicated that her thyroid levels are still off, with a TSH level of 6.3, necessitating an increase in her thyroid medication dosage. Additionally, her vitamin D levels are low, and she has been advised to take an hbdg-ipa-tlbiphi supplement. She has completed her course of Flagyl and a 10-day medication regimen to regulate her menstrual cycle. She has not been taking Zoloft as she has not been experiencing anxiety recently. She is currently on semaglutide and has not experienced any side effects from it. MEDICATIONS: Current Outpatient Medications Medication Instructions Alcohol Sheets (Alcoh-Wipe) sheet Test daily before all meals/snacks and once before bedtime. Blood Glucose Monitoring Suppl ([employer] InsuLinx System) w/Device kit Test daily before all meals/snacks and once before bedtime. fluocinonide (Lidex) 0.05 % external solution Apply [...] not apply, Daily PRN levothyroxine (SYNTHROID, LEVOXYL) 75 mcg, Oral, Daily semaglutide (OZEMPIC) 1 mg, Subcutaneous, Weekly ALLERGIES: Allergies Allergen Reactions Latex Rash Review of Systems Medical, Surgical, Family, and Social History reviewed. General: Denies fever, chills, fatigue, HINES or weight loss/gain CV: Denies CP, palpitations or swelling in legs Resp: denies cough, SOB or wheezing GI: Denies abd pain/n/v/c/d Skin: Denies rash Neuro: Denies LH or dizziness OBJECTIVE: Visit Vitals BP 124/76 (BP Location: Left arm, Patient Position: Sitting, BP Cuff Size: Large adult) Pulse 83 Temp 98 F (Temporal) Ht 5' 5 Wt 219 lb 12.8 oz LMP 04/20/2025 SpO2 97% BMI 36.58 kg/m OB Status Having periods Smoking Status Former BSA 2.14 m BP Readings from Last 3 Encounters: 05/26/25 124/76 05/12/25 124/76 04/14/25 132/82 Wt Readings from Last 3 Encounters: 05/26/25 219 lb 12.8 oz 05/12/25 217 lb 3.2 oz 04/14/25 222 lb Physical Exam Physical Exam Respiratory: Clear to auscultation, no wheezing, rales or rhonchi Cardiovascular: Regular rate and rhythm, no murmurs, rubs, or gallops Results Labs - Thyroid level: 05/12/2025, 6.3 - Vitamin D level: 05/12/2025, 16 ASSESSMENT AND PLAN: Assessment & Plan 1. Hypothyroidism: - Thyroid levels remain suboptimal, with a recent TSH level of 6.3. - A new prescription for levothyroxine 75 mcg was sent on 05/17/2025, but she has not yet picked it up. She is advised to start the new dosage immediately. - If symptoms persist, the dosage may be increased to 88 mcg. 2. Vitamin D deficiency: - Vitamin D levels are low, with a recent level of 16. - She is advised to take an phdf-ofc-qbdsvsa vitamin D3 supplement, likely between 600 to 800 IU daily, and follow the directions on the bottle. 3. Anxiety: - She has not been taking Zoloft as prescribed and has not picked up the medication. She is reminded that Zoloft is a maintenance medication and should be taken regularly to manage her anxiety. 4. Health maintenance: - She will receive the influenza vaccine during this visit. 5. Weight management: - She is currently on semaglutide and has two more weeks of her current dosage. A new prescription for semaglutide 1 mg will be sent to pharmacy. Follow-up: The patient will follow up in 1 month. Assessment/Plan Diagnoses and all orders for this visit: Hypothyroidism, unspecified type Colitis Other fatigue Lumbar herniated disc Type 2 diabetes mellitus without complication, without long-term current use of insulin (HCC) - semaglutide (Ozempic) 2 MG/1.5ML solution pen-injector; Inject 1 mg under the skin 1 (one) time per week for 28 days Anxiety Need for vaccination - Flu vaccine (IIV4) greater than or equal to 3 years old, with preservative Health Maintenance Due Topic Date Due Diabetes: Retinopathy Screening Never done Diabetes: Urine Protein Screening Never done documented in this encounter [facility] 05-17-2025 Progress note Formatting of t his note might be different from the original. Thyroid meds need increased. Will need to retest in 5 weeks. Will send in a new dosage. Low vitamin d. Pt should take an over the counter supplement and follow directions of this on bottle. All other labs are stable. [facility] 05-17-2025 Miscellaneous Notes Thyroid meds need increased. Will need to retest in 5 weeks. Will send in a new dosage. Low vitamin d. Pt should take an over the counter supplement and follow directions of this on bottle. All other labs are stable. documented in this encounter [facility] 05-12-2025 History of Presen t illness Narrative Images from the original note were not included. Lelia Shay is a 29 y.o. female presents with chief complaint of ER Follow-up HPI: History of Present Illness The patient is a 29-year-old female who presents for evaluation of colitis, fatigue, and anxiety. She was diagnosed with gastritis at [facility] on 05/08/2025. She has not yet started the prescribed medications due to financial constraints. She continues to experience mild stomach pain and occasional sharp pains, although these symptoms have improved since Friday. She reports frequent bowel movements but no presence of mucus in her stool. She has been feeling unwell recently, which she attributes to her dietary changes following her diabetes diagnosis. She has been avoiding spicy foods and has lost 10 pounds in the past 2 months since starting Ozempic. She experiences significant nausea and is unsure if she needs a refill of her medication. She is currently on a weekly regimen of Ozempic injections, administered either in her abdomen or thighs, and has not missed any doses. She is considering reducing her sugar intake. Her primary concern today is her sleep. Despite maintaining regular sleep hours, she feels extremely fatigued. She has been working continuously without a day off since 03/25/2025 and is considering applying for FMLA. She does not believe she is depressed but acknowledges feeling tired. She is also contemplating changing jobs due to the demanding work schedule. She has discontinued her Zoloft 25 mg medication due to her heavy workload and fear of potential side effects. 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 Her family has a history of breast cancer and ovarian cancer. MEDICATIONS: Current Outpatient Medications Medication Instructions acetaminophen-codeine (Tylenol w/ Codeine #3) 300-30 MG tablet 1 tablet, Every 6 hours PRN Alcohol Sheets (Alcoh-Wipe) sheet Test daily before all meals/snacks and once before bedtime. Blood Glucose Monitoring Suppl ([employer] InsuLinx System) w/Device kit Test daily before all meals/snacks and once before bedtime. ciprofloxacin (CIPRO) 500 mg, 2 times daily fluocinonide (Lidex) 0.05 % [...] daily for 10 days- have withdrawal bleed. metroNIDAZOLE (FLAGYL) 500 mg, 3 times daily ondansetron ODT (ZOFRAN-ODT) 4 mg, Every 8 hours PRN Ozempic (0.25 or 0.5 MG/DOSE) 0.5 mg, Subcutaneous, Weekly sertraline (ZOLOFT) 25 mg, Oral, Daily ALLERGIES: Allergies Allergen Reactions Latex Rash Review of Systems Medical, Surgical, Family, and Social History reviewed. General: Denies fever, chills, fatigue, HINES or weight loss/gain CV: Denies CP, palpitations or swelling in legs Resp: denies cough, SOB or wheezing GI: Denies abd pain/n/v/c/d Skin: Denies rash Neuro: Denies LH or dizziness OBJECTIVE: Visit Vitals BP 124/76 (BP Location: Left arm, Patient Position: Sitting, BP Cuff Size: Large adult) Pulse 82 Temp 98.4 F (Temporal) Ht 5' 5 Wt 217 lb 3.2 oz LMP 04/20/2025 SpO2 99% BMI 36.14 kg/m OB Status Having periods Smoking Status Former BSA 2.13 m BP Readings from Last 3 Encounters: 05/12/25 124/76 04/14/25 132/82 03/17/25 118/76 Wt Readings from Last 3 Encounters: 05/12/25 217 lb 3.2 oz 04/14/25 222 lb 03/17/25 227 lb 6.4 oz Physical Exam Physical Exam General: alert & oriented, NAD Head: NC/AT Oral Cavity: MMM Skin: warm, dry Heart: RRR, No m/r/g, S1S2 nml Lungs: CTA b/l Abdomen: lower abdominal tenderness Musculoskeletal: normal gait Extremities: no clubbing, cyanosis or edema Neurological: nonfocal Psych: mood/affect full range Respiratory: Clear to auscultation, no wheezing, rales or rhonchi Cardiovascular: Regular rate and rhythm, no murmurs, rubs, or gallops Gastrointestinal: Mild pain noted in the left lower abdomen upon palpation Results Labs - Urine test: 05/08/2025, Negative - Thyroid levels: Normalized Imaging - CT scan of the abdomen: 05/08/2025, Colitis identified Flowsheet Row Office Visit from 05/12/2025 in [facility] Medicine with Bushra Amezcua NP Hospital Information ED, Hospital or Senior Care Facility Discharge? ED Patient has been contacted within 2 days of being seen in the ED Yes Diagnosis Colitis Discharge Date 05/08/25 Discharged To: Home Setting Discharge Hospital [facility] Engagement Admission Date 05/08/25 Medications Discharge medications reviewed and reconciled from hospital? Yes Is the patient having any side effects they believe may be caused by any medication additions or changes? No Does the patient have all medications ordered at discharge? Yes Is the patient taking all medications as directed (includes completed medication regime)? No Appointments Self Management Patient Teaching Wrap Up ASSESSMENT AND PLAN: Assessment & Plan 1. Colitis: - Diagnosed with colitis on 05/08/2025, confirmed by a CT scan. She reports sharp pains in her stomach, which are less severe than on Friday. - Physical exam findings include mild pain in the left lower abdomen. Urine test results were negative. - A set of labs including vitamin D, vitamin B12, magnesium, thyroid, CMP, CBC, and autoimmune markers will be ordered to further investigate her symptoms. An excuse note for work will be provided for this weekend. - She was prescribed Cipro, Flagyl, Tylenol, and Zofran but has not started these medications due to financial constraints. She is advised to start the antibiotics (Cipro and Flagyl) immediately. 2. Fatigue: - Reports feeling super tired despite sleeping normal hours, likely due to her demanding work schedule without days off since 03/25/2025. - Thyroid levels have normalized, ruling out thyroid dysfunction as a cause. Colitis may also be contributing to her fatigue. 3. Anxiety: - She has been prescribed Zoloft 25 mg for anxiety but has decided to hold off on taking it due to concerns about side effects. She is reassured that Zoloft is safe and effective, and she is encouraged to start taking it. Follow-up: A follow-up visit is scheduled in 2 weeks. Assessment/Plan Diagnoses and all orders for this visit: Colitis - Vitamin B12 - Magnesium - TSH RFX ON ABNORMAL TO FREE T4 - Comprehensive metabolic panel - Vitamin D 25 hydroxy Total - CBC and differential - HANSA by IFA, Reflex to Titer and Pattern Other fatigue - Vitamin B12 - Magnesium - TSH RFX ON ABNORMAL TO FREE T4 - Comprehensive metabolic panel - Vitamin D 25 hydroxy Total - CBC and differential - HANSA by IFA, Reflex to Titer and Pattern Hypothyroidism, unspecified type - Vitamin B12 - Magnesium - TSH RFX ON ABNORMAL TO FREE T4 - Comprehensive metabolic panel - Vitamin D 25 hydroxy Total - CBC and differential - HANSA by IFA, Reflex to Titer and Pattern Type 2 diabetes mellitus without complication, without long-term current use of insulin (HCC) - Vitamin B12 - Magnesium - TSH RFX ON ABNORMAL TO FREE T4 - Comprehensive metabolic panel - Vitamin D 25 hydroxy Total - CBC and differential - HANSA by IFA, Reflex to Titer and Pattern Lower abdominal pain Health Maintenance Due Topic Date Due Diabetes: Retinopathy Screening Never done Diabetes: Urine Protein Screening Never done Influenza Vaccine (1) 05/23/2025 documented in this encounter [facility] 04-15-2025 Progress note Formatting of t his note might be different from the original. Thyroid is where it needs to be now. I will send in a refill of thyroid meds. [facility] 04-15-2025 Miscellaneous Notes Thyroid is where it needs to be now. I will send in a refill of thyroid meds. documented in this encounter [facility] 04-14-2025 History of Presen t illness Narrative [...] recalls an incident 4 years ago in [place] where her anxiety was so severe that she lost all feeling from the waist down for about an hour. Her anxiety has caused significant distress at work, leading to a hospital visit due to high anxiety levels. She has been employed at an [employer] for nearly a year. She also reports [...] work around it. Occupations: Works at an [employer] Sleep: Trouble falling asleep and difficulty waking up MEDICATIONS: Current Outpatient Medications Medication Instructions Alcohol Sheets (Alcoh-Wipe) sheet Test daily before all meals/snacks and once before bedtime. Blood Glucose Monitoring Suppl (Point InsideStyle InsuLinx System) w/Device kit Test daily before [...] 10 days- have withdrawal bleed. nystatin (Mycostatin) 877867 UNIT/GM powder Topical, 2 times daily Ozempic [...] Vaccine (1) 05/23/2025 documented in this encounter [facility] 03-29-2025 History of Presen t illness Narrative [...] NONSPECIFIC SKIN ERUPTION Right Medial Thigh Subtle [place] patch Unknown rash due to resolving. Start [...] hold pressure until bleeding has stopped or OTC wart remover freeze off. 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 She has confirmed that her [...] 10 days- have withdrawal bleed. nystatin (Mycostatin) 874146 UNIT/GM powder Topical, 2 times daily ALLERGIES: [...] complication, without long-term current use of insulin ([facility]) - Blood Glucose Monitoring Suppl (FreeStyle InsuLinx System) w/Device kit; Test daily before [...] (Season Ended) 2025 documented in this encounter [facility] 03-16-2025 History of Presen t illness Narrative Images from the original note were not included. Lelia Shay is a 29 y.o. female presents with chief complaint of establish care. HPI: History of Present Illness The patient is a 29-year-old female who comes in today to establish care. She has a history of hypothyroidism, with [...] the care of Dr. Kevyn Gaytan, a senior android software engineer in [place], for amenorrhea, which has persisted for over [...] a treatment. SOCIAL HISTORY She lives in [place] and works at [employer] in [place]. FAMILY HISTORY Her sister has anemia. MEDICATIONS: [...] over a year. - Currently seeing a senior android software engineer who prescribed Provera, which is helping with her hormones. - No additional treatment changes at this time. - Follow-up with senior android software engineer as needed. 4. Suspected yeast infection. - [...] have worsened the condition. - Referral to quitline counselor if symptoms persist. 6. Athlete's foot. - [...] infection of the skin - nystatin (Mycostatin) 219769 UNIT/GM powder; Apply topically in the morning and before bedtime. Dandruff - Ambulatory referral to Dermatology; Future Tinea pedis of both feet - clotrimazole (Lotrimin) 1 % cream; Apply topically in the morning and before bedtime. There are no preventive care reminders to display for this patient. documented in this encounter [facility] 03-08-2025 History of Presen t illness Narrative Images from the original note were not included. Kevyn Gaytan DO Obstetrics and Gynecology Lelia Shay 1995 03/08/25 [id number] Exam Chief Complaint Patient presents with Follow-up [...] Does desire in the future. Went to [place] for a few weeks. Did not take Provera from last visit when she returned. She voiced pharmacy did not have. 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 Have withdraw bleed. Keep diary. She did bring records from [place] today- to be scanned in. 1 month [...] 03/08/25 Time 5:00PM. documented in this encounter [facility] 01-26-2025 History of Presen t illness Narrative Images from the original note were not included. Kevyn Gaytan, DO Obstetrics and Gynecology Lelia Luna 1995 01/26/25 [id number] New Patient Exam Chief Complaint Patient presents with Gynecologic Exam New patient- recently moved to [place] from [place]. LMP: 02/2024, normal flow, lasted 5 days BC: None- Not sexually active at this time. Last pap 12/2023- neg. Denies abnormal paps. Denies urinary or bowel concerns. Menstrual Problem Would like to discuss amenorrhea. Lifestyle changes would be she moved to [facility] and has been off thyroid medications. Feels [...] costovertebral angle tenderness, no obvious scoliosis/kyphosis. FEMALE GENITOURINARY:md psychiatry in room -normal vaginal mucosa- increased leukarrhea, [...] Screening for STDs (sexually transmitted diseases) Z11.3 IGP,CTNG,RFXAPTHPVALL,,45 Increase leukarrhea VAGINITIS (HTRX) 4. Unprotected sex Z72.51 VAGINITIS (HTRX) With unprotected encounter culture obtained. Will call with results. 5. Abnormal uterine bleeding (AUB) N93.9 Voiced had labs/ testing (salpingogram) in [place] for PCOS. Educated could do progesterone for 10 days and have withdrawal bleed.She is going to email documents. Discussed thyroid- was on medication. Was taking medication for [place] 100 mg levothyroxine. Biggest symptoms was weight gain, fatigue. She does not have PCP. Recommend Jj Galan in [place]. Moved from [place] to help her sister with her 2 [...] 01/26/25 Time 5:00PM. documented in this encounter [facility] 10-28-2024 Hospital Discharg e instructions Patient Education 10/28/2024 01:23:43 Influenza, Adult, Dmqp-wj-Iclg Influenza, Adult Influenza is also called the [...] Your doctor may want you to: Take oxfy-bbo-xpxxirn medicines. Drink plenty of fluids. The flu [...] foods include: ?Bananas. ?Applesauce. ?Rice. ?Lean meats. ?[place]. ?Crackers. Do not eat or drink: ?Fluids that have a lot of sugar or caffeine. ?Alcohol. ?Spicy or fatty foods. General instructions Take idov-kpz-jufszro and prescription medicines only as told by [...] use soap and water, use alcohol-based hand continuity writer. Keep all follow-up visits. How is this [...] spreads easily from person to person. Take xbhm-obj-zbtusoy and prescription medicines only as told by your doctor. Getting a flu shot every year is the best way to not get the flu. This information is not intended to replace advice given to you by your health care provider. Make sure you discuss any questions you have with your health care provider. Document Revised: 04/25/2021 Document Reviewed: 04/27/2021 [employer] Patient Education 2023 [employer]. Follow Up Care 10/27/2024 22:15:13 With:[employer] Address: [facility] [place] [address] [facility] (1) When:10/31/2024 Comments:You can use the naproxen every 12 hours as needed for fever use of Bromfed every 6 hours as needed for cough and congestion. Please follow-up with your primary care doctor for further evaluation management. Please return the ED for any new or worsening symptoms. With:XXXX NONE Address: [place] When:Within 3 Day(s) [facility] 10-28-2024 Note ED Patient Education Note [...] doctor may want you to: ??? Take tnuu-yjr-yzgooms medicines. ??? Drink plenty of fluids. The [...] Applesauce. ? Rice. ? Lean meats. ? [place]. ? Crackers. ??? Do not eat or drink: ? Fluids that have a lot of sugar or caffeine. ? Alcohol. ? Spicy or fatty foods. General instructions ??? Take rgwe-frd-imdjpnf and prescription medicines only as told by [...] use soap and water, use alcohol-based hand continuity writer. ??? Keep all follow-up visits. How is [...] in the [place] (more content not included)... [facility] 10-27-2024 Evaluation + Plan note Extrac sindy [...] and congestion, 200 mL, Refill(s) 0, [id number], 164, cm, 10/27/24 22:22:00 EST, Height/Length Dosing, 103.5, kg, 10/27/24 22:22:00 EST, Weight Dosing ketorolac, 30 mg = 1 mL, Injection, IntraMuscular, Once, Stop date 10/27/24 23:15:00 EST, STAT, Start date 10/27/24 23:15:00 EST, 10/27/24 23:15:00 EST naproxen, 500 mg = 1 tab(s), Oral, BID, PRN for pain, # 20 tab(s), Refills(s) 0, Pharmacy: [facility] #[id number], 164, cm, 10/27/24 22:22:00 EST, Height/Length Dosing, 103.5, kg, 10/27/24 22:22:00 EST, Weight Dosing Influenza A&B Ag [facility] 09-26-2024 Evaluation + Plan noteExtracted from: Title:ED Note Author:Ej Vizcarra DO Date: Acute COVID-19 (U07.1: COVID -19) Acute upper respiratory infection (J06.9: Acute upper respiratory infection, unspecified) Orders: brompheniramine/dextromethorphan/PSE, 5 mL, Oral, QID for cold symptoms, 200 mL, Refill(s) 0, [facility]/pharm[facility] #[id number], 164, cm, 06/17/24 5:51:00 EDT, Height/Length Dosing, 105.5, kg, 06/17/24 5:51:00 EDT, Weight Dosing dexamethasone, 10 mg = 1 mL, Injection, Oral, Once, Stop date 06/17/24 7:06:00 EDT, STAT, Start date 06/17/24 7:06:00 EDT, [facility]- max dose 12 mg, 06/17/24 7:06:00 EDT ondansetron, 4 mg = 1 tab(s), Oral, q8hr, PRN Nausea/Vomiting, # 12 tab(s), Refills(s) 0, Pharmacy: [facility]/pharmacy #[id number], 164, cm, 06/17/24 5:51:00 EDT, Height/Length Dosing, 105.5, kg, 06/17/24 5:51:00 EDT, Weight Dosing [facility] 09-26-2024 Hospital Discharge instructions Patient Education [...] treated at home with rest, fluids, and dtad-hqn-ezefshk medicines. Severe symptoms may be treated in [...] hands often or use an alcohol-based hand continuity writer. 8.Cover your nose and mouth when coughing [...] provider. Document Revised: 09/16/2023 Document Reviewed: 05/23/2023 [employer] [facility] Patient Education 2023 [employer]. 06/17/2024 07:05:59 Upper Respiratory Infection, Adult Upper [...] medicines to help relieve symptoms, such as: Pshr-iht-qmtxstg cold medicines. Cough suppressants. Coughing is a [...] and other clear broths. General instructions Take lffm-hzj-mtfmbdh and prescription medicines only as told by [...] and water are not available, use hand continuity writer. Avoid touching your mouth, face, eyes, or [...] provider. Document Revised: 04/10/2022 Document Reviewed: 04/10/2022 [employer] [facility] Patient Education 2023 [employer]. Follow Up Care 06/17/2024 05:46:58 With:Kenia Galan Address: [address] [place] [address]- Business (1) When:06/20/2024 07:05:00 Comments:Call the office [...] orlegs, or any new or worsening symptoms. [facility] 09-26-2024 NoteED Patient Education Note Infectious [...] treated at home with rest, fluids, and ghcz-mxr-vcukvnj medicines. ? Severe symptoms may be treated [...] hands often or use an alcohol-based hand continuity writer. 8. Cover your nose and mouth when [...] provider. Document Revised: 09/16/2023 Document Reviewed: 05/23/2023 [employer] Patient Education ? 2023 [employer] Upper Respiratory Infection, Adult An upper [...] ? Fatigue. ? Fever. (more content not included)...[facility]07-25-2024 Evaluation + Plan noteExtracted from: Title:ED Note Author:Benji Mcneil, Koko Lei Ck te:04/15/24 1. Cellulitis of great toe, right (L03.031: Cellulitis of right toe) Orders: doxycycline, 100 mg = 1 cap(s), Oral, BID, # 20 cap(s), Refills(s) 0, Pharmacy: [facility]/pharmacy #[id number], 164, cm, 04/15/24 6:28:00 EDT, Height/Length Dosing, 103, kg, 04/15/24 6:28:00 EDT, Weight Dosing [facility] 07-25-2024 Hospital Discharge instructions Patient Education [...] Follow these instructions at home: Medicines Take muql-ifv-yxmgmei and prescription medicines only as told by [...] such as antibiotic medicines or antihistamines. Take uazm-ara-bzzuspi and prescription medicines only as told by [...] provider. Document Revised: 06/19/2022 Document Reviewed: 06/20/2022 [employer] [facility] Patient Education 2022 [employer]. Follow Up Care 04/15/2024 06:24:12 With:Tino Garcia Address: [facility] [place] [address] [place] [address]- 0 Business (1) When:04/18/2024 06:46:37 Comments:Return to the emergency room if your pain/redness gets worse, red streaks going up your foot, feveror any new symptoms With:Kenia Galan Address: [place] [address]- Business (1) When:Within 3 Day(s) [facility] 07-15-2024 Hospital Discharge instructions Patient Education [...] Follow these instructions at home: Medicines Take rxnb-iye-pxtckwj and prescription medicines only as told by [...] such as antibiotic medicines or antihistamines. Take sxox-xbp-jrmpfzg and prescription medicines only as told by [...] provider. Document Revised: 06/19/2022 Document Reviewed: 06/20/2022 [employer] [facility] Patient Education 2022 [employer]. Follow Up Care 04/05/2024 19:12:30 With:Kenia Galan Address: [address] [place] [address]- Business (1) When:04/08/2024 19:33:09 [facility]07-15-2024 NoteED Patient Education Note Infectious Disease [...] these instructions at home: Medicines ? Take rrgp-ywu-hqschys and prescription medicines only as told by [...] as antibiotic medicines or antihistamines. ? Take rfai-giz-ccukcof and prescription medicines only as told by [...] provider. Document Revised: 06/19/2022 Document Reviewed: 06/20/2022 [facility] [facility] Patient Education ? 2022 [employer].[facility] 04-05-2024 Evaluation + Plan noteExtracted from: Title:ED Note Author:Jensen Lua DO Date [...] 103, kg, 04/05/24 19:17:00 EDT, Weight Dosing [facility] Diagnosis Encounter for gynecological examination [...] [facility] Diagnosis Colitis- Primary Other and unspecified noninfectious gastroenteritis and colitis Other fatigue Hypothyroidism, unspecified type Type 2 diabetes mellitus without complication, without long-term current use of insulin (HCC) Lower abdominal pain Abdominal pain, other specified site documented [facility] Diagnosis Hypothyroidism, unspecified type- Primary documented in this encounter [facility]* Diagnosis Hypothyroidism, unspecified type- Primary Colitis Other and unspecified noninfectious gastroenteritis and colitis Other fatigue Lumbar herniated disc Type 2 diabetes mellitus without complication, without long-term current use of insulin (HCC) Anxiety Anxiety state, unspecified Need for vaccination Need for prophylactic vaccination and inoculation against unspecified single disease documented in this encounter [facility]* Diagnosis Abnormal uterine bleeding (AUB)- Primary documented in this encounter [facility]* Diagnosis Type 2 diabetes mellitus without complication, without long-term current use of insulin (HCC) documented in this encounter [facility] course Narrative No data available for this section [facility] No data available for this section [facility] Progress note No data available for this section [facility] Summary Purpose Family History No Family History Records Found Advance Directives No Advanced Directives Records FoundNo Advanced Directives Records FoundNo Advanced Directives Records FoundNo Advanced Directives Records FoundNo Advanced Directives Records FoundNo Advanced Directives Records FoundNo Advanced Directives Records FoundNo Advanced Directives Records FoundNo Advanced Directives Records Found Additional Source Comments INFORMATION SOURCE (unrecogn ized section and content) DATE CREATED AUTHOR 04/09/2024 [facility] DATE CREATED AUTHOR AUTHOR'S ORGANIZ ATION 10/31/2024 [facility] DATE CREATED AUTHOR AUTHOR'S ORGANIZ ATION 03/17/2025 [facility] DATE CREATED AUTHOR AUTHOR'S ORGANIZ ATION 03/25/2025 [facility] DATE CREATED AUTHOR AUTHOR'S ORGANIZ ATION 06/06/2025 [facility] Specialists EPIC Patient Care team informatio n (unrecognized section and content) Personnel Name: BUSHRA AMEZCUA CNP Address: [address] [place], [place] [address] Telecom: Title Insurance Examiner Relationship Specialty Start Date End Date Snehal [place] [address] PCP - General Family Medicine 03/16/25 Personnel Name: Kenia Galan MD Address: Address: [address] [place] [address]- Reason for Visit (unrecogniz ed section and content) Reason Comments Gynecologic Exam New patient- recentl y moved to [place] from [place].LMP: 02/2024, normal flow, lasted 5 [...] Specialty Diagnoses / Procedures Referred By Natan fleming Referred To Contact Dermatology Diagnoses Dandruff Procedures [place] OFFICE/OUTPATIENT NEW HIGH MDM 60 MINUTES Bushra Amezcua, TRANSIT VEHICLE INSPECTOR [address] [place] [address] Phone: tel: fax: Violetta Rice, MEDICATION RECONCILIATION TECHNICIAN-HIGH PRESSURE BOILER OPERATOR [address] [place] [address] Phone: tel: fax: Referral ID Status Reason Start Date Expiration Date V isits Requested Visits Authorized [id number] Closed Specialty Services Required 03/16/2025 09/12/2025 1 1 Reason Comments Med Refill Diabetes Unable to provider s pecimen for microalbumin Reason Comments ER Follow-up Reason Comments Immunizations Receive today Reason Comments Follow-up Pt presents after in house pelvic US for AUB. FOR RECORDS PERTAINING TO PATIENTS WHO ARE [...] BE BASED ON THE PRIMARY CLINICAL RECORDS. [employer] [facility]. provides no warranty or guarantee of the accuracy or completeness of information in this document.
[2025-06-14 09:13] VITALS: BP 139/78; PULSE 80; TEMP 36.7; O2SAT 98; BMI 35.4
--- NOTE | 2025-06-14 10:50 | CT_ITS ---
The [address] [address] Patient Name: HARSHAD ALICEA MRN: [id number] date: 1995 Sex: F Assigned Patient Location: ER Current Patient Location: ER Accession/Order Number: [id number] Exam Date: 06/14/2025 11:25 Report Date: 06/14/2025 12:10 At the request of: RONNIE ADHIKARI MD Procedure: CT lumbar spine wo con CT LUMBAR SPINE WITHOUT CONTRAST WITH 3-D RECONSTRUCTIONS COMPARISON: CT abdomen 04/22/2025 CLINICAL DATA: Back pain following twisting injury at work. Radiation down the legs. Spiral images were obtained through the lumbar spine without contrast. Sagittal, coronal and 3-D volume rendered reconstructions were reviewed. This CT exam was performed using one or more following dose reduction techniques: Automated exposure control, adjustment of the mA and/or kV according to patient size, or use of iterative reconstruction technique. Alignment is maintained on the sagittal reconstructions. There are no acute compression fractures. The disc spaces are maintained. No hypertrophy is seen. There is minor annular disc bulging at L3-4, slightly asymmetric in left parasagittal region. There is minimal thecal sac effacement and mild inferior foraminal encroachment bilaterally. There is minor annular disc bulging at L4-5 with slight thecal sac effacement and inferior foraminal encroachment. There is still annular disc bulging at the lumbosacral junction with a small broad-based central/right parasagittal protrusion showing no thecal sac effacement. There is minor inferior foraminal encroachment on the right. The SI joints are intact with minimal sclerosis. The remaining bony structures within the [id number] show no evidence of bony injury. No paraspinal soft tissue abnormalities are present. There is a small left adrenal nodule which was also present on the prior. There is no nephrolithiasis or hydronephrosis. CT/CT lumbar spine wo con IMPRESSION: MINOR DEGENERATIVE DISC DISEASE DISTALLY. NO ACUTE BONY INJURY. Impression dictated by: Evette Fishman M.D. 06/14/2025 12:10 PM Dictation Location: [place] [address] Electronically authenticated by: [id number] Y Date: 06/14/2025 12:10
[2025-06-14 10:56] LABS: HCG Qualitative Urine* NEGATIVE (NEGATIVE)
--- NOTE | 2025-06-14 10:58 | ED_ITS ---
HPI HPI - Back Pain/Injury General Chief Complaint: Back Pain/Injury Stated Complaint: BACK PAIN Time Seen by Provider: 06/14/25 10:09 Source: patient Mode of arrival: Wheelchair History of Present Illness HPI Narrative: The patient presented to us with a history of chronic back pain that was exacerbated over the last 24 hours after she was grabbing some box from the floor, it was not a heavy box but the patient started having the pain radiating to both legs and severe pain that she was tearful when she was describing the pain and the fact that she is not able to move because of it, the patient still able to move her lower extremity but with pain she have no incontinence of urine or stool and she does not have any numbness or tingling down her lower extremities the pain radiation is down to both hip area on both sides Patient was diagnosed with a L4-L5 disc disease few years ago Related Data Home Medications ?Medication ?Instructions ?Recorded ?Confirmed levothyroxine 50 mcg tablet 50 mcg PO DAILY 05/08/25 0 06/14/25 semaglutide 0.25 mg or 0.5 mg (2 0.25 mg subcut QWEEK 05/08/25 06/14/25 mg/3 mL) subcutaneous pen injector (Ozempic) Previous Rx's ?Medication ?Instructions ?Recorded acetaminophen 650 mg 650 mg PO Q8H PRN pain #20 t abs 06/14/25 tablet,extended release (Tylenol Arthritis Pain) diclofenac sodium 75 mg 75 mg PO BID PRN pain #20 ta bs 06/14/25 tablet,delayed release orphenadrine citrate 100 mg 100 mg PO BID PRN muscle s pasm #20 06/14/25 tablet,extended release tabs Allergies Allergy/AdvReac Type Severity Reaction Status Date / Time No Known Drug Allergies Allergy Verified 06/14/25 09:12 Opioid HPI Opioid Management Most Recent Opioid Data: Last Pain Scale 10 Today, 11:15 Last MAR Pain Assessment Today, 11:15 Review of Systems ROS Status of ROS 10 or more systems reviewed and unremark able except as noted in history and below PFSH PFSH Social History Little interest or pleasure in doing things: not at all Feeling down, depressed, or hopeless: not at all Exam Narrative Exam Narrative: Nurses notes and vital signs reviewed and patient is not hypoxic. General: Well-appearing and in no apparent distress. Skin: Warm, dry, no pallor noted. No rash. Head: Normocephalic, atraumatic. Neck: Supple, non-tender. Eye: Pupils are equal, round and EOMI. No scleral icterus. Ears, Nose, Mouth, and Throat: TM are clear, no nasal mucosal hypertrophy. Oral mucosa is moist, no posterior oropharynx erythema, uvula is mid-line Cardiovascular: Regular Rate and Rhythm without murmur, gallop or rub. Respiratory: No accessory muscle use or respiratory distress. Lungs are clear to auscultation, no wheezing, rales or rhonchi Chest Wall: no tenderness Back: No midline thoracic the patient have a mid and paraspinal muscle tenderness at the lower lumbar level as well as the sacrum Musculoskeletal: normal ROM, no calf or popliteal tenderness, no lower extremity edema/swelling GI: Abdomen is soft, non-distended. Normal bowel sounds. No masses appreciated. No tenderness to palpation. No rebound, guarding, or rigidity noted. Neurological: A&O x4. No cranial nerve dysfunction observed. No truncal ataxia. Moves all extremities. Sensation intact. Psychiatric: Cooperative and interactive. Normal mood and affect. Constitutional Vital Signs, click to edit/add: Last Vital Signs Temp 98.0 F 06/14/25 09:13 Pulse 80 06/14/25 09:13 Resp 18 06/14/25 09:13 BP 139/78 06/14/25 09:13 Pulse Ox 98 06/14/25 09:13 O2 Del Method Room Air 06/14/25 09:13 Course Vital Signs Vital signs: Vital Signs Temperature 98.0 F 06/14/25 09:13 Pulse Rate 80 06/14/25 09:13 Respiratory Rate 18 06/14/25 09:13 Blood Pressure 139/78 06/14/25 09:13 Pulse Oximetry 98 06/14/25 09:13 Oxygen Delivery Method Room Air 06/14/25 09:13 Temperature 98.0 F 06/14/25 09:13 Pulse Rate 80 06/14/25 09:13 Respiratory Rate 18 06/14/25 09:13 Blood Pressure 139/78 06/14/25 09:13 Pulse Oximetry 98 06/14/25 09:13 Oxygen Delivery Method Room Air 06/14/25 09:13 MDM - Back Pain/Injury MDM Narrative Medical decision making narrative: The patient was able to ambulate to go to the bathroom with severe pain and she was stressed because of the pain The patient CT lumbar here did not show any significant acute pathology but she have multiple disc disease The patient was feeling better after being treated with Toradol and Solu-Medrol as well as Norflex She was discharged home to continue treatment with Voltaren as well as Norflex and resting at home for the next 3 days Patient was educated about alarming symptoms that would bring her back to the ER The patient is to follow up with primary care physician in next 2-3 days or to return to the emergency department should any of the signs or symptoms worsen or new symptoms develop. The patient agrees with the following Diagnosis and Treatment plan and the patient will be discharged home. Lab Data Labs: Lab Results 06/14/25 Range/Units 10:30 Urine HCG, Qual Negative (NEGATIVE) Discharge Plan Discharge Chief Complaint: Back Pain/Injury Clinical Impression: DDD (degenerative disc disease), lumbar Patient Disposition: Home, Self-Care Time of Disposition Decision: 12:39 Prescriptions / Home Meds: New diclofenac sodium 75 mg tablet,delayed release (DR/EC) 75 mg PO BID PRN (Reason: pain) Qty: 20 0RF orphenadrine citrate 100 mg tablet extended release 100 mg PO BID PRN (Reason: muscle spasm) Qty: 20 0RF acetaminophen [Tylenol Arthritis Pain] 650 mg tablet extended release 650 mg PO Q8H PRN (Reason: pain) Qty: 20 0RF No Action levothyroxine 50 mcg tablet 50 mcg PO DAILY Ozempic 0.25 mg or 0.5 mg (2 mg/3 mL) pen injector 0.25 mg subcut QWEEK Rx Instructions: for 4 weeks Print Language: Upper Sorbian Instructions: Degenerative Disc Disease (ED) Referrals: Bushra Degroot NP [Primary Care Provider] - 1 week Discharge Date/Time: 06/14/25 13:22
[2025-06-14] MEDS: METHYLPREDNISOLONE SOD SUCC PF 40 MG/ML VIAL IM (11:13)
[2025-06-14] MEDS: ORPHENADRINE 60 MG/2 ML VIAL IM (11:14)
[2025-06-14] MEDS: KETOROLAC TROMETHAMINE 60 MG/2 ML VIAL IM (11:15)
== END 2025-06-14 13:22 | disposition home or self-care (01) ==
PROVIDERS: Emergency Provider Emergency Medicine; PCP Nurse Practitioner Family
DX: M51.369 Other intervertebral disc degeneration, lumbar region without mention of lumbar back pain or lower extremity pain (principal)
CPT/HCPCS: 72131; 76376; 84703; 96372; 99284; J1885; J2360; J2919